=== PATIENT | female | born 1960 | race Caucasian/White ===

== ENCOUNTER 2020-03-18 13:39 | Inpatient (IN) ==
--- NOTE | 2020-03-18 14:05 | Emergency Department Note ---
HPI General Chief complaint: Blood Sugar Problem Stated complaint: altered mental status, low blood sugar Time Seen by Provider: 03/18/20 13:52 Source: patient and EMS Mode of arrival: EMS Limitations: no limitations History of Present Illness HPI Narrative: Narrative: This patient was found unresponsive this morning and EMS found her to have a blood sugar of 45. They gave her an amp of D50 and she aroused and was back to baseline. She is a dialysis patient of Dr. Abrams and has not had dialysis in 3 weeks because she moved to a new house that does not have a wheelchair ramp he cannot get out of the house. She currently feels slightly short of breath and shaky. She does not have a fever. No chest pain abdominal pain no nausea or vomiting Related Data Home Medications Medication Instructions Recorded Confirmed diltiazem HCl 60 mg 60 mg PO BID cap 01/08/20 03/18/20 capsule,extended release 12 hr Previous Rx's Medication Instructions Recorded CPAP supplies, Mask, tubing, filter #1 ea 06/09/17 incontinence pad, liner, disp #200 each 10/20/17 [id number] 3.5 2 drp OTIC QDAY PRN #0.5 ml 04/12/19 mg/mL-10,000 unit/mL-1 % ear solution Diabetic shoes #1 each 06/01/19 Wheelchair #1 ea 06/07/19 aspirin 81 mg chewable tablet See Rx Instructions .ROUTE 07/24/19 .COMPLEX #30 tablet loratadine 10 mg tablet 10 mg PO QDAY PRN #30 tab 09/26/19 losartan 50 mg tablet 50 mg PO QHS #30 tab 10/17/19 glipizide 5 mg tablet, extended See Rx Instructions .ROUTE 10/24/19 release 24 hr .COMPLEX #90 tab tramadol 50 mg tablet See Rx Instructions .ROUTE 10/24/19 .COMPLEX #60 tablet furosemide 80 mg tablet 80 mg PO QAM #30 tab 01/08/20 cinacalcet 30 mg tablet 30 mg PO QDAY #30 tab 01/12/20 Allergies Allergy/AdvReac Type Severity Reaction Status Date / Time animal dander Allergy Intermediate Hives Verified 03/18/20 13:46 gluten Allergy Unknown Unknown Verified 03/18/20 13:46 milk Allergy Unknown Unknown Verified 03/18/20 13:46 Review of Systems ROS ROS Narrative: Narrative: All systems ED: reviewed and negative except as stated. 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 of refraction (Chronic) Age-related nuclear cataract, bilateral (Chronic) Migraine with aura, not intractable, without status migrainosus (Chronic) Ischemic optic neuropathy, right eye (Chronic) Acute foot pain (Acute) Proteinuria (Chronic) Edema (Chronic) Anemia (Chronic) Hyperparathyroidism due to renal insufficiency (Chronic) Hypertensive renal disease (Chronic) Chronic kidney disease, stage IV (severe) (Chronic) Blindness (Chronic) Diabetic neuropathy (Chronic) Diabetic nephropathy (Chronic) Peripheral Vascular Disease (Chronic) Morbid obesity with body mass index of 50.0-59.9 in adult (Chronic) Hypertension, essential (Chronic) Hyperlipidemia (Chronic) Dysmetabolic syndrome X (Chronic) DMII (diabetes mellitus, type 2) (Chronic) CVA (cerebrovascular accident) (Chronic) Medical History (Updated 03/18/20 @ 16:36 by Jose Armando Melissa MD) Acute foot pain (Acute) Age-related nuclear cataract, bilateral (Chronic) Anemia (Chronic) Hb has improved to 10.[address] oral iron no indication for MARYLOU yet Blindness (Chronic) Chronic kidney disease, stage IV (severe) (Chronic) most recent s.creat is 3.4 which equals to egfr of 15ml/min from 3.6 s.creat was 2.7 in 2012 AND I do not see BMP after that MA/creat ratio was 3200mg in 2013, now UPCR is 6.25gm she has h/o uncontrolled DM type 2, morbid obesity, HTN and chronic NSAID use as risk factor for renal disease renal function is stable for now no uremic symptoms Updated about declining renal function all work up has been negative so far will discuss the labs with the pt unclear if we will be able to improve the renal function if does not improve will educate about dialysis given her weight I would recommend incenter HD when and if needed Pt will have to loose weight to reach a BMP of 35 to get on transplant discussed this with her will follow CVA (cerebrovascular accident) (Chronic) Diabetic nephropathy (Chronic) Diabetic neuropathy (Chronic) DMII (diabetes mellitus, type 2) (Chronic) stop metformin given current renal function ct lantus work on weight loss Dysmetabolic syndrome X (Chronic) Edema (Chronic) stable follow low sodium diet will add furosemide in future if needed End-stage renal disease (ESRD) (Chronic) Hyperlipidemia (Chronic) Hyperparathyroidism due to renal insufficiency (Chronic) PTH has improved to 126 from 196, vitamin D still low ct cholecalciferol phos is at goal Hypertension, essential (Chronic) Hypertensive renal disease (Chronic) BP not at goal increase amlodipine to 10mg po daily stop by next week If BP is still uncontrolled will try low dose losartan as this will also help reduce proteinuria and hopefully help stabilize renal function Ischemic optic neuropathy, right eye (Chronic) Migraine with aura, not intractable, without status migrainosus (Chronic) Morbid obesity with body mass index of 50.0-59.9 in adult (Chronic) Other disorders of refraction (Chronic) Peripheral Vascular Disease (Chronic) Proteinuria (Chronic) nephrotic syndrome 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 S/P PICC central line placement (Resolved 05/23/13) Family History Mother Malignant neoplasm of breast Malignant Neoplasm of Thyroid Gland Malignant neoplasm of uterus Unknown Depression Diabetes mellitus Grandmother Essential hypertension Myocardial Infarction Social History Smoking Status: Never smoker Alcohol Intake Frequency: does not drink Substance Use: does not use Exam Narrative Narrative: Narrative: General Limitations: no limitations Head Head: atraumatic, normocephalic and normal inspection Eye Eye: Present normal appearance; Absent conjunctival injection ENT ENT: Present mucous membranes dry Chest Chest: Present normal inspection and symmetric chest wall rise Respiratory Respiratory: Present normal lung sounds bilaterally; Absent respiratory distress, rales/crackles and wheezes Cardiovascular Cardiovascular: Present regular rate, normal rhythm and normal heart sounds Adbominal Abdominal: Present soft and tenderness; Absent distention, guarding, rebound and rigidity Expanded Abdominal Abdominal Tenderness: Present diffuse and mild Extremities Extremities: Present pedal edema, pretibial edema and other (Some erythema of her lower extremities above the ankle but the family member says this is much improved currently.) Neurological Neurological: Present alert Psychiatric Psychiatric: Present normal affect Skin Skin: Present erythema Course Vital Signs Vital signs: Vital Signs Temperature 97.7 F 03/18/20 13:40 Respiratory Rate 20 03/18/20 13:40 Pulse Oximetry (%) 97 03/18/20 13:40 Temperature 97.7 F 03/18/20 13:40 Pulse Rate 88 03/18/20 16:16 Respiratory Rate 23 H 03/18/20 16:16 Blood Pressure 210/88 03/18/20 16:16 Pulse Oximetry (%) 98 03/18/20 16:16 [facility] MDM Narrative Medical decision making narrative: Narrative: This patient's blood sugar remained somewhat low and required supplementation with D5W. She did remain awake. Creatinine was 14.7 but her potassium was not excessively high. I discussed the case with Dr. Retana and Dr. Christie the patient will be admitted to the hospital. They will plan dialysis tomorrow. Medical Records Medical records reviewed: Yes I reviewed the patient's medical records. Lab Data Result diagrams: 03/18/20 13:48 03/18/20 13:48 Labs: Lab Results 03/18/20 03/18/20 03/18/20 Range/Units 13:47 13:47 13:47 WBC 7.8 (4.50-11.00) K/mcL RBC 3.44 L (3.59-5.38) M/mcL Hgb 9.8 L (11.2-15.7) g/dL Hct 32.1 L (34.1-44.9) % POC Hct (36.0-48.0) % MCV 93.3 (80.0-100.0) fL MCH 28.5 (26.0-34.0) pg MCHC 30.5 L (31.0-36.0) g/dL RDW 15.2 H (11.5-14.5) % Plt Count 250 (140-440) K/mcL MPV 10.1 (7.4-10.4) fL Gran % 82.7 H (38.0-78.0) % Lymph % (Auto) 8.7 L (15.5-49.0) % Cecil % (Auto) 6.9 (1.0-12.0) % Eos % (Auto) 1.4 (0.0-7.0) % Baso % (Auto) 0.3 (0.0-2.0) % Gran # 6.45 (1.80-8.00) K/mcL Lymph # (Auto) 0.68 L (1.50-4.80) K/mcL Cecil # (Auto) 0.54 (0.10-0.90) K/mcL Eos # (Auto) 0.11 (0.00-0.70) K/mcL Baso # (Auto) 0.02 (0.00-0.30) K/mcL Total Counted Seg Neutrophils % (38-78) % Band Neutrophils % Lymphocytes % (15-49) % Monocytes % (Manual) (1-12) % Eosinophils % (Manual) (0-7) % Basophils % (Manual) (0-2) % Platelet Estimate (NORMAL) RBC Morphology (NORMAL) VBG Lactic Acid 1.4 (0.5-2.0) mmol/L POC Sodium (133-145) mmol/L Sodium 134 (133-145) mmol/L POC Potassium (3.3-5.1) mmol/L Potassium 5.5 H (3.3-5.1) mmol/L POC Chloride (96-108) mmol/L Chloride 97 (96-108) mmol/L Carbon Dioxide 12 L (22-30) mmol/L POC Total CO2 (22-30) mmol/L Anion Gap 25.0 H (8-16) POC BUN (6-20) mg/dl BUN 121 H* (6-20) mg/dl Creatinine 14.7 H* (0.6-1.1) mg/dl POC Creatinine (0.6-1.1) mg/dl GFR Calculation 2 Glucose 252 H (70-105) mg/dL POC Glucose (70-105) mg/dL Calcium 8.1 L (8.6-10.4) mg/dl POC WB Ioniz Calcium (1.16-1.32) mmol/L Total Bilirubin 0.3 (0.0-1.0) mg/dL AST 6 (0-37) U/l ALT 7 (0-40) U/l Alkaline Phosphatase 180 H (39-117) U/L Troponin T (0-0.03) ng/ml NT-Pro-B Natriuret Pep 4535.0 H (0-125) pg/ml Total Protein 6.5 (5.9-8.4) gm/dL Albumin 3.3 (3.2-5.2) gm/dL Globulin 3.2 (2.2-3.7) gm/dL Albumin/Globulin Ratio 1.0 (1.0-2.3) 03/18/20 03/18/20 03/18/20 Range/Units 13:47 13:48 13:48 WBC 7.7 (4.50-11.00) K/mcL RBC 3.40 L (3.59-5.38) M/mcL Hgb 9.8 L (11.2-15.7) g/dL Hct 31.8 L (34.1-44.9) % POC Hct 31.0 L (36.0-48.0) % MCV 93.5 (80.0-100.0) fL MCH 28.8 (26.0-34.0) pg MCHC 30.8 L (31.0-36.0) g/dL RDW 15.0 H (11.5-14.5) % Plt Count 240 (140-440) K/mcL MPV 10.2 (7.4-10.4) fL Gran % (38.0-78.0) % Lymph % (Auto) (15.5-49.0) % Cecil % (Auto) (1.0-12.0) % Eos % (Auto) (0.0-7.0) % Baso % (Auto) (0.0-2.0) % Gran # (1.80-8.00) K/mcL Lymph # (Auto) (1.50-4.80) K/mcL Cecil # (Auto) (0.10-0.90) K/mcL Eos # (Auto) (0.00-0.70) K/mcL Baso # (Auto) (0.00-0.30) K/mcL Total Counted 100 Seg Neutrophils % 82 H (38-78) % Band Neutrophils % Not Reportable Lymphocytes % 7 L (15-49) % Monocytes % (Manual) 6 (1-12) % Eosinophils % (Manual) 2 (0-7) % Basophils % (Manual) 3 H (0-2) % Platelet Estimate Normal (NORMAL) RBC Morphology Normal (NORMAL) VBG Lactic Acid (0.5-2.0) mmol/L POC Sodium 133 (133-145) mmol/L Sodium TNP (133-145) mmol/L POC Potassium 5.4 H (3.3-5.1) mmol/L Potassium TNP (3.3-5.1) mmol/L POC Chloride 103 (96-108) mmol/L Chloride TNP (96-108) mmol/L Carbon Dioxide TNP (22-30) mmol/L POC Total CO2 15 L (22-30) mmol/L Anion Gap TNP (8-16) POC BUN 135 H* (6-20) mg/dl BUN TNP (6-20) mg/dl Creatinine TNP (0.6-1.1) mg/dl POC Creatinine 17.8 H* (0.6-1.1) mg/dl GFR Calculation Not Reportable Glucose TNP (70-105) mg/dL POC Glucose 235 H (70-105) mg/dL Calcium TNP (8.6-10.4) mg/dl POC WB Ioniz Calcium 1.00 L (1.16-1.32) mmol/L Total Bilirubin TNP (0.0-1.0) mg/dL AST TNP (0-37) U/l ALT TNP (0-40) U/l Alkaline Phosphatase TNP (39-117) U/L Troponin T 0.06 H* (0-0.03) ng/ml NT-Pro-B Natriuret Pep (0-125) pg/ml Total Protein TNP (5.9-8.4) gm/dL Albumin TNP (3.2-5.2) gm/dL Globulin TNP (2.2-3.7) gm/dL Albumin/Globulin Ratio TNP (1.0-2.3) 03/18/20 Range/Units 13:48 WBC (4.50-11.00) K/mcL RBC (3.59-5.38) M/mcL Hgb (11.2-15.7) g/dL Hct (34.1-44.9) % POC Hct (36.0-48.0) % MCV (80.0-100.0) fL MCH (26.0-34.0) pg MCHC (31.0-36.0) g/dL RDW (11.5-14.5) % Plt Count (140-440) K/mcL MPV (7.4-10.4) fL Gran % (38.0-78.0) % Lymph % (Auto) (15.5-49.0) % Cecil % (Auto) (1.0-12.0) % Eos % (Auto) (0.0-7.0) % Baso % (Auto) (0.0-2.0) % Gran # (1.80-8.00) K/mcL Lymph # (Auto) (1.50-4.80) K/mcL Cecil # (Auto) (0.10-0.90) K/mcL Eos # (Auto) (0.00-0.70) K/mcL Baso # (Auto) (0.00-0.30) K/mcL Total Counted Seg Neutrophils % (38-78) % Band Neutrophils % Lymphocytes % (15-49) % Monocytes % (Manual) (1-12) % Eosinophils % (Manual) (0-7) % Basophils % (Manual) (0-2) % Platelet Estimate (NORMAL) RBC Morphology (NORMAL) VBG Lactic Acid 1.4 (0.5-2.0) mmol/L POC Sodium (133-145) mmol/L Sodium (133-145) mmol/L POC Potassium (3.3-5.1) mmol/L Potassium (3.3-5.1) mmol/L POC Chloride (96-108) mmol/L Chloride (96-108) mmol/L Carbon Dioxide (22-30) mmol/L POC Total CO2 (22-30) mmol/L Anion Gap (8-16) POC BUN (6-20) mg/dl BUN (6-20) mg/dl Creatinine (0.6-1.1) mg/dl POC Creatinine (0.6-1.1) mg/dl GFR Calculation Glucose (70-105) mg/dL POC Glucose (70-105) mg/dL Calcium (8.6-10.4) mg/dl POC WB Ioniz Calcium (1.16-1.32) mmol/L Total Bilirubin (0.0-1.0) mg/dL AST (0-37) U/l ALT (0-40) U/l Alkaline Phosphatase (39-117) U/L Troponin T (0-0.03) ng/ml NT-Pro-B Natriuret Pep (0-125) pg/ml Total Protein (5.9-8.4) gm/dL Albumin (3.2-5.2) gm/dL Globulin (2.2-3.7) gm/dL Albumin/Globulin Ratio (1.0-2.3) Radiology Data Radiology results reviewed: Yes I reviewed the patient's radiology results. 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, Hypoglycemia Patient Disposition: Xfer As Inpt ([facility]) Follow up with: Niels Anderson PA-C [Primary Care Provider] - Prescriptions: No Action (DME) Wheelchair Qty: 1 RF: 0 aspirin 81 mg tablet,chewable See Rx Instructions .ROUTE .COMPLEX Qty: 30 RF: 11 loratadine 10 mg tablet 10 mg PO QDAY PRN (Reason: allergy symptoms) Qty: 30 RF: 11 losartan 50 mg tablet 50 mg PO QHS Qty: 30 RF: 11 glipizide 5 mg tablet extended release 24hr See Rx Instructions .ROUTE .COMPLEX Qty: 90 RF: 3 tramadol 50 mg tablet See Rx Instructions .ROUTE .COMPLEX Qty: 60 RF: 5 cinacalcet 30 mg tablet 30 mg PO QDAY Qty: 30 RF: 12 (DME) CPAP supplies, Mask, tubing, filter Qty: 1 RF: 0 (DME) incontinence pad, liner, disp pad See Dose Instructions .ROUTE .MEDSUPPLY Qty: 200 RF: 0 smtjknua-dowsrjybo-GF 3.5-10,000-1 mg/mL-unit/mL-% solution 2 drp OTIC QDAY PRN (Reason: Pain) Qty: 0.5 RF: 0 (DME) Diabetic shoes Qty: 1 RF: 0 diltiazem HCl 60 mg capsule,extended release 12 hr 60 mg PO BID RF: 0 furosemide 80 mg tablet 80 mg PO QAM Qty: 30 RF: 11
[2020-03-18 14:06] LABS: POC Blood Urea Nitrogen 135 mg/dl (6-20); POC CO2 15 mmol/L (22-30); POC Chloride 103 mmol/L (96-108); POC Creatinine 17.8 mg/dl (0.6-1.1); POC Glucose, Random 235 mg/dL (70-105); POC Potassium 5.4 mmol/L (3.3-5.1); POC Sodium 133 mmol/L (133-145)
[2020-03-18 14:35] LABS: Hematocrit 31.8 % (34.1-44.9); Hemoglobin 9.8 g/dL (11.2-15.7); Mean Cell Volume 93.5 fL (80.0-100.0); Mean Corpuscular HGB Conc 30.8 g/dL (31.0-36.0); Mean Platelet Volume 10.2 fL (7.4-10.4); Platelet Count 240 K/mcL (140-440); WBC 7.7 K/mcL (4.50-11.00)
[2020-03-18 14:38] LABS: Basophils # (Auto) 0.02 K/mcL (0.00-0.30); Basophils % (Auto) 0.3 % (0.0-2.0); Eosinophils # (Auto) 0.11 K/mcL (0.00-0.70); Eosinophils % (Auto) 1.4 % (0.0-7.0); Granulocytes % (Auto) 82.7 % (38.0-78.0); Hematocrit 32.1 % (34.1-44.9); Hemoglobin 9.8 g/dL (11.2-15.7); Lymphocytes # (Auto) 0.68 K/mcL (1.50-4.80); Lymphocytes % (Auto) 8.7 % (15.5-49.0); Mean Cell Volume 93.3 fL (80.0-100.0); Mean Corpuscular HGB Conc 30.5 g/dL (31.0-36.0); Mean Platelet Volume 10.1 fL (7.4-10.4); Monocytes # (Auto) 0.54 K/mcL (0.10-0.90); Monocytes % (Auto) 6.9 % (1.0-12.0); Platelet Count 250 K/mcL (140-440); RBC 3.44 M/mcL (3.59-5.38); Red Cell Distribution Width 15.2 % (11.5-14.5); WBC 7.8 K/mcL (4.50-11.00)
[2020-03-18] MEDS ORDERED: DEXTROSE 5% IN WATER 100 ML IV SCH (14:45)
--- NOTE | 2020-03-18 14:53 | XRay Report ---
HISTORY: Found unresponsive FINDINGS: Behind the left heart border there is a vertically oriented linear opacity which could be scar or discoid atelectasis. A small transversely oriented band of scar or discoid atelectasis is present in the periphery of the left upper lobe. These are new finding since 05/22/13. The lungs are otherwise clear without evidence of pneumonia, mass or fluid overload. The heart size is normal. The mediastinum and edward are normal. IMPRESSION: small bands of scar or discoid atelectasis in the left lower lobe and left upper lobe Interpreted and Authenticated by: Edwin Blanco 03/18/20
[2020-03-18] MEDS ORDERED: DEXTROSE 5% IN WATER 1,000 ML IV ONE (15:15)
[2020-03-18 15:18] LABS: ALT/SGPT 7 U/l (0-40); AST/SGOT 6 U/l (0-37); Albumin 3.3 gm/dL (3.2-5.2); Alkaline Phosphatase 180 U/L (39-117); Bilirubin,Total 0.3 mg/dL (0.0-1.0); Blood Urea Nitrogen 121 mg/dl (6-20); Calcium 8.1 mg/dl (8.6-10.4); Carbon Dioxide 12 mmol/L (22-30); Chloride 97 mmol/L (96-108); Globulin 3.2 gm/dL (2.2-3.7); Glomerular Filtration Rate 2; Glucose 252 mg/dL (70-105)
[2020-03-18] MEDS ORDERED: traMADol 50 MG TABLET PO ONE (15:28)
[2020-03-18 15:35] LABS: Basophils % (Manual) 3 % (0-2); Eosinophils % (Manual) 2 % (0-7); Lymphocytes % 7 % (15-49); Monocytes % (Manual) 6 % (1-12); Platelet Estimate NORMAL (NORMAL); RBC Morphology NORMAL (NORMAL); Segmented Neutrophils % 82 % (38-78)
--- NOTE | 2020-03-18 16:46 | Internal Med History&Physical ---
HPI History of Present Illness Patient information: Note initiated : 03/18/20 at 4:41 pm Service Date, if different from initiated Date: [] Patient: Elo Robledo a 60 y/o F admitted on for Altered Mental Status, Low Blood Sugar. Chief Complaint: [] History of present illness: Ms. Robledo is a 60 year old F Presents to the ED with altered mental status and hypoglycemic event. Patient was found by her daughter who is also her caregiver this morning to be obtunded. Daughter states that the patient's also noted that she just remained in bed this morning and typically gets up too early. EMS arrived and found her blood glucose to be 45. She got an amp of D50 with good response. In the ED she was kept on D5 drip given low blood glucose. She has not had dialysis in 3 weeks because she moved into a new home and there is no ramp and they have been unable to get her to dialysis. This was discussed with Dr. Pires her car head liner installer who will be setting up dialysis. She has not taken her medications today. Review of Systems: Pertinent positives as above. Plus chills and headache. denies fever//nausea/vomiting/chest or abdominal pain/cough/dyspnea/diarrhea. Remaining 10 point review of system reviewed negative [facility] Medical History (Updated 03/18/20 @ 16:36 by Jose Armando Melissa MD) Acute foot pain (Acute) Age-related nuclear cataract, bilateral (Chronic) Anemia (Chronic) Hb has improved to 10.[address] oral iron no indication for MARYLOU yet Blindness (Chronic) Chronic kidney disease, stage IV (severe) (Chronic) most recent s.creat is 3.4 which equals to egfr of 15ml/min from 3.6 s.creat was 2.7 in 2012 AND I do not see BMP after that MA/creat ratio was 3200mg in 2013, now UPCR is 6.25gm she has h/o uncontrolled DM type 2, morbid obesity, HTN and chronic NSAID use as risk factor for renal disease renal function is stable for now no uremic symptoms Updated about declining renal function all work up has been negative so far will discuss the labs with the pt unclear if we will be able to improve the renal function if does not improve will educate about dialysis given her weight I would recommend incenter HD when and if needed Pt will have to loose weight to reach a BMP of 35 to get on transplant discussed this with her will follow CVA (cerebrovascular accident) (Chronic) Diabetic nephropathy (Chronic) Diabetic neuropathy (Chronic) DMII (diabetes mellitus, type 2) (Chronic) stop metformin given current renal function ct lantus work on weight loss Dysmetabolic syndrome X (Chronic) Edema (Chronic) stable follow low sodium diet will add furosemide in future if needed End-stage renal disease (ESRD) (Chronic) Hyperlipidemia (Chronic) Hyperparathyroidism due to renal insufficiency (Chronic) PTH has improved to 126 from 196, vitamin D still low ct cholecalciferol phos is at goal Hypertension, essential (Chronic) Hypertensive renal disease (Chronic) BP not at goal increase amlodipine to 10mg po daily stop by next week If BP is still uncontrolled will try low dose losartan as this will also help reduce proteinuria and hopefully help stabilize renal function Ischemic optic neuropathy, right eye (Chronic) Migraine with aura, not intractable, without status migrainosus (Chronic) Morbid obesity with body mass index of 50.0-59.9 in adult (Chronic) Other disorders of refraction (Chronic) Peripheral Vascular Disease (Chronic) Proteinuria (Chronic) nephrotic syndrome 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 S/P PICC central line placement (Resolved 05/23/13) Family History Mother Malignant neoplasm of breast Malignant Neoplasm of Thyroid Gland Malignant neoplasm of uterus Unknown Depression Diabetes mellitus Grandmother Essential hypertension Myocardial Infarction Social History (Updated 03/18/20 @ 16:43 by Ronal Christie DO) household members: spouse housing: house lives independently: Yes marital status: smoking status: Never smoker alcohol intake frequency: does not drink substance use type: does not use additional history: Patient is been wheelchair-bound for several years. And she does need help with transferring. Denies tobacco or alcohol. MEDS/ALLERGIES Home Medications and Allergies Home Medications Medication Instructions Recorded Confirmed Type CPAP supplies, Mask, tubing, filter #1 ea 06/09/17 03/18/20 Rx incontinence pad, liner, disp #200 each 10/20/17 03/18/20 Rx [id number] 3.5 2 drp OTIC QDAY PRN #0.5 ml 04/12/19 03/18/20 Rx mg/mL-10,000 unit/mL-1 % ear solution Diabetic shoes #1 each 06/01/19 03/18/20 Rx Wheelchair #1 ea 06/07/19 03/18/20 Rx aspirin 81 mg chewable tablet See Rx Instructions .ROUTE 07/24/19 03/18/20 Rx .COMPLEX #30 tablet loratadine 10 mg tablet 10 mg PO QDAY PRN #30 tab 09/26/19 03/18/20 Rx losartan 50 mg tablet 50 mg PO QHS #30 tab 10/17/19 03/18/20 Rx glipizide 5 mg tablet, extended See Rx Instructions .ROUTE 10/24/19 03/18/20 Rx release 24 hr .COMPLEX #90 tab tramadol 50 mg tablet See Rx Instructions .ROUTE 10/24/19 03/18/20 Rx .COMPLEX #60 tablet diltiazem HCl 60 mg 60 mg PO BID cap 01/08/20 03/18/20 History capsule,extended release 12 hr furosemide 80 mg tablet 80 mg PO QAM #30 tab 01/08/20 03/18/20 Rx cinacalcet 30 mg tablet 30 mg PO QDAY #30 tab 01/12/20 03/18/20 Rx Allergies Allergy/AdvReac Type Severity Reaction Status Date / Time animal dander Allergy Intermediate Hives Verified 03/18/20 13:46 gluten Allergy Unknown Unknown Verified 03/18/20 13:46 milk Allergy Unknown Unknown Verified 03/18/20 13:46 EXAM Constitutional Vitals: Temp Pulse Resp BP Pulse Ox 97.7 F 88 23 H 210/88 98 03/18/20 13:40 03/18/20 16:16 03/18/20 16:16 03/18/20 16:16 03/18/20 16:16 Exam: General: Alert, Awake, No acute Distress, obese Eyes/N/T: EOMI, PERRL, Head/Neck: neck supple, normocephalic atraumatic CV: RRR, No murmurs, normal s1/s2 Pulm: Clear b/l, no wheezing/rhonchi/rales Abd: soft, nontender, +BS x4 Ext: no clubbing/cyanosis/chronic lymphedema b/l LE Neuro: Alert, no focal deficits, moves all extremities, CN 2-12 grossly intact, symmetrical strength b/l upper/lower, sensations decreased b/l LE chronic Skin: warm/dry DATA Data Completed and Pending Labs on day of discharge: Labs from last 24 hours 03/18/20 03/18/20 03/18/20 13:48 13:48 13:48 WBC 7.7 RBC 3.40 L Hgb 9.8 L Hct 31.8 L POC Hct 31.0 L MCV 93.5 MCH 28.8 MCHC 30.8 L RDW 15.0 H Plt Count 240 MPV 10.2 Gran % Lymph % (Auto) [place] % (Auto) Eos % (Auto) Baso % (Auto) Gran # Lymph # (Auto) [place] # (Auto) Eos # (Auto) Baso # (Auto) Total Counted 100 Seg Neutrophils % 82 H Band Neutrophils % Not Reportable Lymphocytes % 7 L Monocytes % (Manual) 6 Eosinophils % (Manual) 2 Basophils % (Manual) 3 H Platelet Estimate Normal RBC Morphology Normal VBG Lactic Acid 1.4 POC Sodium 133 Sodium TNP POC Potassium 5.4 H Potassium TNP POC Chloride 103 Chloride TNP Carbon Dioxide TNP POC Total CO2 15 L Anion Gap TNP POC BUN 135 H* BUN TNP Creatinine TNP POC Creatinine 17.8 H* GFR Calculation Not Reportable Glucose TNP POC Glucose 235 H Calcium TNP POC WB Ioniz Calcium 1.00 L Total Bilirubin TNP AST TNP ALT TNP Alkaline Phosphatase TNP Troponin T NT-Pro-B Natriuret Pep Total Protein TNP Albumin TNP Globulin TNP Albumin/Globulin Ratio TNP 03/18/20 03/18/20 03/18/20 13:47 13:47 13:47 WBC RBC Hgb Hct POC Hct MCV MCH MCHC RDW Plt Count MPV Gran % Lymph % (Auto) [place] % (Auto) Eos % (Auto) Baso % (Auto) Gran # Lymph # (Auto) [place] # (Auto) Eos # (Auto) Baso # (Auto) Total Counted Seg Neutrophils % Band Neutrophils % Lymphocytes % Monocytes % (Manual) Eosinophils % (Manual) Basophils % (Manual) Platelet Estimate RBC Morphology VBG Lactic Acid 1.4 POC Sodium Sodium 134 POC Potassium Potassium 5.5 H POC Chloride Chloride 97 Carbon Dioxide 12 L POC Total CO2 Anion Gap 25.0 H POC BUN BUN 121 H* Creatinine 14.7 H* POC Creatinine GFR Calculation 2 Glucose 252 H POC Glucose Calcium 8.1 L POC WB Ioniz Calcium Total Bilirubin 0.3 AST 6 ALT 7 Alkaline Phosphatase 180 H Troponin T 0.06 H* NT-Pro-B Natriuret Pep 4535.0 H Total Protein 6.5 Albumin 3.3 Globulin 3.2 Albumin/Globulin Ratio 1.0 03/18/20 13:47 WBC 7.8 RBC 3.44 L Hgb 9.8 L Hct 32.1 L POC Hct MCV 93.3 MCH 28.5 MCHC 30.5 L RDW 15.2 H Plt Count 250 MPV 10.1 Gran % 82.7 H Lymph % (Auto) 8.7 L [place] % (Auto) 6.9 Eos % (Auto) 1.4 Baso % (Auto) 0.3 Gran # 6.45 Lymph # (Auto) 0.68 L [place] # (Auto) 0.54 Eos # (Auto) 0.11 Baso # (Auto) 0.02 Total Counted Seg Neutrophils % Band Neutrophils % Lymphocytes % Monocytes % (Manual) Eosinophils % (Manual) Basophils % (Manual) Platelet Estimate RBC Morphology VBG Lactic Acid POC Sodium Sodium POC Potassium Potassium POC Chloride Chloride Carbon Dioxide POC Total CO2 Anion Gap POC BUN BUN Creatinine POC Creatinine GFR Calculation Glucose POC Glucose Calcium POC WB Ioniz Calcium Total Bilirubin AST ALT Alkaline Phosphatase Troponin T NT-Pro-B Natriuret Pep Total Protein Albumin Globulin Albumin/Globulin Ratio A/P Narrative A/P Narrative: A: *Hypoglycemia with obtundation: responsive to inital d50 bolus, currently on d5 gtt *DM II: on glipizide, no change recently and pt does not report h/o hypoglycemia *ESRD: has not had HD for 3wks since moving to [facility] w/o wheelchair ramp to get out of house *Anemia, chronic: *HTN: *Obesity: *CAT: on cpap P: -d5 gtt for now -Glipizide held for now -Nephrology for HD -cont home ASA/Dilt/Losartan - -ppx: heparin full code Time Spent With Patient Time: Total time spent is greater than 50% in coordination of care (as documented) at patient's floor/unit and/or counseling patient:
--- NOTE | 2020-03-18 17:04 | Nephrology Progress Note ---
SUBJECTIVE Subjective Patient information: Note initiated : 03/18/20 at 5:04 pm Service Date, if different from initiated Date: [] Patient: Elo Robledo 60 y/o F admitted on for Altered Mental Status, Low Blood Sugar. Chief Complaint: [As above] This patient has been battling depression for quite some time, with the rules and regulations placed on her during the id-19 "pandemic", her depression has only worsened and she finds it impossible to wear a mask without anxiety feeling like she self. Add on top of that the support system that she has has moved away back to their home in [place] leaving her with a grandson, who occasionally helps with transportation issues. Continues to live in a rundown hotel where she contracted bedbugs and because of her depression other neuropsychiatric issues she refused to come to dialysis except once a week on Tuesdays saying more frequent dialysis treatments made her feel "wiped out" for the rest of the month. She did this with the full knowledge that the events that have transpired would occur, yet she could not bring herself to make her self DNR and stop dialysis completely. She moved to her new [facility] house there is some brightening of her mood and she was actually thinking about dialyzing twice a week. Information gleaned from the ER knowledge she apparently has no way of easily getting in and out of her new home at even less dialysis than normal and became obtunded with hypoglycemia. Laboratory Tests 12/19/19 12/19/19 03/18/20 10:00 10:00 13:47 WBC 6.26 Hgb 8.1 L* Hct 25.4 L MCV 95 Plt Count 210 Seg Neutrophils % VBG Lactic Acid POC Sodium Sodium 138 POC Potassium Potassium 4.6 POC Chloride Chloride 99 Carbon Dioxide 23 POC Total CO2 Anion Gap 16 POC BUN BUN 86 H Creatinine 10.52 H Glucose 32 L* POC Glucose Calcium 8.3 L POC WB Ioniz Calcium Total Bilirubin 0.4 AST 9 L ALT 9 Alkaline Phosphatase 174 H Troponin T NT-Pro-B Natriuret Pep 4535.0 H Total Protein 6.5 Albumin 3.8 Globulin 2.7 03/18/20 03/18/20 03/18/20 13:47 13:48 13:48 WBC 7.7 Hgb 9.8 L Hct 31.8 L MCV 93.5 Plt Count 240 Seg Neutrophils % 82 H VBG Lactic Acid 1.4 POC Sodium 133 Sodium POC Potassium 5.4 H Potassium POC Chloride 103 Chloride Carbon Dioxide POC Total CO2 15 L Anion Gap POC BUN 135 H* BUN Creatinine Glucose POC Glucose 235 H Calcium POC WB Ioniz Calcium 1.00 L Total Bilirubin AST ALT Alkaline Phosphatase Troponin T 0.06 H* NT-Pro-B Natriuret Pep Total Protein Albumin Globulin In my opinion there are but 2 choices for this patient. She should accept her fate and be placed in a skilled nursing with 3 times a week dialysis or stop dialysis entirely with hospice and end of life care. This is a combination of a bad social, psychological, and medical problem for which there is no good solution. Even if the wheelchair ramp is made at her home, she cannot survive on once a week or even twice a week dialysis she needs a full 12 hours a week minimum specially given her BMI to remain nonuremic. Addition there is a matter of reliable transportation for this patient without a support system. Constitutional Vitals: Vital Signs Temp Pulse Resp BP Pulse Ox 36.5 C 88 15 201/82 97 03/18/20 13:40 03/18/20 16:46 03/18/20 16:46 03/18/20 16:46 03/18/20 16:46 Period Temp Pulse Resp BP Sys/Clark Pulse Ox Last 24 Hr 36.5 C 88-94 9-23 167-210/77-102 92-100 Intake and Output 03/18/20 03/18/20 03/18/20 05:59 13:59 21:59 Intake Total 398 Balance 398 Weight 160.572 kg Patient Weight 03/19/20 05:59 Weight 160.572 kg Intake & Output: Intake & Output 03/18/20 03/18/20 03/18/20 05:59 13:59 21:59 Intake Total 398 Balance 398 Weight 160.572 kg Intake: IV 398 Dextrose 5% in Water 1,000 ml @ 398 100 mls/hr IV .Q10H ONE Rx#: [id number] General appearance: disheveled, moderate distress and morbidly obese Exam: myoclonic twitching Head Head exam: Present atraumatic and normocephalic Eye Eye exam: Present EOMI and PERRL Pupils: Present PERRL ENT ENT exam: Present mucous membranes moist Neck Neck exam: Present full ROM; Absent meningismus Respiratory Respiratory exam: Absent normal respiratory exam Cardiovascular Cardiovascular exam: Present normal rate and rhythm, +S1 and +S2; Absent gallop and rubs GI/Abdominal GI/Abdominal exam: Present normal bowel sounds; Absent tenderness Extremities Exam Extremities exam: Absent calf tenderness Additional comments: edema and lymphedema Neurological Exam Neurological exam: Present abnormal gait (cannot ambulate), alert and CN II-XII intact Additional comments: myoclonic shaking Psychiatric Psychiatric exam: Present anxious Skin Skin exam: Present abrasion and pallor A/P Assessment and plan (1) Hypoglycemia: Status: Acute Comment: Prolonged T1/2 of Rx Poor po intak (2) Morbid obesity with body mass index of 50.0-59.9 in adult: Status: Acute Comment: No insurance to pay for bariatric surgery (3) 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 She has had high risk for dialysis disequilibrium syndrome, therefore we will do 3 days running of dialysis to 3 and 4-hour duration to slowly lower her BUN without disequilibrium. 2. We will need revamping of diabetes medication and treatment using the simplest and least expensive regimen possible. 3. Seems agreeable to 3 times a week dialysis but has no way of getting there so placement will be an issue. 4. Continue weekly Aranesp injections 5. Continue phosphate binders with, calcitriol, and Parsabiv or Sensipar. 6. Isolation for bedbugs. 7. Dialysis orders for tomorrow have been written. Time Spent With Patient Time: Total time spent is greater than 50% in coordination of care (as froilan fleming) at patient's floor/unit and/or counseling patient:
[2020-03-18] MEDS ORDERED: DEXTROSE 31 GM ORAL.SUSP PO PRN (17:51)
[2020-03-18] MEDS ORDERED: ONDANSETRON 4 MG/2 ML VIAL IV PRN (17:51)
[2020-03-18] MEDS ORDERED: ACETAMINOPHEN 325 MG TABLET PO PRN (17:51)
[2020-03-18] MEDS ORDERED: hydrALAZINE 20 MG/ML VIAL IV PRN (17:51)
[2020-03-18] MEDS ORDERED: SENNOSIDES 1 TABLET PO PRN (17:51)
[2020-03-18] MEDS: DEXTROSE 5% IN WATER 1,000 ML IV SCH ×2 (17:56→18:47)
[2020-03-18] MEDS: INSULIN LISPRO 1 UNIT/0.01 ML UNIT SQ SCH ×2 (18:13→20:53)
[2020-03-18] MEDS ORDERED: IPRATROPIUM/ALBUTEROL 3 ML AMPUL.NEB NEB SCH (19:00)
[2020-03-18] MEDS: traMADol 50 MG TABLET PO PRN (20:52)
[2020-03-18] MEDS: DILTIAZEM 30 MG TABLET PO SCH (20:53)
[2020-03-18] MEDS: DOCUSATE SODIUM 100 MG CAPSULE PO SCH (20:53)
[2020-03-18] MEDS: HEPARIN 5,000 UNIT/ML VIAL SQ SCH (20:53)
[2020-03-18 20:57] LABS: Appearance,Urine CLOUDY; Bacteria,Urine MANY /hpf (0); Bilirubin,Urine NEG (NEG); Color,Urine YELLOW; Culture Indicated,Urine NO; Glucose,Urine (UA) NEGATIVE (NEG); Ketones,Urine NEG (NEG); Leukocyte Esterase,Urine 75 /uL (NEG); Nitrate,Urine NEG (NEG); Protein,Urine >=500 mg/dL (NEG); Specific Gravity,Urine 1.015 (1.000-1.035); Urine Blood 0.2 mg/dL (<0.03); Urine RBC 163 /hpf (0-1); Urine Squamous Epithelial Cell 14 /hpf (0-4); Urine WBC > 182 /hpf (0-4); Urobilinogen,Urine NEG (NEG)
[2020-03-18] MEDS ORDERED: IPRATROPIUM/ALBUTEROL 3 ML AMPUL.NEB NEB PRN (20:58)
[2020-03-18] MEDS ORDERED: LOSARTAN 50 MG TABLET PO SCH (21:00)
[2020-03-18] MEDS: 0.9 % SODIUM CHLORIDE 10 ML SYRINGE IV SCH (21:56)
[2020-03-19] MEDS: DEXTROSE 50% 50 ML VIAL IV PRN ×2 (03:03→05:58)
[2020-03-19] MEDS: DEXTROSE 5% IN WATER 1,000 ML IV SCH ×2 (04:49→14:46)
[2020-03-19] MEDS: 0.9 % SODIUM CHLORIDE 10 ML SYRINGE IV SCH ×3 (04:50→22:31)
[2020-03-19 06:48] LABS: Basophils # (Auto) 0.02 K/mcL (0.00-0.30); Basophils % (Auto) 0.3 % (0.0-2.0); Eosinophils # (Auto) 0.21 K/mcL (0.00-0.70); Eosinophils % (Auto) 2.8 % (0.0-7.0); Granulocytes % (Auto) 70.7 % (38.0-78.0); Hematocrit 32.6 % (34.1-44.9); Hemoglobin 9.2 g/dL (11.2-15.7); Lymphocytes # (Auto) 0.96 K/mcL (1.50-4.80); Mean Cell Volume 100.3 fL (80.0-100.0); Mean Corpuscular HGB Conc 28.2 g/dL (31.0-36.0); Mean Platelet Volume 10.1 fL (7.4-10.4); Monocytes # (Auto) 0.97 K/mcL (0.10-0.90); Monocytes % (Auto) 13.2 % (1.0-12.0); Platelet Count 220 K/mcL (140-440); RBC 3.25 M/mcL (3.59-5.38); Red Cell Distribution Width 15.8 % (11.5-14.5); WBC 7.4 K/mcL (4.50-11.00)
--- NOTE | 2020-03-19 07:23 | Internal Med Progress Note ---
SUBJECTIVE Subjective Patient information: Note initiated : 03/19/20 at 7:20 am Service Date, if different from initiated Date: [] Patient: Elo Robledo a 60 y/o F admitted on 03/18/20 for Altered Mental Status, Low Blood Sugar. Chief Complaint: [] Interval history: History of present illness: Ms. Robledo is a 60 year old F Presents to the ED with altered mental status and hypoglycemic event. Patient was found by her daughter who is also her caregiver this morning to be obtunded. Daughter states that the patient's also noted that she just remained in bed this morning and typically gets up too early. EMS arrived and found her blood glucose to be 45. She got an amp of D50 with good response. In the ED she was kept on D5 drip given low blood glucose. She has not had dialysis in 3 weeks because she moved into a new home and there is no ramp and they have been unable to get her to dialysis. This was discussed with Dr. Retana her rectangular tank cooper who will be setting up dialysis. She has not taken her medications today. 03/19 Poor sleep. Patient has chronic low back pain. Chills but otherwise no complaint. D5 drip. Review of Systems: denies headache/fever/chills/nausea/vomiting/chest or abdominal pain/cough/dyspnea/diarrhea. Otherwise see above. Constitutional Vitals: Vital Signs Temp Pulse Resp BP Pulse Ox 98.0 F 89 16 170/74 99 03/18/20 23:03 03/19/20 04:08 03/19/20 04:08 03/19/20 04:00 03/19/20 04:08 Period Temp Pulse Resp BP Sys/Clark Pulse Ox Last 24 Hr 97.7 F-98.1 F 85-98 9-29 138-210/48-102 88-100 Intake and Output 03/18/20 03/19/20 03/19/20 21:59 05:59 13:59 Intake Total 478 1480 Output Total 250 150 Balance 228 1330 Weight 157.17 kg Intake & Output: Intake & Output 03/18/20 03/19/20 03/19/20 21:59 05:59 13:59 Intake Total 478 1480 Output Total 250 150 Balance 228 1330 Weight 157.17 kg Intake: IV 478 1000 Dextrose 5% in Water 1,000 ml @ 478 1000 100 mls/hr IV .Q10H [facility] Rx#: [id number] Oral 480 Output: Void Amount 250 150 Other: Meal Tuna cup Percent of Meal Consumed 100% Nourishment/Supplement name Applejuice Urine Appearance Cloudy Urine Color Dark Yellow Exam: General: Alert, Awake, No acute Distress, obese Eyes/N/T: EOMI,, Head/Neck: neck supple, CV: RRR, No murmurs, Pulm: Clear b/l, no wheezing/rhonchi/rales Abd: soft, nontender, +BS x4 Ext: no clubbing/cyanosis/chronic lymphedema b/l LE Neuro: Alert, no focal deficits, moves all extremities, Skin: warm/dry OBJ DATA Labs CBC & Chem 7: 03/19/20 04:20 03/19/20 04:20 Labs: Abnormal Lab Results 03/19/20 03/19/20 03/18/20 04:20 04:20 19:56 RBC 3.25 L Hgb 9.2 L Hct 32.6 L POC Hct MCV 100.3 H MCHC 28.2 L RDW 15.8 H Gran % Lymph % (Auto) 13.0 L [place] % (Auto) 13.2 H Lymph # (Auto) 0.96 L [place] # (Auto) 0.97 H Seg Neutrophils % Lymphocytes % Basophils % (Manual) POC Potassium Potassium Carbon Dioxide POC Total CO2 Anion Gap POC BUN BUN Creatinine POC Creatinine Glucose POC Glucose Calcium POC WB Ioniz Calcium Alkaline Phosphatase Troponin T NT-Pro-B Natriuret Pep PTH Intact 2051.0 H Urine Protein >=500 A Urine Occult Blood 0.2 A Ur Leukocyte Esterase 75 A Urine RBC 163 H Urine WBC > 182 H Ur Squamous Epith Cells 14 H Urine Bacteria Many A 03/18/20 03/18/20 03/18/20 13:48 13:48 13:47 RBC 3.40 L Hgb 9.8 L Hct 31.8 L POC Hct 31.0 L MCV MCHC 30.8 L RDW 15.0 H Gran % Lymph % (Auto) [place] % (Auto) Lymph # (Auto) [place] # (Auto) Seg Neutrophils % 82 H Lymphocytes % 7 L Basophils % (Manual) 3 H POC Potassium 5.4 H Potassium Carbon Dioxide POC Total CO2 15 L Anion Gap POC BUN 135 H* BUN Creatinine POC Creatinine 17.8 H* Glucose POC Glucose 235 H Calcium POC WB Ioniz Calcium 1.00 L Alkaline Phosphatase Troponin T 0.06 H* NT-Pro-B Natriuret Pep PTH Intact Urine Protein Urine Occult Blood Ur Leukocyte Esterase Urine RBC Urine WBC Ur Squamous Epith Cells Urine Bacteria 03/18/20 03/18/20 13:47 13:47 RBC 3.44 L Hgb 9.8 L Hct 32.1 L POC Hct MCV MCHC 30.5 L RDW 15.2 H Gran % 82.7 H Lymph % (Auto) 8.7 L [place] % (Auto) Lymph # (Auto) 0.68 L [place] # (Auto) Seg Neutrophils % Lymphocytes % Basophils % (Manual) POC Potassium Potassium 5.5 H Carbon Dioxide 12 L POC Total CO2 Anion Gap 25.0 H POC BUN BUN 121 H* Creatinine 14.7 H* POC Creatinine Glucose 252 H POC Glucose Calcium 8.1 L POC WB Ioniz Calcium Alkaline Phosphatase 180 H Troponin T NT-Pro-B Natriuret Pep 4535.0 H PTH Intact Urine Protein Urine Occult Blood Ur Leukocyte Esterase Urine RBC Urine WBC Ur Squamous Epith Cells Urine Bacteria Meds: Medications Acetaminophen (Tylenol) 650 mg PO Q6HP PRN; Protocol PRN Reason: Per Pain Protocol/Fever > 101 Aspirin (Aspirin) 0 mg PO DAILY [facility] Calcitriol (Rocaltrol) 1 mcg PO TuThSa@0900 [facility] Calcium Acetate (Phoslo) 1,334 mg PO TIDCC [facility] Cinacalcet (Sensipar) 30 mg PO QDAY [facility] Dextrose (Dextrose 50%) 0 ml IV UD PRN PRN Reason: Hypoglycemia Last Admin: 03/19/20 05:58 Dose: 50 ml Documented by: Diagnostic Test (Pha) (Accu-Chek) 1 each FS ACHS [facility] Last Admin: 03/19/20 06:40 Dose: 1 each Documented by: Diltiazem HCl (Cardizem) 60 mg PO BID [facility] Last Admin: 03/18/20 20:53 Dose: 60 mg Documented by: Docusate Sodium (Colace) 100 mg PO BID [facility] Last Admin: 03/18/20 20:53 Dose: Not Given Documented by: Glucose (Insta-Glucose) 15 gm PO PRN PRN PRN Reason: Hypoglycemia Heparin Sodium (Porcine) (Heparin) 5,000 unit SQ Q12 [facility] Last Admin: 03/18/20 20:53 Dose: 5,000 unit Documented by: Hydralazine HCl (Apresoline) 0 mg IV Q2HP PRN PRN Reason: Hypertension Last Admin: 03/18/20 18:43 Dose: 20 mg Documented by: Dextrose (Dextrose 5% In Water) 1,000 mls @ 100 mls/hr IV .Q10H [facility] Last Admin: 03/19/20 04:49 Dose: 100 mls/hr Documented by: Insulin Human Lispro (Humalog) 0 unit SQ ACHS [facility]; Protocol Last Admin: 03/18/20 20:53 Dose: Not Given Documented by: Losartan Potassium (Cozaar) 50 mg PO QHS [facility] Last Admin: 03/18/20 20:53 Dose: 50 mg Documented by: Ondansetron HCl (Zofran) 4 mg IV Q4HP PRN; Protocol PRN Reason: Nausea And Vomiting Senna (Senokot) 2 tab PO HSP PRN PRN Reason: Constipation Sodium Chloride (Saline Flush) 10 ml IV Q8 [facility] Last Admin: 03/19/20 04:50 Dose: Not Given Documented by: Tramadol HCl (Ultram) 50 mg PO BIDP PRN PRN Reason: Pain Last Admin: 03/18/20 20:52 Dose: 50 mg Documented by: A/P Narrative A/P Narrative: A: *Hypoglycemia with obtundation: responsive to inital d50 bolus, currently on d5 gtt *DM II: on glipizide, no change recently and pt does not report h/o hypoglycemia *ESRD: has not had HD for 3wks since moving to [facility] w/o wheelchair ramp to get out of house -pt noncompliant with HD *Anemia, chronic: *HTN: *Obesity: *CAT: on cpap P: -D5w gtt, wean off -Glipizide held for now, check A1c -Nephrology for HD -cont home ASA/Dilt/Losartan -home cpap -ppx: heparin full code Time Spent With Patient Time: Total time spent is greater than 50% in coordination of care (as documented) at patient's floor/unit and/or counseling patient: QUALITY Stroke Symptom Onset Unknown: No VTE Deep Vein Thrombosis/Pulmonary Embolism Present on Admission: No
[2020-03-19 07:24] LABS: Bilirubin,Direct < 0.2 mg/dL (0.0-0.3); Chloride 101 mmol/L (96-108)
[2020-03-19 07:59] LABS: ALT/SGPT < 5 U/l (0-40); AST/SGOT 7 U/l (0-37); Albumin 3.2 gm/dL (3.2-5.2); Alkaline Phosphatase 179 U/L (39-117); Bilirubin,Total 0.3 mg/dL (0.0-1.0); Blood Urea Nitrogen 129 mg/dl (6-20); Calcium 8.6 mg/dl (8.6-10.4); Carbon Dioxide 13 mmol/L (22-30); Globulin 3.1 gm/dL (2.2-3.7); Glomerular Filtration Rate 2; Glucose 32 mg/dL (70-105); Lactate Dehydrogenase 224 U/L (94-250); Phosphorous 7.1 mg/dL (2.7-4.5); Triglycerides 36 mg/dl (<150); Uric Acid 9.9 mg/dL (2.5-8.0)
[2020-03-19] MEDS: INSULIN LISPRO 1 UNIT/0.01 ML UNIT SQ SCH ×7 (08:23→23:00)
[2020-03-19] MEDS: CALCIUM ACETATE 667 MG CAPSULE PO SCH ×2 (08:57→13:59)
[2020-03-19] MEDS: DILTIAZEM 30 MG TABLET PO SCH ×2 (08:57→21:10)
[2020-03-19] MEDS: HEPARIN 5,000 UNIT/ML VIAL SQ SCH ×2 (08:57→22:30)
[2020-03-19] MEDS: DOCUSATE SODIUM 100 MG CAPSULE PO SCH ×2 (08:57→21:11)
[2020-03-19] MEDS ORDERED: ASPIRIN 81 MG TAB.CHEW PO SCH (09:00)
[2020-03-19] MEDS ORDERED: CINACALCET 30 MG TABLET PO SCH (09:00)
[2020-03-19] MEDS ORDERED: FUROSEMIDE 80 MG TABLET PO SCH (09:00)
[2020-03-19] MEDS ORDERED: CALCITRIOL 0.5 MCG CAPSULE PO SCH (09:00)
[2020-03-19] MEDS ORDERED: HYDROcodone/APAP 5/325MG TABLET PO PRN ×2 (09:02→17:53)
[2020-03-19] MEDS: traMADol 50 MG TABLET PO PRN (09:04)
[2020-03-19 10:14] LABS: Hemoglobin A1C 4.9 % HGB (4.0-6.0)
--- NOTE | 2020-03-19 12:49 | Nephrology Progress Note ---
SUBJECTIVE Subjective Patient information: Note initiated : 03/19/20 at 12:38 pm Service Date, if different from initiated Date: [] Patient: Elo Robledo 60 y/o F admitted on 03/18/20 for Altered Mental Status, Low Blood Sugar. Chief Complaint: [low blood sugar] Patient with psychosocial issues and underdialyzed presented with hypoglycemia. If she wishes to continue to live, she must move to a NH as she is not able to ambulate, has no consistent person to bring he back a forth to dialysis, has failed her attempt at 1x per week HD and cannot live by herself as outlined by her past 3 month downhill course. Depression and limited or nonexistent family support are the issues. Constitutional Vitals: Vital Signs Temp Pulse Resp BP Pulse Ox 36.3 C 92 H 20 96/50 97 03/19/20 12:04 03/19/20 12:04 03/19/20 11:36 03/19/20 12:04 03/19/20 11:36 Period Temp Pulse Resp BP Sys/Clark Pulse Ox Last 24 Hr 36.2 C-36.7 C 84-99 9-29 77-210/46-102 88-100 Intake and Output 03/18/20 03/19/20 03/19/20 21:59 05:59 13:59 Intake Total 478 1480 360 Output Total 250 150 100 Balance 228 1330 260 Weight 157.17 kg Intake & Output: Intake & Output 03/18/20 03/19/20 03/19/20 21:59 05:59 13:59 Intake Total 478 1480 360 Output Total 250 150 100 Balance 228 1330 260 Weight 157.17 kg Intake: IV 478 1000 Dextrose 5% in Water 1,000 ml @ 478 1000 100 mls/hr IV .Q10H [facility] Rx#: [id number] Oral 480 360 Output: Void Amount 250 150 100 Other: Meal Tuna cup Breakfast Percent of Meal Consumed 100% 100% Nourishment/Supplement name Applejuice Urine Appearance Cloudy Cloudy Urine Color Dark Yellow Dark Rolanda Urine Odor Normal General appearance: disheveled, moderate distress and morbidly obese. SOB with dyspnea and tachypnea Exam: myoclonic twitching Head Head exam: Present atraumatic and normocephalic Eye Eye exam: Present EOMI and PERRL Pupils: Present PERRL ENT ENT exam: Present mucous membranes moist Neck Neck exam: Present full ROM; Absent meningismus Respiratory Respiratory exam: Absent normal respiratory exam Cardiovascular Cardiovascular exam: Present normal rate and rhythm, +S1 and +S2; Absent gallop and rubs GI/Abdominal GI/Abdominal exam: Present normal bowel sounds; Absent tenderness Extremities Exam Extremities exam: Absent calf tenderness Additional comments: edema and lymphedema Neurological Exam Neurological exam: Present abnormal gait (cannot ambulate), alert and CN II-XII intact Additional comments: myoclonic shaking Psychiatric Psychiatric exam: Present anxious Skin Skin exam: Present abrasion and pallor A/P Narrative A/P Narrative: Assessment and plan (1) Hypoglycemia: (2) Morbid obesity with body mass index of 50.0-59.9 in adult: (3) 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 She has had high risk for dialysis disequilibrium syndrome, therefore we will do 3 days running of dialysis to 3 and 4-hour duration to slowly lower her BUN without disequilibrium. 2. We will need revamping of diabetes medication and treatment using the simplest and least expensive regimen possible. 3. Seems agreeable to 3 times a week dialysis but has no way of getting there so placement will be an issue. 4. Continue weekly Aranesp injections 5. Continue phosphate binders with, calcitriol, and Parsabiv or Sensipar. 6. Isolation for bedbugs. 7. Dialysis orders for tomorrow have been written. Time Spent With Patient Time: Total time spent is greater than 50% in coordination of care (as documented) at patient's floor/unit and/or counseling patient:
--- NOTE | 2020-03-19 13:10 | Nephrology Procedure Note ---
Procedure Note Patient information: Note initiated : 03/19/20 at 1:05 pm Service Date, if different from initiated Date: [03/19/2020] Patient: Elo Robledo 60 y/o F admitted on 03/18/20 for Altered Mental Status, Low Blood Sugar. Chief Complaint: [hypoglycemia] Seen before dialysis. Was SOB with O2 sat 89-90% with tachypnea on R/A Tolerated 2 hour acute HD treatment with transient hypotension which responded to decreased U/F goal from 4 to 2.6 liters. BP at end of Tx 120/70 Still dyspnea, tachypnea and SOB with chronic edema/lymphedema. Morbid obesity and depression/anxiety and poor social situation all impacting her care and morbidity. Needs placement and reliable transportation to and from dialysis and a safe l iving environment.
[2020-03-19] MEDS ORDERED: LORazepam 2 MG/ML VIAL IV ONE (17:00)
[2020-03-19] MEDS ORDERED: LORazepam 2 MG/ML VIAL ONE (17:03)
[2020-03-19] MEDS ORDERED: CALCIUM ACETATE 667 MG CAPSULE PO SCH (17:30)
--- NOTE | 2020-03-19 17:33 | Event Note ---
Event Note Event Note: CODE BLUE note: As nurse was passing by patient's room she noted noise coming from her room and when she looked towards the patient she noted that patient to be convulsing, subsequently noted some foaming and some blood from the mouth. Patient was responsive and unable to palpate pulses. CPR started several minutes of epinephrine were given. She was also given Ativan IV 2 mg. Return of spontaneous circulation was achieved. No history of seizures. Blood glucose was within normal limits. Patient has been in metabolic disturbance secondary to noncompliance with hemodialysis. Did receive a hemodialysis session this morning. CODE BLUE labs pending. ABG with good oxygenation but with acidosis 2/2 lactic acidosis from event. EKG unremarkable. Transferred to ICU. Discussed with family. Patient likely bit tongue during event leading to bleeding. She is currently intubated for airway protection.
--- NOTE | 2020-03-19 17:34 | XRay Report ---
HISTORY: Cardiopulmonary arrest and intubated FINDINGS: Endotracheal tube has been inserted. The tip is at the head of the clavicles, 7 cm above the vladimir. There is no pneumothorax. There are severe widespread alveolar opacities in both lungs, right greater than left. This is probably due to pulmonary edema. Patient is rotated to the left in the heart size is difficult to evaluate. There are multiple overlying wires and patches on the chest wall. IMPRESSION: Pulmonary edema Interpreted and Authenticated by: Edwin Blanco 03/19/20
--- NOTE | 2020-03-19 17:35 | Procedure Note ---
Procedures - Intubation Time out performed: No (code blue) Date of Procedure: 03/19/20 Sedative: other (Ativan) Mg given: 2 Paralytic: Rocuronium ETT: ETCO2, BBS Mg given: 100 Laryngoscope: 2 Vocal Cord View: 1 ET tube size: 7 ET tube uncuffed: No Tube secured depth (cm): 24 Tube secured location: lips Tube placement confirmation: visualized tube passing through cords, equal breath sounds bilaterally, no breath sounds over epigastrium # of Attempts: 2 (pt not relaxed with spont resp initially) Patient tolerated procedure: well, no complications Additional comments: overhead code blue on arrival pt mask ventilation per rt, pt pink with effective compressions ongoing bloody airway, active bruxism with spont resp aborted JOSHUA attempt, palp pulse extremely difficult due to pt habitus indication of ongoing sz activity with facial rhythmic twitching, medicated with ativan for this then pt required airway to be secured, relaxed attempt X 1 successfully. ROSC
[2020-03-19 17:45] LABS: Basophils # (Auto) 0.06 K/mcL (0.00-0.30); Basophils % (Auto) 0.4 % (0.0-2.0); Eosinophils # (Auto) 0.31 K/mcL (0.00-0.70); Eosinophils % (Auto) 1.9 % (0.0-7.0); Granulocytes % (Auto) 53.2 % (38.0-78.0); Hematocrit 35.1 % (34.1-44.9); Hemoglobin 10.6 g/dL (11.2-15.7); Lymphocytes # (Auto) 5.09 K/mcL (1.50-4.80); Lymphocytes % (Auto) 31.2 % (15.5-49.0); Mean Cell Volume 95.1 fL (80.0-100.0); Mean Corpuscular HGB Conc 30.2 g/dL (31.0-36.0); Mean Platelet Volume 9.7 fL (7.4-10.4); Monocytes # (Auto) 2.16 K/mcL (0.10-0.90); Monocytes % (Auto) 13.3 % (1.0-12.0); Platelet Count 313 K/mcL (140-440); RBC 3.69 M/mcL (3.59-5.38); Red Cell Distribution Width 15.4 % (11.5-14.5); WBC 16.3 K/mcL (4.50-11.00)
[2020-03-19] MEDS ORDERED: LORazepam 2 MG/ML VIAL IV PRN (17:53)
[2020-03-19] MEDS ORDERED: levETIRAcetam 750 MG in 0.9 % SODIUM CHLORIDE 100 ML IV ONE (17:53)
[2020-03-19] MEDS ORDERED: ACETAMINOPHEN 325 MG TABLET PO PRN (17:53)
[2020-03-19] MEDS ORDERED: DEXTROSE 50% 50 ML VIAL IV PRN ×2 (17:53→20:03)
[2020-03-19] MEDS ORDERED: SENNOSIDES 1 TABLET PO PRN (17:53)
[2020-03-19] MEDS ORDERED: DEXTROSE 31 GM ORAL.SUSP PO PRN ×2 (17:53→20:03)
[2020-03-19] MEDS ORDERED: traMADol 50 MG TABLET PO PRN (17:53)
[2020-03-19] MEDS ORDERED: DEXTROSE 5% IN WATER 1,000 ML IV SCH (17:53)
[2020-03-19] MEDS ORDERED: DEXTROSE 5%-NS 1,000 ML IV SCH (18:00)
--- NOTE | 2020-03-19 18:15 | XRay Report ---
HISTORY: Cardiopulmonary arrest, repositioned endotracheal tube FINDINGS: The endotracheal tube has been advanced and is now 3.5 cm above the vladimir. There is no widening of the mediastinum or pneumothorax. There is pulmonary edema which has improved compared with earlier study done at 1708. Heart is mildly enlarged. There may be a small left-sided pleural effusion. IMPRESSION: Well-positioned endotracheal tube. Improved pulmonary edema Nursing was called with the results Interpreted and Authenticated by: Edwin Blanco 03/19/20
[2020-03-19] MEDS: LORazepam 50 MG in DEXTROSE 5% IN WATER 75 ML IV SCH (18:19)
[2020-03-19 18:21] LABS: ALT/SGPT 19 U/l (0-40); AST/SGOT 18 U/l (0-37); Albumin 3.7 gm/dL (3.2-5.2); Albumin/Globulin Ratio 1.1 (1.0-2.3); Alkaline Phosphatase 209 U/L (39-117); Bilirubin,Direct < 0.2 mg/dL (0.0-0.3); Bilirubin,Total 0.3 mg/dL (0.0-1.0); Calcium 8.8 mg/dl (8.6-10.4); Carbon Dioxide 15 mmol/L (22-30); Globulin 3.3 gm/dL (2.2-3.7); Glucose 176 mg/dL (70-105); Lactate Dehydrogenase 299 U/L (94-250); Phosphorous 5.8 mg/dL (2.7-4.5); Prolactin 94.6 ng/ml (4.8-23.3); Triglycerides 96 mg/dl (<150)
[2020-03-19 18:26] LABS: Blood Urea Nitrogen 82 mg/dl (6-20); Chloride 93 mmol/L (96-108); Glomerular Filtration Rate 3; Uric Acid 7.1 mg/dL (2.5-8.0)
[2020-03-19] MEDS ORDERED: fentaNYL 50 ML ONE (18:59)
[2020-03-19] MEDS: fentaNYL 2,500 MCG in 0.9 % SODIUM CHLORIDE 200 ML IV SCH (19:15)
[2020-03-19] MEDS: ONDANSETRON 4 MG/2 ML VIAL IV PRN (19:25)
[2020-03-19] MEDS ORDERED: INSULIN LISPRO 1 UNIT/0.01 ML UNIT SQ SCH (21:00)
[2020-03-19] MEDS: LOSARTAN 50 MG TABLET PO SCH (21:11)
[2020-03-19] MEDS: 0.9 % SODIUM CHLORIDE 1,000 ML IV SCH (21:20)
[2020-03-19] MEDS: CHLORHEXIDINE GLUCONATE 1 ML ORAL.SOL SWABMOUTH SCH (22:25)
[2020-03-19] MEDS: FAMOTIDINE/PF 20 MG/2 ML VIAL IV SCH (22:30)
[2020-03-20] MEDS: INSULIN LISPRO 1 UNIT/0.01 ML UNIT SQ SCH ×21 (01:00→22:00)
[2020-03-20] MEDS: 0.9 % SODIUM CHLORIDE 10 ML SYRINGE IV SCH ×3 (05:34→21:54)
--- NOTE | 2020-03-20 07:47 | Internal Med Progress Note ---
SUBJECTIVE Subjective Patient information: Note initiated : 03/20/20 at 7:45 am Service Date, if different from initiated Date: [] Patient: Elo Robledo a 60 y/o F admitted on 03/18/20 for Altered Mental Status, Low Blood Sugar. Chief Complaint: [] Interval history: History of present illness: Ms. Robledo is a 60 year old F Presents to the ED with altered mental status and hypoglycemic event. Patient was found by her daughter who is also her caregiver this morning to be obtunded. Daughter states that the patient's also noted that she just remained in bed this morning and typically gets up too early. EMS arrived and found her blood glucose to be 45. She got an amp of D50 with good response. In the ED she was kept on D5 drip given low blood glucose. She has not had dialysis in 3 weeks because she moved into a new home and there is no ramp and they have been unable to get her to dialysis. This was discussed with Dr. Retana her tumbler operator who will be setting up dialysis. She has not taken her medications today. 03/19 Poor sleep. Patient has chronic low back pain. Chills but otherwise no complaint. D5 drip. As nurse was passing by patient's room she noted noise coming from her room and when she looked towards the patient she noted that patient to be convulsing, subsequently noted some foaming and some blood from the mouth. Patient was responsive and unable to palpate pulses. CPR started several minutes of epi nephrine were given. She was also given Ativan IV 2 mg. Return of spontaneous circulation was achieved. No history of seizures. Blood glucose was within normal limits. Patient has been in metabolic disturbance secondary to noncompliance with hemodialysis. Did receive a hemodialysis session this morning. CODE BLUE labs pending. ABG with good oxygenation but with acidosis 2/2 lactic acidosis from event. EKG unremarkable. Transferred to ICU. Discussed with family. Patient likely bit tongue during event leading to bleeding. She is currently intubated for airway protection. 03/20 No overnight events. Glucose drip off. Vital signs stable. Undergoing dialysis this morning. No seizure activity reported. Weaning trial after hemodialysis. Hopefully extubate tomorrow morning. Unable to review of system given patient sedated and on the vent Constitutional Vitals: Vital Signs Temp Pulse Resp BP Pulse Ox 99.0 F 81 20 148/58 99 03/20/20 07:01 03/20/20 07:01 03/20/20 07:29 03/20/20 07:01 03/20/20 07:29 Period Temp Pulse Resp BP Sys/Clark Pulse Ox Last 24 Hr 97.2 F-99.0 F 79-141 13-36 77-235/38-140 94-100 Intake and Output 03/19/20 03/20/20 03/20/20 21:59 05:59 13:59 Intake Total 1762.5 33 Output Total 370 15 Balance 1762.5 -337 -15 Weight 157.896 kg Intake & Output: Intake & Output 03/19/20 03/20/20 03/20/20 21:59 05:59 13:59 Intake Total 1762.5 33 Output Total 370 15 Balance 1762.5 -337 -15 Weight 157.896 kg Intake: IV 1282.5 33 Dextrose 5% in Water 1,000 ml @ 995 100 mls/hr IV .Q10H [facility] Rx#: [id number] Dextrose 5%-Ns IV Solution 1, 163 000 ml @ 100 mls/hr IV .Q10H [facility] Rx#:[id number] Ativan 50 mg In Dextrose 5% in 17 33 Water 75 ml @ 0.01 MG/KG/HR 3. 143 mls/hr IV Q12H [facility] Rx#: [id number] Keppra 750 mg In Sodium 107.5 Chloride 0.9% 100 ml @ 200 mls/ hr IV Q12 [facility] Rx#:[id number] Oral 480 Tube Feeding 0 0 Output: Gastric Drainage 160 NG/OG 160 Urine Catheter Amount 210 15 Other: Meal Lunch Percent of Meal Consumed 75% Urine Appearance Cloudy Clear Clear Mucous Threads Mucous Threads Uretheral (Samson) Mucous Threads Clear Purulent Mucous Threads Urine Color Dark Rolanda Light Rolanda Light Rolanda Uretheral (Samson) Light Rolanda Light Rolanda Urine Odor Foul Exam: General: sedated on vent, No acute Distress, obese Eyes/N/T: PERRL Head/Neck: neck supple, CV: RRR, No murmurs, Pulm: b/l rhonchi, no wheezing Abd: soft, nontender, +BS x4 Ext: no clubbing/cyanosis/chronic lymphedema b/l LE Neuro: Sedated on vent, moves all extremities spontaneously Skin: warm/dry OBJ DATA Labs CBC & Chem 7: 03/19/20 17:12 03/20/20 04:29 Labs: Abnormal Lab Results 03/19/20 03/19/20 03/19/20 19:40 19:40 17:12 WBC RBC Hgb Hct POC Hct MCV MCHC RDW Gran % Lymph % (Auto) Haakon % (Auto) Gran # Lymph # (Auto) Haakon # (Auto) Seg Neutrophils % Lymphocytes % Basophils % (Manual) VBG Lactic Acid 4.2 H* POC Potassium Potassium Chloride Carbon Dioxide POC Total CO2 Anion Gap POC BUN BUN Creatinine POC Creatinine Glucose POC Glucose Uric Acid Calcium POC WB Ioniz Calcium Phosphorus Magnesium Alkaline Phosphatase Lactate Dehydrogenase Troponin T 0.14 H* NT-Pro-B Natriuret Pep TSH Free T4 0.69 L Prolactin PTH Intact Urine Protein Urine Occult Blood Ur Leukocyte Esterase Urine RBC Urine WBC Ur Squamous Epith Cells Urine Bacteria 03/19/20 03/19/20 03/19/20 17:12 17:12 17:12 WBC RBC Hgb Hct POC Hct MCV MCHC RDW Gran % Lymph % (Auto) Haakon % (Auto) Gran # Lymph # (Auto) Haakon # (Auto) Seg Neutrophils % Lymphocytes % Basophils % (Manual) VBG Lactic Acid 7.5 H* POC Potassium Potassium Chloride Carbon Dioxide POC Total CO2 Anion Gap POC BUN BUN Creatinine POC Creatinine Glucose POC Glucose Uric Acid Calcium POC WB Ioniz Calcium Phosphorus Magnesium Alkaline Phosphatase Lactate Dehydrogenase Troponin T 0.09 H* NT-Pro-B Natriuret Pep TSH 6.66 H Free T4 Prolactin PTH Intact Urine Protein Urine Occult Blood Ur Leukocyte Esterase Urine RBC Urine WBC Ur Squamous Epith Cells Urine Bacteria 03/19/20 03/19/20 03/19/20 17:12 17:12 04:20 WBC 16.3 H RBC Hgb 10.6 L Hct POC Hct MCV MCHC 30.2 L RDW 15.4 H Gran % Lymph % (Auto) Haakon % (Auto) 13.3 H Gran # 8.67 H Lymph # (Auto) 5.09 H Haakon # (Auto) 2.16 H Seg Neutrophils % Lymphocytes % Basophils % (Manual) VBG Lactic Acid POC Potassium Potassium Chloride 93 L Carbon Dioxide 15 L POC Total CO2 Anion Gap 25.0 H POC BUN BUN 82 H Creatinine 11.5 H* POC Creatinine Glucose 176 H POC Glucose Uric Acid Calcium POC WB Ioniz Calcium Phosphorus 5.8 H Magnesium Alkaline Phosphatase 209 H Lactate Dehydrogenase 299 H Troponin T NT-Pro-B Natriuret Pep TSH Free T4 Prolactin 94.6 H PTH Intact 2051.0 H Urine Protein Urine Occult Blood Ur Leukocyte Esterase Urine RBC Urine WBC Ur Squamous Epith Cells Urine Bacteria 03/19/20 03/19/20 03/18/20 04:20 04:20 19:56 WBC RBC 3.25 L Hgb 9.2 L Hct 32.6 L POC Hct MCV 100.3 H MCHC 28.2 L RDW 15.8 H Gran % Lymph % (Auto) 13.0 L Haakon % (Auto) 13.2 H Gran # Lymph # (Auto) 0.96 L Haakon # (Auto) 0.97 H Seg Neutrophils % Lymphocytes % Basophils % (Manual) VBG Lactic Acid POC Potassium Potassium 6.2 H* Chloride Carbon Dioxide 13 L POC Total CO2 Anion Gap 22.0 H POC BUN BUN 129 H* Creatinine 16.1 H* POC Creatinine Glucose 32 L* POC Glucose Uric Acid 9.9 H Calcium POC WB Ioniz Calcium Phosphorus 7.1 H* Magnesium 2.7 H Alkaline Phosphatase 179 H Lactate Dehydrogenase Troponin T NT-Pro-B Natriuret Pep TSH Free T4 Prolactin PTH Intact Urine Protein >=500 A Urine Occult Blood 0.2 A Ur Leukocyte Esterase 75 A Urine RBC 163 H Urine WBC > 182 H Ur Squamous Epith Cells 14 H Urine Bacteria Many A 03/18/20 03/18/20 03/18/20 13:48 13:48 13:47 WBC RBC 3.40 L Hgb 9.8 L Hct 31.8 L POC Hct 31.0 L MCV MCHC 30.8 L RDW 15.0 H Gran % Lymph % (Auto) Haakon % (Auto) Gran # Lymph # (Auto) Haakon # (Auto) Seg Neutrophils % 82 H Lymphocytes % 7 L Basophils % (Manual) 3 H VBG Lactic Acid POC Potassium 5.4 H Potassium Chloride Carbon Dioxide POC Total CO2 15 L Anion Gap POC BUN 135 H* BUN Creatinine POC Creatinine 17.8 H* Glucose POC Glucose 235 H Uric Acid Calcium POC WB Ioniz Calcium 1.00 L Phosphorus Magnesium Alkaline Phosphatase Lactate Dehydrogenase Troponin T 0.06 H* NT-Pro-B Natriuret Pep TSH Free T4 Prolactin PTH Intact Urine Protein Urine Occult Blood Ur Leukocyte Esterase Urine RBC Urine WBC Ur Squamous Epith Cells Urine Bacteria 03/18/20 03/18/20 13:47 13:47 WBC RBC 3.44 L Hgb 9.8 L Hct 32.1 L POC Hct MCV MCHC 30.5 L RDW 15.2 H Gran % 82.7 H Lymph % (Auto) 8.7 L Haakon % (Auto) Gran # Lymph # (Auto) 0.68 L Haakon # (Auto) Seg Neutrophils % Lymphocytes % Basophils % (Manual) VBG Lactic Acid POC Potassium Potassium 5.5 H Chloride Carbon Dioxide 12 L POC Total CO2 Anion Gap 25.0 H POC BUN BUN 121 H* Creatinine 14.7 H* POC Creatinine Glucose 252 H POC Glucose Uric Acid Calcium 8.1 L POC WB Ioniz Calcium Phosphorus Magnesium Alkaline Phosphatase 180 H Lactate Dehydrogenase Troponin T NT-Pro-B Natriuret Pep 4535.0 H TSH Free T4 Prolactin PTH Intact Urine Protein Urine Occult Blood Ur Leukocyte Esterase Urine RBC Urine WBC Ur Squamous Epith Cells Urine Bacteria Meds: Medications Acetaminophen (Tylenol) 650 mg PO Q6HP PRN; Protocol PRN Reason: Per Pain Protocol/Fever > 101 Hydrocodone Bitart/Acetaminophen ([place] 5/325mg) 1 tab PO Q6HP PRN; Protocol PRN Reason: Per Pain Protocol Aspirin (Aspirin) 81 mg PO DAILY [facility] Calcitriol (Rocaltrol) 1 mcg PO TuThSa@0900 [facility] Calcium Acetate (Phoslo) 2,668 mg PO TIDCC [facility] Chlorhexidine Gluconate (Peridex) 15 ml SWABMOUTH BID [facility] Last Admin: 03/19/20 22:25 Dose: 15 ml Documented by: Cinacalcet (Sensipar) 30 mg PO QDAY [facility] Dextrose (Dextrose 50%) 0 ml IV UD PRN PRN Reason: Hypoglycemia Diagnostic Test (Pha) (Accu-Chek) 1 each FS Q1H [facility] Last Admin: 03/20/20 07:27 Dose: 1 each Documented by: Diltiazem HCl (Cardizem) 60 mg PO BID [facility] Last Admin: 03/19/20 21:10 Dose: Not Given Documented by: Docusate Sodium (Colace) 100 mg PO BID [facility] Last Admin: 03/19/20 21:11 Dose: Not Given Documented by: Famotidine (Pepcid) 20 mg IV HS [facility] Last Admin: 03/19/20 22:30 Dose: 20 mg Documented by: Glucose (Insta-Glucose) 15 gm PO PRN PRN PRN Reason: Hypoglycemia Heparin Sodium (Porcine) (Heparin) 5,000 unit SQ Q12 [facility] Last Admin: 03/19/20 22:30 Dose: 5,000 unit Documented by: Hydralazine HCl (Apresoline) 0 mg IV Q2HP PRN PRN Reason: Hypertension Fentanyl 2,500 mcg/ Sodium (Chloride) 250 mls @ 2.5 mls/hr IV Q24H [facility]; Protocol Last Admin: 03/19/20 19:15 Dose: 5 mcg/hr, 0.5 mls/hr Documented by: Sodium Chloride (Sodium Chloride 0.9%) 1,000 mls @ 75 mls/hr IV .[id number] [facility] Last Admin: 03/19/20 21:20 Dose: 75 mls/hr Documented by: Lorazepam 50 mg/ Dextrose 100 mls @ 3.143 mls/hr IV Q24H [facility]; Protocol Insulin Human Lispro (Humalog) 0 unit SQ Q1 [facility]; Protocol Last Admin: 03/20/20 07:28 Dose: Not Given Documented by: Lorazepam (Ativan) 1 mg IV Q2HP PRN PRN Reason: seizure Losartan Potassium (Cozaar) 50 mg PO QHS [facility] Last Admin: 03/19/20 21:11 Dose: Not Given Documented by: Morphine Sulfate (Morphine) 1 - 2 mg IV Q2HP PRN; Protocol PRN Reason: Per Pain Protocol Last Admin: 03/19/20 18:34 Dose: 2 mg Documented by: Ondansetron HCl (Zofran) 4 mg IV Q4HP PRN; Protocol PRN Reason: Nausea And Vomiting Last Admin: 03/19/20 19:25 Dose: 4 mg Documented by: Senna (Senokot) 2 tab PO HSP PRN PRN Reason: Constipation Sodium Chloride (Saline Flush) 10 ml IV Q8 [facility] Last Admin: 03/20/20 05:34 Dose: 10 ml Documented by: Tramadol HCl (Ultram) 50 mg PO BIDP PRN PRN Reason: Pain A/P Narrative A/P Narrative: A: *Seizure: 2/2 uremia/metabolic disturbance -lacate and prolactin elevated *Aspiration likely: 2/2 above *Mechanical Intubation: 2/2 obtundation/post-ictal/airway protection *Hypoglycemia with obtundation on admit: 2/2 DM meds, poor renal fxn, poor clearance. a1c 4.9 -now of D5 gtt *DM II: on glipizide, no change recently and pt does not report h/o hypoglycemia -A1c 4.9 *ESRD: has not had HD for 3wks since moving to [facility] w/o wheelchair ramp to get out of house -pt noncompliant with HD *Anemia, chronic: *HTN: *Obesity: *CAT: on cpap *Elevated troponin: chronically elevated but above baseline 2/2 CPR, no CP prior to episode/ekg unremarkable P: -weaning trials, sedation vacations -Glipizide held and will not restart on d/c, will educate on dietary restrictions -Nephrology for HD -cont home ASA/Dilt/Losartan -home cpap when off vent -ppx: heparin full code Time Spent With Patient Time: Total time spent is greater than 50% in coordination of care (as documented) at patient's floor/unit and/or counseling patient: QUALITY Stroke Symptom Onset Unknown: No VTE Deep Vein Thrombosis/Pulmonary Embolism Present on Admission: No
--- NOTE | 2020-03-20 07:54 | XRay Report ---
HISTORY: Evaluate placement of nasogastric tube FINDINGS: Nasogastric tube is positioned with its tip in the body the stomach pointing towards the left lower quadrant. The stomach appears decompressed. Moderate size consolidating infiltrate with air bronchograms is present in the left lower lobe. The bowel gas pattern is normal. IMPRESSION: Well-positioned nasogastric tube Atelectasis or pneumonia in the left lower lobe Interpreted and Authenticated by: Edwin Blanco 03/20/20
[2020-03-20 07:55] LABS: ALT/SGPT 13 U/l (0-40); AST/SGOT 13 U/l (0-37); Albumin/Globulin Ratio 1.2 (1.0-2.3); Alkaline Phosphatase 155 U/L (39-117); Bilirubin,Direct < 0.2 mg/dL (0.0-0.3); Bilirubin,Total 0.3 mg/dL (0.0-1.0); Blood Urea Nitrogen 88 mg/dl (6-20); Calcium 8.1 mg/dl (8.6-10.4); Carbon Dioxide 18 mmol/L (22-30); Chloride 96 mmol/L (96-108); Globulin 2.5 gm/dL (2.2-3.7); Glomerular Filtration Rate 3; Glucose 146 mg/dL (70-105); Lactate Dehydrogenase 224 U/L (94-250); Phosphorous 6.4 mg/dL (2.7-4.5); Triglycerides 69 mg/dl (<150); Uric Acid 8.2 mg/dL (2.5-8.0)
[2020-03-20] MEDS: CALCIUM ACETATE 667 MG CAPSULE PO SCH ×3 (08:37→18:05)
[2020-03-20] MEDS: ASPIRIN 81 MG TAB.CHEW PO SCH (08:37)
[2020-03-20] MEDS: DOCUSATE SODIUM 100 MG CAPSULE PO SCH ×2 (08:37→20:10)
[2020-03-20] MEDS: CINACALCET 30 MG TABLET PO SCH (08:37)
[2020-03-20] MEDS: LORazepam 50 MG in DEXTROSE 5% IN WATER 75 ML IV SCH ×3 (09:21→15:39)
[2020-03-20 09:59] LABS: Hematocrit 27.6 % (34.1-44.9); Hemoglobin 8.7 g/dL (11.2-15.7); Mean Cell Volume 91.1 fL (80.0-100.0); Mean Corpuscular HGB Conc 31.5 g/dL (31.0-36.0); Mean Platelet Volume 10.1 fL (7.4-10.4); Platelet Count 196 K/mcL (140-440); RBC 3.03 M/mcL (3.59-5.38); Red Cell Distribution Width 15.2 % (11.5-14.5); WBC 6.2 K/mcL (4.50-11.00)
--- NOTE | 2020-03-20 10:04 | XRay Report ---
HISTORY: Intubated, pulmonary edema FINDINGS: Endotracheal tube is well-positioned. A nasogastric tube has been inserted with the tip in the body of the stomach. The heart is moderately enlarged. There are generalized alveolar opacities in both lungs. The greatest consolidation is in the left lower lobe. The left lower lobe consolidation has become worse since 03/19/20. There has been little change in the right lung except the lung volumes are now smaller. There are old healed right lateral rib fractures. IMPRESSION: Increasing consolidation in the left lower lobe which could be atelectasis or pneumonia. Persistent cardiomegaly with pulmonary vascular congestion Well-positioned support tubes and no pneumothorax Interpreted and Authenticated by: Edwin Blanco 03/20/20
[2020-03-20 10:18] LABS: Lymphocytes % 5 % (15-49); Monocytes % (Manual) 7 % (1-12); Platelet Estimate NORMAL (NORMAL); RBC Morphology NORMAL (NORMAL); Segmented Neutrophils % 88 % (38-78)
[2020-03-20] MEDS: 0.9 % SODIUM CHLORIDE 1,000 ML IV SCH (10:25)
[2020-03-20] MEDS ORDERED: ALBUMIN HUMAN 12.5 GM/50 ML BAG IV PRN ×2 (10:32→18:06)
[2020-03-20] MEDS: DILTIAZEM 30 MG TABLET PO SCH ×2 (11:31→20:10)
[2020-03-20] MEDS: HEPARIN 5,000 UNIT/ML VIAL SQ SCH ×2 (11:45→21:52)
[2020-03-20] MEDS: CHLORHEXIDINE GLUCONATE 1 ML ORAL.SOL SWABMOUTH SCH ×2 (11:45→21:53)
--- NOTE | 2020-03-20 13:46 | Nephrology Progress Note ---
SUBJECTIVE Subjective Patient information: Note initiated : 03/20/20 at 1:44 pm Service Date, if different from initiated Date: [] Patient: Elo Robledo 60 y/o F admitted on 03/18/20 for Altered Mental Status, Low Blood Sugar. Chief Complaint: [alter MS] Seen on Dialysis with multiple evaluations 3.5 liter U/F No need for albumin to maintain BP. Next treatment tomorrow. You may find if this patient is not sedated, she will be VERY ANXIOUS and she will not be calm for a cpap trial or extubation mechanics. Laboratory Results - last 48 hr 03/18/20 03/19/20 03/19/20 19:56 04:20 04:20 WBC 7.4 RBC 3.25 L Hgb 9.2 L Hct 32.6 L MCV 100.3 H MCH 28.3 MCHC 28.2 L RDW 15.8 H Plt Count 220 MPV 10.1 Gran % 70.7 Lymph % (Auto) 13.0 L O'Brien % (Auto) 13.2 H Eos % (Auto) 2.8 Baso % (Auto) 0.3 Gran # 5.21 Lymph # (Auto) 0.96 L O'Brien # (Auto) 0.97 H Eos # (Auto) 0.21 Baso # (Auto) 0.02 Total Counted Seg Neutrophils % Band Neutrophils % Lymphocytes % Monocytes % (Manual) Platelet Estimate RBC Morphology VBG Lactic Acid Sodium 136 Potassium 6.2 H* Chloride 101 Carbon Dioxide 13 L Anion Gap 22.0 H BUN 129 H* Creatinine 16.1 H* GFR Calculation 2 Glucose 32 L* Hemoglobin A1c Estim Average Glucose Uric Acid 9.9 H Calcium 8.6 Phosphorus 7.1 H* Magnesium 2.7 H Total Bilirubin 0.3 Direct Bilirubin < 0.2 GGT 20 AST 7 ALT < 5 Alkaline Phosphatase 179 H Lactate Dehydrogenase 224 Troponin T Total Protein 6.3 Albumin 3.2 Globulin 3.1 Albumin/Globulin Ratio 1.0 Triglycerides 36 TSH Free T4 Prolactin PTH Intact Urine Color Yellow Urine Appearance Cloudy Urine pH 6.0 Ur Specific [place] 1.015 Urine Protein >=500 A Urine Glucose (UA) Negative Urine Ketones Neg Urine Occult Blood 0.2 A Urine Nitrate Neg Urine Bilirubin Neg Urine Urobilinogen Neg Ur Leukocyte Esterase 75 A Urine RBC 163 H Urine WBC > 182 H Ur Squamous Epith Cells 14 H Urine Bacteria Many A Ur Culture Indicated? No 03/19/20 03/19/20 03/19/20 04:20 04:20 17:12 WBC 16.3 H RBC 3.69 Hgb 10.6 L Hct 35.1 MCV 95.1 MCH 28.7 MCHC 30.2 L RDW 15.4 H Plt Count 313 MPV 9.7 Gran % 53.2 Lymph % (Auto) 31.2 O'Brien % (Auto) 13.3 H Eos % (Auto) 1.9 Baso % (Auto) 0.4 Gran # 8.67 H Lymph # (Auto) 5.09 H O'Brien # (Auto) 2.16 H Eos # (Auto) 0.31 Baso # (Auto) 0.06 Total Counted Seg Neutrophils % Band Neutrophils % Lymphocytes % Monocytes % (Manual) Platelet Estimate RBC Morphology VBG Lactic Acid Sodium Potassium Chloride Carbon Dioxide Anion Gap BUN Creatinine GFR Calculation Glucose Hemoglobin A1c 4.9 Estim Average Glucose 94 Uric Acid Calcium Phosphorus Magnesium Total Bilirubin Direct Bilirubin GGT AST ALT Alkaline Phosphatase Lactate Dehydrogenase Troponin T Total Protein Albumin Globulin Albumin/Globulin Ratio Triglycerides TSH Free T4 Prolactin PTH Intact 2051.0 H Urine Color Urine Appearance Urine pH Ur Specific [place] Urine Protein Urine Glucose (UA) Urine Ketones Urine Occult Blood Urine Nitrate Urine Bilirubin Urine Urobilinogen Ur Leukocyte Esterase Urine RBC Urine WBC Ur Squamous Epith Cells Urine Bacteria Ur Culture Indicated? 03/19/20 03/19/20 03/19/20 17:12 17:12 17:12 WBC RBC Hgb Hct MCV MCH MCHC RDW Plt Count MPV Gran % Lymph % (Auto) O'Brien % (Auto) Eos % (Auto) Baso % (Auto) Gran # Lymph # (Auto) O'Brien # (Auto) Eos # (Auto) Baso # (Auto) Total Counted Seg Neutrophils % Band Neutrophils % Lymphocytes % Monocytes % (Manual) Platelet Estimate RBC Morphology VBG Lactic Acid 7.5 H* Sodium 133 Potassium 4.0 Chloride 93 L Carbon Dioxide 15 L Anion Gap 25.0 H BUN 82 H Creatinine 11.5 H* GFR Calculation 3 Glucose 176 H Hemoglobin A1c Estim Average Glucose Uric Acid 7.1 Calcium 8.8 Phosphorus 5.8 H Magnesium 2.4 Total Bilirubin 0.3 Direct Bilirubin < 0.2 GGT 29 AST 18 ALT 19 Alkaline Phosphatase 209 H Lactate Dehydrogenase 299 H Troponin T 0.09 H* Total Protein 7.0 Albumin 3.7 Globulin 3.3 Albumin/Globulin Ratio 1.1 Triglycerides 96 TSH Free T4 Prolactin 94.6 H PTH Intact Urine Color Urine Appearance Urine pH Ur Specific [place] Urine Protein Urine Glucose (UA) Urine Ketones Urine Occult Blood Urine Nitrate Urine Bilirubin Urine Urobilinogen Ur Leukocyte Esterase Urine RBC Urine WBC Ur Squamous Epith Cells Urine Bacteria Ur Culture Indicated? 03/19/20 03/19/20 03/19/20 17:12 17:12 19:40 WBC RBC Hgb Hct MCV MCH MCHC RDW Plt Count MPV Gran % Lymph % (Auto) O'Brien % (Auto) Eos % (Auto) Baso % (Auto) Gran # Lymph # (Auto) O'Brien # (Auto) Eos # (Auto) Baso # (Auto) Total Counted Seg Neutrophils % Band Neutrophils % Lymphocytes % Monocytes % (Manual) Platelet Estimate RBC Morphology VBG Lactic Acid 4.2 H* Sodium Potassium Chloride Carbon Dioxide Anion Gap BUN Creatinine GFR Calculation Glucose Hemoglobin A1c Estim Average Glucose Uric Acid Calcium Phosphorus Magnesium Total Bilirubin Direct Bilirubin GGT AST ALT Alkaline Phosphatase Lactate Dehydrogenase Troponin T Total Protein Albumin Globulin Albumin/Globulin Ratio Triglycerides TSH 6.66 H Free T4 0.69 L Prolactin PTH Intact Urine Color Urine Appearance Urine pH Ur Specific [place] Urine Protein Urine Glucose (UA) Urine Ketones Urine Occult Blood Urine Nitrate Urine Bilirubin Urine Urobilinogen Ur Leukocyte Esterase Urine RBC Urine WBC Ur Squamous Epith Cells Urine Bacteria Ur Culture Indicated? 03/19/20 03/20/20 03/20/20 19:40 04:29 04:29 WBC RBC Hgb Hct MCV MCH MCHC RDW Plt Count MPV Gran % Lymph % (Auto) O'Brien % (Auto) Eos % (Auto) Baso % (Auto) Gran # Lymph # (Auto) O'Brien # (Auto) Eos # (Auto) Baso # (Auto) Total Counted Seg Neutrophils % Band Neutrophils % Lymphocytes % Monocytes % (Manual) Platelet Estimate RBC Morphology VBG Lactic Acid Sodium 132 L Potassium 5.5 H Chloride 96 Carbon Dioxide 18 L Anion Gap 18.0 H BUN 88 H Creatinine 11.5 H* GFR Calculation 3 Glucose 146 H Hemoglobin A1c Estim Average Glucose Uric Acid 8.2 H Calcium 8.1 L Phosphorus 6.4 H* Magnesium 2.4 Total Bilirubin 0.3 Direct Bilirubin < 0.2 GGT 26 AST 13 ALT 13 Alkaline Phosphatase 155 H Lactate Dehydrogenase 224 Troponin T 0.14 H* 0.50 H* Total Protein 5.5 L Albumin 3.0 L Globulin 2.5 Albumin/Globulin Ratio 1.2 Triglycerides 69 TSH Free T4 Prolactin PTH Intact Urine Color Urine Appearance Urine pH Ur Specific [place] Urine Protein Urine Glucose (UA) Urine Ketones Urine Occult Blood Urine Nitrate Urine Bilirubin Urine Urobilinogen Ur Leukocyte Esterase Urine RBC Urine WBC Ur Squamous Epith Cells Urine Bacteria Ur Culture Indicated? 03/20/20 09:26 WBC 6.2 RBC 3.03 L Hgb 8.7 L Hct 27.6 L MCV 91.1 MCH 28.7 MCHC 31.5 RDW 15.2 H Plt Count 196 MPV 10.1 Gran % Lymph % (Auto) O'Brien % (Auto) Eos % (Auto) Baso % (Auto) Gran # Lymph # (Auto) O'Brien # (Auto) Eos # (Auto) Baso # (Auto) Total Counted 100 Seg Neutrophils % 88 H Band Neutrophils % Not Reportable Lymphocytes % 5 L Monocytes % (Manual) 7 Platelet Estimate Normal RBC Morphology Normal VBG Lactic Acid Sodium Potassium Chloride Carbon Dioxide Anion Gap BUN Creatinine GFR Calculation Glucose Hemoglobin A1c Estim Average Glucose Uric Acid Calcium Phosphorus Magnesium Total Bilirubin Direct Bilirubin GGT AST ALT Alkaline Phosphatase Lactate Dehydrogenase Troponin T Total Protein Albumin Globulin Albumin/Globulin Ratio Triglycerides TSH Free T4 Prolactin PTH Intact Urine Color Urine Appearance Urine pH Ur Specific [place] Urine Protein Urine Glucose (UA) Urine Ketones Urine Occult Blood Urine Nitrate Urine Bilirubin Urine Urobilinogen Ur Leukocyte Esterase Urine RBC Urine WBC Ur Squamous Epith Cells Urine Bacteria Ur Culture Indicated? Constitutional Vitals: Vital Signs Temp Pulse Resp BP Pulse Ox 36.7 C 87 21 141/60 100 03/20/20 12:18 03/20/20 12:18 03/20/20 12:18 03/20/20 12:17 03/20/20 12:18 Period Temp Pulse Resp BP Sys/Clark Pulse Ox Last 24 Hr 36.5 C-37.2 C 79-141 0-36 90-235/38-166 92-100 Intake and Output 03/19/20 03/20/20 03/20/20 21:59 05:59 13:59 Intake Total 1762.5 33 1034 Output Total 370 4500 Balance 1762.5 -806 -1174 Weight 157.896 kg Intake & Output: Intake & Output 03/19/20 03/20/20 03/20/20 21:59 05:59 13:59 Intake Total 1762.5 33 1034 Output Total 370 4500 Balance 1762.5 -250 -6691 Weight 157.896 kg Intake: IV 1282.5 33 1034 Sodium Chloride 0.9% 1,000 ml @ 981 75 mls/hr IV .[id number] [facility] Rx#: [id number] Dextrose 5% in Water 1,000 ml @ 995 100 mls/hr IV .Q10H [facility] Rx#: [id number] Dextrose 5%-Ns IV Solution 1, 163 000 ml @ 100 mls/hr IV .Q10H [facility] Rx#:[id number] Ativan 50 mg In Dextrose 5% in 17 33 34 Water 75 ml @ 0.01 MG/KG/HR 3. 143 mls/hr IV Q24H [facility] Rx#: [id number] fentaNYL 2,500 MCG In Sodium 19 Chloride 0.9% 200 ml @ 25 MCG/ HR 2.5 mls/hr IV Q24H [facility] Rx#: [id number] Keppra 750 mg In Sodium 107.5 Chloride 0.9% 100 ml @ 200 mls/ hr IV Q12 [facility] Rx#:[id number] Oral 480 Tube Feeding 0 0 Output: Gastric Drainage 160 NG/OG 160 Urine Catheter Amount 210 100 Hemodialysis UF 4400 Other: Meal Lunch Percent of Meal Consumed 75% Urine Appearance Cloudy Clear Clear Mucous Threads Mucous Threads Uretheral (Samson) Mucous Threads Clear Cloudy Purulent Mucous Threads Sediment Hematuria Urine Color Dark Rolanda Light Rolanda Light Rolanda Uretheral (Samson) Light Rolanda Light Rolanda Dark Yellow Light Rolanda Urine Odor Foul Foul General appearance: disheveled and morbidly obese Exam: Intubated and sedated Head Head exam: Present atraumatic and normocephalic Eye Eye exam: Present EOMI and PERRL; Absent nystagmus Pupils: Present PERRL Neck Neck exam: Present normal inspection; Absent meningismus Respiratory Additional comments: Equal bilateral air movement on vent Cardiovascular Cardiovascular exam: Present RRR, +S1 and +S2; Absent rubs GI/Abdominal GI/Abdominal exam: Present normal bowel sounds and soft Extremities Exam Extremities exam: Absent calf tenderness Additional comments: edema and lymphedema Neurological Exam Additional comments: Intubated and sedated Skin Skin exam: Present abrasion and pallor A/P Assessment and plan (1) ESRD (end stage renal disease) on dialysis: Status: Acute (2) Hypoglycemia: Status: Acute Comment: Prolonged T1/2 of Rx Poor po intak (3) Morbid obesity with body mass index of 50.0-59.9 in adult: Status: Acute Comment: No insurance to pay for bariatric surgery (4) Hyperparathyroidism due to renal insufficiency: Status: Chronic Comment: Treatment poor due to skipped treaments (5) Seizure: Status: Acute Comment: Hypoglycemia, dialysis disequilibrium syndrome despite precautions of short dialysis runs, electrolyte disorders including uncontrolled hyperparathyroidism, and prior CVA all potential causes. 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 She has had high risk for dialysis disequilibrium syndrome, therefore we will do 3 days running of dialysis to 3 and 4-hour duration to slowly lower her BUN without disequilibrium. 2. We will need revamping of diabetes medication and treatment using the simplest and least expensive regimen possible. 3. Seems agreeable to 3 times a week dialysis but has no way of getting there so placement will be an issue. 4. Continue weekly Aranesp injections 5. Continue phosphate binders with, calcitriol, and Parsabiv or Sensipar. 6. Isolation for bedbugs. 7. Dialysis orders for tomorrow have been written. 8. Keppra 9. Airway protection 10. Rocaltrol IV if available Time Spent With Patient Time: Total time spent is greater than 50% in coordination of care (as documented) at patient's floor/unit and/or counseling patient:
[2020-03-20] MEDS: fentaNYL 2,500 MCG in 0.9 % SODIUM CHLORIDE 200 ML IV SCH ×2 (15:41→19:15)
[2020-03-20] MEDS ORDERED: EPINEPHrine 1 MG/10 ML (1:10,000) SYRINGE IV ONE (16:15)
[2020-03-20] MEDS ORDERED: ROCURONIUM 10 MG/ML ML IV ONE (16:17)
[2020-03-20] MEDS: hydrALAZINE 20 MG/ML VIAL IV PRN (20:02)
[2020-03-20] MEDS: LOSARTAN 50 MG TABLET PO SCH (20:10)
[2020-03-20] MEDS ORDERED: VANCOMYCIN PER PHARMACY IV SCH (20:43)
[2020-03-20] MEDS ORDERED: VANCOMYCIN 1,500 MG in 0.9 % SODIUM CHLORIDE 500 ML IV SCH (21:00)
[2020-03-20] MEDS: ACETAMINOPHEN 650 MG/65 ML BOTTLE IV PRN (21:30)
[2020-03-20] MEDS: FAMOTIDINE/PF 20 MG/2 ML VIAL IV SCH (21:52)
[2020-03-20] MEDS: PIPERACILLIN SODIUM/TAZOBACTAM 2.25 GM in DEXTROSE 5% IN WATER 50 ML IV SCH (21:53)
[2020-03-21] MEDS: INSULIN LISPRO 1 UNIT/0.01 ML UNIT SQ SCH ×6 (00:05→20:53)
[2020-03-21] MEDS: 0.9 % SODIUM CHLORIDE 1,000 ML IV SCH (00:05)
[2020-03-21] MEDS: 0.9 % SODIUM CHLORIDE 250 ML IV SCH ×2 (00:11→19:49)
[2020-03-21] MEDS: ONDANSETRON 4 MG/2 ML VIAL IV PRN (00:45)
[2020-03-21] MEDS: ACETAMINOPHEN 650 MG/65 ML BOTTLE IV PRN ×3 (03:18→20:20)
[2020-03-21] MEDS: 0.9 % SODIUM CHLORIDE 10 ML SYRINGE IV SCH ×3 (06:00→21:51)
[2020-03-21] MEDS: PIPERACILLIN SODIUM/TAZOBACTAM 2.25 GM in DEXTROSE 5% IN WATER 50 ML IV SCH ×3 (06:00→21:50)
[2020-03-21 07:09] LABS: Basophils # (Auto) 0.03 K/mcL (0.00-0.30); Basophils % (Auto) 0.3 % (0.0-2.0); Eosinophils # (Auto) 0.02 K/mcL (0.00-0.70); Eosinophils % (Auto) 0.2 % (0.0-7.0); Granulocytes % (Auto) 74.4 % (38.0-78.0); Hematocrit 26.5 % (34.1-44.9); Hemoglobin 8.1 g/dL (11.2-15.7); Mean Corpuscular HGB Conc 30.6 g/dL (31.0-36.0); Mean Platelet Volume 10.5 fL (7.4-10.4); Monocytes # (Auto) 1.42 K/mcL (0.10-0.90); Monocytes % (Auto) 16.1 % (1.0-12.0); Platelet Count 187 K/mcL (140-440); RBC 2.88 M/mcL (3.59-5.38); Red Cell Distribution Width 15.1 % (11.5-14.5); WBC 8.8 K/mcL (4.50-11.00)
--- NOTE | 2020-03-21 07:44 | Internal Med Progress Note ---
SUBJECTIVE Subjective Patient information: Note initiated : 03/21/20 at 7:38 am Service Date, if different from initiated Date: [] Patient: Elo Robledo a 60 y/o F admitted on 03/18/20 for Altered Mental Status, Low Blood Sugar. Chief Complaint: [] Interval history: History of present illness: Ms. Robledo is a 60 year old F Presents to the ED with altered mental status and hypoglycemic event. Patient was found by her daughter who is also her caregiver this morning to be obtunded. Daughter states that the patient's also noted that she just remained in bed this morning and typically gets up too early. EMS arrived and found her blood glucose to be 45. She got an amp of D50 with good response. In the ED she was kept on D5 drip given low blood glucose. She has not had dialysis in 3 weeks because she moved into a new home and there is no ramp and they have been unable to get her to dialysis. This was discussed with Dr. Retana her director of social media marketing who will be setting up dialysis. She has not taken her medications today. 03/19 Poor sleep. Patient has chronic low back pain. Chills but otherwise no complaint. D5 drip. As nurse was passing by patient's room she noted noise coming from her room and when she looked towards the patient she noted that patient to be convulsing, subsequently noted some foaming and some blood from the mouth. Patient was responsive and unable to palpate pulses. CPR started several minutes of epi nephrine were given. She was also given Ativan IV 2 mg. Return of spontaneous circulation was achieved. No history of seizures. Blood glucose was within normal limits. Patient has been in metabolic disturbance secondary to noncompliance with hemodialysis. Did receive a hemodialysis session this morning. CODE BLUE labs pending. ABG with good oxygenation but with acidosis 2/2 lactic acidosis from event. EKG unremarkable. Transferred to ICU. Discussed with family. Patient likely bit tongue during event leading to bleeding. She is currently intubated for airway protection. 03/20 No overnight events. Glucose drip off. Vital signs stable. Undergoing dialysis this morning. No seizure activity reported. Weaning trial after hemodialysis. Hopefully extubate tomorrow morning. 03/21 Weaned off sedation earlier this morning patient starting to arouse but still quite drowsy. Undergoing dialysis at this time. Weaning trial after hemodialysis. Did spike a fever last night and with consolidation noted on chest x-ray, starting treatment for aspiration pneumonia. Unable to review of system given patient sedated and on the vent Constitutional Vitals: Vital Signs Temp Pulse Resp BP Pulse Ox 100.9 F H 89 20 121/53 96 03/21/20 06:02 03/21/20 06:02 03/21/20 06:02 03/21/20 06:02 03/21/20 06:02 Period Temp Pulse Resp BP Sys/Clark Pulse Ox Last 24 Hr 98.1 F-101.6 F 81-107 0-30 98-185/45-166 92-100 Intake and Output 03/20/20 03/21/20 03/21/20 21:59 05:59 13:59 Intake Total 127 1836 Output Total 213 129 55 Balance -86 1707 -55 Weight 154.675 kg Intake & Output: Intake & Output 03/20/20 03/21/20 03/21/20 21:59 05:59 13:59 Intake Total 127 1836 Output Total 213 129 55 Balance -86 1707 -55 Weight 154.675 kg Intake: IV 127 1836 Sodium Chloride 0.9% 1,000 ml @ 1000 75 mls/hr IV .[id number] [facility] Rx#: [id number] Sodium Chloride 0.9% 250 ml @ 96 20 mls/hr IV .[id number] [facility] Rx#: [id number] Ativan 50 mg In Dextrose 5% in 89 37 Water 75 ml @ 0.01 MG/KG/HR 3. 143 mls/hr IV Q24H [facility] Rx#: [id number] Zosyn 2.25 gm In Dextrose 5% in 50 Water 50 ml @ 100 mls/hr IV Q8H [facility] Rx#:[id number] Vancomycin 1,500 mg In Sodium 500 Chloride 0.9% 500 ml @ 333.333 mls/hr IV ONCE [facility] Rx#: [id number] fentaNYL 2,500 MCG In Sodium 38 23 Chloride 0.9% 200 ml @ 25 MCG/ HR 2.5 mls/hr IV Q24H [facility]AL[facility] Rx#: [id number] Tube Feeding 0 Output: Gastric Drainage 40 NG/OG 40 Urine Catheter Amount 213 129 15 Other: Urine Appearance Cloudy Cloudy Cloudy Mucous Threads Mucous Threads Mucous Threads Uretheral (Samson) Clear Urine Color Bright Yellow Light Rolanda Light Rolanda Uretheral (Samson) Pale Urine Odor Normal Foul Exam: General: sedated on vent, No acute Distress, obese Eyes/N/T: PERRL Head/Neck: neck supple, CV: RRR, No murmurs, Pulm: b/l rhonchi, no wheezing Abd: soft, nontender, +BS x4 Ext: no clubbing/cyanosis/chronic lymphedema b/l LE Neuro: Sedated on vent but becoming mildly arousable to voice, moves all extremities spontaneously Skin: warm/dry OBJ DATA Labs CBC & Chem 7: 03/21/20 05:03 03/21/20 05:03 Labs: Abnormal Lab Results 03/21/20 03/20/20 03/20/20 05:03 09:26 04:29 WBC RBC 2.88 L 3.03 L Hgb 8.1 L 8.7 L Hct 26.5 L 27.6 L POC Hct MCV MCHC 30.6 L RDW 15.1 H 15.2 H MPV 10.5 H Gran % Lymph % (Auto) 9.0 L Worth % (Auto) 16.1 H Gran # Lymph # (Auto) 0.80 L Worth # (Auto) 1.42 H Seg Neutrophils % 88 H Lymphocytes % 5 L Basophils % (Manual) VBG Lactic Acid Sodium POC Potassium Potassium Chloride Carbon Dioxide POC Total CO2 Anion Gap POC BUN BUN Creatinine POC Creatinine Glucose POC Glucose Uric Acid Calcium POC WB Ioniz Calcium Phosphorus Magnesium Alkaline Phosphatase Lactate Dehydrogenase Troponin T 0.50 H* NT-Pro-B Natriuret Pep Total Protein Albumin TSH Free T4 Prolactin PTH Intact Urine Protein Urine Occult Blood Ur Leukocyte Esterase Urine RBC Urine WBC Ur Squamous Epith Cells Urine Bacteria 03/20/20 03/19/20 03/19/20 04:29 19:40 19:40 WBC RBC Hgb Hct POC Hct MCV MCHC RDW MPV Gran % Lymph % (Auto) Worth % (Auto) Gran # Lymph # (Auto) Worth # (Auto) Seg Neutrophils % Lymphocytes % Basophils % (Manual) VBG Lactic Acid 4.2 H* Sodium 132 L POC Potassium Potassium 5.5 H Chloride Carbon Dioxide 18 L POC Total CO2 Anion Gap 18.0 H POC BUN BUN 88 H Creatinine 11.5 H* POC Creatinine Glucose 146 H POC Glucose Uric Acid 8.2 H Calcium 8.1 L POC WB Ioniz Calcium Phosphorus 6.4 H* Magnesium Alkaline Phosphatase 155 H Lactate Dehydrogenase Troponin T 0.14 H* NT-Pro-B Natriuret Pep Total Protein 5.5 L Albumin 3.0 L TSH Free T4 Prolactin PTH Intact Urine Protein Urine Occult Blood Ur Leukocyte Esterase Urine RBC Urine WBC Ur Squamous Epith Cells Urine Bacteria 03/19/20 03/19/20 03/19/20 17:12 17:12 17:12 WBC RBC Hgb Hct POC Hct MCV MCHC RDW MPV Gran % Lymph % (Auto) Worth % (Auto) Gran # Lymph # (Auto) Worth # (Auto) Seg Neutrophils % Lymphocytes % Basophils % (Manual) VBG Lactic Acid 7.5 H* Sodium POC Potassium Potassium Chloride Carbon Dioxide POC Total CO2 Anion Gap POC BUN BUN Creatinine POC Creatinine Glucose POC Glucose Uric Acid Calcium POC WB Ioniz Calcium Phosphorus Magnesium Alkaline Phosphatase Lactate Dehydrogenase Troponin T NT-Pro-B Natriuret Pep Total Protein Albumin TSH 6.66 H Free T4 0.69 L Prolactin PTH Intact Urine Protein Urine Occult Blood Ur Leukocyte Esterase Urine RBC Urine WBC Ur Squamous Epith Cells Urine Bacteria 03/19/20 03/19/20 03/19/20 17:12 17:12 17:12 WBC 16.3 H RBC Hgb 10.6 L Hct POC Hct MCV MCHC 30.2 L RDW 15.4 H MPV Gran % Lymph % (Auto) Worth % (Auto) 13.3 H Gran # 8.67 H Lymph # (Auto) 5.09 H Worth # (Auto) 2.16 H Seg Neutrophils % Lymphocytes % Basophils % (Manual) VBG Lactic Acid Sodium POC Potassium Potassium Chloride 93 L Carbon Dioxide 15 L POC Total CO2 Anion Gap 25.0 H POC BUN BUN 82 H Creatinine 11.5 H* POC Creatinine Glucose 176 H POC Glucose Uric Acid Calcium POC WB Ioniz Calcium Phosphorus 5.8 H Magnesium Alkaline Phosphatase 209 H Lactate Dehydrogenase 299 H Troponin T 0.09 H* NT-Pro-B Natriuret Pep Total Protein Albumin TSH Free T4 Prolactin 94.6 H PTH Intact Urine Protein Urine Occult Blood Ur Leukocyte Esterase Urine RBC Urine WBC Ur Squamous Epith Cells Urine Bacteria 03/19/20 03/19/20 03/19/20 04:20 04:20 04:20 WBC RBC 3.25 L Hgb 9.2 L Hct 32.6 L POC Hct MCV 100.3 H MCHC 28.2 L RDW 15.8 H MPV Gran % Lymph % (Auto) 13.0 L Worth % (Auto) 13.2 H Gran # Lymph # (Auto) 0.96 L Worth # (Auto) 0.97 H Seg Neutrophils % Lymphocytes % Basophils % (Manual) VBG Lactic Acid Sodium POC Potassium Potassium 6.2 H* Chloride Carbon Dioxide 13 L POC Total CO2 Anion Gap 22.0 H POC BUN BUN 129 H* Creatinine 16.1 H* POC Creatinine Glucose 32 L* POC Glucose Uric Acid 9.9 H Calcium POC WB Ioniz Calcium Phosphorus 7.1 H* Magnesium 2.7 H Alkaline Phosphatase 179 H Lactate Dehydrogenase Troponin T NT-Pro-B Natriuret Pep Total Protein Albumin TSH Free T4 Prolactin PTH Intact 2051.0 H Urine Protein Urine Occult Blood Ur Leukocyte Esterase Urine RBC Urine WBC Ur Squamous Epith Cells Urine Bacteria 03/18/20 03/18/20 03/18/20 19:56 13:48 13:48 WBC RBC 3.40 L Hgb 9.8 L Hct 31.8 L POC Hct 31.0 L MCV MCHC 30.8 L RDW 15.0 H MPV Gran % Lymph % (Auto) Worth % (Auto) Gran # Lymph # (Auto) Worth # (Auto) Seg Neutrophils % 82 H Lymphocytes % 7 L Basophils % (Manual) 3 H VBG Lactic Acid Sodium POC Potassium 5.4 H Potassium Chloride Carbon Dioxide POC Total CO2 15 L Anion Gap POC BUN 135 H* BUN Creatinine POC Creatinine 17.8 H* Glucose POC Glucose 235 H Uric Acid Calcium POC WB Ioniz Calcium 1.00 L Phosphorus Magnesium Alkaline Phosphatase Lactate Dehydrogenase Troponin T NT-Pro-B Natriuret Pep Total Protein Albumin TSH Free T4 Prolactin PTH Intact Urine Protein >=500 A Urine Occult Blood 0.2 A Ur Leukocyte Esterase 75 A Urine RBC 163 H Urine WBC > 182 H Ur Squamous Epith Cells 14 H Urine Bacteria Many A 03/18/20 03/18/20 03/18/20 13:47 13:47 13:47 WBC RBC 3.44 L Hgb 9.8 L Hct 32.1 L POC Hct MCV MCHC 30.5 L RDW 15.2 H MPV Gran % 82.7 H Lymph % (Auto) 8.7 L Worth % (Auto) Gran # Lymph # (Auto) 0.68 L Worth # (Auto) Seg Neutrophils % Lymphocytes % Basophils % (Manual) VBG Lactic Acid Sodium POC Potassium Potassium 5.5 H Chloride Carbon Dioxide 12 L POC Total CO2 Anion Gap 25.0 H POC BUN BUN 121 H* Creatinine 14.7 H* POC Creatinine Glucose 252 H POC Glucose Uric Acid Calcium 8.1 L POC WB Ioniz Calcium Phosphorus Magnesium Alkaline Phosphatase 180 H Lactate Dehydrogenase Troponin T 0.06 H* NT-Pro-B Natriuret Pep 4535.0 H Total Protein Albumin TSH Free T4 Prolactin PTH Intact Urine Protein Urine Occult Blood Ur Leukocyte Esterase Urine RBC Urine WBC Ur Squamous Epith Cells Urine Bacteria Meds: Medications Acetaminophen (Tylenol) 650 mg PO Q6HP PRN; Protocol PRN Reason: Per Pain Protocol/Fever > 101 Hydrocodone Bitart/Acetaminophen ([place] 5/325mg) 1 tab PO Q6HP PRN; Protocol PRN Reason: Per Pain Protocol Aspirin (Aspirin) 81 mg PO DAILY [facility] Last Admin: 03/20/20 08:37 Dose: Not Given Documented by: Calcitriol (Rocaltrol) 1 mcg PO TuThSa@0900 [facility] Calcium Acetate (Phoslo) 2,668 mg PO TIDCC [facility] Last Admin: 03/20/20 18:05 Dose: Not Given Documented by: Chlorhexidine Gluconate (Peridex) 15 ml SWABMOUTH BID [facility] Last Admin: 03/20/20 21:53 Dose: 15 ml Documented by: Cinacalcet (Sensipar) 30 mg PO QDAY [facility] Last Admin: 03/20/20 08:37 Dose: Not Given Documented by: Dextrose (Dextrose 50%) 0 ml IV UD PRN PRN Reason: Hypoglycemia Diagnostic Test (Pha) (Accu-Chek) 1 each FS Q4 [facility] Last Admin: 03/21/20 04:09 Dose: 1 each Documented by: Diltiazem HCl (Cardizem) 60 mg PO BID [facility] Last Admin: 03/20/20 20:10 Dose: Not Given Documented by: Docusate Sodium (Colace) 100 mg PO BID [facility] Last Admin: 03/20/20 20:10 Dose: Not Given Documented by: Famotidine (Pepcid) 20 mg IV HS [facility] Last Admin: 03/20/20 21:52 Dose: 20 mg Documented by: Glucose (Insta-Glucose) 15 gm PO PRN PRN PRN Reason: Hypoglycemia Heparin Sodium (Porcine) (Heparin) 5,000 unit SQ Q12 [facility] Last Admin: 03/20/20 21:52 Dose: 5,000 unit Documented by: Hydralazine HCl (Apresoline) 0 mg IV Q2HP PRN PRN Reason: Hypertension Last Admin: 03/20/20 20:02 Dose: 20 mg Documented by: Fentanyl 2,500 mcg/ Sodium (Chloride) 250 mls @ 2.5 mls/hr IV Q24H [facility]; Protocol Last Titration: 03/21/20 05:00 Dose: 0 mcg/hr, 0 mls/hr Documented by: Sodium Chloride (Sodium Chloride 0.9%) 1,000 mls @ 75 mls/hr IV .[id number] [facility] Last Admin: 03/21/20 00:05 Dose: 75 mls/hr Documented by: Lorazepam 50 mg/ Dextrose 100 mls @ 3.143 mls/hr IV Q24H [facility]; Protocol Last Titration: 03/21/20 05:00 Dose: 0 mg/kg/hr, 0 mls/hr Documented by: Albumin Human (Buminate) 12.5 gm in 50 mls @ 100 mls/hr IV PRN PRN PRN Reason: Dialysis related hypotension Piperacillin Sod/Tazobactam (Sod 2.25 gm/ Dextrose) 50 mls @ 100 mls/hr IV Q8H [facility]; Protocol Last Admin: 03/21/20 06:00 Dose: 100 mls/hr Documented by: Acetaminophen (Ofirmev) 650 mg in 65 mls @ 130 mls/hr IV Q6HP PRN; Protocol PRN Reason: PAIN/FEVER > 101 Last Infusion: 03/21/20 04:10 Dose: Infused Documented by: Sodium Chloride (Sodium Chloride 0.9%) 250 mls @ 20 mls/hr IV .[id number] [facility] Last Infusion: 03/21/20 05:00 Dose: 0 mls/hr Documented by: Insulin Human Lispro (Humalog) 0 unit SQ Q4 [facility]; Protocol Last Admin: 03/21/20 04:10 Dose: Not Given Documented by: Lorazepam (Ativan) 1 mg IV Q2HP PRN PRN Reason: seizure Losartan Potassium (Cozaar) 50 mg PO QHS [facility] Last Admin: 03/20/20 20:10 Dose: Not Given Documented by: Morphine Sulfate (Morphine) 1 - 2 mg IV Q2HP PRN; Protocol PRN Reason: Per Pain Protocol Last Admin: 03/19/20 18:34 Dose: 2 mg Documented by: Ondansetron HCl (Zofran) 4 mg IV Q4HP PRN; Protocol PRN Reason: Nausea And Vomiting Last Admin: 03/21/20 00:45 Dose: 4 mg Documented by: Senna (Senokot) 2 tab PO HSP PRN PRN Reason: Constipation Sodium Chloride (Saline Flush) 10 ml IV Q8 [facility] Last Admin: 03/21/20 06:00 Dose: 10 ml Documented by: Tramadol HCl (Ultram) 50 mg PO BIDP PRN PRN Reason: Pain Vancomycin HCl (Vancomycin Per Pharmacy) 1 order IV UD [facility]; Protocol A/P Narrative A/P Narrative: A: *Seizure: 2/2 uremia/metabolic disturbance -lacate and prolactin elevated *Aspiration PNA: 2/2 above *Mechanical Intubation: 2/2 obtundation/post-ictal/airway protection -Intubated 03/19 *Hypoglycemia with obtundation on admit: 2/2 DM meds, poor renal fxn, poor clearance. a1c 4.9 -now off D5 gtt *DM II: on glipizide, no change recently and pt does not report h/o hypoglycemia -A1c 4.9 *ESRD: has not had HD for 3wks since moving [facility] w/o wheelchair ramp to get out of house -pt noncompliant with HD *Anemia, chronic: *HTN: *Obesity: *CAT: on cpap *Elevated troponin: chronically elevated but above baseline 2/2 CPR/epi, no CP prior to episode/ekg unremarkable P: -Zosyn, BC pending -weaning trials, sedation vacations -Glipizide held and will not restart on d/c, will educate on dietary restrictions -Nephrology for HD -cont home ASA/Dilt/Losartan -home cpap when off vent -ppx: heparin full code Time Spent With Patient Time: Total time spent is greater than 50% in coordination of care (as documented) at patient's floor/unit and/or counseling patient: QUALITY Stroke Symptom Onset Unknown: No VTE Deep Vein Thrombosis/Pulmonary Embolism Present on Admission: No
[2020-03-21 08:02] LABS: ALT/SGPT 9 U/l (0-40); AST/SGOT 8 U/l (0-37); Albumin/Globulin Ratio 1.1 (1.0-2.3); Alkaline Phosphatase 145 U/L (39-117); Bilirubin,Direct < 0.2 mg/dL (0.0-0.3); Bilirubin,Total 0.4 mg/dL (0.0-1.0); Blood Urea Nitrogen 50 mg/dl (6-20); Calcium 8.4 mg/dl (8.6-10.4); Carbon Dioxide 21 mmol/L (22-30); Chloride 94 mmol/L (96-108); Globulin 2.7 gm/dL (2.2-3.7); Glomerular Filtration Rate 5; Glucose 115 mg/dL (70-105); Lactate Dehydrogenase 196 U/L (94-250); Phosphorous 6.4 mg/dL (2.7-4.5); Triglycerides 109 mg/dl (<150)
--- NOTE | 2020-03-21 09:38 | XRay Report ---
HISTORY: Intubated and pulmonary infiltrates FINDINGS: Dense consolidation is present in the lower two thirds of the left lung. This has become significantly worse since 03/20/20. There is volume loss in the left lower lobe with shifting of the heart into the left lower thorax. There is a small infiltrate inferiorly and medially in the right lower thorax, which remains stable. Endotracheal tube and oral gastric tube remain well-positioned. There is no pneumothorax.. IMPRESSION: Worsening atelectasis or pneumonia in the lingula and left lower lobe Interpreted and Authenticated by: Edwin Blanco 03/21/20
[2020-03-21] MEDS: hydrALAZINE 20 MG/ML VIAL IV PRN ×2 (09:56→10:22)
--- NOTE | 2020-03-21 10:12 | Nephrology Progress Note ---
SUBJECTIVE Subjective Patient information: Note initiated : 03/21/20 at 10:11 am Service Date, if different from initiated Date: [] Patient: Elo Robledo 60 y/o F admitted on 03/18/20 for Altered Mental Status, Low Blood Sugar. Chief Complaint: she was admitted 03/18/2020 with AMS, hypoglycemia, after having missed 3 weeks of dialysis. received HD 03/19, 03/20, 03/21 at the time of my visit the patient was intubated, off sedation, not following commands for me. She was on HD fever noted -bcx drawn Constitutional Vitals: Vital Signs Temp Pulse Resp BP Pulse Ox 37.8 C H 100 H 20 190/75 97 03/21/20 10:00 03/21/20 10:00 03/21/20 08:00 03/21/20 10:00 03/21/20 08:00 Period Temp Pulse Resp BP Sys/Clark Pulse Ox Last 24 Hr 36.7 C-38.7 C 82-107 18-30 98-192/45-166 92-100 Intake and Output 03/20/20 03/21/20 03/21/20 21:59 05:59 13:59 Intake Total 127 1836 Output Total 213 129 105 Balance -86 1707 -105 Weight 154.675 kg Intake & Output: Intake & Output 03/20/20 03/21/20 03/21/20 21:59 05:59 13:59 Intake Total 127 1836 Output Total 213 129 105 Balance -86 1707 -105 Weight 154.675 kg Intake: IV 127 1836 Sodium Chloride 0.9% 1,000 ml @ 1000 75 mls/hr IV .[id number] [facility] Rx#: [id number] Sodium Chloride 0.9% 250 ml @ 96 20 mls/hr IV .[id number] [facility] Rx#: [id number] Ativan 50 mg In Dextrose 5% in 89 37 Water 75 ml @ 0.01 MG/KG/HR 3. 143 mls/hr IV Q24H [facility] Rx#: [id number] Zosyn 2.25 gm In Dextrose 5% in 50 Water 50 ml @ 100 mls/hr IV Q8H [facility] Rx#:[id number] Vancomycin 1,500 mg In Sodium 500 Chloride 0.9% 500 ml @ 333.333 mls/hr IV ONCE [facility] Rx#: [id number] fentaNYL 2,500 MCG In Sodium 38 23 Chloride 0.9% 200 ml @ 25 MCG/ HR 2.5 mls/hr IV Q24H [facility] Rx#: [id number] Tube Feeding 0 Output: Gastric Drainage 40 NG/OG 40 Urine Catheter Amount 213 129 65 Other: Urine Appearance Cloudy Cloudy Cloudy Mucous Threads Mucous Threads Sediment Mucous Threads Uretheral (Samson) Clear Cloudy Sediment Mucous Threads Urine Color Bright Yellow Light Rolanda Light Rolanda Uretheral (Samson) Pale Light Rolanda Urine Odor Normal Strong Uretheral (Samson) Strong Additional findings Additional findings: obese, BMI 53, NAD intubated, FiO2 40%, non labored respirations RRR edema+ A/P Assessment and plan (1) End-stage renal disease (ESRD): Status: Chronic Comment: Refuses 3x week treatment but may have no potions Social and psychiatric issues abound Narrative A/P Narrative: patient seen and examined during dialysis on 03/21/2020. Tolerating the procedure well. elevated BP noted, primary RN getting ready to administer hydralazine. 2K, 36bicarb, 139Na, UF goal 4 L over 4 hours had dialysis 03/18, 03/19 -2 then 3 hours, progressively increasing time 2/2 risk for disequilibrium next HD 03/23/2020; will evaluate needs daily hemodynamics and volume BP above goal this morning, expect some improvement with UF acid-base Bicarbonate 21, improving, maintained with HD bone-mineral metabolism Ca 8.4 (albumin 3), phosphorus 6.4 hyperphosphatemia 2/2 ESRD and missed dialysis. PTH 2050 She was NPO. If TF started recommend diabetic/ renal formula. BUN/ K 50/4.7 hematologic hemoglobin 8.1, anemia. *check iron, ferritin, Tsat
[2020-03-21] MEDS: fentaNYL 100 MCG/2 ML VIAL IV PRN ×2 (12:45→14:32)
[2020-03-21] MEDS: fentaNYL 100 MCG/2 ML VIAL IV ONE ×2 (12:49→13:30)
[2020-03-21 12:59] LABS: Vancomycin,Random 7.5 ug/mL
[2020-03-21] MEDS: CALCIUM ACETATE 667 MG CAPSULE PO SCH ×3 (13:23→17:36)
[2020-03-21] MEDS: DILTIAZEM 30 MG TABLET PO SCH ×2 (13:24→20:53)
[2020-03-21] MEDS: HEPARIN 5,000 UNIT/ML VIAL SQ SCH ×2 (14:32→21:50)
[2020-03-21] MEDS: CHLORHEXIDINE GLUCONATE 1 ML ORAL.SOL SWABMOUTH SCH ×2 (14:33→21:49)
[2020-03-21] MEDS: ASPIRIN 81 MG TAB.CHEW PO SCH (14:35)
[2020-03-21] MEDS: CINACALCET 30 MG TABLET PO SCH ×2 (14:41→17:32)
[2020-03-21] MEDS ORDERED: LABETALOL 5 MG/ML ML IV PRN (14:52)
[2020-03-21] MEDS ORDERED: VANCOMYCIN 1,500 MG in 0.9 % SODIUM CHLORIDE 500 ML IV ONE (15:00)
[2020-03-21] MEDS: DOCUSATE SODIUM 100 MG CAPSULE PO SCH (15:24)
[2020-03-21] MEDS: DOCUSATE SODIUM 50 MG/5 ML ORAL.SOL PO SCH (15:54)
[2020-03-21 16:49] LABS: ABG Base Excess 2.6 (-2.0-2.0); ABG HCO3 25.9 mmol/L (22.0-26.0); ABG Methemoglobin 0.1 % (0.4-1.5); ABG Oxygen Saturation 94.5 % (94.0-97.0); ABG PO2 82 mmHg (80-100); ABG TCO2 26.9 mmol/L (23.0-27.0); Total Hemoglobin 7.5 gm/dL (12.0-15.0)
[2020-03-21] MEDS: CALCITRIOL 0.25 MCG CAPSULE PO SCH (17:32)
[2020-03-21] MEDS: LORazepam 50 MG in DEXTROSE 5% IN WATER 75 ML IV SCH (18:59)
[2020-03-21] MEDS: DEXMEDETOMIDINE 400 MCG in PREMIX 1 BAG IV SCH (19:49)
[2020-03-21] MEDS: LOSARTAN 50 MG TABLET PO SCH (20:54)
[2020-03-21] MEDS: FAMOTIDINE/PF 20 MG/2 ML VIAL IV SCH (21:50)
[2020-03-22] MEDS: fentaNYL 100 MCG/2 ML VIAL IV PRN ×9 (01:14→21:10)
[2020-03-22] MEDS: INSULIN LISPRO 1 UNIT/0.01 ML UNIT SQ SCH ×6 (01:16→22:32)
[2020-03-22] MEDS: 0.9 % SODIUM CHLORIDE 250 ML IV SCH ×3 (01:16→18:30)
[2020-03-22] MEDS: DEXMEDETOMIDINE 400 MCG in PREMIX 1 BAG IV SCH ×2 (02:28→16:36)
[2020-03-22] MEDS: 0.9 % SODIUM CHLORIDE 10 ML SYRINGE IV SCH ×4 (04:16→22:30)
[2020-03-22] MEDS: PIPERACILLIN SODIUM/TAZOBACTAM 2.25 GM in DEXTROSE 5% IN WATER 50 ML IV SCH ×3 (05:52→22:29)
[2020-03-22 06:33] LABS: Basophils # (Auto) 0.02 K/mcL (0.00-0.30); Basophils % (Auto) 0.2 % (0.0-2.0); Eosinophils # (Auto) 0.03 K/mcL (0.00-0.70); Eosinophils % (Auto) 0.3 % (0.0-7.0); Granulocytes % (Auto) 74.1 % (38.0-78.0); Hematocrit 25.1 % (34.1-44.9); Hemoglobin 7.7 g/dL (11.2-15.7); Lymphocytes % (Auto) 9.8 % (15.5-49.0); Mean Cell Volume 94.4 fL (80.0-100.0); Mean Corpuscular HGB Conc 30.7 g/dL (31.0-36.0); Mean Platelet Volume 10.9 fL (7.4-10.4); Monocytes # (Auto) 1.44 K/mcL (0.10-0.90); Monocytes % (Auto) 15.6 % (1.0-12.0); Platelet Count 175 K/mcL (140-440); RBC 2.66 M/mcL (3.59-5.38); Red Cell Distribution Width 15.2 % (11.5-14.5); WBC 9.2 K/mcL (4.50-11.00)
[2020-03-22 07:21] LABS: ALT/SGPT 8 U/l (0-40); AST/SGOT 9 U/l (0-37); Albumin 2.7 gm/dL (3.2-5.2); Albumin/Globulin Ratio 0.9 (1.0-2.3); Alkaline Phosphatase 128 U/L (39-117); Bilirubin,Direct < 0.2 mg/dL (0.0-0.3); Bilirubin,Total 0.4 mg/dL (0.0-1.0); Blood Urea Nitrogen 29 mg/dl (6-20); Calcium 8.4 mg/dl (8.6-10.4); Carbon Dioxide 24 mmol/L (22-30); Chloride 91 mmol/L (96-108); Globulin 2.9 gm/dL (2.2-3.7); Glomerular Filtration Rate 8; Glucose 125 mg/dL (70-105); Lactate Dehydrogenase 169 U/L (94-250); Phosphorous 6.4 mg/dL (2.7-4.5); Triglycerides 87 mg/dl (<150); Uric Acid 3.2 mg/dL (2.5-8.0)
[2020-03-22] MEDS: ACETAMINOPHEN 650 MG/65 ML BOTTLE IV PRN ×3 (07:26→22:28)
--- NOTE | 2020-03-22 07:33 | Internal Med Progress Note ---
SUBJECTIVE Subjective Patient information: Note initiated : 03/22/20 at 7:28 am Service Date, if different from initiated Date: [] Patient: lEo Robledo a 60 y/o F admitted on 03/18/20 for Altered Mental Status, Low Blood Sugar. Chief Complaint: [] Interval history: History of present illness: Ms. Robledo is a 60 year old F Presents to the ED with altered mental status and hypoglycemic event. Patient was found by her daughter who is also her caregiver this morning to be obtunded. Daughter states that the patient's also noted that she just remained in bed this morning and typically gets up too early. EMS arrived and found her blood glucose to be 45. She got an amp of D50 with good response. In the ED she was kept on D5 drip given low blood glucose. She has not had dialysis in 3 weeks because she moved into a new home and there is no ramp and they have been unable to get her to dialysis. This was discussed with Dr. Retana her paragliding instructor who will be setting up dialysis. She has not taken her medications today. 03/19 Poor sleep. Patient has chronic low back pain. Chills but otherwise no complaint. D5 drip. As nurse was passing by patient's room she noted noise coming from her room and when she looked towards the patient she noted that patient to be convulsing, subsequently noted some foaming and some blood from the mouth. Patient was responsive and unable to palpate pulses. CPR started several minutes of epi nephrine were given. She was also given Ativan IV 2 mg. Return of spontaneous circulation was achieved. No history of seizures. Blood glucose was within normal limits. Patient has been in metabolic disturbance secondary to noncompliance with hemodialysis. Did receive a hemodialysis session this morning. CODE BLUE labs pending. ABG with good oxygenation but with acidosis 2/2 lactic acidosis from event. EKG unremarkable. Transferred to ICU. Discussed with family. Patient likely bit tongue during event leading to bleeding. She is currently intubated for airway protection. 03/20 No overnight events. Glucose drip off. Vital signs stable. Undergoing dialysis this morning. No seizure activity reported. Weaning trial after hemodialysis. Hopefully extubate tomorrow morning. 03/21 Weaned off sedation earlier this morning patient starting to arouse but still quite drowsy. Undergoing dialysis at this time. Weaning trial after hemodialysis. Did spike a fever last night and with consolidation noted on chest x-ray, starting treatment for aspiration pneumonia. 03/22 Nurses are still getting quite a lot of thick yellow-green pulmonary secretions. Chest imaging improving. Chemistry improved. She is on 40% FiO2. Lung compliance 40. Holding sedation for weaning trial. Neck scheduled dialysis is tomorrow. Unable to review of system given patient sedated and on the vent Constitutional Vitals: Vital Signs Temp Pulse Resp BP Pulse Ox 101.2 F H 86 17 123/47 96 03/22/20 07:26 03/22/20 07:01 03/22/20 07:22 03/22/20 07:01 03/22/20 07:01 Period Temp Pulse Resp BP Sys/Clark Pulse Ox Last 24 Hr 99.7 F-102.7 F 74-116 14-38 83-206/43-103 89-100 Intake and Output 03/21/20 03/22/20 03/22/20 21:59 05:59 13:59 Intake Total 210 300 15 Output Total 108 95 Balance 102 205 15 Weight 152.226 kg Intake & Output: Intake & Output 03/21/20 03/22/20 03/22/20 21:59 05:59 13:59 Intake Total 210 300 15 Output Total 108 95 Balance 102 205 15 Weight 152.226 kg Intake: IV 180 85 15 Sodium Chloride 0.9% 250 ml @ 0 20 mls/hr IV .[id number] [facility] Rx#: [id number] Precedex 400 Mcg/100 ml 35 15 Dextrose 400 Mcg In Premix 1 Bag @ 0.2 MCG/KG/HR 7.734 mls/ hr IV .[id number] NEFT[facility] Rx#: [id number] Ativan 50 mg In Dextrose 5% in 0 Water 75 ml @ 0.01 MG/KG/HR 3. 143 mls/hr IV Q24H [facility] Rx#: [id number] Zosyn 2.25 gm In Dextrose 5% in 50 50 Water 50 ml @ 100 mls/hr IV Q8H [facility] Rx#:[id number] fentaNYL 2,500 MCG In Sodium 0 Chloride 0.9% 200 ml @ 25 MCG/ HR 2.5 mls/hr IV Q24H NEFTALY Rx#: [id number] Tube Feeding 0 155 GI Tube Flush 30 60 Output: Urine Catheter Amount 108 95 Other: Urine Appearance Cloudy Sediment Mucous Threads Uretheral (Samson) Clear Urine Color Light Rolanda Uretheral (Samson) Dark Yellow Urine Odor Strong Uretheral (Samson) Strong Exam: General: sedated on vent but partially awake, No acute Distress, obese Eyes/N/T: PERRL, EOMI Head/Neck: neck supple, CV: RRR, No murmurs, Pulm: b/l rhonchi much improved, no wheezing Abd: soft, nontender, +BS x4 Ext: no clubbing/cyanosis/chronic lymphedema b/l LE Neuro: waking up from sedation, follows commands, moves all extremities spontaneously Skin: warm/dry OBJ DATA Labs CBC & Chem 7: 03/22/20 04:46 03/22/20 04:46 Labs: Abnormal Lab Results 03/22/20 03/22/20 03/22/20 04:46 04:46 04:46 WBC RBC 2.66 L Hgb 7.7 L Hct 25.1 L MCHC 30.7 L RDW 15.2 H MPV 10.9 H Lymph % (Auto) 9.8 L [place] % (Auto) 15.6 H Gran # Lymph # (Auto) 0.90 L [place] # (Auto) 1.44 H Seg Neutrophils % Lymphocytes % ABG pH ABG pCO2 ABG Base Excess ABG Methemoglobin VBG Lactic Acid Carboxyhemoglobin Total Hemoglobin Sodium 132 L Potassium Chloride 91 L Carbon Dioxide Anion Gap 17.0 H BUN 29 H Creatinine 5.7 H* Glucose 125 H Uric Acid Calcium 8.4 L Phosphorus 6.4 H* Magnesium Alkaline Phosphatase 128 H Lactate Dehydrogenase Troponin T 0.55 H* Total Protein 5.6 L Albumin 2.7 L Albumin/Globulin Ratio 0.9 L TSH Free T4 Prolactin 03/21/20 03/21/20 03/21/20 16:00 05:03 05:03 WBC RBC Hgb Hct MCHC RDW MPV Lymph % (Auto) [place] % (Auto) Gran # Lymph # (Auto) [place] # (Auto) Seg Neutrophils % Lymphocytes % ABG pH 7.50 H ABG pCO2 34.0 L ABG Base Excess 2.6 H ABG Methemoglobin 0.1 L VBG Lactic Acid Carboxyhemoglobin 2.2 H Total Hemoglobin 7.5 L Sodium Potassium Chloride 94 L Carbon Dioxide 21 L Anion Gap 18.0 H BUN 50 H Creatinine 8.2 H* Glucose 115 H Uric Acid Calcium 8.4 L Phosphorus 6.4 H* Magnesium Alkaline Phosphatase 145 H Lactate Dehydrogenase Troponin T 0.52 H* Total Protein 5.7 L Albumin 3.0 L Albumin/Globulin Ratio TSH Free T4 Prolactin 03/21/20 03/20/20 03/20/20 05:03 09:26 04:29 WBC RBC 2.88 L 3.03 L Hgb 8.1 L 8.7 L Hct 26.5 L 27.6 L MCHC 30.6 L RDW 15.1 H 15.2 H MPV 10.5 H Lymph % (Auto) 9.0 L [place] % (Auto) 16.1 H Gran # Lymph # (Auto) 0.80 L [place] # (Auto) 1.42 H Seg Neutrophils % 88 H Lymphocytes % 5 L ABG pH ABG pCO2 ABG Base Excess ABG Methemoglobin VBG Lactic Acid Carboxyhemoglobin Total Hemoglobin Sodium Potassium Chloride Carbon Dioxide Anion Gap BUN Creatinine Glucose Uric Acid Calcium Phosphorus Magnesium Alkaline Phosphatase Lactate Dehydrogenase Troponin T 0.50 H* Total Protein Albumin Albumin/Globulin Ratio TSH Free T4 Prolactin 03/20/20 03/19/20 03/19/20 04:29 19:40 19:40 WBC RBC Hgb Hct MCHC RDW MPV Lymph % (Auto) [place] % (Auto) Gran # Lymph # (Auto) [place] # (Auto) Seg Neutrophils % Lymphocytes % ABG pH ABG pCO2 ABG Base Excess ABG Methemoglobin VBG Lactic Acid 4.2 H* Carboxyhemoglobin Total Hemoglobin Sodium 132 L Potassium 5.5 H Chloride Carbon Dioxide 18 L Anion Gap 18.0 H BUN 88 H Creatinine 11.5 H* Glucose 146 H Uric Acid 8.2 H Calcium 8.1 L Phosphorus 6.4 H* Magnesium Alkaline Phosphatase 155 H Lactate Dehydrogenase Troponin T 0.14 H* Total Protein 5.5 L Albumin 3.0 L Albumin/Globulin Ratio TSH Free T4 Prolactin 03/19/20 03/19/20 03/19/20 17:12 17:12 17:12 WBC RBC Hgb Hct MCHC RDW MPV Lymph % (Auto) [place] % (Auto) Gran # Lymph # (Auto) [place] # (Auto) Seg Neutrophils % Lymphocytes % ABG pH ABG pCO2 ABG Base Excess ABG Methemoglobin VBG Lactic Acid 7.5 H* Carboxyhemoglobin Total Hemoglobin Sodium Potassium Chloride Carbon Dioxide Anion Gap BUN Creatinine Glucose Uric Acid Calcium Phosphorus Magnesium Alkaline Phosphatase Lactate Dehydrogenase Troponin T Total Protein Albumin Albumin/Globulin Ratio TSH 6.66 H Free T4 0.69 L Prolactin 03/19/20 03/19/20 03/19/20 17:12 17:12 17:12 WBC 16.3 H RBC Hgb 10.6 L Hct MCHC 30.2 L RDW 15.4 H MPV Lymph % (Auto) [place] % (Auto) 13.3 H Gran # 8.67 H Lymph # (Auto) 5.09 H [place] # (Auto) 2.16 H Seg Neutrophils % Lymphocytes % ABG pH ABG pCO2 ABG Base Excess ABG Methemoglobin VBG Lactic Acid Carboxyhemoglobin Total Hemoglobin Sodium Potassium Chloride 93 L Carbon Dioxide 15 L Anion Gap 25.0 H BUN 82 H Creatinine 11.5 H* Glucose 176 H Uric Acid Calcium Phosphorus 5.8 H Magnesium Alkaline Phosphatase 209 H Lactate Dehydrogenase 299 H Troponin T 0.09 H* Total Protein Albumin Albumin/Globulin Ratio TSH Free T4 Prolactin 94.6 H 03/19/20 04:20 WBC RBC Hgb Hct MCHC RDW MPV Lymph % (Auto) [place] % (Auto) Gran # Lymph # (Auto) [place] # (Auto) Seg Neutrophils % Lymphocytes % ABG pH ABG pCO2 ABG Base Excess ABG Methemoglobin VBG Lactic Acid Carboxyhemoglobin Total Hemoglobin Sodium Potassium 6.2 H* Chloride Carbon Dioxide 13 L Anion Gap 22.0 H BUN 129 H* Creatinine 16.1 H* Glucose 32 L* Uric Acid 9.9 H Calcium Phosphorus 7.1 H* Magnesium 2.7 H Alkaline Phosphatase 179 H Lactate Dehydrogenase Troponin T Total Protein Albumin Albumin/Globulin Ratio TSH Free T4 Prolactin Meds: Medications Acetaminophen (Tylenol) 650 mg PO Q6HP PRN; Protocol PRN Reason: Per Pain Protocol/Fever > 101 Hydrocodone Bitart/Acetaminophen ([place] 5/325mg) 1 tab PO Q6HP PRN; Protocol PRN Reason: Per Pain Protocol Aspirin (Aspirin) 81 mg PO DAILY [facility] Last Admin: 03/21/20 14:35 Dose: 81 mg Documented by: Calcitriol (Rocaltrol) 1 mcg PO TuThSa@0900 [facility] Last Admin: 03/21/20 17:32 Dose: Not Given Documented by: Calcium Acetate (Phoslo) 2,668 mg PO TIDCC [facility] Last Admin: 03/21/20 17:36 Dose: Not Given Documented by: Chlorhexidine Gluconate (Peridex) 15 ml SWABMOUTH BID [facility] Last Admin: 03/21/20 21:49 Dose: 15 ml Documented by: Cinacalcet (Sensipar) 30 mg PO QDAY [facility] Last Admin: 03/21/20 17:32 Dose: Not Given Documented by: Dextrose (Dextrose 50%) 0 ml IV UD PRN PRN Reason: Hypoglycemia Diagnostic Test (Pha) (Accu-Chek) 1 each FS Q4 [facility] Last Admin: 03/22/20 04:16 Dose: 1 each Documented by: Diltiazem HCl (Cardizem) 60 mg PO BID [facility] Last Admin: 03/21/20 20:53 Dose: Not Given Documented by: Docusate Sodium (Colace) 100 mg PO DAILY [facility] Last Admin: 03/21/20 15:54 Dose: 100 mg Documented by: Famotidine (Pepcid) 20 mg IV HS [facility] Last Admin: 03/21/20 21:50 Dose: 20 mg Documented by: Fentanyl (Sublimaze) 25 - 50 mcg IV Q1HP PRN; Protocol PRN Reason: Per Pain Protocol Last Admin: 03/22/20 05:53 Dose: 50 mcg Documented by: Glucose (Insta-Glucose) 15 gm PO PRN PRN PRN Reason: Hypoglycemia Heparin Sodium (Porcine) (Heparin) 5,000 unit SQ Q12 [facility] Last Admin: 03/21/20 21:50 Dose: 5,000 unit Documented by: Hydralazine HCl (Apresoline) 0 mg IV Q2HP PRN PRN Reason: Hypertension Last Admin: 03/21/20 10:22 Dose: 20 mg Documented by: Albumin Human (Buminate) 12.5 gm in 50 mls @ 100 mls/hr IV PRN PRN PRN Reason: Dialysis related hypotension Piperacillin Sod/Tazobactam (Sod 2.25 gm/ Dextrose) 50 mls @ 100 mls/hr IV Q8H [facility]; Protocol Last Admin: 03/22/20 05:52 Dose: 100 mls/hr Documented by: Acetaminophen (Ofirmev) 650 mg in 65 mls @ 130 mls/hr IV Q6HP PRN; Protocol PRN Reason: PAIN/FEVER > 101 Last Admin: 03/22/20 07:26 Dose: 130 mls/hr Documented by: Sodium Chloride (Sodium Chloride 0.9%) 250 mls @ 20 mls/hr IV .[id number] [facility] Last Admin: 03/22/20 01:16 Dose: Not Given Documented by: Dexmedetomidine HCl 400 mcg/ (Premix) 100 mls @ 7.734 mls/hr IV .[id number] [facility]; Protocol Last Titration: 03/22/20 06:00 Dose: 0 mcg/kg/hr, 0 mls/hr Documented by: Insulin Human Lispro (Humalog) 0 unit SQ Q4 [facility]; Protocol Last Admin: 03/22/20 04:16 Dose: Not Given Documented by: Labetalol HCl (Trandate) 0 mg IV Q2HP PRN PRN Reason: Hypertension Lorazepam (Ativan) 1 mg IV Q2HP PRN PRN Reason: seizure Losartan Potassium (Cozaar) 50 mg PO QHS [facility] Last Admin: 03/21/20 20:54 Dose: Not Given Documented by: Morphine Sulfate (Morphine) 1 - 2 mg IV Q2HP PRN; Protocol PRN Reason: Per Pain Protocol Last Admin: 03/19/20 18:34 Dose: 2 mg Documented by: Ondansetron HCl (Zofran) 4 mg IV Q4HP PRN; Protocol PRN Reason: Nausea And Vomiting Last Admin: 03/21/20 00:45 Dose: 4 mg Documented by: Senna (Senokot) 2 tab PO HSP PRN PRN Reason: Constipation Sodium Chloride (Saline Flush) 10 ml IV Q8 [facility] Last Admin: 03/22/20 04:16 Dose: 10 ml Documented by: Tramadol HCl (Ultram) 50 mg PO BIDP PRN PRN Reason: Pain ABG Interpretation ABG results: 03/21/20 16:00 ABG pH 7.50 H ABG pCO2 34.0 L ABG pO2 82 ABG HCO3 25.9 ABG Total CO2 26.9 ABG O2 Saturation 94.5 ABG Base Excess 2.6 H ABG Methemoglobin 0.1 L A/P Narrative A/P Narrative: A: *Seizure: 2/2 uremia/metabolic disturbance -lacate and prolactin elevated *Aspiration PNA: 2/2 above -Thick Pulmonary secretions suctioned by nursing *Acute Hypoxic Respiratory Failure: 2/2 obtundation/post-ictal/airway protection/Aspiration -Intubated 03/19 -lung compl 40 and fio2 40% *PEA arrest 2/2 seizure with aspiration on 03/19: *Hypoglycemia with obtundation on admit: 2/2 DM meds, poor renal fxn, poor clearance. a1c 4.9 -intially was on glucose gtt *DM II: on glipizide, no change recently and pt does not report h/o hypoglycemia -A1c 4.9 *ESRD: has not had HD for 3wks since moving to [facility] w/o wheelchair ramp to get out of house -pt noncompliant with HD *Anemia, acute on chronic: *HTN: *Severe Obesity: *CAT: on cpap@home *Elevated troponin: chronically elevated but above baseline 2/2 CPR/epi, no CP prior to episode/ekg unremarkable P: -Zosyn, BC/SC pending -weaning trial today, did not tolerate yesterday, sedation vacations -cont prn suction and CPT, -Glipizide held and will not restart on d/c, will educate on dietary restrictions -Nephrology for HD -cont home ASA/Dilt/Losartan -home cpap when off vent -TF's per dietary -ppx: heparin full code Time Spent With Patient Time: Total time spent is greater than 50% in coordination of care (as documented) at patient's floor/unit and/or counseling patient: QUALITY Stroke Symptom Onset Unknown: No VTE Deep Vein Thrombosis/Pulmonary Embolism Present on Admission: No
[2020-03-22 08:17] LABS: HDL Cholesterol 33 mg/dl (>40); LDL Cholesterol,Calculated 52 mg/dl (SEE CHART); Non-HDL Cholesterol 69 (LDL TARGET+30); Triglycerides 88 mg/dl (<150)
--- NOTE | 2020-03-22 08:46 | XRay Report ---
HISTORY: Intubated and follow-up pulmonary infiltrates FINDINGS: The endotracheal tube is well-positioned and lies 5.3 cm above the vladimir. There is no pneumothorax or widening of the mediastinum. There is a small to moderate infiltrate in the left lower lobe. This has improved significantly since 03/21/20. The rapid improvement would suggest that much of this is due to atelectasis. Superimposed pneumonia should be considered. The heart remains enlarged. There is pulmonary vascular congestion. Nasogastric tube passes into the body of the stomach. IMPRESSION: Improving atelectasis/pneumonia in the left lower lobe and lingula Cardiomegaly with increased pulmonary vascular congestion Interpreted and Authenticated by: Edwin Blanco 03/22/20
--- NOTE | 2020-03-22 08:49 | Nephrology Progress Note ---
SUBJECTIVE Subjective Patient information: Note initiated : 03/22/20 at 8:46 am Patient: Elo Robledo 60 y/o F admitted on 03/18/20 for Altered Mental Status, Low Blood Sugar. Chief Complaint: Intubated Pertinent ROS: Unavailable due to intubation Constitutional Vitals: Vital Signs Temp Pulse Resp BP Pulse Ox 101.1 F H 86 18 127/47 96 03/22/20 08:26 03/22/20 08:26 03/22/20 08:39 03/22/20 08:01 03/22/20 08:39 Period Temp Pulse Resp BP Sys/Clark Pulse Ox Last 24 Hr 99.7 F-102.7 F 74-116 14-38 83-206/43-103 89-100 Intake and Output 03/21/20 03/22/20 03/22/20 21:59 05:59 13:59 Intake Total 210 300 140 Output Total 108 95 Balance 102 205 140 Weight 335 lb 9.6 oz Intake & Output: Intake & Output 03/21/20 03/22/20 03/22/20 21:59 05:59 13:59 Intake Total 210 300 140 Output Total 108 95 Balance 102 205 140 Weight 335 lb 9.6 oz Intake: IV 180 85 15 Sodium Chloride 0.9% 250 ml @ 0 20 mls/hr IV .[id number] [facility] Rx#: [id number] Precedex 400 Mcg/100 ml 35 15 Dextrose 400 Mcg In Premix 1 Bag @ 0.2 MCG/KG/HR 7.734 mls/ hr IV .[id number] [facility] Rx#: [id number] Ativan 50 mg In Dextrose 5% in 0 Water 75 ml @ 0.01 MG/KG/HR 3. 143 mls/hr IV Q24H [facility] Rx#: [id number] Zosyn 2.25 gm In Dextrose 5% in 50 50 Water 50 ml @ 100 mls/hr IV Q8H [facility] Rx#:[id number] fentaNYL 2,500 MCG In Sodium 0 Chloride 0.9% 200 ml @ 25 MCG/ HR 2.5 mls/hr IV Q24H [facility] Rx#: [id number] Tube Feeding 0 155 95 GI Tube Flush 30 60 30 Output: Urine Catheter Amount 108 95 Other: Urine Appearance Cloudy Sediment Mucous Threads Uretheral (Samson) Clear Urine Color Light Rolanda Uretheral (Samson) Dark Yellow Urine Odor Strong Uretheral (Samson) Strong General appearance: no acute distress and obese Head Head exam: Present normal inspection ENT Additional comments: ET tube Respiratory Respiratory exam: Absent respiratory distress Cardiovascular Cardiovascular exam: Present normal rate and rhythm GI/Abdominal GI/Abdominal exam: Present soft; Absent tenderness Extremities Exam Extremities exam: Absent joint swelling and pedal edema Skin Skin exam: Present warm A/P Assessment and plan (1) ESRD (end stage renal disease) on dialysis: Assessment and plan: Progress: Hemodialysis on 03/19, 03/20 and 03/21. Plan: Next hemodialysis on Wednesday. Status: Chronic (2) Hyponatremia: Assessment and plan: Mild, associated with ESRD. Managed by hemodialysis. Status: Acute Time Spent With Patient Time: Total time spent is greater than 50% in coordination of care (as documented) at patient's floor/unit and/or counseling patient:
[2020-03-22 09:14] LABS: ABG Base Excess 3.5 (-2.0-2.0); ABG HCO3 27.5 mmol/L (22.0-26.0); ABG Methemoglobin 0.1 % (0.4-1.5); ABG Oxygen Saturation 94.9 % (94.0-97.0); ABG PCO2 39.4 mmHg (35.0-45.0); ABG PH 7.46 U (7.35-7.45); ABG PO2 93 mmHg (80-100); ABG TCO2 28.7 mmol/L (23.0-27.0); Peep 5; Total Hemoglobin 7.3 gm/dL (12.0-15.0)
[2020-03-22] MEDS: CALCIUM ACETATE 667 MG CAPSULE PO SCH ×3 (09:25→16:37)
[2020-03-22] MEDS: ASPIRIN 81 MG TAB.CHEW PO SCH (09:25)
[2020-03-22] MEDS: CHLORHEXIDINE GLUCONATE 1 ML ORAL.SOL SWABMOUTH SCH ×2 (09:26→21:57)
[2020-03-22] MEDS: CINACALCET 30 MG TABLET PO SCH (09:26)
[2020-03-22] MEDS: DOCUSATE SODIUM 50 MG/5 ML ORAL.SOL PO SCH (09:26)
[2020-03-22] MEDS: DILTIAZEM 30 MG TABLET PO SCH ×2 (09:26→21:59)
[2020-03-22] MEDS: HEPARIN 5,000 UNIT/ML VIAL SQ SCH ×2 (09:26→21:57)
[2020-03-22 10:31] LABS: ABG Base Excess 3.5 (-2.0-2.0); ABG HCO3 27.7 mmol/L (22.0-26.0); ABG Methemoglobin 0.1 % (0.4-1.5); ABG Oxygen Saturation 95.7 % (94.0-97.0); ABG PCO2 40.3 mmHg (35.0-45.0); ABG PH 7.46 U (7.35-7.45); ABG PO2 104 mmHg (80-100); ABG TCO2 28.9 mmol/L (23.0-27.0); Total Hemoglobin 8.1 gm/dL (12.0-15.0)
[2020-03-22] MEDS ORDERED: PROPOFOL 100 ML IV ONE (18:29)
[2020-03-22] MEDS: PROPOFOL 1,000 MG in PREMIX 1 BAG IV SCH (18:42)
[2020-03-22] MEDS: ONDANSETRON 4 MG/2 ML VIAL IV PRN (19:16)
--- NOTE | 2020-03-22 20:23 | Procedure Note ---
PROC Central Line Placement Right IJ: Consent obtained: verbal consent Date of Procedure: 03/22/20 Time out performed: Yes Patient placed on monitor/pulse ox: Yes MD prep: mask, sterile gown, sterile gloves and cap Central line prep: 2% Chlorhexidine scrub Ultrasound used for placement: Yes Central line lumen inserted: quad and 16 cm Post procedure: sutured in place, good blood return, all ports aspirated, flushed, capped and sterile dressing applied Patient tolerated procedure: well Complications: none Additional comments: Scarring in neck soft tissue complicated the procedure.
[2020-03-22] MEDS: FAMOTIDINE/PF 20 MG/2 ML VIAL IV SCH (21:56)
[2020-03-22] MEDS: LOSARTAN 50 MG TABLET PO SCH (21:59)
[2020-03-23] MEDS: fentaNYL 100 MCG/2 ML VIAL IV PRN ×3 (00:56→06:53)
[2020-03-23] MEDS: PROPOFOL 1,000 MG in PREMIX 1 BAG IV SCH ×2 (00:57→15:11)
[2020-03-23] MEDS: 0.9 % SODIUM CHLORIDE 250 ML IV SCH ×2 (03:42→15:11)
[2020-03-23] MEDS: INSULIN LISPRO 1 UNIT/0.01 ML UNIT SQ SCH ×6 (04:00→20:52)
[2020-03-23] MEDS: DEXMEDETOMIDINE 400 MCG in PREMIX 1 BAG IV SCH (05:21)
[2020-03-23] MEDS: PIPERACILLIN SODIUM/TAZOBACTAM 2.25 GM in DEXTROSE 5% IN WATER 50 ML IV SCH ×3 (05:49→21:40)
[2020-03-23] MEDS: 0.9 % SODIUM CHLORIDE 10 ML SYRINGE IV SCH ×5 (05:50→20:36)
[2020-03-23 06:10] LABS: Hematocrit 25.5 % (34.1-44.9); Hemoglobin 7.6 g/dL (11.2-15.7); Mean Cell Volume 93.4 fL (80.0-100.0); Mean Corpuscular HGB Conc 29.8 g/dL (31.0-36.0); Platelet Count 208 K/mcL (140-440); RBC 2.73 M/mcL (3.59-5.38); Red Cell Distribution Width 15.1 % (11.5-14.5); WBC 9.1 K/mcL (4.50-11.00)
[2020-03-23 06:40] LABS: INR 1.1 (0.9-1.1); Prothrombin Time 14.3 sec (11.9-14.5)
[2020-03-23 07:14] LABS: Anisocytosis 1+ (NONE SEEN); Eosinophils % (Manual) 4 % (0-7); Lymphocytes % 7 % (15-49); Monocytes % (Manual) 9 % (1-12); Platelet Estimate NORMAL (NORMAL); RBC Morphology ABNORM (NORMAL); Segmented Neutrophils % 80 % (38-78)
[2020-03-23] MEDS: DOCUSATE SODIUM 50 MG/5 ML ORAL.SOL PO SCH (07:21)
[2020-03-23] MEDS: CALCIUM ACETATE 667 MG CAPSULE PO SCH ×3 (07:21→17:41)
[2020-03-23] MEDS: DILTIAZEM 30 MG TABLET PO SCH ×2 (07:21→20:35)
[2020-03-23] MEDS: CINACALCET 30 MG TABLET PO SCH (07:22)
[2020-03-23] MEDS: CALCITRIOL 0.25 MCG CAPSULE PO SCH (07:22)
[2020-03-23 07:27] LABS: ALT/SGPT 7 U/l (0-40); AST/SGOT 9 U/l (0-37); Albumin 2.9 gm/dL (3.2-5.2); Alkaline Phosphatase 147 U/L (39-117); Bilirubin,Direct < 0.2 mg/dL (0.0-0.3); Bilirubin,Total 0.3 mg/dL (0.0-1.0); Blood Urea Nitrogen 44 mg/dl (6-20); Calcium 8.4 mg/dl (8.6-10.4); Carbon Dioxide 26 mmol/L (22-30); Chloride 92 mmol/L (96-108); Globulin 2.9 gm/dL (2.2-3.7); Glomerular Filtration Rate 5; Glucose 123 mg/dL (70-105); Lactate Dehydrogenase 165 U/L (94-250); Phosphorous 6.6 mg/dL (2.7-4.5); Triglycerides 110 mg/dl (<150); Uric Acid 4.3 mg/dL (2.5-8.0)
--- NOTE | 2020-03-23 07:54 | Internal Med Progress Note ---
SUBJECTIVE Subjective Patient information: Note initiated : 03/23/20 at 7:52 am Service Date, if different from initiated Date: [] Patient: Elo Robledo a 60 y/o F admitted on 03/18/20 for Altered Mental Status, Low Blood Sugar. Chief Complaint: [] Interval history: History of present illness: Ms. Robledo is a 60 year old F Presents to the ED with altered mental status and hypoglycemic event. Patient was found by her daughter who is also her caregiver this morning to be obtunded. Daughter states that the patient's also noted that she just remained in bed this morning and typically gets up too early. EMS arrived and found her blood glucose to be 45. She got an amp of D50 with good response. In the ED she was kept on D5 drip given low blood glucose. She has not had dialysis in 3 weeks because she moved into a new home and there is no ramp and they have been unable to get her to dialysis. This was discussed with Dr. Retana her stunner animal who will be setting up dialysis. She has not taken her medications today. 03/19 Poor sleep. Patient has chronic low back pain. Chills but otherwise no complaint. D5 drip. As nurse was passing by patient's room she noted noise coming from her room and when she looked towards the patient she noted that patient to be convulsing, subsequently noted some foaming and some blood from the mouth. Patient was responsive and unable to palpate pulses. CPR started several minutes of epi nephrine were given. She was also given Ativan IV 2 mg. Return of spontaneous circulation was achieved. No history of seizures. Blood glucose was within normal limits. Patient has been in metabolic disturbance secondary to noncompliance with hemodialysis. Did receive a hemodialysis session this morning. CODE BLUE labs pending. ABG with good oxygenation but with acidosis 2/2 lactic acidosis from event. EKG unremarkable. Transferred to ICU. Discussed with family. Patient likely bit tongue during event leading to bleeding. She is currently intubated for airway protection. 03/20 No overnight events. Glucose drip off. Vital signs stable. Undergoing dialysis this morning. No seizure activity reported. Weaning trial after hemodialysis. Hopefully extubate tomorrow morning. 03/21 Weaned off sedation earlier this morning patient starting to arouse but still quite drowsy. Undergoing dialysis at this time. Weaning trial after hemodialysis. Did spike a fever last night and with consolidation noted on chest x-ray, starting treatment for aspiration pneumonia. 03/22 Nurses are still getting quite a lot of thick yellow-green pulmonary secretions. Chest imaging improving. Chemistry improved. She is on 40% FiO2. Lung compliance 40. Holding sedation for weaning trial. Neck scheduled dialysis is tomorrow. 03/23 No events overnight. Sedation vacation started early in the morning and now doing spontaneous breathing trial. She is drowsy but awakens to follow commands and open eyes. ABG on spontaneous breathing trial good and parameters on spontaneous breathing trial good as well. Will extubate prior to dialysis this morning. 1 unit of blood with dialysis today. Constitutional Vitals: Vital Signs Temp Pulse Resp BP Pulse Ox 99.3 F H 79 14 152/60 100 03/23/20 04:01 03/23/20 07:31 03/23/20 07:00 03/23/20 07:31 03/23/20 07:31 Period Temp Pulse Resp BP Sys/Clark Pulse Ox Last 24 Hr 99.3 F-101.3 F 74-99 08-05 99-208/40-107 90-100 Intake and Output 03/22/20 03/23/20 03/23/20 21:59 05:59 13:59 Intake Total 1093 478 380 Output Total 225 500 Balance 868 -22 380 Weight 149.595 kg Intake & Output: Intake & Output 03/22/20 03/23/20 03/23/20 21:59 05:59 13:59 Intake Total 1093 478 380 Output Total 225 500 Balance 868 -22 380 Weight 149.595 kg Intake: IV 633 132 380 Sodium Chloride 0.9% 250 ml @ 230 20 mls/hr IV .[id number] [facility] Rx#: [id number] Zosyn 2.25 gm In Dextrose 5% in 50 50 50 Water 50 ml @ 100 mls/hr IV Q8H [facility] Rx#:[id number] Diprivan 1,000 mg In Premix 1 18 82 100 Bag @ 5 MCG/KG/MIN 4.567 mls/hr IV .[id number] [facility] Rx#:[id number] Vancomycin 1,500 mg In Sodium 500 Chloride 0.9% 500 ml @ 333.3 mls/hr IV ONCE ONE Rx#: [id number] Tube Feeding 370 286 GI Tube Flush 90 60 Output: Urine Catheter Amount 225 500 Other: Urine Appearance Clear Mucous Threads Urine Color Light Rolanda Dark Yellow Stool Size Copious Stool Color Brown Stool Consistency Liquid Watery Loose Exam: General: awakens on vent,No acute Distress, obese Eyes/N/T: PERRL, EOMI Head/Neck: neck supple, CV: RRR, No murmurs, Pulm: b/l rhonchi much improved, no wheezing Abd: soft, nontender, +BS x4 Ext: no clubbing/cyanosis/chronic lymphedema b/l LE Neuro: awakens on vent, follows commands, opens eyes, moves all extremities spontaneously Skin: warm/dry OBJ DATA Labs CBC & Chem 7: 03/23/20 04:35 03/23/20 04:35 Labs: Abnormal Lab Results 03/23/20 03/23/20 03/22/20 04:35 04:35 10:10 RBC 2.73 L Hgb 7.6 L Hct 25.5 L MCHC 29.8 L RDW 15.1 H MPV 11.0 H Lymph % (Auto) Green % (Auto) Lymph # (Auto) Green # (Auto) Seg Neutrophils % 80 H Lymphocytes % 7 L RBC Morphology Abnorm A Anisocytosis 1+ A ABG pH 7.46 H ABG pCO2 ABG pO2 104 H ABG HCO3 27.7 H ABG Total CO2 28.9 H ABG Base Excess 3.5 H ABG Methemoglobin 0.1 L Carboxyhemoglobin 2.3 H Total Hemoglobin 8.1 L Sodium Potassium Chloride 92 L Carbon Dioxide Anion Gap 17.0 H BUN 44 H Creatinine 7.6 H* Glucose 123 H Uric Acid Calcium 8.4 L Phosphorus 6.6 H* Alkaline Phosphatase 147 H Troponin T Total Protein 5.8 L Albumin 2.9 L Albumin/Globulin Ratio HDL Cholesterol 03/22/20 03/22/20 03/22/20 08:59 04:46 04:46 RBC Hgb Hct MCHC RDW MPV Lymph % (Auto) Green % (Auto) Lymph # (Auto) Green # (Auto) Seg Neutrophils % Lymphocytes % RBC Morphology Anisocytosis ABG pH 7.46 H ABG pCO2 ABG pO2 ABG HCO3 27.5 H ABG Total CO2 28.7 H ABG Base Excess 3.5 H ABG Methemoglobin 0.1 L Carboxyhemoglobin 2.9 H Total Hemoglobin 7.3 L Sodium Potassium Chloride Carbon Dioxide Anion Gap BUN Creatinine Glucose Uric Acid Calcium Phosphorus Alkaline Phosphatase Troponin T 0.55 H* Total Protein Albumin Albumin/Globulin Ratio HDL Cholesterol 33 L 03/22/20 03/22/20 03/21/20 04:46 04:46 16:00 RBC 2.66 L Hgb 7.7 L Hct 25.1 L MCHC 30.7 L RDW 15.2 H MPV 10.9 H Lymph % (Auto) 9.8 L Green % (Auto) 15.6 H Lymph # (Auto) 0.90 L Green # (Auto) 1.44 H Seg Neutrophils % Lymphocytes % RBC Morphology Anisocytosis ABG pH 7.50 H ABG pCO2 34.0 L ABG pO2 ABG HCO3 ABG Total CO2 ABG Base Excess 2.6 H ABG Methemoglobin 0.1 L Carboxyhemoglobin 2.2 H Total Hemoglobin 7.5 L Sodium 132 L Potassium Chloride 91 L Carbon Dioxide Anion Gap 17.0 H BUN 29 H Creatinine 5.7 H* Glucose 125 H Uric Acid Calcium 8.4 L Phosphorus 6.4 H* Alkaline Phosphatase 128 H Troponin T Total Protein 5.6 L Albumin 2.7 L Albumin/Globulin Ratio 0.9 L HDL Cholesterol 03/21/20 03/21/20 03/21/20 05:03 05:03 05:03 RBC 2.88 L Hgb 8.1 L Hct 26.5 L MCHC 30.6 L RDW 15.1 H MPV 10.5 H Lymph % (Auto) 9.0 L Green % (Auto) 16.1 H Lymph # (Auto) 0.80 L Green # (Auto) 1.42 H Seg Neutrophils % Lymphocytes % RBC Morphology Anisocytosis ABG pH ABG pCO2 ABG pO2 ABG HCO3 ABG Total CO2 ABG Base Excess ABG Methemoglobin Carboxyhemoglobin Total Hemoglobin Sodium Potassium Chloride 94 L Carbon Dioxide 21 L Anion Gap 18.0 H BUN 50 H Creatinine 8.2 H* Glucose 115 H Uric Acid Calcium 8.4 L Phosphorus 6.4 H* Alkaline Phosphatase 145 H Troponin T 0.52 H* Total Protein 5.7 L Albumin 3.0 L Albumin/Globulin Ratio HDL Cholesterol 03/20/20 03/20/20 03/20/20 09:26 04:29 04:29 RBC 3.03 L Hgb 8.7 L Hct 27.6 L MCHC RDW 15.2 H MPV Lymph % (Auto) Green % (Auto) Lymph # (Auto) Green # (Auto) Seg Neutrophils % 88 H Lymphocytes % 5 L RBC Morphology Anisocytosis ABG pH ABG pCO2 ABG pO2 ABG HCO3 ABG Total CO2 ABG Base Excess ABG Methemoglobin Carboxyhemoglobin Total Hemoglobin Sodium 132 L Potassium 5.5 H Chloride Carbon Dioxide 18 L Anion Gap 18.0 H BUN 88 H Creatinine 11.5 H* Glucose 146 H Uric Acid 8.2 H Calcium 8.1 L Phosphorus 6.4 H* Alkaline Phosphatase 155 H Troponin T 0.50 H* Total Protein 5.5 L Albumin 3.0 L Albumin/Globulin Ratio HDL Cholesterol Meds: Medications Acetaminophen (Tylenol) 650 mg PO Q6HP PRN; Protocol PRN Reason: Per Pain Protocol/Fever > 101 Hydrocodone Bitart/Acetaminophen ([place] 5/325mg) 1 tab PO Q6HP PRN; Protocol PRN Reason: Per Pain Protocol Aspirin (Aspirin) 81 mg PO DAILY [facility] Last Admin: 03/22/20 09:25 Dose: 81 mg Documented by: Calcitriol (Rocaltrol) 1 mcg PO TuThSa@0900 [facility] Last Admin: 03/23/20 07:22 Dose: Not Given Documented by: Calcium Acetate (Phoslo) 2,668 mg PO TIDCC [facility] Last Admin: 03/23/20 07:21 Dose: Not Given Documented by: Chlorhexidine Gluconate (Peridex) 15 ml SWABMOUTH BID [facility] Last Admin: 03/22/20 21:57 Dose: 15 ml Documented by: Cinacalcet (Sensipar) 30 mg PO QDAY [facility] Last Admin: 03/23/20 07:22 Dose: Not Given Documented by: Dextrose (Dextrose 50%) 0 ml IV UD PRN PRN Reason: Hypoglycemia Diagnostic Test (Pha) (Accu-Chek) 1 each FS Q4 [facility] Last Admin: 03/23/20 04:00 Dose: 1 each Documented by: Diltiazem HCl (Cardizem) 60 mg PO BID [facility] Last Admin: 03/23/20 07:21 Dose: Not Given Documented by: Docusate Sodium (Colace) 100 mg PO DAILY [facility] Last Admin: 03/23/20 07:21 Dose: Not Given Documented by: Famotidine (Pepcid) 20 mg IV HS [facility] Last Admin: 03/22/20 21:56 Dose: 20 mg Documented by: Fentanyl (Sublimaze) 25 - 50 mcg IV Q1HP PRN; Protocol PRN Reason: Per Pain Protocol Last Admin: 03/23/20 06:53 Dose: 25 mcg Documented by: Glucose (Insta-Glucose) 15 gm PO PRN PRN PRN Reason: Hypoglycemia Heparin Sodium (Porcine) (Heparin) 5,000 unit SQ Q12 [facility] Last Admin: 03/22/20 21:57 Dose: 5,000 unit Documented by: Hydralazine HCl (Apresoline) 0 mg IV Q2HP PRN PRN Reason: Hypertension Last Admin: 03/21/20 10:22 Dose: 20 mg Documented by: Albumin Human (Buminate) 12.5 gm in 50 mls @ 100 mls/hr IV PRN PRN PRN Reason: Dialysis related hypotension Piperacillin Sod/Tazobactam (Sod 2.25 gm/ Dextrose) 50 mls @ 100 mls/hr IV Q8H [facility]; Protocol Last Infusion: 03/23/20 07:22 Dose: Infused Documented by: Acetaminophen (Ofirmev) 650 mg in 65 mls @ 130 mls/hr IV Q6HP PRN; Protocol PRN Reason: PAIN/FEVER > 101 Last Admin: 03/22/20 22:28 Dose: 130 mls/hr Documented by: Sodium Chloride (Sodium Chloride 0.9%) 250 mls @ 20 mls/hr IV .[id number] [facility] Last Infusion: 03/23/20 06:00 Dose: 0 mls/hr Documented by: Dexmedetomidine HCl 400 mcg/ (Premix) 100 mls @ 7.734 mls/hr IV .[id number] [facility]; Protocol Last Admin: 03/23/20 05:21 Dose: Not Given Documented by: Propofol 1,000 mg/ Premix 100 mls @ 4.567 mls/hr IV .[id number] [facility]; Protocol Last Titration: 03/23/20 06:00 Dose: Infused Documented by: Insulin Human Lispro (Humalog) 0 unit SQ Q4 [facility]; Protocol Last Admin: 03/23/20 04:00 Dose: Not Given Documented by: Labetalol HCl (Trandate) 0 mg IV Q2HP PRN PRN Reason: Hypertension Lorazepam (Ativan) 1 mg IV Q2HP PRN PRN Reason: seizure Losartan Potassium (Cozaar) 50 mg PO QHS [facility] Last Admin: 03/22/20 21:59 Dose: Not Given Documented by: Morphine Sulfate (Morphine) 1 - 2 mg IV Q2HP PRN; Protocol PRN Reason: Per Pain Protocol Last Admin: 03/19/20 18:34 Dose: 2 mg Documented by: Ondansetron HCl (Zofran) 4 mg IV Q4HP PRN; Protocol PRN Reason: Nausea And Vomiting Last Admin: 03/22/20 19:16 Dose: 4 mg Documented by: Senna (Senokot) 2 tab PO HSP PRN PRN Reason: Constipation Sodium Chloride (Saline Flush) 10 ml IV Q8 [facility] Last Admin: 03/23/20 05:50 Dose: 10 ml Documented by: Sodium Chloride (Saline Flush) 10 ml IV Q12 [facility] Last Admin: 03/22/20 22:30 Dose: 10 ml Documented by: Tramadol HCl (Ultram) 50 mg PO BIDP PRN PRN Reason: Pain ABG Interpretation ABG results: 03/21/20 03/22/20 03/22/20 16:00 08:59 10:10 ABG pH 7.50 H 7.46 H 7.46 H ABG pCO2 34.0 L 39.4 40.3 ABG pO2 82 93 104 H ABG HCO3 25.9 27.5 H 27.7 H ABG Total CO2 26.9 28.7 H 28.9 H ABG O2 Saturation 94.5 94.9 95.7 ABG Base Excess 2.6 H 3.5 H 3.5 H ABG Methemoglobin 0.1 L 0.1 L 0.1 L A/P Narrative A/P Narrative: A: *Seizure: 2/2 uremia/metabolic disturbance -lacate and prolactin elevated *Aspiration PNA: 2/2 above -Thick Pulmonary secretions suctioned by nursing *Acute Hypoxic Respiratory Failure: 2/2 obtundation/post-ictal/airway protection/Aspiration -Intubated 03/19 *PEA arrest 2/2 seizure with aspiration on 03/19: *Hypoglycemia with obtundation on admit: 2/2 DM meds, poor renal fxn, poor clearance. a1c 4.9 -intially was on glucose gtt *DM II: on glipizide, no change recently and pt does not report h/o hypoglycemia -A1c 4.9 *ESRD: has not had HD for 3wks since moving to new house w/o wheelchair ramp to get out of house -pt noncompliant with HD *Anemia, acute on chronic: *HTN: *Severe Obesity: *CAT: on cpap@home *Elevated troponin: chronically elevated but above baseline 2/2 CPR/epi, no CP prior to episode/ekg unremarkable P: -Zosyn, SC pending -extubate today -cont prn suction and CPT, -Glipizide held and will not restart on d/c, will educate on dietary restrictions -Nephrology for HD -prn ativan -cont home ASA/Dilt/Losartan -home cpap when off vent -TF's per dietary -transfuse 1prbc with HD -ppx: heparin full code Time Spent With Patient Time: Total time spent is greater than 50% in coordination of care (as documented) at patient's floor/unit and/or counseling patient: QUALITY Stroke Symptom Onset Unknown: No VTE Deep Vein Thrombosis/Pulmonary Embolism Present on Admission: No
--- NOTE | 2020-03-23 08:04 | Nephrology Progress Note ---
SUBJECTIVE Subjective Patient information: Note initiated : 03/23/20 at 8:00 am Patient: Elo Robledo 60 y/o F admitted on 03/18/20 for Altered Mental Status, Low Blood Sugar. Chief Complaint: Not available. Pertinent ROS: Extubated. Weakness. Drowsy. Constitutional Vitals: Vital Signs Temp Pulse Resp BP Pulse Ox 99.3 F H 79 15 152/60 100 03/23/20 04:01 03/23/20 07:31 03/23/20 07:30 03/23/20 07:31 03/23/20 07:31 Period Temp Pulse Resp BP Sys/Clark Pulse Ox Last 24 Hr 99.3 F-101.3 F 74-99 12-28 99-208/40-107 90-100 Intake and Output 03/22/20 03/23/20 03/23/20 21:59 05:59 13:59 Intake Total 1093 478 380 Output Total 225 500 Balance 868 -22 380 Weight 329 lb 12.8 oz Intake & Output: Intake & Output 03/22/20 03/23/20 03/23/20 21:59 05:59 13:59 Intake Total 1093 478 380 Output Total 225 500 Balance 868 -22 380 Weight 329 lb 12.8 oz Intake: IV 633 132 380 Sodium Chloride 0.9% 250 ml @ 230 20 mls/hr IV .[id number] [facility] Rx#: [id number] Zosyn 2.25 gm In Dextrose 5% in 50 50 50 Water 50 ml @ 100 mls/hr IV Q8H [facility] Rx#:[id number] Diprivan 1,000 mg In Premix 1 18 82 100 Bag @ 5 MCG/KG/MIN 4.567 mls/hr IV .[id number] [facility] Rx#:[id number] Vancomycin 1,500 mg In Sodium 500 Chloride 0.9% 500 ml @ 333.3 mls/hr IV ONCE ONE Rx#: [id number] Tube Feeding 370 286 GI Tube Flush 90 60 Output: Urine Catheter Amount 225 500 Other: Urine Appearance Clear Mucous Threads Urine Color Light Rolanda Dark Yellow Stool Size Copious Stool Color Brown Stool Consistency Liquid Watery Loose General appearance: cooperative and no acute distress Exam: Extubated Head Head exam: Present normal inspection Respiratory Respiratory exam: Absent respiratory distress Cardiovascular Cardiovascular exam: Present normal rate and rhythm A/P Assessment and plan (1) ESRD (end stage renal disease) on dialysis: Assessment and plan: Progress: Hemodialysis on 03/19, 03/20 and 03/21. Plan: Hemodialysis today for 4 hours then continue on Wednesday, Wednesday and Wednesday. The patient seen and evaluated during hemodialysis. 1 unit PRBC with hemodialysis for Hb <8 today. Target UF 4 kg. BP meds will be considered if SBP >160 after hemodialysis. Status: Chronic (2) Hyponatremia: Assessment and plan: Mild, associated with ESRD. Managed by hemodialysis. Status: Acute Time Spent With Patient Time: Total time spent is greater than 50% in coordination of care (as documented) at patient's floor/unit and/or counseling patient:
--- NOTE | 2020-03-23 08:37 | XRay Report ---
HISTORY: History: Right internal jugular catheter placement, follow-up infiltrates FINDINGS: A right internal jugular catheter has been inserted. The tip is in the superior vena cava at the level of the azygos arch. There is no pneumothorax or widening of the mediastinum. The endotracheal tube and orogastric tube remain well-positioned. There are bilateral widespread alveolar infiltrates with the greatest involvement in the lower lobes, left worse than right. Infiltrate in the right lower lobe has become worse since 8:11 AM on the same date. There has been little change in the left side. IMPRESSION: Well-positioned support tubes. Bilateral infiltrates becoming worse in the right lower lobe Interpreted and Authenticated by: Edwin Blanco 03/23/20
--- NOTE | 2020-03-23 09:18 | XRay Report ---
HISTORY: Intubated and follow-up pulmonary infiltrates FINDINGS: Support tubes remain well-positioned. There is no pneumothorax. Patient has bilateral infiltrates with the greatest consolidation in the left lower lobe. There is been little change in appearance of the lungs since yesterday. Heart size is upper limits of normal. There is a fracture in the right proximal humerus, of undetermined age. IMPRESSION: Stable bilateral infiltrates which may be a combination of atelectasis and pneumonia and pulmonary edema. ARDS is also a consideration. Fractured neck of the proximal right humerus Interpreted and Authenticated by: Edwin Blanco 03/23/20
[2020-03-23] MEDS: CHLORHEXIDINE GLUCONATE 1 ML ORAL.SOL SWABMOUTH SCH (10:27)
[2020-03-23] MEDS: HEPARIN 5,000 UNIT/ML VIAL SQ SCH ×2 (13:10→20:34)
[2020-03-23] MEDS: ACETAMINOPHEN 650 MG/65 ML BOTTLE IV PRN (14:10)
[2020-03-23] MEDS: ASPIRIN 81 MG TAB.CHEW PO SCH (15:10)
--- NOTE | 2020-03-23 18:24 | XRay Report ---
HISTORY: Fractured right humerus seen on portable chest x-ray FINDINGS: The humerus appears normal on this examination without evidence of fracture or destructive bone lesion. The suspected fracture seen on the portable chest x-ray was an artifact created by portable technique. The glenohumeral joint space is normal and there is no arthritis. There is separation of the acromioclavicular joint but no spur formation. The right internal jugular catheter remains well-positioned. IMPRESSION: Normal humerus Interpreted and Authenticated by: Edwin Blanco 03/23/20
[2020-03-23] MEDS: FAMOTIDINE/PF 20 MG/2 ML VIAL IV SCH (20:34)
[2020-03-23] MEDS: LOSARTAN 50 MG TABLET PO SCH (20:35)
[2020-03-24] MEDS: 0.9 % SODIUM CHLORIDE 10 ML SYRINGE IV SCH ×5 (05:22→20:56)
[2020-03-24] MEDS: PIPERACILLIN SODIUM/TAZOBACTAM 2.25 GM in DEXTROSE 5% IN WATER 50 ML IV SCH ×3 (05:22→21:40)
[2020-03-24 06:37] LABS: Basophils # (Auto) 0.03 K/mcL (0.00-0.30); Basophils % (Auto) 0.4 % (0.0-2.0); Eosinophils # (Auto) 0.26 K/mcL (0.00-0.70); Eosinophils % (Auto) 3.1 % (0.0-7.0); Granulocytes % (Auto) 67.9 % (38.0-78.0); Hematocrit 28.6 % (34.1-44.9); Hemoglobin 8.6 g/dL (11.2-15.7); Lymphocytes # (Auto) 1.02 K/mcL (1.50-4.80); Lymphocytes % (Auto) 12.3 % (15.5-49.0); Mean Cell Volume 95.7 fL (80.0-100.0); Mean Corpuscular HGB Conc 30.1 g/dL (31.0-36.0); Mean Platelet Volume 10.6 fL (7.4-10.4); Monocytes # (Auto) 1.35 K/mcL (0.10-0.90); Monocytes % (Auto) 16.3 % (1.0-12.0); Platelet Count 232 K/mcL (140-440); RBC 2.99 M/mcL (3.59-5.38); Red Cell Distribution Width 15.1 % (11.5-14.5); WBC 8.3 K/mcL (4.50-11.00)
[2020-03-24 07:00] LABS: Calcium 9.1 mg/dl (8.6-10.4); Carbon Dioxide 24 mmol/L (22-30); Glucose 90 mg/dL (70-105)
[2020-03-24 07:01] LABS: Blood Urea Nitrogen 26 mg/dl (6-20); Chloride 94 mmol/L (96-108); Glomerular Filtration Rate 9
[2020-03-24] MEDS: INSULIN LISPRO 1 UNIT/0.01 ML UNIT SQ SCH ×4 (08:10→21:01)
[2020-03-24] MEDS: HEPARIN 5,000 UNIT/ML VIAL SQ SCH ×2 (09:00→20:54)
[2020-03-24] MEDS: ASPIRIN 81 MG TAB.CHEW PO SCH (09:00)
[2020-03-24] MEDS: DOCUSATE SODIUM 50 MG/5 ML ORAL.SOL PO SCH (09:00)
[2020-03-24] MEDS: CALCIUM ACETATE 667 MG CAPSULE PO SCH ×3 (09:00→17:07)
[2020-03-24] MEDS: DILTIAZEM 30 MG TABLET PO SCH ×2 (09:00→20:55)
--- NOTE | 2020-03-24 09:05 | XRay Report ---
HISTORY: Extubated FINDINGS: Endotracheal and nasogastric tubes have been removed. Persistent mild to moderate alveolar infiltrates are present bilaterally, predominantly involving the lower lobes. Greatest consolidation remains laterally in the left lower thorax. Heart size is borderline enlarged. Right internal jugular catheter remains well-positioned. There has been improved aeration of the left lower lobe since 03/23/20. IMPRESSION: Bilateral pulmonary infiltrates with improvement in the left lower lobe Interpreted and Authenticated by: Edwin Blanco 03/24/20
[2020-03-24] MEDS: CINACALCET 30 MG TABLET PO SCH (09:59)
--- NOTE | 2020-03-24 10:21 | Nephrology Progress Note ---
SUBJECTIVE Subjective Patient information: Note initiated : 03/24/20 at 10:15 am Patient: Elo Robledo 60 y/o F admitted on 03/18/20 for Altered Mental Status, Low Blood Sugar. Chief Complaint: Weakness Pertinent ROS: Sleepy Wakes up without difficulty Edema Constitutional Vitals: Vital Signs Temp Pulse Resp BP Pulse Ox 97.8 F 75 18 149/40 99 03/24/20 03:01 03/24/20 05:13 03/24/20 03:01 03/24/20 04:01 03/24/20 06:46 Period Temp Pulse Resp BP Sys/Clark Pulse Ox Last 24 Hr 97.8 F-98.6 F 74-88 18-21 113-173/31-91 95-100 Intake and Output 03/23/20 03/24/20 03/24/20 21:59 05:59 13:59 Intake Total 440 50 Output Total 425 400 Balance 15 -350 Weight 326 lb 12.8 oz Intake & Output: Intake & Output 03/23/20 03/24/20 03/24/20 21:59 05:59 13:59 Intake Total 440 50 Output Total 425 400 Balance 15 -350 Weight 326 lb 12.8 oz Intake: IV 115 50 Zosyn 2.25 gm In Dextrose 5% in 50 50 Water 50 ml @ 100 mls/hr IV Q8H [facility] Rx#:[id number] Blood Product 325 Output: Urine Catheter Amount 325 400 Stool 100 Other: Urine Appearance Sediment Uretheral (Samson) Clear Urine Color Pale Pale Light Rolanda Uretheral (Samson) Pale Pale Light Rolanda Stool Color Brown Brown Stool Consistency Liquid Liquid General appearance: cooperative and no acute distress Head Head exam: Present normal inspection Eye Eye exam: Present normal appearance ENT ENT exam: Present mucous membranes moist Respiratory Respiratory exam: Absent respiratory distress Cardiovascular Cardiovascular exam: Present normal rate and rhythm GI/Abdominal GI/Abdominal exam: Present soft; Absent tenderness Extremities Exam Extremities exam: Present pedal edema Neurological Exam Neurological exam: Present alert Psychiatric Psychiatric exam: Present normal affect and normal mood Skin Skin exam: Present warm; Absent rash A/P Assessment and plan (1) ESRD (end stage renal disease) on dialysis: Assessment and plan: Progress: Hemodialysis on 03/19, 03/20, 03/21 and 03/23. Plan: Next hemodialysis tomorrow for 4 hours then continue on Wednesday, Wednesday and Wednesday. Target UF 4-5 kg kg. Status: Chronic (2) Hyponatremia: Assessment and plan: Mild, associated with ESRD. Managed by hemodialysis. Status: Acute (3) Other fluid overload: Assessment and plan: Associated with ESRD. Managed by hemodialysis. Status: Acute Time Spent With Patient Time: Total time spent is greater than 50% in coordination of care (as documented) at patient's floor/unit and/or counseling patient:
[2020-03-24] MEDS ORDERED: ROCURONIUM 10 MG/ML ML IV ONE (10:28)
[2020-03-24] MEDS ORDERED: ONDANSETRON 4 MG/2 ML VIAL IV PRN (10:28)
[2020-03-24] MEDS ORDERED: LABETALOL 5 MG/ML ML IV PRN (10:28)
[2020-03-24] MEDS ORDERED: DEXTROSE 50% 50 ML VIAL IV PRN (10:28)
[2020-03-24] MEDS ORDERED: traMADol 50 MG TABLET PO PRN (10:28)
[2020-03-24] MEDS ORDERED: LORazepam 2 MG/ML VIAL IV PRN (10:28)
[2020-03-24] MEDS ORDERED: SENNOSIDES 1 TABLET PO PRN (10:28)
[2020-03-24] MEDS ORDERED: ACETAMINOPHEN 650 MG/65 ML BOTTLE IV PRN (10:28)
[2020-03-24] MEDS ORDERED: hydrALAZINE 20 MG/ML VIAL IV PRN (10:28)
[2020-03-24] MEDS ORDERED: fentaNYL 100 MCG/2 ML VIAL IV PRN (10:28)
[2020-03-24] MEDS ORDERED: EPINEPHrine 1 MG/10 ML (1:10,000) SYRINGE IV ONE (10:28)
[2020-03-24] MEDS ORDERED: ACETAMINOPHEN 325 MG TABLET PO PRN (10:28)
[2020-03-24] MEDS ORDERED: DEXTROSE 31 GM ORAL.SUSP PO PRN (10:28)
[2020-03-24] MEDS ORDERED: ALBUMIN HUMAN 12.5 GM/50 ML BAG IV PRN (10:28)
[2020-03-24] MEDS: HYDROcodone/APAP 5/325MG TABLET PO PRN ×2 (14:09→20:54)
--- NOTE | 2020-03-24 15:21 | Internal Med Progress Note ---
SUBJECTIVE Subjective Patient information: Note initiated : 03/24/20 at 3:07 pm Service Date, if different from initiated Date: [] Patient: Elo Robledo a 60 y/o F admitted on 03/18/20 for Altered Mental Status, Low Blood Sugar. Chief Complaint: [] Interval history: History of present illness: Ms. Robledo is a 60 year old F Presents to the ED with altered mental status and hypoglycemic event. Patient was found by her daughter who is also her caregiver this morning to be obtunded. Daughter states that the patient's also noted that she just remained in bed this morning and typically gets up too early. EMS arrived and found her blood glucose to be 45. She got an amp of D50 with good response. In the ED she was kept on D5 drip given low blood glucose. She has not had dialysis in 3 weeks because she moved into a new home and there is no ramp and they have been unable to get her to dialysis. This was discussed with Dr. Retana her customer success associate who will be setting up dialysis. She has not taken her medications today. 03/19 Poor sleep. Patient has chronic low back pain. Chills but otherwise no complaint. D5 drip. As nurse was passing by patient's room she noted noise coming from her room and when she looked towards the patient she noted that patient to be convulsing, subsequently noted some foaming and some blood from the mouth. Patient was responsive and unable to palpate pulses. CPR started several minutes of epinephrine were given. She was also given Ativan IV 2 mg. Return of spontaneous circulation was achieved. No history of seizures. Blood glucose was within normal limits. Patient has been in metabolic disturbance secondary to noncompliance with hemodialysis. Did receive a hemodialysis session this morning. CODE BLUE labs pending. ABG with good oxygenation but with acidosis 2/2 lactic acidosis from event. EKG unremarkable. Transferred to ICU. Discussed with family. Patient likely bit tongue during event leading to bleeding. She is currently intubated for airway protection. 03/20 No overnight events. Glucose drip off. Vital signs stable. Undergoing dialysis this morning. No seizure activity reported. Weaning trial after hemodialysis. Hopefully extubate tomorrow morning. 03/21 Weaned off sedation earlier this morning patient starting to arouse but still quite drowsy. Undergoing dialysis at this time. Weaning trial after hemodialysis. Did spike a fever last night and with consolidation noted on chest x-ray, starting treatment for aspiration pneumonia. 03/22 Nurses are still getting quite a lot of thick yellow-green pulmonary secretions. Chest imaging improving. Chemistry improved. She is on 40% FiO2. Lung compliance 40. Holding sedation for weaning trial. Neck scheduled dialysis is tomorrow. 03/23 No events overnight. Sedation vacation started early in the morning and now doing spontaneous breathing trial. She is drowsy but awakens to follow commands and open eyes. ABG on spontaneous breathing trial good and parameters on spontaneous breathing trial good as well. Will extubate prior to dialysis this morning. 1 unit of blood with dialysis today. 03/24 Patient complains of seeing black spots. Further inquiring she told that she has been having this problem for 2 years. But her left eye sees more black spots today. Denies headache, dizziness, or seeing red spots. I feel that the problem could be due to diabetic retinopathy. Unfortunately there is no carpenter cradle and dolly available in this hospital. The patient refused to be transferred to another hospital for seeing an carpenter cradle and dolly. Review of systems: Positive for SOB all other systems were reviewed and are negative. Constitutional Vitals: Vital Signs Temp Pulse Resp BP Pulse Ox 97.1 F 76 18 144/62 94 03/24/20 12:01 03/24/20 14:01 03/24/20 03:01 03/24/20 14:01 03/24/20 14:01 Period Temp Pulse Resp BP Sys/Clark Pulse Ox Last 24 Hr 97.1 F-98.6 F 70-85 18-20 113-162/31-85 94-99 Intake and Output 03/24/20 03/24/20 03/24/20 05:59 13:59 21:59 Intake Total 50 120 Output Total 400 200 100 Balance -350 -80 -100 Intake & Output: Intake & Output 03/24/20 03/24/20 03/24/20 05:59 13:59 21:59 Intake Total 50 120 Output Total 400 200 100 Balance -350 -80 -100 Intake: IV 50 Zosyn 2.25 gm In Dextrose 5% in 50 Water 50 ml @ 100 mls/hr IV Q8H [facility] Rx#:[id number] Oral 120 Output: Urine Catheter Amount 400 200 Stool 100 Other: Meal Lunch Percent of Meal Consumed 75% Urine Color Pale Light Rolanda Uretheral (Samson) Pale Light Rolanda Stool Color Brown Stool Consistency Liquid Additional findings Additional findings: General: alert, awakens, no acute Distress, obese Eyes/N/T: PERRL, EOMI Head/Neck: neck supple, CV: RRR, No murmurs, Pulm: b/l rhonchi much improved, no wheezing Abd: soft, nontender, +BS x4 Ext: no clubbing/cyanosis. Chronic lymphedema b/l LE Neuro: A+Ox 3, no focal neurological deficits Skin: warm/dry Psych: normal mood OBJ DATA Labs CBC & Chem 7: 03/24/20 05:21 03/24/20 05:21 Labs: Abnormal Lab Results 03/24/20 03/24/20 03/23/20 05:21 05:21 04:35 RBC 2.99 L Hgb 8.6 L Hct 28.6 L MCHC 30.1 L RDW 15.1 H MPV 10.6 H Lymph % (Auto) 12.3 L [place] % (Auto) 16.3 H Lymph # (Auto) 1.02 L [place] # (Auto) 1.35 H Seg Neutrophils % Lymphocytes % RBC Morphology Anisocytosis ABG pH ABG pCO2 ABG pO2 ABG HCO3 ABG Total CO2 ABG Base Excess ABG Methemoglobin Carboxyhemoglobin Total Hemoglobin Sodium Chloride 94 L 92 L Anion Gap 17.0 H BUN 26 H 44 H Creatinine 5.0 H 7.6 H* Glucose 123 H Calcium 8.4 L Phosphorus 6.6 H* Alkaline Phosphatase 147 H Troponin T Total Protein 5.8 L Albumin 2.9 L Albumin/Globulin Ratio HDL Cholesterol 03/23/20 03/22/20 03/22/20 04:35 10:10 08:59 RBC 2.73 L Hgb 7.6 L Hct 25.5 L MCHC 29.8 L RDW 15.1 H MPV 11.0 H Lymph % (Auto) [place] % (Auto) Lymph # (Auto) [place] # (Auto) Seg Neutrophils % 80 H Lymphocytes % 7 L RBC Morphology Abnorm A Anisocytosis 1+ A ABG pH 7.46 H 7.46 H ABG pCO2 ABG pO2 104 H ABG HCO3 27.7 H 27.5 H ABG Total CO2 28.9 H 28.7 H ABG Base Excess 3.5 H 3.5 H ABG Methemoglobin 0.1 L 0.1 L Carboxyhemoglobin 2.3 H 2.9 H Total Hemoglobin 8.1 L 7.3 L Sodium Chloride Anion Gap BUN Creatinine Glucose Calcium Phosphorus Alkaline Phosphatase Troponin T Total Protein Albumin Albumin/Globulin Ratio HDL Cholesterol 03/22/20 03/22/20 03/22/20 04:46 04:46 04:46 RBC Hgb Hct MCHC RDW MPV Lymph % (Auto) [place] % (Auto) Lymph # (Auto) [place] # (Auto) Seg Neutrophils % Lymphocytes % RBC Morphology Anisocytosis ABG pH ABG pCO2 ABG pO2 ABG HCO3 ABG Total CO2 ABG Base Excess ABG Methemoglobin Carboxyhemoglobin Total Hemoglobin Sodium 132 L Chloride 91 L Anion Gap 17.0 H BUN 29 H Creatinine 5.7 H* Glucose 125 H Calcium 8.4 L Phosphorus 6.4 H* Alkaline Phosphatase 128 H Troponin T 0.55 H* Total Protein 5.6 L Albumin 2.7 L Albumin/Globulin Ratio 0.9 L HDL Cholesterol 33 L 03/22/20 03/21/20 04:46 16:00 RBC 2.66 L Hgb 7.7 L Hct 25.1 L MCHC 30.7 L RDW 15.2 H MPV 10.9 H Lymph % (Auto) 9.8 L [place] % (Auto) 15.6 H Lymph # (Auto) 0.90 L [place] # (Auto) 1.44 H Seg Neutrophils % Lymphocytes % RBC Morphology Anisocytosis ABG pH 7.50 H ABG pCO2 34.0 L ABG pO2 ABG HCO3 ABG Total CO2 ABG Base Excess 2.6 H ABG Methemoglobin 0.1 L Carboxyhemoglobin 2.2 H Total Hemoglobin 7.5 L Sodium Chloride Anion Gap BUN Creatinine Glucose Calcium Phosphorus Alkaline Phosphatase Troponin T Total Protein Albumin Albumin/Globulin Ratio HDL Cholesterol Meds: Medications Acetaminophen (Tylenol) 650 mg PO Q6HP PRN; Protocol PRN Reason: Per Pain Protocol/Fever > 101 Hydrocodone Bitart/Acetaminophen ([place] 5/325mg) 1 tab PO Q6HP PRN; Protocol PRN Reason: Per Pain Protocol Last Admin: 03/24/20 14:09 Dose: 1 tab Documented by: Aspirin (Aspirin) 81 mg PO DAILY [facility] Calcitriol (Rocaltrol) 1 mcg PO TuThSa@0900 [facility] Calcium Acetate (Phoslo) 2,668 mg PO TIDCC [facility] Last Admin: 03/24/20 14:12 Dose: 2,668 mg Documented by: Cinacalcet (Sensipar) 30 mg PO QDAY [facility] Dextrose (Dextrose 50%) 0 ml IV UD PRN PRN Reason: Hypoglycemia Diagnostic Test (Pha) (Accu-Chek) 1 each FS [facility] Last Admin: 03/24/20 12:13 Dose: 1 each Documented by: Diltiazem HCl (Cardizem) 60 mg PO BID [facility] Docusate Sodium (Colace) 100 mg PO DAILY [facility] Famotidine (Pepcid) 20 mg IV HS [facility] Fentanyl (Sublimaze) 25 - 50 mcg IV Q1HP PRN; Protocol PRN Reason: Per Pain Protocol Furosemide (Lasix) 40 mg PO DAILY [facility] Glucose (Insta-Glucose) 15 gm PO PRN PRN PRN Reason: Hypoglycemia Heparin Sodium (Porcine) (Heparin) 5,000 unit SQ Q12 [facility] Hydralazine HCl (Apresoline) 0 mg IV Q2HP PRN PRN Reason: Hypertension Albumin Human (Buminate) 12.5 gm in 50 mls @ 100 mls/hr IV PRN PRN PRN Reason: Dialysis related hypotension Acetaminophen (Ofirmev) 650 mg in 65 mls @ 130 mls/hr IV Q6HP PRN; Protocol PRN Reason: PAIN/FEVER > 101 Piperacillin Sod/Tazobactam (Sod 2.25 gm/ Dextrose) 50 mls @ 100 mls/hr IV Q8H [facility]; Protocol Last Admin: 03/24/20 15:06 Dose: 100 mls/hr Documented by: Insulin Human Lispro (Humalog) 0 unit SQ [facility]; Protocol Last Admin: 03/24/20 12:13 Dose: Not Given Documented by: Labetalol HCl (Trandate) 0 mg IV Q2HP PRN PRN Reason: Hypertension Lorazepam (Ativan) 1 mg IV Q2HP PRN PRN Reason: seizure Losartan Potassium (Cozaar) 50 mg PO QHS [facility] Morphine Sulfate (Morphine) 1 - 2 mg IV Q2HP PRN; Protocol PRN Reason: Per Pain Protocol Ondansetron HCl (Zofran) 4 mg IV Q4HP PRN; Protocol PRN Reason: Nausea And Vomiting Senna (Senokot) 2 tab PO HSP PRN PRN Reason: Constipation Sodium Chloride (Saline Flush) 10 ml IV Q12 [facility] Sodium Chloride (Saline Flush) 10 ml IV Q8 [facility] Tramadol HCl (Ultram) 50 mg PO BIDP PRN PRN Reason: Pain ABG Interpretation ABG results: 03/21/20 03/22/20 03/22/20 16:00 08:59 10:10 ABG pH 7.50 H 7.46 H 7.46 H ABG pCO2 34.0 L 39.4 40.3 ABG pO2 82 93 104 H ABG HCO3 25.9 27.5 H 27.7 H ABG Total CO2 26.9 28.7 H 28.9 H ABG O2 Saturation 94.5 94.9 95.7 ABG Base Excess 2.6 H 3.5 H 3.5 H ABG Methemoglobin 0.1 L 0.1 L 0.1 L A/P Narrative A/P Narrative: *Seizure: 2/2 uremia/metabolic disturbance -lacate and prolactin elevated *Aspiration PNA: 2/2 above -Thick Pulmonary secretions suctioned by nursing *Acute Hypoxic Respiratory Failure: 2/2 obtundation/post-ictal/airway protection/Aspiration -Intubated 03/19 *PEA arrest 2/2 seizure with aspiration on 03/19: *Hypoglycemia with obtundation on admit: 2/2 DM meds, poor renal fxn, poor clearance. a1c 4.9 -intially was on glucose gtt *DM II: on glipizide, no change recently and pt does not report h/o hypoglycemia -A1c 4.9 *ESRD: has not had HD for 3wks since moving to [facility] w/o wheelchair ramp to get out of house -pt noncompliant with HD *Anemia, acute on chronic: *HTN: *Severe Obesity: *CAT: on cpap@home *Elevated troponin: chronically elevated but above baseline 2/2 CPR/epi, no CP prior to episode/ekg unremarkable *Diabetic retinopathy? P: -Zosyn, -extubate on 03/23 -cont prn suction and CPT, -Glipizide held and will not restart on d/c, will educate on dietary restrictions -Nephrology for HD -prn ativan -cont home ASA/Dilt/Losartan -home cpap, she is now on high flow oxygen, trying to wean off. Not no home oxygen. -Discontinued TF's per dietary. Diabetic and renal diet as tolerated. -s/p 1prbc with HD on 03/23 -The patient refused to be transferred to another hospital for seeing an carpenter cradle and dolly for seeing black spots. -ppx: heparin full code Time Spent With Patient Time: Total time spent is greater than 50% in coordination of care (as documented) at patient's floor/unit and/or counseling patient: QUALITY Stroke Symptom Onset Unknown: No VTE Deep Vein Thrombosis/Pulmonary Embolism Present on Admission: No
[2020-03-24] MEDS: FAMOTIDINE/PF 20 MG/2 ML VIAL IV SCH (20:54)
[2020-03-24] MEDS: LOSARTAN 50 MG TABLET PO SCH (20:55)
[2020-03-24] MEDS: BENZOCAINE/MENTHOL 1 LOZENGE PO PRN (22:27)
[2020-03-25] MEDS: HYDROcodone/APAP 5/325MG TABLET PO PRN ×3 (02:45→21:58)
[2020-03-25 03:33] LABS: Basophils # (Auto) 0.02 K/mcL (0.00-0.30); Basophils % (Auto) 0.2 % (0.0-2.0); Eosinophils # (Auto) 0.36 K/mcL (0.00-0.70); Eosinophils % (Auto) 4.3 % (0.0-7.0); Granulocytes % (Auto) 66.3 % (38.0-78.0); Hematocrit 27.4 % (34.1-44.9); Hemoglobin 8.3 g/dL (11.2-15.7); Lymphocytes # (Auto) 1.17 K/mcL (1.50-4.80); Mean Cell Volume 94.5 fL (80.0-100.0); Mean Corpuscular HGB Conc 30.3 g/dL (31.0-36.0); Mean Platelet Volume 9.9 fL (7.4-10.4); Monocytes # (Auto) 1.27 K/mcL (0.10-0.90); Monocytes % (Auto) 15.2 % (1.0-12.0); Platelet Count 239 K/mcL (140-440); Red Cell Distribution Width 14.8 % (11.5-14.5); WBC 8.4 K/mcL (4.50-11.00)
[2020-03-25 03:54] LABS: Creatine Kinase MB < 1.0 ng/ml (0-2.9)
[2020-03-25 03:56] LABS: Creatine Kinase 37 IU/L (24-170)
[2020-03-25 03:56] LABS: ALT/SGPT 7 U/l (0-40); AST/SGOT 8 U/l (0-37); Albumin 3.1 gm/dL (3.2-5.2); Alkaline Phosphatase 125 U/L (39-117); Bilirubin,Total 0.4 mg/dL (0.0-1.0); Blood Urea Nitrogen 36 mg/dl (6-20); Calcium 8.6 mg/dl (8.6-10.4); Carbon Dioxide 24 mmol/L (22-30); Chloride 95 mmol/L (96-108); Globulin 3.1 gm/dL (2.2-3.7); Glomerular Filtration Rate 6; Glucose 116 mg/dL (70-105)
[2020-03-25] MEDS: PIPERACILLIN SODIUM/TAZOBACTAM 2.25 GM in DEXTROSE 5% IN WATER 50 ML IV SCH ×3 (05:59→21:59)
[2020-03-25] MEDS: 0.9 % SODIUM CHLORIDE 10 ML SYRINGE IV SCH ×5 (05:59→21:59)
[2020-03-25] MEDS: BENZOCAINE/MENTHOL 1 LOZENGE PO PRN (06:51)
--- NOTE | 2020-03-25 06:51 | XRay Report ---
INDICATION: Post extubation follow-up TECHNIQUE: AP portable semiupright chest x-ray COMPARISON: Previous examinations dated 03/24/2020, 03/23/2020, 03/22/2020. FINDINGS: Lungs:Bilateral parenchymal infiltrates with left lower lobe predominance. Findings are considered unchanged since 03/24/2020 Heart, vascular:No significant cardiomegaly. Pulmonary vascularity is normal. No pulmonary edema or pulmonary congestion. There is a right central venous catheter with its tip in the superior vena cava. This is unchanged Mediastinum, edward:No mediastinal widening. No hilar mass Pleura:Small left pleural effusion is likely. Skeletal:Negative. IMPRESSION: No significant interval change since 03/24/2020 Interpreted and Authenticated by: Yony Flannery 03/25/20
[2020-03-25] MEDS: INSULIN LISPRO 1 UNIT/0.01 ML UNIT SQ SCH ×4 (06:53→21:30)
[2020-03-25] MEDS ORDERED: DOCUSATE SODIUM 50 MG/5 ML ORAL.SOL PO SCH (09:00)
[2020-03-25] MEDS: ASPIRIN 81 MG TAB.CHEW PO SCH (09:48)
[2020-03-25] MEDS: FUROSEMIDE 40 MG TABLET PO SCH (09:48)
[2020-03-25] MEDS: DILTIAZEM 30 MG TABLET PO SCH ×2 (09:49→21:58)
[2020-03-25] MEDS: HEPARIN 5,000 UNIT/ML VIAL SQ SCH ×2 (09:50→21:57)
[2020-03-25] MEDS: CALCIUM ACETATE 667 MG CAPSULE PO SCH ×3 (09:50→17:47)
[2020-03-25] MEDS: ATORVASTATIN 40 MG TABLET PO SCH (09:50)
[2020-03-25] MEDS ORDERED: VANCOMYCIN PER PHARMACY IV ONE (09:57)
[2020-03-25] MEDS: CINACALCET 30 MG TABLET PO SCH (09:58)
--- NOTE | 2020-03-25 11:43 | Internal Med Progress Note ---
SUBJECTIVE Subjective Patient information: Note initiated : 03/25/20 at 11:33 am Service Date, if different from initiated Date: [] Patient: Elo Robledo a 60 y/o F admitted on 03/18/20 for Altered Mental Status, Low Blood Sugar. Chief Complaint: [] Interval history: History of present illness: Ms. Robledo is a 60 year old F Presents to the ED with altered mental status and hypoglycemic event. Patient was found by her daughter who is also her caregiver this morning to be obtunded. Daughter states that the patient's also noted that she just remained in bed this morning and typically gets up too early. EMS arrived and found her blood glucose to be 45. She got an amp of D50 with good response. In the ED she was kept on D5 drip given low blood glucose. She has not had dialysis in 3 weeks because she moved into a new home and there is no ramp and they have been unable to get her to dialysis. This was discussed with Dr. Retana her form setter/driver who will be setting up dialysis. She has not taken her medications today. 03/19 Poor sleep. Patient has chronic low back pain. Chills but otherwise no complaint. D5 drip. As nurse was passing by patient's room she noted noise coming from her room and when she looked towards the patient she noted that patient to be convulsing, subsequently noted some foaming and some blood from the mouth. Patient was responsive and unable to palpate pulses. CPR started several minutes of epinephrine were given. She was also given Ativan IV 2 mg. Return of spontaneous circulation was achieved. No history of seizures. Blood glucose was within normal limits. Patient has been in metabolic disturbance secondary to noncompliance with hemodialysis. Did receive a hemodialysis session this morning. CODE BLUE labs pending. ABG with good oxygenation but with acidosis 2/2 lactic acidosis from event. EKG unremarkable. Transferred to ICU. Discussed with family. Patient likely bit tongue during event leading to bleeding. She is currently intubated for airway protection. 03/20 No overnight events. Glucose drip off. Vital signs stable. Undergoing dialysis this morning. No seizure activity reported. Weaning trial after hemodialysis. Hopefully extubate tomorrow morning. 03/21 Weaned off sedation earlier this morning patient starting to arouse but still quite drowsy. Undergoing dialysis at this time. Weaning trial after hemodialysis. Did spike a fever last night and with consolidation noted on chest x-ray, starting treatment for aspiration pneumonia. 03/22 Nurses are still getting quite a lot of thick yellow-green pulmonary secretions. Chest imaging improving. Chemistry improved. She is on 40% FiO2. Lung compliance 40. Holding sedation for weaning trial. Neck scheduled dialysis is tomorrow. 03/23 No events overnight. Sedation vacation started early in the morning and now doing spontaneous breathing trial. She is drowsy but awakens to follow commands and open eyes. ABG on spontaneous breathing trial good and parameters on spontaneous breathing trial good as well. Will extubate prior to dialysis this morning. 1 unit of blood with dialysis today. 03/24 Patient complains of seeing black spots. Further inquiring she told that she has been having this problem for 2 years. But her left eye sees more black spots today. Denies headache, dizziness, or seeing red spots. I feel that the problem could be due to diabetic retinopathy. Unfortunately there is no sales advisory manager available in this hospital. The patient refused to be transferred to another hospital for seeing an sales advisory manager. 03/25 Earlier this morning patient complained of chest pain. Discussed the pain with patient who told me that she has been having the chest pain over the past 4 days. She has more pain if she takes deep breath. Also she has moderate to severe tenderness over the chest. EKG no ST elevation Troponin mildly elevated to 0.72. Discussed with the patient the possible causes and treatment. There is no ca rdiologist and stress test available in this hospital but patient refused to be transferred to another hospital. She would like to stay in the hospital for medical treatment. Sputum culture showed staph aureus. Discussed with ID Dr. Jones, who suggested to continue Zosyn and add vancomycin Review of systems: Positive for SOB all other systems were reviewed and are negative. Constitutional Vitals: Vital Signs Temp Pulse Resp BP Pulse Ox 97.0 F 76 16 149/56 91 03/25/20 07:01 03/25/20 11:01 03/25/20 06:00 03/25/20 11:01 03/25/20 11:01 Period Temp Pulse Resp BP Sys/Clark Pulse Ox Last 24 Hr 97.0 F-98.9 F 69-80 16-20 123-164/51-85 90-100 Intake and Output 03/24/20 03/25/20 03/25/20 21:59 05:59 13:59 Intake Total 170 170 240 Output Total 190 240 Balance - 240 Weight 148.461 kg Intake & Output: Intake & Output 03/24/20 03/25/20 03/25/20 21:59 05:59 13:59 Intake Total 170 170 240 Output Total 190 240 Balance - 240 Weight 148.461 kg Intake: IV 50 50 Zosyn 2.25 gm In Dextrose 5% in 50 50 Water 50 ml @ 100 mls/hr IV Q8H [facility] Rx#:[id number] Oral 120 120 240 Output: Urine Catheter Amount 90 240 Stool 100 Other: Meal Dinner Breakfast Percent of Meal Consumed 100% 100% Urine Appearance Sediment Clear Sediment Mucous Threads Uretheral (Samson) Sediment Urine Color Light Rolanda Bright Yellow Bright Yellow Uretheral (Samson) Bright Yellow Stool Size Small Moderate Stool Color Brown Brown Stool Consistency Soft Soft # of times incontinent of 1 Bowels Additional findings Additional findings: General: alert, awakens, no acute Distress, obese Eyes/N/T: PERRL, EOMI Head/Neck: neck supple, CV: RRR, No murmurs, Pulm: b/l rhonchi much improved, no wheezing Abd: soft, nontender, +BS x4 Ext: no clubbing/cyanosis. Chronic lymphedema b/l LE Neuro: A+Ox 3, no focal neurological deficits Skin: warm/dry Psych: normal mood OBJ DATA Labs CBC & Chem 7: 03/25/20 03:01 03/25/20 03:01 Labs: Abnormal Lab Results 03/25/20 03/25/20 03/25/20 09:13 03:02 03:01 RBC Hgb Hct MCHC RDW MPV Lymph % (Auto) [place] % (Auto) Lymph # (Auto) [place] # (Auto) Seg Neutrophils % Lymphocytes % RBC Morphology Anisocytosis Chloride 95 L Anion Gap BUN 36 H Creatinine 6.7 H* Glucose 116 H Calcium Phosphorus Alkaline Phosphatase 125 H Troponin T 0.69 H* 0.72 H* Total Protein Albumin 3.1 L 03/25/20 03/24/20 03/24/20 03:01 05:21 05:21 RBC 2.90 L 2.99 L Hgb 8.3 L 8.6 L Hct 27.4 L 28.6 L MCHC 30.3 L 30.1 L RDW 14.8 H 15.1 H MPV 10.6 H Lymph % (Auto) 14.0 L 12.3 L [place] % (Auto) 15.2 H 16.3 H Lymph # (Auto) 1.17 L 1.02 L [place] # (Auto) 1.27 H 1.35 H Seg Neutrophils % Lymphocytes % RBC Morphology Anisocytosis Chloride 94 L Anion Gap BUN 26 H Creatinine 5.0 H Glucose Calcium Phosphorus Alkaline Phosphatase Troponin T Total Protein Albumin 03/23/20 03/23/20 04:35 04:35 RBC 2.73 L Hgb 7.6 L Hct 25.5 L MCHC 29.8 L RDW 15.1 H MPV 11.0 H Lymph % (Auto) [place] % (Auto) Lymph # (Auto) [place] # (Auto) Seg Neutrophils % 80 H Lymphocytes % 7 L RBC Morphology Abnorm A Anisocytosis 1+ A Chloride 92 L Anion Gap 17.0 H BUN 44 H Creatinine 7.6 H* Glucose 123 H Calcium 8.4 L Phosphorus 6.6 H* Alkaline Phosphatase 147 H Troponin T Total Protein 5.8 L Albumin 2.9 L Meds: Medications Acetaminophen (Tylenol) 650 mg PO Q6HP PRN; Protocol PRN Reason: Per Pain Protocol/Fever > 101 Hydrocodone Bitart/Acetaminophen ([place] 5/325mg) 1 tab PO Q6HP PRN; Protocol PRN Reason: Per Pain Protocol Last Admin: 03/25/20 09:54 Dose: 1 tab Documented by: Aspirin (Aspirin) 81 mg PO DAILY [facility] Last Admin: 03/25/20 09:48 Dose: 81 mg Documented by: Atorvastatin Calcium (Lipitor) 40 mg PO DAILY [facility] Last Admin: 03/25/20 09:50 Dose: 40 mg Documented by: Calcitriol (Rocaltrol) 1 mcg PO TuThSa@0900 [facility] Calcium Acetate (Phoslo) 2,668 mg PO TIDCC [facility] Last Admin: 03/25/20 09:50 Dose: 2,668 mg Documented by: Cinacalcet (Sensipar) 30 mg PO QDAY [facility] Last Admin: 03/25/20 09:58 Dose: 30 mg Documented by: Dextrose (Dextrose 50%) 0 ml IV UD PRN PRN Reason: Hypoglycemia Diagnostic Test (Pha) (Accu-Chek) 1 each FS ACHS [facility] Last Admin: 03/25/20 11:28 Dose: 1 each Documented by: Diltiazem HCl (Cardizem) 60 mg PO BID [facility] Last Admin: 03/25/20 09:49 Dose: 60 mg Documented by: Docusate Sodium (Colace) 100 mg PO DAILY [facility] Famotidine (Pepcid) 20 mg IV HS [facility] Last Admin: 03/24/20 20:54 Dose: 20 mg Documented by: Fentanyl (Sublimaze) 25 - 50 mcg IV Q1HP PRN; Protocol PRN Reason: Per Pain Protocol Furosemide (Lasix) 40 mg PO DAILY [facility] Last Admin: 03/25/20 09:48 Dose: 40 mg Documented by: Glucose (Insta-Glucose) 15 gm PO PRN PRN PRN Reason: Hypoglycemia Heparin Sodium (Porcine) (Heparin) 5,000 unit SQ Q12 [facility] Last Admin: 03/25/20 09:50 Dose: 5,000 unit Documented by: Hydralazine HCl (Apresoline) 0 mg IV Q2HP PRN PRN Reason: Hypertension Albumin Human (Buminate) 12.5 gm in 50 mls @ 100 mls/hr IV PRN PRN PRN Reason: Dialysis related hypotension Acetaminophen (Ofirmev) 650 mg in 65 mls @ 130 mls/hr IV Q6HP PRN; Protocol PRN Reason: PAIN/FEVER > 101 Piperacillin Sod/Tazobactam (Sod 2.25 gm/ Dextrose) 50 mls @ 100 mls/hr IV Q8H [facility]; Protocol Last Admin: 03/25/20 05:59 Dose: 100 mls/hr Documented by: Insulin Human Lispro (Humalog) 0 unit SQ [facility]; Protocol Last Admin: 03/25/20 06:53 Dose: Not Given Documented by: Labetalol HCl (Trandate) 0 mg IV Q2HP PRN PRN Reason: Hypertension Lorazepam (Ativan) 1 mg IV Q2HP PRN PRN Reason: seizure Losartan Potassium (Cozaar) 50 mg PO QHS [facility] Last Admin: 03/24/20 20:55 Dose: 50 mg Documented by: Morphine Sulfate (Morphine) 1 - 2 mg IV Q2HP PRN; Protocol PRN Reason: Per Pain Protocol Last Admin: 03/25/20 03:24 Dose: 2 mg Documented by: Ondansetron HCl (Zofran) 4 mg IV Q4HP PRN; Protocol PRN Reason: Nausea And Vomiting Senna (Senokot) 2 tab PO HSP PRN PRN Reason: Constipation Sodium Chloride (Saline Flush) 10 ml IV Q12 [facility] Last Admin: 03/25/20 09:54 Dose: 10 ml Documented by: Sodium Chloride (Saline Flush) 10 ml IV Q8 [facility] Last Admin: 03/25/20 05:59 Dose: 10 ml Documented by: Throat Lozenges (Cepacol) 1 lozenge PO Q4H PRN PRN Reason: Sore Throat Last Admin: 03/25/20 06:51 Dose: 1 lozenge Documented by: Tramadol HCl (Ultram) 50 mg PO BIDP PRN PRN Reason: Pain Vancomycin HCl (Vancomycin Per Pharmacy) 1 order IV ONCE ONE; Protocol Stop: 03/25/20 09:58 ABG Interpretation ABG results: 03/21/20 03/22/20 03/22/20 16:00 08:59 10:10 ABG pH 7.50 H 7.46 H 7.46 H ABG pCO2 34.0 L 39.4 40.3 ABG pO2 82 93 104 H ABG HCO3 25.9 27.5 H 27.7 H ABG Total CO2 26.9 28.7 H 28.9 H ABG O2 Saturation 94.5 94.9 95.7 ABG Base Excess 2.6 H 3.5 H 3.5 H ABG Methemoglobin 0.1 L 0.1 L 0.1 L A/P Narrative A/P Narrative: A/P Narrative: *Seizure: 2/2 uremia/metabolic disturbance -lacate and prolactin elevated *Aspiration PNA: 2/2 above -Thick Pulmonary secretions suctioned by nursing -Sputum culture showed staph aureus. *Acute Hypoxic Respiratory Failure: 2/2 obtundation/post-ictal/airway protection/Aspiration -Intubated 03/19 *PEA arrest 2/2 seizure with aspiration on 03/19: *Hypoglycemia with obtundation on admit: 2/2 DM meds, poor renal fxn, poor clearance. a1c 4.9 -intially was on glucose gtt *DM II: on glipizide, no change recently and pt does not report h/o hypoglycemia -A1c 4.9 *ESRD: has not had HD for 3wks since moving to [facility] w/o wheelchair ramp to get out of house -pt noncompliant with HD *Anemia, acute on chronic: *HTN: *Severe Obesity: *CAT: on cpap@home *Elevated troponin: chronically elevated but above baseline 2/2 CPR/epi, no CP prior to episode/ekg unremarkable *Diabetic retinopathy? *Chest pain - could result from CPR P: - Discussed with ID Dr. Jones, who suggested to continue Zosyn and add vancomycin -extubate on 03/23 -cont prn suction and CPT, -Glipizide held and will not restart on d/c, will educate on dietary rest rictions -Nephrology for HD -prn ativan -cont home ASA/Dilt/Losartan -home cpap, she is now on high flow oxygen, trying to wean off. Not no home oxygen. -Discontinued TF's per dietary. Diabetic and renal diet as tolerated. -s/p 1prbc with HD on 03/23 -The patient refused to be transferred to another hospital for seeing an sales advisory manager for seeing black spots. -EKG no ST elevation Troponin mildly elevated to 0.72. Asprin and lipitor. -ppx: heparin full code Time Spent With Patient Time: Total time spent is greater than 50% in coordination of care (as documented) at patient's floor/unit and/or counseling patient: QUALITY Stroke Symptom Onset Unknown: No VTE Deep Vein Thrombosis/Pulmonary Embolism Present on Admission: No
--- NOTE | 2020-03-25 14:56 | Nephrology Progress Note ---
SUBJECTIVE Subjective Patient information: Note initiated : 03/25/20 at 2:54 pm Patient: Elo Robledo 60 y/o F admitted on 03/18/20 for Altered Mental Status, Low Blood Sugar. Chief Complaint: Weakness Pertinent ROS: Improved mentation Weakness Constitutional Vitals: Vital Signs Temp Pulse Resp BP Pulse Ox 97.2 F 75 16 140/108 90 03/25/20 13:46 03/25/20 13:46 03/25/20 13:46 03/25/20 13:46 03/25/20 13:46 Period Temp Pulse Resp BP Sys/Clark Pulse Ox Last 24 Hr 97.0 F-98.9 F 69-80 16- 123-164/51-108 90-99 Intake and Output 03/25/20 03/25/20 03/25/20 05:59 13:59 21:59 Intake Total 170 570 Output Total 240 90 Balance -70 480 Intake & Output: Intake & Output 03/25/20 03/25/20 03/25/20 05:59 13:59 21:59 Intake Total 170 570 Output Total 240 90 Balance -70 480 Intake: IV 50 50 Zosyn 2.25 gm In Dextrose 5% in 50 50 Water 50 ml @ 100 mls/hr IV Q8H [facility] Rx#:[id number] Oral 120 520 Output: Urine Catheter Amount 240 Void Amount 90 Other: Meal Lunch Percent of Meal Consumed 90 Feeding Ability Independent Urine Appearance Clear Sediment Mucous Threads Uretheral (Samson) Sediment Urine Color Bright Yellow Bright Yellow Uretheral (Samson) Bright Yellow Stool Size Moderate Stool Color Brown Stool Consistency Soft # of times incontinent of 1 Bowels General appearance: cooperative and no acute distress Head Head exam: Present normal inspection Eye Eye exam: Present normal appearance ENT ENT exam: Present mucous membranes moist Respiratory Respiratory exam: Absent respiratory distress Cardiovascular Cardiovascular exam: Present normal rate and rhythm GI/Abdominal GI/Abdominal exam: Present soft; Absent tenderness Extremities Exam Extremities exam: Present pedal edema; Absent joint swelling Neurological Exam Neurological exam: Present alert and oriented X3 Psychiatric Psychiatric exam: Present normal affect and normal mood Skin Skin exam: Present warm; Absent rash A/P Assessment and plan (1) ESRD (end stage renal disease) on dialysis: Assessment and plan: Progress: Hemodialysis on 03/19, 03/20, 03/21 and 03/23. Plan: Hemodialysis today for 4 hours then continue on Wednesday, Wednesday and Wednesday schedule. Target UF 4-5 kg. Status: Chronic (2) Hyponatremia: Assessment and plan: Mild, associated with ESRD. Managed by hemodialysis. Status: Acute (3) Other fluid overload: Assessment and plan: Associated with ESRD. Managed by hemodialysis. Status: Acute Time Spent With Patient Time: Total time spent is greater than 50% in coordination of care (as documented) at patient's floor/unit and/or counseling patient:
[2020-03-25] MEDS ORDERED: VANCOMYCIN PER PHARMACY IV SCH (16:30)
[2020-03-25] MEDS ORDERED: VANCOMYCIN 1,500 MG in 0.9 % SODIUM CHLORIDE 500 ML IV ONE (21:00)
[2020-03-25] MEDS: FAMOTIDINE/PF 20 MG/2 ML VIAL IV SCH (21:57)
[2020-03-25] MEDS: LOSARTAN 50 MG TABLET PO SCH (21:57)
[2020-03-26] MEDS: HYDROcodone/APAP 5/325MG TABLET PO PRN ×2 (05:07→19:10)
[2020-03-26] MEDS: 0.9 % SODIUM CHLORIDE 10 ML SYRINGE IV SCH ×5 (05:07→21:17)
[2020-03-26] MEDS: PIPERACILLIN SODIUM/TAZOBACTAM 2.25 GM in DEXTROSE 5% IN WATER 50 ML IV SCH ×2 (05:07→14:00)
[2020-03-26 06:25] LABS: Basophils # (Auto) 0.03 K/mcL (0.00-0.30); Basophils % (Auto) 0.3 % (0.0-2.0); Eosinophils % (Auto) 1.9 % (0.0-7.0); Granulocytes % (Auto) 72.4 % (38.0-78.0); Hematocrit 27.4 % (34.1-44.9); Hemoglobin 8.4 g/dL (11.2-15.7); Lymphocytes # (Auto) 1.17 K/mcL (1.50-4.80); Lymphocytes % (Auto) 11.3 % (15.5-49.0); Mean Cell Volume 93.8 fL (80.0-100.0); Mean Corpuscular HGB Conc 30.7 g/dL (31.0-36.0); Mean Platelet Volume 10.2 fL (7.4-10.4); Monocytes # (Auto) 1.47 K/mcL (0.10-0.90); Monocytes % (Auto) 14.1 % (1.0-12.0); Platelet Count 245 K/mcL (140-440); RBC 2.92 M/mcL (3.59-5.38); Red Cell Distribution Width 14.5 % (11.5-14.5); WBC 10.4 K/mcL (4.50-11.00)
--- NOTE | 2020-03-26 06:34 | Nephrology Progress Note ---
SUBJECTIVE Subjective Patient information: Note initiated : 03/26/20 at 6:31 am Patient: Elo Robledo 60 y/o F admitted on 03/18/20 for Altered Mental Status, Low Blood Sugar. Chief Complaint: Weakness Pertinent ROS: Weakness Fluid overload improved Altered mental status improved Constitutional Vitals: Vital Signs Temp Pulse Resp BP Pulse Ox 98.9 F 82 16 120/49 91 03/26/20 04:01 03/26/20 06:03 03/26/20 06:01 03/26/20 06:01 03/26/20 06:03 Period Temp Pulse Resp BP Sys/Clark Pulse Ox Last 24 Hr 97.0 F-98.9 F 73-92 16-22 82-168/47-129 90-96 Intake and Output 03/25/20 03/26/20 03/26/20 21:59 05:59 13:59 Intake Total 170 50 Output Total 5140 Balance 170 -5090 Weight 309 lb 1.6 oz Intake & Output: Intake & Output 03/25/20 03/26/20 03/26/20 21:59 05:59 13:59 Intake Total 170 50 Output Total 5140 Balance 170 -5090 Weight 309 lb 1.6 oz Intake: IV 50 50 Zosyn 2.25 gm In Dextrose 5% in 50 50 Water 50 ml @ 100 mls/hr IV Q8H [facility] Rx#:[id number] Oral 120 Output: Urine Catheter Amount 140 Hemodialysis UF 5000 Other: Urine Appearance Sediment Clear Urine Color Bright Yellow Bright Yellow General appearance: cooperative and no acute distress Head Head exam: Present normal inspection Eye Eye exam: Present normal appearance ENT ENT exam: Present mucous membranes moist Respiratory Respiratory exam: Absent respiratory distress Cardiovascular Cardiovascular exam: Present normal rate and rhythm GI/Abdominal GI/Abdominal exam: Present soft; Absent tenderness Extremities Exam Extremities exam: Present pedal edema; Absent joint swelling Neurological Exam Neurological exam: Present alert and oriented X3 Psychiatric Psychiatric exam: Present normal affect and normal mood Skin Skin exam: Present warm; Absent rash A/P Assessment and plan (1) ESRD (end stage renal disease) on dialysis: Assessment and plan: Progress: Hemodialysis on 03/25 with 5 kg UF. Plan: Next hemodialysis tomorrow for 4 hours and 5 kg UF goal then continue on Wednesday, Wednesday and Wednesday schedule. Status: Chronic (2) Hyponatremia: Assessment and plan: Mild, associated with ESRD. Managed by hemodialysis. Status: Acute (3) Other fluid overload: Assessment and plan: Associated with ESRD. Managed by hemodialysis. Status: Acute Time Spent With Patient Time: Total time spent is greater than 50% in coordination of care (as documented) at patient's floor/unit and/or counseling patient:
[2020-03-26 06:44] LABS: ALT/SGPT 9 U/l (0-40); AST/SGOT 10 U/l (0-37); Albumin 3.1 gm/dL (3.2-5.2); Albumin/Globulin Ratio 0.9 (1.0-2.3); Alkaline Phosphatase 153 U/L (39-117); Bilirubin,Total 0.4 mg/dL (0.0-1.0); Blood Urea Nitrogen 21 mg/dl (6-20); Calcium 8.7 mg/dl (8.6-10.4); Carbon Dioxide 27 mmol/L (22-30); Chloride 94 mmol/L (96-108); Globulin 3.3 gm/dL (2.2-3.7); Glomerular Filtration Rate 10; Glucose 132 mg/dL (70-105)
[2020-03-26] MEDS: CALCIUM ACETATE 667 MG CAPSULE PO SCH ×3 (07:34→17:47)
[2020-03-26] MEDS: INSULIN LISPRO 1 UNIT/0.01 ML UNIT SQ SCH ×4 (07:34→21:16)
[2020-03-26] MEDS ORDERED: CALCITRIOL 0.25 MCG CAPSULE PO SCH (09:00)
[2020-03-26] MEDS: HEPARIN 5,000 UNIT/ML VIAL SQ SCH ×3 (09:00→23:29)
[2020-03-26] MEDS: FUROSEMIDE 40 MG TABLET PO SCH (09:01)
[2020-03-26] MEDS: DILTIAZEM 30 MG TABLET PO SCH ×2 (09:01→21:15)
[2020-03-26] MEDS: CINACALCET 30 MG TABLET PO SCH (09:01)
[2020-03-26] MEDS: DOCUSATE SODIUM 100 MG CAPSULE PO SCH (09:02)
[2020-03-26] MEDS: ASPIRIN 81 MG TAB.CHEW PO SCH (09:02)
[2020-03-26] MEDS: ATORVASTATIN 40 MG TABLET PO SCH (09:02)
--- NOTE | 2020-03-26 11:45 | XRay Report ---
INDICATION: Hypoxia TECHNIQUE: AP portable upright chest x-ray COMPARISON: This chest x-rays dated 03/25/2020, 03/24/2020, 03/23/2020 FINDINGS:Right central venous catheter with its tip in the superior vena cava. This is unchanged Lungs:Mild linear densities in the left lung base consistent with residual atelectasis or scarring. Left lung base is otherwise improved. No new parenchymal infiltrate or mass. Heart, vascular:Cardiomegaly. No pulmonary congestion or pulmonary edema Mediastinum, edward:No mediastinal widening. No hilar mass Pleura:No pleural fluid. No pleural-based mass or calcification Skeletal:Negative. IMPRESSION: 1. Improved chest x-ray 2. No new abnormality. Interpreted and Authenticated by: Yony Flannery 03/26/20
--- NOTE | 2020-03-26 17:29 | Internal Med Progress Note ---
SUBJECTIVE Subjective Patient information: Note initiated : 03/26/20 at 5:19 pm Service Date, if different from initiated Date: [] Patient: Elo Robledo a 60 y/o F admitted on 03/18/20 for Altered Mental Status, Low Blood Sugar. Chief Complaint: [] Interval history: History of present illness: Ms. Robledo is a 60 year old F Presents to the ED with altered mental status and hypoglycemic event. Patient was found by her daughter who is also her caregiver this morning to be obtunded. Daughter states that the patient's also noted that she just remained in bed this morning and typically gets up too early. EMS arrived and found her blood glucose to be 45. She got an amp of D50 with good response. In the ED she was kept on D5 drip given low blood glucose. She has not had dialysis in 3 weeks because she moved into a new home and there is no ramp and they have been unable to get her to dialysis. This was discussed with Dr. Retana her hazard waste handler who will be setting up dialysis. She has not taken her medications today. 03/19 Poor sleep. Patient has chronic low back pain. Chills but otherwise no complaint. D5 drip. As nurse was passing by patient's room she noted noise coming from her room and when she looked towards the patient she noted that patient to be convulsing, subsequently noted some foaming and some blood from the mouth. Patient was responsive and unable to palpate pulses. CPR started several minutes of epinephrine were given. She was also given Ativan IV 2 mg. Return of spontaneous circulation was achieved. No history of seizures. Blood glucose was within normal limits. Patient has been in metabolic disturbance secondary to noncompliance with hemodialysis. Did receive a hemodialysis session this morning. CODE BLUE labs pending. ABG with good oxygenation but with acidosis 2/2 lactic acidosis from event. EKG unremarkable. Transferred to ICU. Discussed with family. Patient likely bit tongue during event leading to bleeding. She is currently intubated for airway protection. 03/20 No overnight events. Glucose drip off. Vital signs stable. Undergoing dialysis this morning. No seizure activity reported. Weaning trial after hemodialysis. Hopefully extubate tomorrow morning. 03/21 Weaned off sedation earlier this morning patient starting to arouse but still quite drowsy. Undergoing dialysis at this time. Weaning trial after hemodialysis. Did spike a fever last night and with consolidation noted on chest x-ray, starting treatment for aspiration pneumonia. 03/22 Nurses are still getting quite a lot of thick yellow-green pulmonary secretions. Chest imaging improving. Chemistry improved. She is on 40% FiO2. Lung compliance 40. Holding sedation for weaning trial. Neck scheduled dialysis is tomorrow. 03/23 No events overnight. Sedation vacation started early in the morning and now doing spontaneous breathing trial. She is drowsy but awakens to follow commands and open eyes. ABG on spontaneous breathing trial good and parameters on spontaneous breathing trial good as well. Will extubate prior to dialysis this morning. 1 unit of blood with dialysis today. 03/24 Patient complains of seeing black spots. Further inquiring she told that she has been having this problem for 2 years. But her left eye sees more black spots today. Denies headache, dizziness, or seeing red spots. I feel that the problem could be due to diabetic retinopathy. Unfortunately there is no evp available in this hospital. The patient refused to be transferred to another hospital for seeing an evp. 03/25 Earlier this morning patient complained of chest pain. Discussed the pain with patient who told me that she has been having the chest pain over the past 4 days. She has more pain if she takes deep breath. Also she has moderate to severe tenderness over the chest. EKG no ST elevation Troponin mildly elevated to 0.72. Discussed with the patient the possible causes and treatment. There is no card iologist and stress test available in this hospital but patient refused to be transferred to another hospital. She would like to stay in the hospital for medical treatment. Sputum culture showed staph aureus. Discussed with ID Dr. Jones, who suggested to continue Zosyn and add vancomycin 03/26 This morning she was fine and her oxygen decreased to 1L but this afternoon she needs 10L. Pt does not have new complaints. CXR - 1. Improved chest x-ray 2. No new abnormality. ABG ordered Sputum culture showed MSSA. Discontinued Zosyn and vancomycin. Started cefazolin. Discussed with evp Dr. Mayo who would like to see her on Wednesday if we can discharge her on . Review of systems: Positive for SOB all other systems were reviewed and are negative. Constitutional Vitals: Vital Signs Temp Pulse Resp BP Pulse Ox 97.4 F 84 16 161/76 94 03/26/20 16:01 03/26/20 08:00 03/26/20 17:01 03/26/20 17:01 03/26/20 17:01 Period Temp Pulse Resp BP Sys/Clark Pulse Ox Last 24 Hr 97.2 F-98.9 F 73-92 13-22 82-187/47-129 90-96 Intake and Output 03/26/20 03/26/20 03/26/20 05:59 13:59 21:59 Intake Total 600 50 Output Total 5140 29 55 Balance -4540 -29 -5 Weight 140.205 kg Patient Weight 03/27/20 05:59 Weight 140.205 kg Intake & Output: Intake & Output 03/26/20 03/26/20 03/26/20 05:59 13:59 21:59 Intake Total 600 50 Output Total 5140 29 55 Balance -4540 -29 -5 Weight 140.205 kg Intake: IV 600 50 Zosyn 2.25 gm In Dextrose 5% in 100 50 Water 50 ml @ 100 mls/hr IV Q8H [facility] Rx#:[id number] Vancomycin 1,500 mg In Sodium 500 Chloride 0.9% 500 ml @ 333.3 mls/hr IV ONCE ONE Rx#: [id number] Output: Urine Catheter Amount 140 29 55 Hemodialysis UF 5000 Other: Meal Lunch Percent of Meal Consumed 100% Feeding Ability Independent Urine Appearance Clear Clear Cloudy Uretheral (Samson) Cloudy Cloudy Urine Color Bright Yellow Bright Yellow Straw Uretheral (Samson) Light Rolanda Light Rolanda Urine Odor Normal Strong Additional findings Additional findings: General: alert, awakens, no acute Distress, obese Eyes/N/T: PERRL, EOMI Head/Neck: neck supple, CV: RRR, No murmurs, Pulm: b/l rhonchi much improved, no wheezing Abd: soft, nontender, +BS x4 Ext: no clubbing/cyanosis. Chronic lymphedema b/l LE Neuro: A+Ox 3, no focal neurological deficits Skin: warm/dry Psych: normal mood OBJ DATA Labs CBC & Chem 7: 03/26/20 05:00 03/26/20 05:00 Labs: Abnormal Lab Results 03/26/20 03/26/20 03/25/20 05:00 05:00 09:13 RBC 2.92 L Hgb 8.4 L Hct 27.4 L MCHC 30.7 L RDW MPV Lymph % (Auto) 11.3 L [place] % (Auto) 14.1 H Lymph # (Auto) 1.17 L [place] # (Auto) 1.47 H Chloride 94 L BUN 21 H Creatinine 4.5 H Glucose 132 H Alkaline Phosphatase 153 H Troponin T 0.69 H* Albumin 3.1 L Albumin/Globulin Ratio 0.9 L 03/25/20 03/25/20 03/25/20 03:02 03:01 03:01 RBC 2.90 L Hgb 8.3 L Hct 27.4 L MCHC 30.3 L RDW 14.8 H MPV Lymph % (Auto) 14.0 L [place] % (Auto) 15.2 H Lymph # (Auto) 1.17 L [place] # (Auto) 1.27 H Chloride 95 L BUN 36 H Creatinine 6.7 H* Glucose 116 H Alkaline Phosphatase 125 H Troponin T 0.72 H* Albumin 3.1 L Albumin/Globulin Ratio 03/24/20 03/24/20 05:21 05:21 RBC 2.99 L Hgb 8.6 L Hct 28.6 L MCHC 30.1 L RDW 15.1 H MPV 10.6 H Lymph % (Auto) 12.3 L [place] % (Auto) 16.3 H Lymph # (Auto) 1.02 L [place] # (Auto) 1.35 H Chloride 94 L BUN 26 H Creatinine 5.0 H Glucose Alkaline Phosphatase Troponin T Albumin Albumin/Globulin Ratio Meds: Medications Acetaminophen (Tylenol) 650 mg PO Q6HP PRN; Protocol PRN Reason: Per Pain Protocol/Fever > 101 Hydrocodone Bitart/Acetaminophen ([place] 5/325mg) 1 tab PO Q6HP PRN; Protocol PRN Reason: Per Pain Protocol Last Admin: 03/26/20 05:07 Dose: 1 tab Documented by: Aspirin (Aspirin) 81 mg PO DAILY [facility] Last Admin: 03/26/20 09:02 Dose: 81 mg Documented by: Atorvastatin Calcium (Lipitor) 40 mg PO DAILY [facility] Last Admin: 03/26/20 09:02 Dose: 40 mg Documented by: Calcitriol (Rocaltrol) 1 mcg PO TuThSa@0900 [facility] Last Admin: 03/26/20 09:01 Dose: 1 mcg Documented by: Calcium Acetate (Phoslo) 2,668 mg PO TIDCC [facility] Last Admin: 03/26/20 12:00 Dose: 2,668 mg Documented by: Cinacalcet (Sensipar) 30 mg PO QDAY [facility] Last Admin: 03/26/20 09:01 Dose: 30 mg Documented by: Dextrose (Dextrose 50%) 0 ml IV UD PRN PRN Reason: Hypoglycemia Diagnostic Test (Pha) (Accu-Chek) 1 each FS ACHS [facility] Last Admin: 03/26/20 12:02 Dose: 1 each Documented by: Diltiazem HCl (Cardizem) 60 mg PO BID [facility] Last Admin: 03/26/20 09:01 Dose: 60 mg Documented by: Docusate Sodium (Colace) 100 mg PO DAILY [facility] Last Admin: 03/26/20 09:02 Dose: 100 mg Documented by: Famotidine (Pepcid) 20 mg IV HS [facility] Last Admin: 03/25/20 21:57 Dose: 20 mg Documented by: Fentanyl (Sublimaze) 25 - 50 mcg IV Q1HP PRN; Protocol PRN Reason: Per Pain Protocol Furosemide (Lasix) 40 mg PO DAILY [facility] Last Admin: 03/26/20 09:01 Dose: 40 mg Documented by: Glucose (Insta-Glucose) 15 gm PO PRN PRN PRN Reason: Hypoglycemia Heparin Sodium (Porcine) (Heparin) 5,000 unit SQ Q12 [facility] Last Admin: 03/26/20 09:00 Dose: 5,000 unit Documented by: Hydralazine HCl (Apresoline) 0 mg IV Q2HP PRN PRN Reason: Hypertension Albumin Human (Buminate) 12.5 gm in 50 mls @ 100 mls/hr IV PRN PRN PRN Reason: Dialysis related hypotension Acetaminophen (Ofirmev) 650 mg in 65 mls @ 130 mls/hr IV Q6HP PRN; Protocol PRN Reason: PAIN/FEVER > 101 Cefazolin Sodium 2 gm/ (Dextrose) 50 mls @ 100 mls/hr IV Q24H [facility]; Protocol Insulin Human Lispro (Humalog) 0 unit SQ [facility]; Protocol Last Admin: 03/26/20 12:04 Dose: 1 unit Documented by: Labetalol HCl (Trandate) 0 mg IV Q2HP PRN PRN Reason: Hypertension Last Admin: 03/26/20 14:48 Dose: 10 mg Documented by: Lorazepam (Ativan) 1 mg IV Q2HP PRN PRN Reason: seizure Losartan Potassium (Cozaar) 50 mg PO QHS [facility] Last Admin: 03/25/20 21:57 Dose: 50 mg Documented by: Morphine Sulfate (Morphine) 1 - 2 mg IV Q2HP PRN; Protocol PRN Reason: Per Pain Protocol Last Admin: 03/25/20 03:24 Dose: 2 mg Documented by: Ondansetron HCl (Zofran) 4 mg IV Q4HP PRN; Protocol PRN Reason: Nausea And Vomiting Senna (Senokot) 2 tab PO HSP PRN PRN Reason: Constipation Sodium Chloride (Saline Flush) 10 ml IV Q12 [facility] Last Admin: 03/26/20 07:42 Dose: 10 ml Documented by: Sodium Chloride (Saline Flush) 10 ml IV Q8 [facility] Last Admin: 03/26/20 12:01 Dose: 10 ml Documented by: Throat Lozenges (Cepacol) 1 lozenge PO Q4H PRN PRN Reason: Sore Throat Last Admin: 03/25/20 06:51 Dose: 1 lozenge Documented by: Tramadol HCl (Ultram) 50 mg PO BIDP PRN PRN Reason: Pain ABG Interpretation ABG results: 03/21/20 03/22/20 03/22/20 16:00 08:59 10:10 ABG pH 7.50 H 7.46 H 7.46 H ABG pCO2 34.0 L 39.4 40.3 ABG pO2 82 93 104 H ABG HCO3 25.9 27.5 H 27.7 H ABG Total CO2 26.9 28.7 H 28.9 H ABG O2 Saturation 94.5 94.9 95.7 ABG Base Excess 2.6 H 3.5 H 3.5 H ABG Methemoglobin 0.1 L 0.1 L 0.1 L A/P Narrative A/P Narrative: *Seizure: 2/2 uremia/metabolic disturbance -lacate and prolactin elevated *Aspiration PNA: 2/2 above -Thick Pulmonary secretions suctioned by nursing -Sputum culture showed MSSA. Discontinued Zosyn and vancomycin. Started cefazolin. *Acute Hypoxic Respiratory Failure: 2/2 obtundation/post-ictal/airway protection/Aspiration -Intubated 03/19 *PEA arrest 2/2 seizure with aspiration on 03/19: *Hypoglycemia with obtundation on admit: 2/2 DM meds, poor renal fxn, poor clearance. a1c 4.9 -intially was on glucose gtt *DM II: on glipizide, no change recently and pt does not report h/o hypoglycemia -A1c 4.9 *ESRD: has not had HD for 3wks since moving to [facility] w/o wheelchair ramp to get out of house -pt noncompliant with HD *Anemia, acute on chronic: *HTN: *Severe Obesity: *CAT: on cpap@home *Elevated troponin: chronically elevated but above baseline 2/2 CPR/epi, no CP prior to episode/ekg unremarkable *Diabetic retinopathy? *Chest pain - could result from CPR P: -extubate on 03/23 -cont prn suction and CPT, -Glipizide held and will not restart on d/c, will educate on dietary restrictions -Nephrology for HD -prn ativan -cont home ASA/Dilt/Losartan -home cpap, she neeeds oxygen, trying to wean off. Not no home oxygen. -Discontinued TF's per dietary. Diabetic and renal diet as tolerated. -s/p 1prbc with HD on 03/23 -The patient refused to be transferred to another hospital for seeing an evp for seeing black spots. Dr. Mayo ([phone]) will see her in office on Wednesday if we can discharge her on . -EKG no ST elevation Troponin mildly elevated to 0.72. Asprin and lipitor. -ppx: heparin full code Time Spent With Patient Time: Total time spent is greater than 50% in coordination of care (as documented) at patient's floor/unit and/or counseling patient: QUALITY Stroke Symptom Onset Unknown: No VTE Deep Vein Thrombosis/Pulmonary Embolism Present on Admission: No
[2020-03-26] MEDS ORDERED: ceFAZolin 2 GM in DEXTROSE 5% IN WATER 50 ML IV SCH (17:30)
[2020-03-26] MEDS: ceFAZolin 1 GM VIAL IV SCH (19:06)
[2020-03-26] MEDS: LOSARTAN 50 MG TABLET PO SCH (21:15)
[2020-03-26] MEDS: FAMOTIDINE/PF 20 MG/2 ML VIAL IV SCH (21:16)
[2020-03-27] MEDS: HYDROcodone/APAP 5/325MG TABLET PO PRN ×3 (05:28→21:14)
[2020-03-27] MEDS: 0.9 % SODIUM CHLORIDE 10 ML SYRINGE IV SCH ×6 (05:29→23:00)
[2020-03-27 06:14] LABS: Basophils # (Auto) 0.04 K/mcL (0.00-0.30); Basophils % (Auto) 0.4 % (0.0-2.0); Eosinophils # (Auto) 0.17 K/mcL (0.00-0.70); Eosinophils % (Auto) 1.5 % (0.0-7.0); Granulocytes % (Auto) 73.2 % (38.0-78.0); Hematocrit 27.2 % (34.1-44.9); Hemoglobin 8.1 g/dL (11.2-15.7); Lymphocytes # (Auto) 1.19 K/mcL (1.50-4.80); Lymphocytes % (Auto) 10.6 % (15.5-49.0); Mean Cell Volume 94.8 fL (80.0-100.0); Mean Corpuscular HGB Conc 29.8 g/dL (31.0-36.0); Mean Platelet Volume 10.2 fL (7.4-10.4); Monocytes # (Auto) 1.61 K/mcL (0.10-0.90); Monocytes % (Auto) 14.3 % (1.0-12.0); Platelet Count 252 K/mcL (140-440); RBC 2.87 M/mcL (3.59-5.38); Red Cell Distribution Width 14.3 % (11.5-14.5); WBC 11.2 K/mcL (4.50-11.00)
[2020-03-27 06:45] LABS: ALT/SGPT 13 U/l (0-40); AST/SGOT 13 U/l (0-37); Albumin 3.2 gm/dL (3.2-5.2); Alkaline Phosphatase 161 U/L (39-117); Bilirubin,Total 0.3 mg/dL (0.0-1.0); Calcium 8.9 mg/dl (8.6-10.4); Carbon Dioxide 27 mmol/L (22-30); Globulin 3.1 gm/dL (2.2-3.7); Glucose 138 mg/dL (70-105)
[2020-03-27 06:57] LABS: Blood Urea Nitrogen 36 mg/dl (6-20); Chloride 93 mmol/L (96-108); Glomerular Filtration Rate 6
[2020-03-27] MEDS: HEPARIN 5,000 UNIT/ML VIAL SQ SCH ×4 (07:25→21:32)
[2020-03-27] MEDS: CALCIUM ACETATE 667 MG CAPSULE PO SCH ×3 (07:26→17:41)
[2020-03-27] MEDS: INSULIN LISPRO 1 UNIT/0.01 ML UNIT SQ SCH ×5 (07:26→21:32)
--- NOTE | 2020-03-27 08:29 | Nephrology Progress Note ---
SUBJECTIVE Subjective Patient information: Note initiated : 03/27/20 at 8:27 am Patient: Elo Robledo 60 y/o F admitted on 03/18/20 for Altered Mental Status, Low Blood Sugar. Chief Complaint: Weakness Pertinent ROS: Weakness No other significant complaints Constitutional Vitals: Vital Signs Temp Pulse Resp BP Pulse Ox 98.1 F 84 20 142/45 91 03/27/20 07:27 03/26/20 08:00 03/27/20 07:27 03/27/20 07:27 03/27/20 07:27 Period Temp Pulse Resp BP Sys/Clark Pulse Ox Last 24 Hr 97.4 F-99 F 13-24 87-187/45-100 89-96 Intake and Output 03/26/20 03/27/20 03/27/20 21:59 05:59 13:59 Intake Total 410 Output Total 55 140 Balance 355 -140 Weight 313 lb 8 oz Intake & Output: Intake & Output 03/26/20 03/27/20 03/27/20 21:59 05:59 13:59 Intake Total 410 Output Total 55 140 Balance 355 -140 Weight 313 lb 8 oz Intake: Nourishment/Supplement quantity 120 (ml) IV 50 Zosyn 2.25 gm In Dextrose 5% in 50 Water 50 ml @ 100 mls/hr IV Q8H [facility] Rx#:[id number] Oral 240 Output: Urine Catheter Amount 55 140 Other: Meal Dinner Percent of Meal Consumed 100% Feeding Ability Independent Nourishment/Supplement name nepro Urine Appearance Cloudy Clear Mucous Threads Uretheral (Samson) Cloudy Urine Color Straw Bright Yellow Uretheral (Samson) Light Rolanda Urine Odor Strong General appearance: cooperative and no acute distress Head Head exam: Present normal inspection Eye Eye exam: Present normal appearance ENT ENT exam: Present mucous membranes moist Respiratory Respiratory exam: Absent respiratory distress Cardiovascular Cardiovascular exam: Present normal rate and rhythm GI/Abdominal GI/Abdominal exam: Present soft; Absent tenderness Extremities Exam Extremities exam: Present pedal edema; Absent joint swelling Neurological Exam Neurological exam: Present alert and oriented X3 Psychiatric Psychiatric exam: Present normal affect and normal mood Skin Skin exam: Present warm; Absent rash A/P Assessment and plan (1) ESRD (end stage renal disease) on dialysis: Assessment and plan: Progress: Hemodialysis on 03/25 with 5 kg UF. Plan: Hemodialysis today for 4 hours and 5 kg UF goal then continue on Wednesday, Wednesday and Wednesday schedule. The patient seen and evaluated during hemodialysis. Tolerating well so far. Status: Chronic (2) Hyponatremia: Assessment and plan: Mild, associated with ESRD. Managed by hemodialysis. Status: Acute (3) Other fluid overload: Assessment and plan: Associated with ESRD. Managed by hemodialysis. Status: Acute Time Spent With Patient Time: Total time spent is greater than 50% in coordination of care (as documented) at patient's floor/unit and/or counseling patient:
--- NOTE | 2020-03-27 12:52 | Internal Med Progress Note ---
SUBJECTIVE Subjective Patient information: Note initiated : 03/27/20 at 12:46 pm Service Date, if different from initiated Date: [] Patient: Elo Robledo a 60 y/o F admitted on 03/18/20 for Altered Mental Status, Low Blood Sugar. Chief Complaint: [] Interval history: History of present illness: Ms. Robledo is a 60 year old F Presents to the ED with altered mental status and hypoglycemic event. Patient was found by her daughter who is also her caregiver this morning to be obtunded. Daughter states that the patient's also noted that she just remained in bed this morning and typically gets up too early. EMS arrived and found her blood glucose to be 45. She got an amp of D50 with good response. In the ED she was kept on D5 drip given low blood glucose. She has not had dialysis in 3 weeks because she moved into a new home and there is no ramp and they have been unable to get her to dialysis. This was discussed with Dr. Retana her certified green building engineer who will be setting up dialysis. She has not taken her medications today. 03/19 Poor sleep. Patient has chronic low back pain. Chills but otherwise no complaint. D5 drip. As nurse was passing by patient's room she noted noise coming from her room and when she looked towards the patient she noted that patient to be convulsing, subsequently noted some foaming and some blood from the mouth. Patient was responsive and unable to palpate pulses. CPR started several minutes of epinephrine were given. She was also given Ativan IV 2 mg. Return of spontaneous circulation was achieved. No history of seizures. Blood glucose was within normal limits. Patient has been in metabolic disturbance secondary to noncompliance with hemodialysis. Did receive a hemodialysis session this morning. CODE BLUE labs pending. ABG with good oxygenation but with acidosis 2/2 lactic acidosis from event. EKG unremarkable. Transferred to ICU. Discussed with family. Patient likely bit tongue during event leading to bleeding. She is currently intubated for airway protection. 03/20 No overnight events. Glucose drip off. Vital signs stable. Undergoing dialysis this morning. No seizure activity reported. Weaning trial after hemodialysis. Hopefully extubate tomorrow morning. 03/21 Weaned off sedation earlier this morning patient starting to arouse but still quite drowsy. Undergoing dialysis at this time. Weaning trial after hemodialysis. Did spike a fever last night and with consolidation noted on chest x-ray, starting treatment for aspiration pneumonia. 03/22 Nurses are still getting quite a lot of thick yellow-green pulmonary secretions. Chest imaging improving. Chemistry improved. She is on 40% FiO2. Lung compliance 40. Holding sedation for weaning trial. Neck scheduled dialysis is tomorrow. 03/23 No events overnight. Sedation vacation started early in the morning and now doing spontaneous breathing trial. She is drowsy but awakens to follow commands and open eyes. ABG on spontaneous breathing trial good and parameters on spontaneous breathing trial good as well. Will extubate prior to dialysis this morning. 1 unit of blood with dialysis today. 03/24 Patient complains of seeing black spots. Further inquiring she told that she has been having this problem for 2 years. But her left eye sees more black spots today. Denies headache, dizziness, or seeing red spots. I feel that the problem could be due to diabetic retinopathy. Unfortunately there is no compliance engineer products available in this hospital. The patient refused to be transferred to another hospital for seeing an compliance engineer products. 03/25 Earlier this morning patient complained of chest pain. Discussed the pain with patient who told me that she has been having the chest pain over the past 4 days. She has more pain if she takes deep breath. Also she has moderate to severe tenderness over the chest. EKG no ST elevation Troponin mildly elevated to 0.72. Discussed with the patient the possible causes and treatment. There is no car diologist and stress test available in this hospital but patient refused to be transferred to another hospital. She would like to stay in the hospital for medical treatment. Sputum culture showed staph aureus. Discussed with ID Dr. Jones, who suggested to continue Zosyn and add vancomycin 03/26 This morning she was fine and her oxygen decreased to 1L but this afternoon she needs 10L. Pt does not have new complaints. CXR - 1. Improved chest x-ray 2. No new abnormality. ABG ordered Sputum culture showed MSSA. Discontinued Zosyn and vancomycin. Started cefazolin. Discussed with compliance engineer products Dr. Mayo who would like to see her on Wednesday if we can discharge her on . 03/27 Today patient is fine and does not have any new complaints. This morning she is on 4 L. 10 L yesterday afternoon. She still has mild chest pain Hemoglobin 8.1. She received 1 unit blood transfusion 3 days ago. Her WBC elevated to 11.2 today. Monitor Review of systems: Positive for SOB all other systems were reviewed and are negative. Constitutional Vitals: Vital Signs Temp Pulse Resp BP Pulse Ox 98 F 76 19 141/73 95 03/27/20 12:00 03/27/20 12:45 03/27/20 12:00 03/27/20 12:45 03/27/20 12:00 Period Temp Pulse Resp BP Sys/Clark Pulse Ox Last 24 Hr 97.4 F-99 F 73-80 13-24 87-187/45-100 88-98 Intake and Output 03/26/20 03/27/20 03/27/20 21:59 05:59 13:59 Intake Total 410 Output Total 55 140 Balance 355 -140 Weight 142.201 kg Intake & Output: Intake & Output 03/26/20 03/27/20 03/27/20 21:59 05:59 13:59 Intake Total 410 Output Total 55 140 Balance 355 -140 Weight 142.201 kg Intake: Nourishment/Supplement quantity 120 (ml) IV 50 Zosyn 2.25 gm In Dextrose 5% in 50 Water 50 ml @ 100 mls/hr IV Q8H [facility] Rx#:[id number] Oral 240 Output: Urine Catheter Amount 55 140 Other: Meal Dinner Breakfast Percent of Meal Consumed 100% 100% Feeding Ability Independent Nourishment/Supplement name nepro Urine Appearance Cloudy Clear Cloudy Mucous Threads Uretheral (Samson) Cloudy Cloudy Urine Color Straw Bright Yellow Light Rolanda Uretheral ([facility]amson) Light Rolanda Light Rolanda Urine Odor Strong Additional findings Additional findings: General: alert, awakens, no acute Distress, obese Eyes/N/T: PERRL, EOMI Head/Neck: neck supple, CV: RRR, No murmurs, Pulm: b/l rhonchi much improved, no wheezing Abd: soft, nontender, +BS x4 Ext: no clubbing/cyanosis. Chronic lymphedema b/l LE Neuro: A+Ox 3, no focal neurological deficits Skin: warm/dry Psych: normal mood OBJ DATA Labs CBC & Chem 7: 03/27/20 05:00 03/27/20 05:00 Labs: Abnormal Lab Results 03/27/20 03/27/20 03/26/20 05:00 05:00 05:00 WBC 11.2 H RBC 2.87 L Hgb 8.1 L Hct 27.2 L MCHC 29.8 L RDW Lymph % (Auto) 10.6 L [place] % (Auto) 14.3 H Gran # 8.22 H Lymph # (Auto) 1.19 L [place] # (Auto) 1.61 H Chloride 93 L 94 L BUN 36 H 21 H Creatinine 6.6 H* 4.5 H Glucose 138 H 132 H Alkaline Phosphatase 161 H 153 H Troponin T Albumin 3.1 L Albumin/Globulin Ratio 0.9 L 03/26/20 03/25/20 03/25/20 05:00 09:13 03:02 WBC RBC 2.92 L Hgb 8.4 L Hct 27.4 L MCHC 30.7 L RDW Lymph % (Auto) 11.3 L [place] % (Auto) 14.1 H Gran # Lymph # (Auto) 1.17 L [place] # (Auto) 1.47 H Chloride BUN Creatinine Glucose Alkaline Phosphatase Troponin T 0.69 H* 0.72 H* Albumin Albumin/Globulin Ratio 03/25/20 03/25/20 03:01 03:01 WBC RBC 2.90 L Hgb 8.3 L Hct 27.4 L MCHC 30.3 L RDW 14.8 H Lymph % (Auto) 14.0 L [place] % (Auto) 15.2 H Gran # Lymph # (Auto) 1.17 L [place] # (Auto) 1.27 H Chloride 95 L BUN 36 H Creatinine 6.7 H* Glucose 116 H Alkaline Phosphatase 125 H Troponin T Albumin 3.1 L Albumin/Globulin Ratio Meds: Medications Acetaminophen (Tylenol) 650 mg PO Q6HP PRN; Protocol PRN Reason: Per Pain Protocol/Fever > 101 Hydrocodone Bitart/Acetaminophen (Stuart 5/325mg) 1 tab PO Q6HP PRN; Protocol PRN Reason: Per Pain Protocol Last Admin: 03/27/20 05:28 Dose: 1 tab Documented by: Aspirin (Aspirin) 81 mg PO DAILY [facility] Last Admin: 03/26/20 09:02 Dose: 81 mg Documented by: Atorvastatin Calcium (Lipitor) 40 mg PO DAILY [facility] Last Admin: 03/26/20 09:02 Dose: 40 mg Documented by: Calcitriol (Rocaltrol) 1 mcg PO TuThSa@0900 [facility] Last Admin: 03/26/20 09:01 Dose: 1 mcg Documented by: Calcium Acetate (Phoslo) 2,668 mg PO TIDCC [facility] Last Admin: 03/27/20 07:26 Dose: 2,668 mg Documented by: Cefazolin Sodium (Ancef) 2 gm IV Q24H [facility] Last Admin: 03/26/20 19:06 Dose: 2 gm Documented by: Cinacalcet (Sensipar) 30 mg PO QDAY [facility] Last Admin: 03/26/20 09:01 Dose: 30 mg Documented by: Dextrose (Dextrose 50%) 0 ml IV UD PRN PRN Reason: Hypoglycemia Diagnostic Test (Pha) (Accu-Chek) 1 each FS ACHS [facility] Last Admin: 03/27/20 11:39 Dose: 1 each Documented by: Diltiazem HCl (Cardizem) 60 mg PO BID [facility] Last Admin: 03/26/20 21:15 Dose: 60 mg Documented by: Docusate Sodium (Colace) 100 mg PO DAILY [facility] Last Admin: 03/26/20 09:02 Dose: 100 mg Documented by: Famotidine (Pepcid) 20 mg IV HS [facility] Last Admin: 03/26/20 21:16 Dose: 20 mg Documented by: Fentanyl (Sublimaze) 25 - 50 mcg IV Q1HP PRN; Protocol PRN Reason: Per Pain Protocol Furosemide (Lasix) 40 mg PO DAILY [facility] Last Admin: 03/26/20 09:01 Dose: 40 mg Documented by: Glucose (Insta-Glucose) 15 gm PO PRN PRN PRN Reason: Hypoglycemia Heparin Sodium (Porcine) (Heparin) 5,000 unit SQ Q8 [facility] Last Admin: 03/27/20 07:25 Dose: 5,000 unit Documented by: Hydralazine HCl (Apresoline) 0 mg IV Q2HP PRN PRN Reason: Hypertension Albumin Human (Buminate) 12.5 gm in 50 mls @ 100 mls/hr IV PRN PRN PRN Reason: Dialysis related hypotension Acetaminophen (Ofirmev) 650 mg in 65 mls @ 130 mls/hr IV Q6HP PRN; Protocol PRN Reason: PAIN/FEVER > 101 Insulin Human Lispro (Humalog) 0 unit SQ [facility]; Protocol Last Admin: 03/27/20 11:37 Dose: Not Given Documented by: Labetalol HCl (Trandate) 0 mg IV Q2HP PRN PRN Reason: Hypertension Last Admin: 03/26/20 14:48 Dose: 10 mg Documented by: Lorazepam (Ativan) 1 mg IV Q2HP PRN PRN Reason: seizure Losartan Potassium (Cozaar) 50 mg PO QHS [facility] Last Admin: 03/26/20 21:15 Dose: 50 mg Documented by: Morphine Sulfate (Morphine) 1 - 2 mg IV Q2HP PRN; Protocol PRN Reason: Per Pain Protocol Last Admin: 03/25/20 03:24 Dose: 2 mg Documented by: Ondansetron HCl (Zofran) 4 mg IV Q4HP PRN; Protocol PRN Reason: Nausea And Vomiting Last Admin: 03/26/20 22:03 Dose: 4 mg Documented by: Senna (Senokot) 2 tab PO HSP PRN PRN Reason: Constipation Sodium Chloride (Saline Flush) 10 ml IV Q12 [facility] Last Admin: 03/26/20 21:17 Dose: 10 ml Documented by: Sodium Chloride (Saline Flush) 10 ml IV Q8 [facility] Last Admin: 03/27/20 05:29 Dose: 10 ml Documented by: Throat Lozenges (Cepacol) 1 lozenge PO Q4H PRN PRN Reason: Sore Throat Last Admin: 03/25/20 06:51 Dose: 1 lozenge Documented by: Tramadol HCl (Ultram) 50 mg PO BIDP PRN PRN Reason: Pain ABG Interpretation ABG results: 03/21/20 03/22/20 03/22/20 16:00 08:59 10:10 ABG pH 7.50 H 7.46 H 7.46 H ABG pCO2 34.0 L 39.4 40.3 ABG pO2 82 93 104 H ABG HCO3 25.9 27.5 H 27.7 H ABG Total CO2 26.9 28.7 H 28.9 H ABG O2 Saturation 94.5 94.9 95.7 ABG Base Excess 2.6 H 3.5 H 3.5 H ABG Methemoglobin 0.1 L 0.1 L 0.1 L A/P Narrative A/P Narrative: *Seizure: 2/2 uremia/metabolic disturbance -lacate and prolactin elevated *Aspiration PNA: 2/2 above -Thick Pulmonary secretions suctioned by nursing -Sputum culture showed MSSA. Discontinued Zosyn and vancomycin. Continue cefazolin. *Acute Hypoxic Respiratory Failure: 2/2 obtundation/post-ictal/airway protection/Aspiration -Intubated 03/19 -She is on 4L today by [place]. trying to wean off *PEA arrest 2/2 seizure with aspiration on 03/19: *Hypoglycemia with obtundation on admit: 2/2 DM meds, poor renal fxn, poor clearance. a1c 4.9 -intially was on glucose gtt *DM II: on glipizide, no change recently and pt does not report h/o hypoglycemia -A1c 4.9 *ESRD: has not had HD for 3wks since moving to [facility] w/o wheelchair ramp to get out of house -pt noncompliant with HD *Anemia, acute on chronic: *HTN: *Severe Obesity: *CAT: on cpap@home *Elevated troponin: chronically elevated but above baseline 2/2 CPR/epi, no CP prior to episode/ekg unremarkable *Diabetic retinopathy? *Chest pain - could result from CPR P: -extubate on 03/23 -Glipizide held and will not restart on d/c, will educate on dietary restrictions -Nephrology for HD -prn ativan -cont home ASA/Dilt/Losartan -home cpap, she neeeds oxygen, trying to wean off. Not no home oxygen. -Discontinued TF's per dietary. Diabetic and renal diet as tolerated. -s/p 1prbc with HD on 03/23 -The patient refused to be transferred to another hospital for seeing an compliance engineer products for seeing black spots. Dr. Mayo ([phone]) will see her in office on Wednesday if we can discharge her on . -EKG no ST elevation Troponin mildly elevated to 0.72. Asprin and lipitor. -ppx: heparin full code PT/OT/CM Time Spent With Patient Time: Total time spent is greater than 50% in coordination of care (as documented) at patient's floor/unit and/or counseling patient: QUALITY Stroke Symptom Onset Unknown: No VTE Deep Vein Thrombosis/Pulmonary Embolism Present on Admission: No
[2020-03-27] MEDS: ceFAZolin 1 GM VIAL IV SCH (13:42)
[2020-03-27] MEDS: FUROSEMIDE 40 MG TABLET PO SCH (13:44)
[2020-03-27] MEDS: CINACALCET 30 MG TABLET PO SCH (13:45)
[2020-03-27] MEDS: ASPIRIN 81 MG TAB.CHEW PO SCH (13:45)
[2020-03-27] MEDS: ATORVASTATIN 40 MG TABLET PO SCH (13:45)
[2020-03-27] MEDS: DILTIAZEM 30 MG TABLET PO SCH ×2 (13:45→21:14)
[2020-03-27] MEDS: DOCUSATE SODIUM 100 MG CAPSULE PO SCH (13:45)
[2020-03-27] MEDS ORDERED: hydrALAZINE 20 MG/ML VIAL IV PRN (13:50)
[2020-03-27] MEDS ORDERED: fentaNYL 100 MCG/2 ML VIAL IV PRN (13:50)
[2020-03-27] MEDS ORDERED: LABETALOL 5 MG/ML ML IV PRN (13:50)
[2020-03-27] MEDS ORDERED: ALBUMIN HUMAN 12.5 GM/50 ML BAG IV PRN (13:50)
[2020-03-27] MEDS ORDERED: ACETAMINOPHEN 325 MG TABLET PO PRN (13:50)
[2020-03-27] MEDS ORDERED: DEXTROSE 50% 50 ML VIAL IV PRN (13:50)
[2020-03-27] MEDS ORDERED: DEXTROSE 31 GM ORAL.SUSP PO PRN (13:50)
[2020-03-27] MEDS ORDERED: BENZOCAINE/MENTHOL 1 LOZENGE PO PRN (13:50)
[2020-03-27] MEDS ORDERED: EPINEPHrine 1 MG/10 ML (1:10,000) SYRINGE IV ONE (13:50)
[2020-03-27] MEDS ORDERED: traMADol 50 MG TABLET PO PRN (13:50)
[2020-03-27] MEDS ORDERED: LORazepam 2 MG/ML VIAL IV PRN (13:50)
[2020-03-27] MEDS ORDERED: FAMOTIDINE/PF 20 MG/2 ML VIAL IV SCH (21:00)
[2020-03-27] MEDS: LOSARTAN 50 MG TABLET PO SCH (21:14)
[2020-03-28] MEDS: HEPARIN 5,000 UNIT/ML VIAL SQ SCH ×3 (05:52→21:58)
[2020-03-28] MEDS: 0.9 % SODIUM CHLORIDE 10 ML SYRINGE IV SCH ×6 (05:52→22:10)
[2020-03-28 07:31] LABS: Basophils # (Auto) 0.04 K/mcL (0.00-0.30); Basophils % (Auto) 0.4 % (0.0-2.0); Eosinophils # (Auto) 0.26 K/mcL (0.00-0.70); Eosinophils % (Auto) 2.6 % (0.0-7.0); Granulocytes % (Auto) 65.8 % (38.0-78.0); Hematocrit 28.7 % (34.1-44.9); Hemoglobin 8.7 g/dL (11.2-15.7); Lymphocytes # (Auto) 1.39 K/mcL (1.50-4.80); Lymphocytes % (Auto) 13.9 % (15.5-49.0); Mean Cell Volume 92.6 fL (80.0-100.0); Mean Corpuscular HGB Conc 30.3 g/dL (31.0-36.0); Mean Platelet Volume 10.2 fL (7.4-10.4); Monocytes # (Auto) 1.73 K/mcL (0.10-0.90); Monocytes % (Auto) 17.3 % (1.0-12.0); Platelet Count 281 K/mcL (140-440); Red Cell Distribution Width 14.4 % (11.5-14.5)
[2020-03-28 08:10] LABS: ALT/SGPT 16 U/l (0-40); AST/SGOT 20 U/l (0-37); Albumin 3.1 gm/dL (3.2-5.2); Albumin/Globulin Ratio 0.8 (1.0-2.3); Alkaline Phosphatase 156 U/L (39-117); Bilirubin,Total 0.3 mg/dL (0.0-1.0); Calcium 9.2 mg/dl (8.6-10.4); Carbon Dioxide 28 mmol/L (22-30); Globulin 3.7 gm/dL (2.2-3.7); Glucose 152 mg/dL (70-105)
[2020-03-28 08:19] LABS: Blood Urea Nitrogen 28 mg/dl (6-20); Chloride 92 mmol/L (96-108); Glomerular Filtration Rate 9
--- NOTE | 2020-03-28 08:51 | Nephrology Progress Note ---
SUBJECTIVE Subjective Patient information: Note initiated : 03/28/20 at 8:48 am Patient: Elo Robledo 60 y/o F admitted on 03/18/20 for Altered Mental Status, Low Blood Sugar. Chief Complaint: Weakness Pertinent ROS: Feels better Weakness requiring SNF [facility] Constitutional Vitals: Vital Signs Temp Pulse Resp BP Pulse Ox 97.7 F 78 20 114/53 99 03/28/20 07:44 03/28/20 07:44 03/28/20 07:44 03/28/20 07:44 03/28/20 07:44 Period Temp Pulse Resp BP Sys/Clark Pulse Ox Last 24 Hr 97.7 F-99.2 F 72-81 12-24 95-159/41-109 88-100 Intake and Output 03/27/20 03/28/20 03/28/20 21:59 05:59 13:59 Intake Total 250 Output Total 50 Balance 200 Weight 317 lb 14.4 oz Intake & Output: Intake & Output 03/27/20 03/28/20 03/28/20 21:59 05:59 13:59 Intake Total 250 Output Total 50 Balance 200 Weight 317 lb 14.4 oz Intake: Oral 250 Output: Urine Catheter Amount 50 Other: Urine Appearance Clear Uretheral (Samson) Clear Urine Color Dark Yellow Uretheral (Samson) Dark Yellow Stool Size Smear Stool Color Brown Yellow Stool Consistency Soft # Bowel Movements 1 # of times incontinent of 0 Bowels General appearance: cooperative and no acute distress Head Head exam: Present normal inspection Eye Eye exam: Present normal appearance ENT ENT exam: Present mucous membranes moist Respiratory Respiratory exam: Absent respiratory distress Cardiovascular Cardiovascular exam: Present normal rate and rhythm GI/Abdominal GI/Abdominal exam: Present soft; Absent tenderness Extremities Exam Extremities exam: Present pedal edema; Absent joint swelling Neurological Exam Neurological exam: Present alert and oriented X3 Psychiatric Psychiatric exam: Present normal affect and normal mood Skin Skin exam: Present warm; Absent rash A/P Assessment and plan (1) ESRD (end stage renal disease) on dialysis: Assessment and plan: Progress: Last hemodialysis on 03/27 with 5 kg UF. Plan: Continue hemodialysis on Wednesday, Wednesday and Wednesday as outpatient or inpatient. Status: Chronic (2) Hyponatremia: Assessment and plan: Mild, associated with ESRD. Managed by hemodialysis. Status: Deleted (3) Other fluid overload: Assessment and plan: Associated with ESRD. Improved with hemodialysis. Status: Acute Time Spent With Patient Time: Total time spent is greater than 50% in coordination of care (as documented) at patient's floor/unit and/or counseling patient:
[2020-03-28] MEDS: INSULIN LISPRO 1 UNIT/0.01 ML UNIT SQ SCH ×4 (09:00→22:03)
[2020-03-28] MEDS: DILTIAZEM 30 MG TABLET PO SCH ×2 (09:01→22:09)
[2020-03-28] MEDS: ATORVASTATIN 40 MG TABLET PO SCH (09:01)
[2020-03-28] MEDS: ASPIRIN 81 MG TAB.CHEW PO SCH (09:01)
[2020-03-28] MEDS: CINACALCET 30 MG TABLET PO SCH (09:02)
[2020-03-28] MEDS: CALCITRIOL 0.25 MCG CAPSULE PO SCH (09:02)
[2020-03-28] MEDS: DOCUSATE SODIUM 100 MG CAPSULE PO SCH (09:03)
[2020-03-28] MEDS: FUROSEMIDE 40 MG TABLET PO SCH (09:03)
[2020-03-28] MEDS: CALCIUM ACETATE 667 MG CAPSULE PO SCH ×3 (09:04→17:12)
[2020-03-28] MEDS: ceFAZolin 1 GM VIAL IV SCH (14:43)
[2020-03-28] MEDS: HYDROcodone/APAP 5/325MG TABLET PO PRN (14:44)
--- NOTE | 2020-03-28 17:21 | Internal Med Progress Note ---
SUBJECTIVE Subjective Patient information: Note initiated : 03/28/20 at 5:16 pm Service Date, if different from initiated Date: [] Patient: Elo Robledo 60 y/o F admitted on 03/18/20 for Altered Mental Status, Low Blood Sugar. Chief Complaint: [no bed at local SNF. doesnt want to go out of town] 60 yo WF with hx of living at a hotel $650 month but there were bedbugs. Then moved to a mobile home but no wheelchair access and she cant walk so eventually needed dialysis she had been missing. Was hypoglycemic and uremic and had a seizure, intubated earlier this admission now extubated and down to 4lpm oxygen. wants to go home but is non ambulatory. Constitutional Vitals: Vital Signs Temp Pulse Resp BP Pulse Ox 97.8 F 80 20 127/60 97 03/28/20 15:52 03/28/20 15:52 03/28/20 15:52 03/28/20 15:52 03/28/20 15:52 Period Temp Pulse Resp BP Sys/Clark Pulse Ox Last 24 Hr 97.7 F-99.2 F 72-84 16-24 100-159/47-72 90-100 Intake and Output 03/28/20 03/28/20 03/28/20 05:59 13:59 21:59 Intake Total 250 180 400 Output Total 50 Balance 200 180 400 Intake & Output: Intake & Output 03/28/20 03/28/20 03/28/20 05:59 13:59 21:59 Intake Total 250 180 400 Output Total 50 Balance 200 180 400 Intake: Nourishment/Supplement quantity 120 (ml) Oral 250 180 280 Output: Urine Catheter Amount 50 Other: Meal Breakfast Lunch Percent of Meal Consumed 75% 100% Feeding Ability Independent Independent Urine Appearance Clear Uretheral (Samson) Clear Urine Color Dark Yellow Uretheral (Samson) Dark Yellow Exam: Gen WDWN Morbidly obese femal in bed sitting up pleasant CV RRR Lungs CTA bilat ABd soft obese NT Calves 2+-3 edema OBJ DATA Labs CBC & Chem 7: 03/28/20 05:30 03/28/20 05:30 Labs: Abnormal Lab Results 03/28/20 03/28/20 03/27/20 05:30 05:30 05:00 WBC RBC 3.10 L Hgb 8.7 L Hct 28.7 L MCHC 30.3 L Lymph % (Auto) 13.9 L [place] % (Auto) 17.3 H Gran # Lymph # (Auto) 1.39 L [place] # (Auto) 1.73 H Chloride 92 L 93 L BUN 28 H 36 H Creatinine 4.8 H 6.6 H* Glucose 152 H 138 H Alkaline Phosphatase 156 H 161 H Albumin 3.1 L Albumin/Globulin Ratio 0.8 L 03/27/20 03/26/20 03/26/20 05:00 05:00 05:00 WBC 11.2 H RBC 2.87 L 2.92 L Hgb 8.1 L 8.4 L Hct 27.2 L 27.4 L MCHC 29.8 L 30.7 L Lymph % (Auto) 10.6 L 11.3 L [place] % (Auto) 14.3 H 14.1 H Gran # 8.22 H Lymph # (Auto) 1.19 L 1.17 L [place] # (Auto) 1.61 H 1.47 H Chloride 94 L BUN 21 H Creatinine 4.5 H Glucose 132 H Alkaline Phosphatase 153 H Albumin 3.1 L Albumin/Globulin Ratio 0.9 L Meds: Medications Acetaminophen (Tylenol) 650 mg PO Q6HP PRN; Protocol PRN Reason: Per Pain Protocol/Fever > 101 Hydrocodone Bitart/Acetaminophen ([place] 5/325mg) 1 tab PO Q6HP PRN; Protocol PRN Reason: Per Pain Protocol Last Admin: 03/28/20 14:44 Dose: 1 tab Documented by: Aspirin (Aspirin) 81 mg PO DAILY [facility] Last Admin: 03/28/20 09:01 Dose: 81 mg Documented by: Atorvastatin Calcium (Lipitor) 40 mg PO DAILY [facility] Last Admin: 03/28/20 09:01 Dose: 40 mg Documented by: Calcitriol (Rocaltrol) 1 mcg PO TuThSa@0900 [facility] Last Admin: 03/28/20 09:02 Dose: 1 mcg Documented by: Calcium Acetate (Phoslo) 2,668 mg PO TIDCC [facility] Last Admin: 03/28/20 17:12 Dose: 2,668 mg Documented by: Cefazolin Sodium (Ancef) 2 gm IV Q24H [facility] Last Admin: 03/28/20 14:43 Dose: 2 gm Documented by: Cinacalcet (Sensipar) 30 mg PO QDAY [facility] Last Admin: 03/28/20 09:02 Dose: 30 mg Documented by: Dextrose (Dextrose 50%) 0 ml IV UD PRN PRN Reason: Hypoglycemia Diagnostic Test (Pha) (Accu-Chek) 1 each FS [facility] Last Admin: 03/28/20 16:28 Dose: 1 each Documented by: Diltiazem HCl (Cardizem) 60 mg PO BID [facility] Last Admin: 03/28/20 09:01 Dose: 60 mg Documented by: Docusate Sodium (Colace) 100 mg PO DAILY [facility] Last Admin: 03/28/20 09:03 Dose: 100 mg Documented by: Famotidine (Pepcid) 20 mg IV HS [facility] Last Admin: 03/27/20 21:14 Dose: 20 mg Documented by: Fentanyl (Sublimaze) 25 - 50 mcg IV Q1HP PRN; Protocol PRN Reason: Per Pain Protocol Furosemide (Lasix) 40 mg PO DAILY [facility] Last Admin: 03/28/20 09:03 Dose: 40 mg Documented by: Glucose (Insta-Glucose) 15 gm PO PRN PRN PRN Reason: Hypoglycemia Heparin Sodium (Porcine) (Heparin) 5,000 unit SQ Q8 [facility] Last Admin: 03/28/20 14:44 Dose: 5,000 unit Documented by: Hydralazine HCl (Apresoline) 0 mg IV Q2HP PRN PRN Reason: Hypertension Albumin Human (Buminate) 12.5 gm in 50 mls @ 100 mls/hr IV PRN PRN PRN Reason: Dialysis related hypotension Insulin Human Lispro (Humalog) 0 unit SQ [facility]; Protocol Last Admin: 03/28/20 17:12 Dose: 3 unit Documented by: Labetalol HCl (Trandate) 0 mg IV Q2HP PRN PRN Reason: Hypertension Lorazepam (Ativan) 1 mg IV Q2HP PRN PRN Reason: seizure Losartan Potassium (Cozaar) 50 mg PO QHS [facility] Last Admin: 03/27/20 21:14 Dose: 50 mg Documented by: Morphine Sulfate (Morphine) 1 - 2 mg IV Q2HP PRN; Protocol PRN Reason: Per Pain Protocol Ondansetron HCl (Zofran) 4 mg IV Q4HP PRN; Protocol PRN Reason: Nausea And Vomiting Sodium Chloride (Saline Flush) 10 ml IV Q12 [facility] Last Admin: 03/28/20 09:06 Dose: 10 ml Documented by: Sodium Chloride (Saline Flush) 10 ml IV Q8 [facility] Last Admin: 03/28/20 14:50 Dose: 10 ml Documented by: Throat Lozenges (Cepacol) 1 lozenge PO Q4H PRN PRN Reason: Sore Throat Tramadol HCl (Ultram) 50 mg PO BIDP PRN PRN Reason: Pain ABG Interpretation ABG results: 03/21/20 03/22/20 03/22/20 16:00 08:59 10:10 ABG pH 7.50 H 7.46 H 7.46 H ABG pCO2 34.0 L 39.4 40.3 ABG pO2 82 93 104 H ABG HCO3 25.9 27.5 H 27.7 H ABG Total CO2 26.9 28.7 H 28.9 H ABG O2 Saturation 94.5 94.9 95.7 ABG Base Excess 2.6 H 3.5 H 3.5 H ABG Methemoglobin 0.1 L 0.1 L 0.1 L A/P Narrative A/P Narrative: *Seizure: 2/2 uremia/metabolic disturbance possible related to low bs as well -lactate and prolactin elevated *Aspiration PNA: 2/2 above -Thick Pulmonary secretions suctioned by nursing -Sputum culture showed MSSA. Discontinued Zosyn and vancomycin. Continue cefazolin. *Acute Hypoxic Respiratory Failure: 2/2 obtundation/post-ictal/airway protection/Aspiration -Intubated 03/19 extubated 03/23 -She is on 4L today by [place]. trying to wean off *PEA arrest 2/2 seizure with aspiration on 03/19: *Hypoglycemia with obtundation on admit: 2/2 DM meds, poor renal fxn, poor clearance. a1c 4.9 -intially was on glucose gtt *DM II: glipizide stopped and hypoglycemia noted after her seizure -A1c 4.9 *ESRD: has not had HD for 3wks since moving to [facility] house w/o wheelchair ramp to get out of house -pt noncompliant with HD *Anemia, acute on chronic: *HTN: *Severe Obesity: *CAT: on cpap@home *Elevated troponin: chronically elevated but above baseline 2/2 CPR/epi, no CP prior to episode/ekg unremarkable *Diabetic retinopathy? *Chest pain - could result from CPR P: -extubate on 03/23 -Glipizide held and will not restart on d/c, will educate on dietary restrictions -Nephrology for HD -prn ativan -cont home ASA/Dilt/Losartan -home cpap, she needs oxygen, trying to wean off. Not no home oxygen. -Discontinued TF's per dietary. Diabetic and renal diet as tolerated. -s/p 1prbc with HD on 03/23 -The patient refused to be transferred to another hospital for seeing an tool and gauge inspector for seeing black spots. Dr. Mayo ([phone]) will see her in office on Wednesday if we can discharge her on . plan was discharge to [facility] but they declined to take here here in [facility] -EKG no ST elevation Troponin mildly elevated to 0.72. Asprin and lipitor. -ppx: heparin full code PT/OT/CM Time Spent With Patient Time: Total time spent is greater than 50% in coordination of care (as documented) at patient's floor/unit and/or counseling patient: Total time spent with greater than 50% in coordination of care (as documented) at patient's floor/unit and/or counseling patient:: Greater than 35 minutes QUALITY Stroke Symptom Onset Unknown: No VTE Deep Vein Thrombosis/Pulmonary Embolism Present on Admission: No
[2020-03-28] MEDS ORDERED: LORazepam 1 MG TABLET PO PRN (17:30)
[2020-03-28] MEDS ORDERED: oxyCODONE/APAP 5/325MG TABLET PO PRN (17:32)
[2020-03-28] MEDS: oxyCODONE 20 MG TAB.ER.12H PO SCH (21:57)
[2020-03-28] MEDS: LOSARTAN 50 MG TABLET PO SCH (21:57)
[2020-03-29] MEDS: HYDROcodone/APAP 5/325MG TABLET PO PRN (05:16)
[2020-03-29] MEDS: HEPARIN 5,000 UNIT/ML VIAL SQ SCH ×3 (05:16→21:27)
[2020-03-29] MEDS: 0.9 % SODIUM CHLORIDE 10 ML SYRINGE IV SCH ×5 (05:22→21:28)
[2020-03-29 06:56] LABS: Basophils # (Auto) 0.05 K/mcL (0.00-0.30); Basophils % (Auto) 0.5 % (0.0-2.0); Eosinophils # (Auto) 0.29 K/mcL (0.00-0.70); Eosinophils % (Auto) 3.1 % (0.0-7.0); Granulocytes % (Auto) 61.4 % (38.0-78.0); Hematocrit 28.7 % (34.1-44.9); Hemoglobin 8.8 g/dL (11.2-15.7); Lymphocytes % (Auto) 16.1 % (15.5-49.0); Mean Cell Volume 93.2 fL (80.0-100.0); Mean Corpuscular HGB Conc 30.7 g/dL (31.0-36.0); Mean Platelet Volume 10.1 fL (7.4-10.4); Monocytes # (Auto) 1.76 K/mcL (0.10-0.90); Monocytes % (Auto) 18.9 % (1.0-12.0); Platelet Count 295 K/mcL (140-440); RBC 3.08 M/mcL (3.59-5.38); Red Cell Distribution Width 14.5 % (11.5-14.5); WBC 9.3 K/mcL (4.50-11.00)
[2020-03-29 07:20] LABS: ALT/SGPT 6 U/l (0-40); AST/SGOT 16 U/l (0-37); Albumin 3.5 gm/dL (3.2-5.2); Albumin/Globulin Ratio 1.1 (1.0-2.3); Alkaline Phosphatase 172 U/L (39-117); Bilirubin,Total 0.3 mg/dL (0.0-1.0); Calcium 9.6 mg/dl (8.6-10.4); Carbon Dioxide 28 mmol/L (22-30); Globulin 3.2 gm/dL (2.2-3.7); Glucose 175 mg/dL (70-105)
[2020-03-29 07:24] LABS: Blood Urea Nitrogen 53 mg/dl (6-20); Chloride 91 mmol/L (96-108); Glomerular Filtration Rate 6
[2020-03-29] MEDS: DILTIAZEM 30 MG TABLET PO SCH (08:07)
[2020-03-29] MEDS: CALCIUM ACETATE 667 MG CAPSULE PO SCH ×3 (08:08→17:06)
[2020-03-29] MEDS: ATORVASTATIN 40 MG TABLET PO SCH (08:09)
[2020-03-29] MEDS: oxyCODONE 20 MG TAB.ER.12H PO SCH ×2 (08:09→21:26)
[2020-03-29] MEDS: CINACALCET 30 MG TABLET PO SCH (08:09)
[2020-03-29] MEDS: FUROSEMIDE 40 MG TABLET PO SCH (08:10)
[2020-03-29] MEDS: DOCUSATE SODIUM 100 MG CAPSULE PO SCH (08:10)
[2020-03-29] MEDS: INSULIN LISPRO 1 UNIT/0.01 ML UNIT SQ SCH ×4 (08:10→21:26)
[2020-03-29] MEDS: ASPIRIN 81 MG TAB.CHEW PO SCH (08:10)
--- NOTE | 2020-03-29 08:50 | Nephrology Progress Note ---
SUBJECTIVE Subjective Patient information: Note initiated : 03/29/20 at 8:48 am Patient: Elo Robledo 60 y/o F admitted on 03/18/20 for Altered Mental Status, Low Blood Sugar. Chief Complaint: Weakness Pertinent ROS: Weakness Edema No shortness of breath Constitutional Vitals: Vital Signs Temp Pulse Resp BP Pulse Ox 97.8 F 75 18 116/68 99 03/29/20 07:04 03/29/20 07:04 03/29/20 07:04 03/29/20 07:04 03/29/20 07:04 Period Temp Pulse Resp BP Sys/Clark Pulse Ox Last 24 Hr 97.8 F-98.7 F 75-87 18- 105-127/47-68 95-99 Intake and Output 03/28/20 03/29/20 03/29/20 21:59 05:59 13:59 Intake Total 640 800 Output Total 150 Balance 640 650 Weight 317 lb 14.4 oz Intake & Output: Intake & Output 03/28/20 03/29/20 03/29/20 21:59 05:59 13:59 Intake Total 640 800 Output Total 150 Balance 640 650 Weight 317 lb 14.4 oz Intake: Nourishment/Supplement quantity 120 (ml) Oral 520 800 Output: Urine Catheter Amount 150 Other: Meal Dinner Percent of Meal Consumed 100% Feeding Ability Independent Urine Appearance Clear Cloudy Uretheral (Samson) Clear Clear Urine Color Dark Yellow Dark Yellow Uretheral (Samson) Dark Yellow Dark Yellow Urine Odor Strong Strong Stool Size Smear Stool Color Brown Yellow Stool Consistency Soft General appearance: cooperative and no acute distress Head Head exam: Present normal inspection Eye Eye exam: Present normal appearance ENT ENT exam: Present mucous membranes moist Respiratory Respiratory exam: Absent respiratory distress Cardiovascular Cardiovascular exam: Present normal rate and rhythm GI/Abdominal GI/Abdominal exam: Present soft; Absent tenderness Extremities Exam Extremities exam: Present pedal edema; Absent joint swelling Neurological Exam Neurological exam: Present alert and oriented X3 Psychiatric Psychiatric exam: Present normal affect and normal mood Skin Skin exam: Present warm; Absent rash A/P Assessment and plan (1) ESRD (end stage renal disease) on dialysis: Assessment and plan: Progress: Last hemodialysis on 03/27 with 5 kg UF. Plan: Hemodialysis today and tomorrow. The patient seen and evaluated during hemodialysis. Status: Chronic (2) Hyponatremia: Assessment and plan: Mild, associated with ESRD. Managed by hemodialysis. Status: Deleted (3) Other fluid overload: Assessment and plan: Associated with ESRD. Improved with hemodialysis. Status: Acute Time Spent With Patient Time: Total time spent is greater than 50% in coordination of care (as documented) at patient's floor/unit and/or counseling patient:
[2020-03-29] MEDS: ceFAZolin 1 GM VIAL IV SCH (15:33)
--- NOTE | 2020-03-29 20:29 | Internal Med Progress Note ---
SUBJECTIVE Subjective Patient information: Note initiated : 03/29/20 at 8:24 pm Service Date, if different from initiated Date: [] Patient: Elo Robledo 60 y/o F admitted on 03/18/20 for Altered Mental Status, Low Blood Sugar. Chief Complaint: sob and renal failure pt admitted with hypoglycemia and untreated ESRD missing dialysis. Had seizure resp failure and now weaning off oxygen report of hx bed bugs but none seen here. Constitutional Vitals: Vital Signs Temp Pulse Resp BP Pulse Ox 98.1 F 76 16 128/66 99 03/29/20 15:38 03/29/20 15:38 03/29/20 15:38 03/29/20 15:38 03/29/20 16:53 Period Temp Pulse Resp BP Sys/Clark Pulse Ox Last 24 Hr 97.5 F-98.4 F 73-80 16-20 71-128/31-68 95-99 Intake and Output 03/29/20 03/29/20 03/29/20 05:59 13:59 21:59 Intake Total 800 100 300 Output Total 150 2475 Balance 650 100 -2175 Weight 144.197 kg Patient Weight 03/30/20 05:59 Weight 144.197 kg Gen WDWN WF sleeping chronically ill appearing morbidly obese no distress CVRRR Lungs CTA ABd soft NTND Calves 3+ edema Intake & Output: Intake & Output 03/29/20 03/29/20 03/29/20 05:59 13:59 21:59 Intake Total 800 100 300 Output Total 150 2475 Balance 650 100 -2175 Weight 144.197 kg Intake: Oral 800 100 300 Output: Urine Catheter Amount 150 25 Hemodialysis UF 2450 Other: Meal Breakfast Dinner Percent of Meal Consumed 100% 100% Feeding Ability Independent Independent Urine Appearance Cloudy Clear Uretheral (Samson) Clear Urine Color Dark Yellow Dark Yellow Uretheral (Samson) Dark Yellow Urine Odor Strong Normal OBJ DATA Labs CBC & Chem 7: 03/29/20 05:36 03/29/20 05:35 Labs: Abnormal Lab Results 03/29/20 03/29/20 03/28/20 05:36 05:35 05:30 WBC RBC 3.08 L Hgb 8.8 L Hct 28.7 L MCHC 30.7 L Lymph % (Auto) [place] % (Auto) 18.9 H Gran # Lymph # (Auto) [place] # (Auto) 1.76 H Chloride 91 L 92 L BUN 53 H 28 H Creatinine 7.1 H* 4.8 H Glucose 175 H 152 H Alkaline Phosphatase 172 H 156 H Albumin 3.1 L Albumin/Globulin Ratio 0.8 L 03/28/20 03/27/20 03/27/20 05:30 05:00 05:00 WBC 11.2 H RBC 3.10 L 2.87 L Hgb 8.7 L 8.1 L Hct 28.7 L 27.2 L MCHC 30.3 L 29.8 L Lymph % (Auto) 13.9 L 10.6 L [place] % (Auto) 17.3 H 14.3 H Gran # 8.22 H Lymph # (Auto) 1.39 L 1.19 L [place] # (Auto) 1.73 H 1.61 H Chloride 93 L BUN 36 H Creatinine 6.6 H* Glucose 138 H Alkaline Phosphatase 161 H Albumin Albumin/Globulin Ratio Meds: Medications Acetaminophen (Tylenol) 650 mg PO Q6HP PRN; Protocol PRN Reason: Per Pain Protocol/Fever > 101 Hydrocodone Bitart/Acetaminophen ([place] 5/325mg) 1 tab PO Q6HP PRN; Protocol PRN Reason: Per Pain Protocol Last Admin: 03/29/20 05:16 Dose: 1 tab Documented by: Aspirin (Aspirin) 81 mg PO DAILY [facility] Last Admin: 03/29/20 08:10 Dose: 81 mg Documented by: Atorvastatin Calcium (Lipitor) 40 mg PO DAILY [facility] Last Admin: 03/29/20 08:09 Dose: 40 mg Documented by: Calcitriol (Rocaltrol) 1 mcg PO TuThSa@0900 [facility] Last Admin: 03/28/20 09:02 Dose: 1 mcg Documented by: Calcium Acetate (Phoslo) 2,668 mg PO TIDCC [facility] Last Admin: 03/29/20 17:06 Dose: 2,668 mg Documented by: Cefazolin Sodium (Ancef) 2 gm IV Q24H [facility] Last Admin: 03/29/20 15:33 Dose: 2 gm Documented by: Cinacalcet (Sensipar) 30 mg PO QDAY [facility] Last Admin: 03/29/20 08:09 Dose: 30 mg Documented by: Dextrose (Dextrose 50%) 0 ml IV UD PRN PRN Reason: Hypoglycemia Diagnostic Test (Pha) (Accu-Chek) 1 each FS [facility] Last Admin: 03/29/20 16:50 Dose: 1 each Documented by: Docusate Sodium (Colace) 100 mg PO DAILY [facility] Last Admin: 03/29/20 08:10 Dose: 100 mg Documented by: Glucose (Insta-Glucose) 15 gm PO PRN PRN PRN Reason: Hypoglycemia Heparin Sodium (Porcine) (Heparin) 5,000 unit SQ Q8 [facility] Last Admin: 03/29/20 15:34 Dose: 5,000 unit Documented by: Insulin Human Lispro (Humalog) 0 unit SQ [facility]; Protocol Last Admin: 03/29/20 17:05 Dose: 3 unit Documented by: Lorazepam (Ativan) 1 mg PO Q8HP PRN PRN Reason: ANXIETY/SEDATION Ondansetron HCl (Zofran) 4 mg IV Q4HP PRN; Protocol PRN Reason: Nausea And Vomiting Oxycodone HCl (Oxycontin) 20 mg PO BID [facility]; Protocol Last Admin: 03/29/20 08:09 Dose: 20 mg Documented by: Oxycodone/Acetaminophen (Percocet 5-325 Mg) 0 tab PO Q4HP PRN; Protocol PRN Reason: Per Pain Protocol Sodium Chloride (Saline Flush) 10 ml IV Q12 [facility] Last Admin: 03/29/20 08:12 Dose: 10 ml Documented by: Sodium Chloride (Saline Flush) 10 ml IV Q8 [facility] Last Admin: 03/29/20 15:34 Dose: 10 ml Documented by: Throat Lozenges (Cepacol) 1 lozenge PO Q4H PRN PRN Reason: Sore Throat Tramadol HCl (Ultram) 50 mg PO BIDP PRN PRN Reason: Pain ABG Interpretation ABG results: 03/21/20 03/22/20 03/22/20 16:00 08:59 10:10 ABG pH 7.50 H 7.46 H 7.46 H ABG pCO2 34.0 L 39.4 40.3 ABG pO2 82 93 104 H ABG HCO3 25.9 27.5 H 27.7 H ABG Total CO2 26.9 28.7 H 28.9 H ABG O2 Saturation 94.5 94.9 95.7 ABG Base Excess 2.6 H 3.5 H 3.5 H ABG Methemoglobin 0.1 L 0.1 L 0.1 L A/P Assessment and plan (1) Seizure: Status: Acute Comment: likely due to hypoglycemia. resolved not on antiepileptics now. (2) Other fluid overload: Status: Acute Comment: cont dialysis. start furosemide. may need bid straight cath u.o 100cc/day prior to furosemide started today. (3) Morbid obesity with body mass index of 50.0-59.9 in adult: Status: Acute Comment: pt is on wt loss diabetic diet. says is tolerating current caloric restriction (4) ESRD (end stage renal disease) on dialysis: Status: Chronic Comment: stable. placement is an issue need to improve mobiity Time Spent With Patient Time: Total time spent is greater than 50% in coordination of care (as documented) at patient's floor/unit and/or counseling patient:25 QUALITY Stroke Symptom Onset Unknown: No VTE Deep Vein Thrombosis/Pulmonary Embolism Present on Admission: No
[2020-03-30] MEDS: HEPARIN 5,000 UNIT/ML VIAL SQ SCH ×3 (05:32→21:49)
[2020-03-30] MEDS: 0.9 % SODIUM CHLORIDE 10 ML SYRINGE IV SCH ×5 (05:33→21:51)
[2020-03-30] MEDS ORDERED: MIDODRINE 5 MG TABLET PO ONE (07:20)
--- NOTE | 2020-03-30 07:22 | Nephrology Progress Note ---
SUBJECTIVE Subjective Patient information: Note initiated : 03/30/20 at 7:21 am Patient: Elo Robledo 60 y/o F admitted on 03/18/20 for Altered Mental Status, Low Blood Sugar. Chief Complaint: Weakness Constitutional Vitals: Vital Signs Temp Pulse Resp BP Pulse Ox 97.7 F 87 18 105/55 94 03/30/20 04:00 03/30/20 04:00 03/30/20 04:00 03/30/20 04:00 03/30/20 04:00 Period Temp Pulse Resp BP Sys/Clark Pulse Ox Last 24 Hr 97.5 F-98.1 F 72-87 - 71-128/31-66 94-99 Intake and Output 03/29/20 03/30/20 03/30/20 21:59 05:59 13:59 Intake Total 300 Output Total 2475 1 Balance -2175 -1 Weight 316 lb 15 oz Intake & Output: Intake & Output 03/29/20 03/30/20 03/30/20 21:59 05:59 13:59 Intake Total 300 Output Total 2475 1 Balance -2175 -1 Weight 316 lb 15 oz Intake: Oral 300 Output: Urine Catheter Amount 25 # of times incontinent of urine 1 Hemodialysis UF 2450 Other: Meal Dinner Percent of Meal Consumed 100% Feeding Ability Independent Urine Appearance Clear Urine Color Dark Yellow Urine Odor Normal Stool Size Smear Stool Color Brown Yellow Stool Consistency Soft General appearance: cooperative and no acute distress Head Head exam: Present normal inspection Eye Eye exam: Present normal appearance ENT ENT exam: Present mucous membranes moist Respiratory Respiratory exam: Absent respiratory distress Cardiovascular Cardiovascular exam: Present normal rate and rhythm GI/Abdominal GI/Abdominal exam: Present soft; Absent tenderness Extremities Exam Extremities exam: Present pedal edema; Absent joint swelling Neurological Exam Neurological exam: Present alert and oriented X3 Psychiatric Psychiatric exam: Present normal affect and normal mood Skin Skin exam: Present warm; Absent rash A/P Assessment and plan (1) ESRD (end stage renal disease) on dialysis: Assessment and plan: Progress: Last hemodialysis on 03/29 with 2450 ml UF only due to hypotension. Antihypertensives discontinued. Midodrine 10 mg PO x 1 given before hemodialysis. Plan: Extra hemodialysis today with 5 kg UF target then continue Wednesday, Wednesday and Wednesday schedule. The patient seen and evaluated during hemodialysis. BP still low and not tolerating much UF. Treatment changed to PUF for 1 more hour and 1 more kg UF. Status: Chronic Time Spent With Patient Time: Total time spent is greater than 50% in coordination of care (as documented) at patient's floor/unit and/or counseling patient:
[2020-03-30] MEDS: CALCIUM ACETATE 667 MG CAPSULE PO SCH ×3 (08:38→17:59)
[2020-03-30] MEDS: DOCUSATE SODIUM 100 MG CAPSULE PO SCH (08:40)
[2020-03-30] MEDS: ASPIRIN 81 MG TAB.CHEW PO SCH (08:40)
[2020-03-30] MEDS: CALCITRIOL 0.25 MCG CAPSULE PO SCH (08:42)
[2020-03-30] MEDS: ATORVASTATIN 40 MG TABLET PO SCH (08:42)
[2020-03-30] MEDS: CINACALCET 30 MG TABLET PO SCH (08:43)
[2020-03-30] MEDS: oxyCODONE 20 MG TAB.ER.12H PO SCH ×2 (08:44→21:51)
[2020-03-30] MEDS: INSULIN LISPRO 1 UNIT/0.01 ML UNIT SQ SCH ×4 (08:52→21:49)
[2020-03-30] MEDS ORDERED: FUROSEMIDE 40 MG TABLET PO SCH (09:00)
[2020-03-30] MEDS: ceFAZolin 1 GM VIAL IV SCH (15:01)
[2020-03-30] MEDS: LEVOTHYROXINE 50 MCG TABLET PO SCH (18:02)
[2020-03-30] MEDS ORDERED: COSYNTROPIN 0.25 MG VIAL IV ONE (19:05)
--- NOTE | 2020-03-30 20:44 | Internal Med Progress Note ---
SUBJECTIVE Subjective Patient information: Note initiated : 03/30/20 at 8:38 pm Service Date, if different from initiated Date: [] Patient: Elo Robledo 60 y/o F admitted on 03/18/20 for Altered Mental Status, Low Blood Sugar. Chief Complaint: hypoglycemia and seizure 60 yo morbidly obese female admits to recent low bs. Says her appetite comes and goes. says was self surprised wt down to 318 had been 385-400. Pt says cant walk due to leg weakness. State usually hot except on dialysis days but has hypotension complicating fluid removal and today had sbp 70 so dialysis stopped. Denies chest pain. denies nausea. admits to sleeping a lot. recent labs showed mild elevated TSH and low Free t4 Constitutional Vitals: Vital Signs Temp Pulse Resp BP Pulse Ox 97.8 F 74 18 87/47 97 03/30/20 15:34 03/30/20 20:23 03/30/20 15:34 03/30/20 18:01 03/30/20 15:34 Period Temp Pulse Resp BP Sys/Lcark Pulse Ox Last 24 Hr 97.2 F-98.9 F 72-93 18-18 78-115/35-62 94-97 Intake and Output 03/30/20 03/30/20 03/30/20 05:59 13:59 21:59 Intake Total 480 100 Output Total 1 1014 Balance -1 -534 100 GEN WD Morbidly obese WF in NAD CV RRR Lungs CTa ABd soft obes Calve 2+-3 edema erythema decreased. mild tender better than previous exams. skin warm and dry ment alert and oriented x 3 pleasant. Intake & Output: Intake & Output 03/30/20 03/30/20 03/30/20 05:59 13:59 21:59 Intake Total 480 100 Output Total 1 1014 Balance -1 -534 100 Intake: Oral 480 100 Output: # of times incontinent of urine 1 Hemodialysis UF 1014 Other: Meal Breakfast Percent of Meal Consumed 100% OBJ DATA Labs CBC & Chem 7: 03/29/20 05:36 03/29/20 05:35 Labs: Abnormal Lab Results 03/29/20 03/29/20 03/28/20 05:36 05:35 05:30 RBC 3.08 L Hgb 8.8 L Hct 28.7 L MCHC 30.7 L Lymph % (Auto) [place] % (Auto) 18.9 H Lymph # (Auto) [place] # (Auto) 1.76 H Chloride 91 L 92 L BUN 53 H 28 H Creatinine 7.1 H* 4.8 H Glucose 175 H 152 H Alkaline Phosphatase 172 H 156 H Albumin 3.1 L Albumin/Globulin Ratio 0.8 L 03/28/20 05:30 RBC 3.10 L Hgb 8.7 L Hct 28.7 L MCHC 30.3 L Lymph % (Auto) 13.9 L [place] % (Auto) 17.3 H Lymph # (Auto) 1.39 L [place] # (Auto) 1.73 H Chloride BUN Creatinine Glucose Alkaline Phosphatase Albumin Albumin/Globulin Ratio Meds: Medications Acetaminophen (Tylenol) 650 mg PO Q6HP PRN; Protocol PRN Reason: Per Pain Protocol/Fever > 101 Hydrocodone Bitart/Acetaminophen ([place] 5/325mg) 1 tab PO Q6HP PRN; Protocol PRN Reason: Per Pain Protocol Last Admin: 03/29/20 05:16 Dose: 1 tab Documented by: Aspirin (Aspirin) 81 mg PO DAILY [facility] Last Admin: 03/30/20 08:40 Dose: 81 mg Documented by: Atorvastatin Calcium (Lipitor) 40 mg PO DAILY [facility] Last Admin: 03/30/20 08:42 Dose: 40 mg Documented by: Calcitriol (Rocaltrol) 1 mcg PO TuThSa@0900 [facility] Last Admin: 03/30/20 08:42 Dose: 1 mcg Documented by: Calcium Acetate (Phoslo) 2,668 mg PO TIDCC [facility] Last Admin: 03/30/20 17:59 Dose: 2,668 mg Documented by: Cefazolin Sodium (Ancef) 2 gm IV Q24H [facility] Last Admin: 03/30/20 15:01 Dose: 2 gm Documented by: Cinacalcet (Sensipar) 30 mg PO QDAY [facility] Last Admin: 03/30/20 08:43 Dose: 30 mg Documented by: Dextrose (Dextrose 50%) 0 ml IV UD PRN PRN Reason: Hypoglycemia Diagnostic Test (Pha) (Accu-Chek) 1 each FS ACHS [facility] Last Admin: 03/30/20 17:54 Dose: 1 each Documented by: Docusate Sodium (Colace) 100 mg PO DAILY [facility] Last Admin: 03/30/20 08:40 Dose: Not Given Documented by: Glucose (Insta-Glucose) 15 gm PO PRN PRN PRN Reason: Hypoglycemia Heparin Sodium (Porcine) (Heparin) 5,000 unit SQ Q8 [facility] Last Admin: 03/30/20 15:26 Dose: 5,000 unit Documented by: Insulin Human Lispro (Humalog) 0 unit SQ ACHS [facility]; Protocol Last Admin: 03/30/20 17:55 Dose: 2 unit Documented by: Levothyroxine Sodium (Synthroid) 50 mcg PO QAMAC [facility] Last Admin: 03/30/20 18:02 Dose: 50 mcg Documented by: Lorazepam (Ativan) 1 mg PO Q8HP PRN PRN Reason: ANXIETY/SEDATION Ondansetron HCl (Zofran) 4 mg IV Q4HP PRN; Protocol PRN Reason: Nausea And Vomiting Oxycodone HCl (Oxycontin) 20 mg PO BID [facility]; Protocol Last Admin: 03/30/20 08:44 Dose: 20 mg Documented by: Oxycodone/Acetaminophen (Percocet 5-325 Mg) 0 tab PO Q4HP PRN; Protocol PRN Reason: Per Pain Protocol Sodium Chloride (Saline Flush) 10 ml IV Q12 [facility] Last Admin: 03/30/20 08:54 Dose: 10 ml Documented by: Sodium Chloride (Saline Flush) 10 ml IV Q8 [facility] Last Admin: 03/30/20 15:07 Dose: 10 ml Documented by: Throat Lozenges (Cepacol) 1 lozenge PO Q4H PRN PRN Reason: Sore Throat Tramadol HCl (Ultram) 50 mg PO BIDP PRN PRN Reason: Pain ABG Interpretation ABG results: 03/21/20 03/22/20 03/22/20 16:00 08:59 10:10 ABG pH 7.50 H 7.46 H 7.46 H ABG pCO2 34.0 L 39.4 40.3 ABG pO2 82 93 104 H ABG HCO3 25.9 27.5 H 27.7 H ABG Total CO2 26.9 28.7 H 28.9 H ABG O2 Saturation 94.5 94.9 95.7 ABG Base Excess 2.6 H 3.5 H 3.5 H ABG Methemoglobin 0.1 L 0.1 L 0.1 L A/P Assessment and plan (1) ESRD (end stage renal disease) on dialysis: Status: Chronic (2) Other fluid overload: Status: Acute Comment: cont dialysis. start furosemide. may need bid straight cath u.o 100cc/day prior to furosemide started 03/29/20 (3) Seizure: Status: Acute Comment: likely due to hypoglycemia. resolved not on antiepileptics now. bc of hypoglycemia wt loss and low tsh will also check cortisol stimulation test (4) Morbid obesity with body mass index of 50.0-59.9 in adult: Status: Acute Comment: pt is on wt loss diabetic diet. 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 Colin for outpt opthamology follow up but pt unable to be discharged on as intended Time Spent With Patient Time: Total time spent is greater than 50% in coordination of care (as documented) at patient's floor/unit and/or counseling patient: 25 mins QUALITY Stroke Symptom Onset Unknown: No VTE Deep Vein Thrombosis/Pulmonary Embolism Present on Admission: No
[2020-03-31] MEDS: 0.9 % SODIUM CHLORIDE 10 ML SYRINGE IV SCH ×5 (05:31→21:00)
[2020-03-31] MEDS: HEPARIN 5,000 UNIT/ML VIAL SQ SCH ×3 (05:31→20:57)
--- NOTE | 2020-03-31 06:18 | Nephrology Progress Note ---
SUBJECTIVE Subjective Patient information: Note initiated : 03/31/20 at 6:14 am Patient: Elo Robledo 60 y/o F admitted on 03/18/20 for Altered Mental Status, Low Blood Sugar. Chief Complaint: Weakness Pertinent ROS: Weakness Leg edema Constitutional Vitals: Vital Signs Temp Pulse Resp BP Pulse Ox 97.6 F 72 18 124/72 94 03/31/20 04:00 03/31/20 04:00 03/31/20 04:00 03/31/20 04:00 03/31/20 04:00 Period Temp Pulse Resp BP Sys/Clark Pulse Ox Last 24 Hr 97.2 F-98.9 F 72-93 18-18 78-141/35-74 94-97 Intake and Output 03/30/20 03/31/20 03/31/20 21:59 05:59 13:59 Intake Total 100 Output Total 0 Balance 100 0 Weight 316 lb 15 oz Intake & Output: Intake & Output 03/30/20 03/31/20 03/31/20 21:59 05:59 13:59 Intake Total 100 Output Total 0 Balance 100 0 Weight 316 lb 15 oz Intake: Oral 100 Output: Void Amount 0 Other: Urine Appearance Clear Urine Color Dark Yellow Urine Odor Normal General appearance: cooperative and no acute distress Head Head exam: Present normal inspection Eye Eye exam: Present normal appearance ENT ENT exam: Present mucous membranes moist Respiratory Respiratory exam: Absent respiratory distress Cardiovascular Cardiovascular exam: Present normal rate and rhythm GI/Abdominal GI/Abdominal exam: Present soft; Absent tenderness Extremities Exam Extremities exam: Present pedal edema; Absent joint swelling Neurological Exam Neurological exam: Present alert and oriented X3 Psychiatric Psychiatric exam: Present normal affect and normal mood Skin Skin exam: Present warm; Absent rash A/P Assessment and plan (1) ESRD (end stage renal disease) on dialysis: Assessment and plan: Progress: Last hemodialysis on 03/30 with 1050 ml UF only due to hypotension. Antihypertensives discontinued. Midodrine 10 mg PO 3XW on MWF before hemodialysis ordered. Plan: Continuous hemodialysis on Wednesday, Wednesday and Wednesday (outpatient schedule). Status: Chronic Time Spent With Patient Time: Total time spent is greater than 50% in coordination of care (as documented) at patient's floor/unit and/or counseling patient:
[2020-03-31] MEDS: LEVOTHYROXINE 50 MCG TABLET PO SCH (08:06)
[2020-03-31] MEDS: CALCIUM ACETATE 667 MG CAPSULE PO SCH ×3 (08:07→17:34)
[2020-03-31] MEDS: ASPIRIN 81 MG TAB.CHEW PO SCH (08:08)
[2020-03-31] MEDS: DOCUSATE SODIUM 100 MG CAPSULE PO SCH (08:08)
[2020-03-31] MEDS: CINACALCET 30 MG TABLET PO SCH (08:09)
[2020-03-31] MEDS: ATORVASTATIN 40 MG TABLET PO SCH (08:09)
[2020-03-31] MEDS: INSULIN LISPRO 1 UNIT/0.01 ML UNIT SQ SCH ×4 (08:12→20:57)
[2020-03-31] MEDS: oxyCODONE 20 MG TAB.ER.12H PO SCH ×2 (08:13→20:58)
[2020-03-31] MEDS: ONDANSETRON 4 MG/2 ML VIAL IV PRN ×2 (13:45→20:57)
[2020-03-31] MEDS: ceFAZolin 1 GM VIAL IV SCH (13:47)
--- NOTE | 2020-03-31 17:11 | Internal Med Progress Note ---
SUBJECTIVE Subjective Patient information: Note initiated : 03/31/20 at 5:03 pm Service Date, if different from initiated Date: [] Patient: Elo Robledo 60 y/o F admitted on 03/18/20 for Altered Mental Status, Low Blood Sugar. Chief Complaint: feels ok concerned blood sugars are high. Says were good on glipizide. outpt. was stopped when hypoglycemic uremic and seizure Constitutional Vitals: Vital Signs Temp Pulse Resp BP Pulse Ox 98.4 F 76 18 119/55 92 03/31/20 12:00 03/31/20 12:00 03/31/20 12:00 03/31/20 12:00 03/31/20 12:00 Period Temp Pulse Resp BP Sys/Clark Pulse Ox Last 24 Hr 97.6 F-98.4 F 72-83 18-18 87-141/47-74 92-98 Intake and Output 03/31/20 03/31/20 03/31/20 05:59 13:59 21:59 Output Total 0 Balance 0 GEn WDWN morbidly obese female right neck IJ catheter noted CV RRR Lungs CTA abd soft obese NT Calves 2+ edema erythema decreased skin warm and dry Intake & Output: Intake & Output 03/31/20 03/31/20 03/31/20 05:59 13:59 21:59 Output Total 0 Balance 0 Output: Void Amount 0 OBJ DATA Labs CBC & Chem 7: 03/29/20 05:36 03/29/20 05:35 Labs: Abnormal Lab Results 03/30/20 03/29/20 03/29/20 19:50 05:36 05:35 RBC 3.08 L Hgb 8.8 L Hct 28.7 L MCHC 30.7 L [place] % (Auto) 18.9 H [place] # (Auto) 1.76 H Chloride 91 L BUN 53 H Creatinine 7.1 H* Glucose 175 H Alkaline Phosphatase 172 H Cortisol PM Sample 12.8 H Meds: Medications Acetaminophen (Tylenol) 650 mg PO Q6HP PRN; Protocol PRN Reason: Per Pain Protocol/Fever > 101 Hydrocodone Bitart/Acetaminophen ([place] 5/325mg) 1 tab PO Q6HP PRN; Protocol PRN Reason: Per Pain Protocol Last Admin: 03/29/20 05:16 Dose: 1 tab Documented by: Aspirin (Aspirin) 81 mg PO DAILY [facility] Last Admin: 03/31/20 08:08 Dose: 81 mg Documented by: Atorvastatin Calcium (Lipitor) 40 mg PO DAILY [facility] Last Admin: 03/31/20 08:09 Dose: 40 mg Documented by: Calcitriol (Rocaltrol) 1 mcg PO TuThSa@0900 [facility] Last Admin: 03/30/20 08:42 Dose: 1 mcg Documented by: Calcium Acetate (Phoslo) 2,668 mg PO TIDCC [facility] Last Admin: 03/31/20 12:02 Dose: 2,668 mg Documented by: Cefazolin Sodium (Ancef) 2 gm IV Q24H [facility] Last Admin: 03/31/20 13:47 Dose: 2 gm Documented by: Cinacalcet (Sensipar) 30 mg PO QDAY [facility] Last Admin: 03/31/20 08:09 Dose: 30 mg Documented by: Dextrose (Dextrose 50%) 0 ml IV UD PRN PRN Reason: Hypoglycemia Diagnostic Test (Pha) (Accu-Chek) 1 each FS [facility] Last Admin: 03/31/20 11:58 Dose: 1 each Documented by: Docusate Sodium (Colace) 100 mg PO DAILY [facility] Last Admin: 03/31/20 08:08 Dose: 100 mg Documented by: Glucose (Insta-Glucose) 15 gm PO PRN PRN PRN Reason: Hypoglycemia Heparin Sodium (Porcine) (Heparin) 5,000 unit SQ Q8 [facility] Last Admin: 03/31/20 13:53 Dose: 5,000 unit Documented by: Insulin Human Lispro (Humalog) 0 unit SQ [facility]; Protocol Last Admin: 03/31/20 12:10 Dose: 3 unit Documented by: Levothyroxine Sodium (Synthroid) 50 mcg PO QAMAC [facility] Last Admin: 03/31/20 08:06 Dose: 50 mcg Documented by: Lorazepam (Ativan) 1 mg PO Q8HP PRN PRN Reason: ANXIETY/SEDATION Midodrine (Midodrine Hcl) 10 mg PO MoWeFr@0800 [facility] Ondansetron HCl (Zofran) 4 mg IV Q4HP PRN; Protocol PRN Reason: Nausea And Vomiting Last Admin: 03/31/20 13:45 Dose: 4 mg Documented by: Oxycodone HCl (Oxycontin) 20 mg PO BID [facility]; Protocol Last Admin: 03/31/20 08:13 Dose: 20 mg Documented by: Oxycodone/Acetaminophen (Percocet 5-325 Mg) 0 tab PO Q4HP PRN; Protocol PRN Reason: Per Pain Protocol Sodium Chloride (Saline Flush) 10 ml IV Q12 [facility] Last Admin: 03/31/20 08:16 Dose: 10 ml Documented by: Sodium Chloride (Saline Flush) 10 ml IV Q8 [facility] Last Admin: 03/31/20 13:54 Dose: 10 ml Documented by: Throat Lozenges (Cepacol) 1 lozenge PO Q4H PRN PRN Reason: Sore Throat Tramadol HCl (Ultram) 50 mg PO BIDP PRN PRN Reason: Pain ABG Interpretation ABG results: 03/21/20 03/22/20 03/22/20 16:00 08:59 10:10 ABG pH 7.50 H 7.46 H 7.46 H ABG pCO2 34.0 L 39.4 40.3 ABG pO2 82 93 104 H ABG HCO3 25.9 27.5 H 27.7 H ABG Total CO2 26.9 28.7 H 28.9 H ABG O2 Saturation 94.5 94.9 95.7 ABG Base Excess 2.6 H 3.5 H 3.5 H ABG Methemoglobin 0.1 L 0.1 L 0.1 L A/P Assessment and plan (1) Morbid obesity with body mass index of 50.0-59.9 in adult: Status: Acute Comment: pt is on wt loss diabetic diet. says is tolerating current caloric restriction resume low dose glyburide. 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 Colin for outpt opthamology follow up but pt unable to be discharged on as intended (4) Adrenal apoplexy: Status: Acute Comment: pm cortisol 12.8 normal but with stim 11.5 and 10.4 poor response and abnormal. will start hydrocortisone 20 mg bid. (5) Cellulitis of lower leg: Status: Acute Comment: change to keflex discontinue central line Time Spent With Patient Time: Total time spent is greater than 50% in coordination of care (as documented) at patient's floor/unit and/or counseling patient: 35 QUALITY Stroke Symptom Onset Unknown: No VTE Deep Vein Thrombosis/Pulmonary Embolism Present on Admission: No
[2020-03-31] MEDS: HYDROCORTISONE 10 MG TABLET PO SCH ×2 (19:15→20:58)
[2020-03-31] MEDS: glyBURIDE 5 MG TABLET PO SCH (19:16)
[2020-04-01] MEDS: HEPARIN 5,000 UNIT/ML VIAL SQ SCH ×3 (05:12→20:49)
[2020-04-01] MEDS: 0.9 % SODIUM CHLORIDE 10 ML SYRINGE IV SCH ×5 (05:13→20:49)
[2020-04-01] MEDS: CALCIUM ACETATE 667 MG CAPSULE PO SCH ×3 (07:23→18:02)
[2020-04-01] MEDS: LEVOTHYROXINE 50 MCG TABLET PO SCH (07:23)
[2020-04-01] MEDS: INSULIN LISPRO 1 UNIT/0.01 ML UNIT SQ SCH ×4 (07:33→20:46)
[2020-04-01] MEDS ORDERED: MIDODRINE 5 MG TABLET PO SCH (08:00)
--- NOTE | 2020-04-01 09:54 | Nephrology Progress Note ---
SUBJECTIVE Subjective Patient information: Note initiated : 04/01/20 at 9:53 am Service Date, if different from initiated Date: [] Patient: Elo Robledo 60 y/o F admitted on 03/18/20 for Altered Mental Status, Low Blood Sugar. Chief Complaint: Patient seen and examined during hemodialysis 04/01/2025. follow up visit long term through dialysis has she had hypotension Constitutional Vitals: Vital Signs Temp Pulse Resp BP Pulse Ox 36.1 C L 77 18 126/55 95 04/01/20 09:30 04/01/20 09:30 04/01/20 08:00 04/01/20 09:30 04/01/20 08:00 Period Temp Pulse Resp BP Sys/Clark Pulse Ox Last 24 Hr 36.1 C-37.1 C 75-79 16- 110-150/55-66 92-95 Intake and Output 03/31/20 04/01/20 04/01/20 21:59 05:59 13:59 Intake Total 200 Output Total 200 0 Balance 0 0 Weight 145.286 kg Intake & Output: Intake & Output 03/31/20 04/01/20 04/01/20 21:59 05:59 13:59 Intake Total 200 Output Total 200 0 Balance 0 0 Weight 145.286 kg Intake: Oral 200 Output: Urine Catheter Amount 0 Emesis 200 Other: Stool Size Smear Stool Color Brown Yellow Stool Consistency Soft # Unmeasured Emesis 3 morbidly obese (BMI 50) NAD nc, non icteric sclerae on rA, non labored respirations A/P Assessment and plan (1) ESRD (end stage renal disease) on dialysis: Status: Chronic Narrative A/P Narrative: ESRD on HD MWF Patient seen and examined on hemodialysis 10/31/2019. Procedure complicated by hypotension. Remains volume overloaded, however edema has improved. 3K bath, 4-hour treatment. She received midodrine prior to the treatment, another dose of Midorine was required long term through the treatment for blood pressure support. She also received normal saline bolus. Blood pressure improved Next HD 04/03/2020 labs -RFP am of 04/03/2020 prior to HD Access LUE AVF hemodynamics and volume BP low normal to hypotensive. required midodrine for pressure support. no BP lowering agents. consider repeat echocardiogram. 02/18/2018 echocardiogram LVEF 65 to 70%. The ventricular diastolic function normal. RV systolic function normal hematologic hemoglobin 8.8, anemia, stable check Tsat, iron, ferritin with next blood drawn
[2020-04-01] MEDS ORDERED: MIDODRINE 5 MG TABLET PO PRN (11:15)
[2020-04-01] MEDS ORDERED: 0.9 % SODIUM CHLORIDE 1,000 ML BAG IV ONE (11:17)
[2020-04-01] MEDS ORDERED: 0.9 % SODIUM CHLORIDE 200 ML IV ONE (11:30)
[2020-04-01] MEDS: DOCUSATE SODIUM 100 MG CAPSULE PO SCH (12:40)
[2020-04-01] MEDS: ASPIRIN 81 MG TAB.CHEW PO SCH (12:40)
[2020-04-01] MEDS: CINACALCET 30 MG TABLET PO SCH (12:40)
[2020-04-01] MEDS: ATORVASTATIN 40 MG TABLET PO SCH (12:40)
[2020-04-01] MEDS: glyBURIDE 5 MG TABLET PO SCH (12:41)
[2020-04-01] MEDS: HYDROCORTISONE 10 MG TABLET PO SCH ×2 (12:41→20:44)
[2020-04-01] MEDS: oxyCODONE 20 MG TAB.ER.12H PO SCH ×2 (12:43→20:44)
[2020-04-01] MEDS: CEPHALEXIN 250 MG CAPSULE PO SCH ×2 (12:52→20:44)
--- NOTE | 2020-04-01 19:38 | Internal Med Progress Note ---
SUBJECTIVE Subjective Patient information: Note initiated : 04/01/20 at 7:32 pm Service Date, if different from initiated Date: [] Patient: Elo Robledo 60 y/o F admitted on 03/18/20 for Altered Mental Status, Low Blood Sugar. 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 Placement at [facility] has been found. Had hemodialysis today, went "okay", which is an improvement. Did require midodrine during dialysis due to hypotension. Feeling better this evening. Appetite good. No dyspnea. Still with some edema. Erythema from cellulitis is fading. Pertinent ROS: As above Constitutional Vitals: Vital Signs Temp Pulse Resp BP Pulse Ox 97.7 F 85 20 118/60 95 04/01/20 16:00 04/01/20 16:00 04/01/20 16:00 04/01/20 16:00 04/01/20 16:00 Period Temp Pulse Resp BP Sys/Clark Pulse Ox Last 24 Hr 96.9 F-98.7 F 73-85 16-20 72-150/30-72 93-97 Intake and Output 04/01/20 04/01/20 04/01/20 05:59 13:59 21:59 Intake Total 350 Output Total 0 1000 Balance 0 -1000 350 General: In bed no acute distress Chest: Clear to auscultation bilaterally, no rales. Cardiovascular: Regular. Abdomen: Obese, soft, nontender Extremities: Right lower extremity with faint pink discoloration, no dark erythema or streaking. Left lower extremity with minimal pink/erythematous changes. Few wounds with dressings in place. Neuro: Alert, oriented x3, some generalized weakness throughout Intake & Output: Intake & Output 04/01/20 04/01/20 04/01/20 05:59 13:59 21:59 Intake Total 350 Output Total 0 1000 Balance 0 -1000 350 Intake: Oral 350 Output: Urine Catheter Amount 0 Hemodialysis UF 1000 Other: Meal Lunch Percent of Meal Consumed 75% Feeding Ability Assist with Tray Set Up # Unmeasured Emesis 3 OBJ DATA Labs CBC & Chem 7: 03/29/20 05:36 03/29/20 05:35 Labs: Abnormal Lab Results 03/30/20 19:50 Cortisol PM Sample 12.8 H Meds: Medications Acetaminophen (Tylenol) 650 mg PO Q6HP PRN; Protocol PRN Reason: Per Pain Protocol/Fever > 101 Hydrocodone Bitart/Acetaminophen ([place] 5/325mg) 1 tab PO Q6HP PRN; Protocol PRN Reason: Per Pain Protocol Last Admin: 03/29/20 05:16 Dose: 1 tab Documented by: Aspirin (Aspirin) 81 mg PO DAILY [facility] Last Admin: 04/01/20 12:40 Dose: 81 mg Documented by: Atorvastatin Calcium (Lipitor) 40 mg PO DAILY [facility] Last Admin: 04/01/20 12:40 Dose: 40 mg Documented by: Calcitriol (Rocaltrol) 1 mcg PO TuThSa@0900 [facility] Last Admin: 03/30/20 08:42 Dose: 1 mcg Documented by: Calcium Acetate (Phoslo) 2,668 mg PO TIDCC [facility] Last Admin: 04/01/20 18:02 Dose: 2,668 mg Documented by: Cephalexin HCl (Keflex) 250 mg PO Q12H [facility]; Protocol Last Admin: 04/01/20 12:52 Dose: 250 mg Documented by: Cinacalcet (Sensipar) 30 mg PO QDAY [facility] Last Admin: 04/01/20 12:40 Dose: 30 mg Documented by: Dextrose (Dextrose 50%) 0 ml IV UD PRN PRN Reason: Hypoglycemia Diagnostic Test (Pha) (Accu-Chek) 1 each FS [facility] Last Admin: 04/01/20 17:54 Dose: 1 each Documented by: Docusate Sodium (Colace) 100 mg PO DAILY [facility] Last Admin: 04/01/20 12:40 Dose: 100 mg Documented by: Glucose (Insta-Glucose) 15 gm PO PRN PRN PRN Reason: Hypoglycemia Glyburide (Diabeta) 5 mg PO DAILY [facility] Last Admin: 04/01/20 12:41 Dose: 5 mg Documented by: Heparin Sodium (Porcine) (Heparin) 5,000 unit SQ Q8 [facility] Last Admin: 04/01/20 16:55 Dose: 5,000 unit Documented by: Hydrocortisone (Cortef) 20 mg PO BID [facility] Last Admin: 04/01/20 12:41 Dose: 20 mg Documented by: Insulin Human Lispro (Humalog) 0 unit SQ [facility]; Protocol Last Admin: 04/01/20 18:03 Dose: 3 unit Documented by: Levothyroxine Sodium (Synthroid) 50 mcg PO QAMAC [facility] Last Admin: 04/01/20 07:23 Dose: 50 mcg Documented by: Lorazepam (Ativan) 1 mg PO Q8HP PRN PRN Reason: ANXIETY/SEDATION Midodrine (Midodrine Hcl) 10 mg PO MoWeFr@0800 [facility] Last Admin: 04/01/20 07:24 Dose: 10 mg Documented by: Midodrine (Midodrine Hcl) 10 mg PO ONCE PRN PRN Reason: SBP below 90; MAP below 65 Ondansetron HCl (Zofran) 4 mg IV Q4HP PRN; Protocol PRN Reason: Nausea And Vomiting Last Admin: 03/31/20 20:57 Dose: 4 mg Documented by: Oxycodone HCl (Oxycontin) 20 mg PO BID [facility]; Protocol Last Admin: 04/01/20 12:43 Dose: 20 mg Documented by: Oxycodone/Acetaminophen (Percocet 5-325 Mg) 0 tab PO Q4HP PRN; Protocol PRN Reason: Per Pain Protocol Sodium Chloride (Saline Flush) 10 ml IV Q12 [facility] Last Admin: 04/01/20 16:25 Dose: Not Given Documented by: Sodium Chloride (Saline Flush) 10 ml IV Q8 [facility] Last Admin: 04/01/20 16:56 Dose: 10 ml Documented by: Throat Lozenges (Cepacol) 1 lozenge PO Q4H PRN PRN Reason: Sore Throat Tramadol HCl (Ultram) 50 mg PO BIDP PRN PRN Reason: Pain ABG Interpretation ABG results: 03/21/20 03/22/20 03/22/20 16:00 08:59 10:10 ABG pH 7.50 H 7.46 H 7.46 H ABG pCO2 34.0 L 39.4 40.3 ABG pO2 82 93 104 H ABG HCO3 25.9 27.5 H 27.7 H ABG Total CO2 26.9 28.7 H 28.9 H ABG O2 Saturation 94.5 94.9 95.7 ABG Base Excess 2.6 H 3.5 H 3.5 H ABG Methemoglobin 0.1 L 0.1 L 0.1 L A/P Narrative A/P Narrative: End-stage renal disease. Seems to be tolerating dialysis a bit better. Still requiring midodrine. Still volume overloaded. Had missed several rounds of dialysis. Continue with outpatient dialysis. Generalized deconditioning. Secondary to combination of renal disease, diabetes, morbid obesity. Placement at [facility] has been arranged. Plan discharge tomorrow, outpatient dialysis on 04/03. Type [address] diabetes [address] Colin, previous attending, discussed outpatient follow-up last week. However the patient was unable to be discharged last as intended. Glipizide for diabetic control (had been on a prior to admission) [facility] Outpatient ophthalmology evaluation Adrenal insufficiency. P.m. cortisol was 12.8, however ACTH stimulation test showed lack of stimulation with level of 11.5 at 30 minutes and 10.4 at 60 minutes. Continue hydrocortisone 20 mg twice daily Cellulitis of the lower extremities. Is on cefazolin (had also been on for MSSA pneumonia). That was discontinued and cephalexin ordered today. Continue cephalexin. Seizure with cardiac arrest. On hospital day 2, patient noted to be seizing, pulse was not palpable. Underwent CPR with epinephrine. Subsequently intubated. No apparent sequela. Thought secondary to uremia and metabolic disturbances. Aspiration pneumonia. Patient completed treatment for probable aspiration pneumonia previously. Sputum culture grew MSSA. Acute hypoxic respiratory failure. Now resolved. This occurred in the setting of her aspiration pneumonia. Obstructive sleep apnea. On CPAP at home. IV access. Patient with right IJ in place. Order placed to remove central line today. Time Spent With Patient Time: Total time spent is greater than 50% in coordination of care (as documented) at patient's floor/unit and/or counseling patient: QUALITY Stroke Symptom Onset Unknown: No VTE Deep Vein Thrombosis/Pulmonary Embolism Present on Admission: No
[2020-04-02] MEDS: HYDROcodone/APAP 5/325MG TABLET PO PRN ×2 (03:57→11:56)
[2020-04-02] MEDS: 0.9 % SODIUM CHLORIDE 10 ML SYRINGE IV SCH ×3 (05:56→14:31)
[2020-04-02] MEDS: HEPARIN 5,000 UNIT/ML VIAL SQ SCH ×2 (05:58→14:30)
[2020-04-02] MEDS: CALCIUM ACETATE 667 MG CAPSULE PO SCH ×2 (07:51→11:56)
[2020-04-02] MEDS: LEVOTHYROXINE 50 MCG TABLET PO SCH (07:51)
[2020-04-02] MEDS: INSULIN LISPRO 1 UNIT/0.01 ML UNIT SQ SCH ×2 (07:55→12:14)
[2020-04-02] MEDS ORDERED: glipiZIDE 5 MG TAB.XL.24H PO SCH (09:30)
[2020-04-02] MEDS: ASPIRIN 81 MG TAB.CHEW PO SCH (09:55)
[2020-04-02] MEDS: DOCUSATE SODIUM 100 MG CAPSULE PO SCH (09:55)
[2020-04-02] MEDS: CALCITRIOL 0.25 MCG CAPSULE PO SCH (09:55)
[2020-04-02] MEDS: CINACALCET 30 MG TABLET PO SCH (09:56)
[2020-04-02] MEDS: CEPHALEXIN 250 MG CAPSULE PO SCH (09:56)
[2020-04-02] MEDS: HYDROCORTISONE 10 MG TABLET PO SCH (09:56)
[2020-04-02] MEDS: oxyCODONE 20 MG TAB.ER.12H PO SCH (09:57)
[2020-04-02] MEDS: ATORVASTATIN 40 MG TABLET PO SCH (09:57)
[2020-04-02] MEDS: glyBURIDE 5 MG TABLET PO SCH (11:05)
--- NOTE | 2020-04-02 13:02 | Discharge Summary ---
Discharge Provider Provider Patient information: Note initiated : 04/02/20 at 1:00 pm Service Date, if different from initiated Date: [] Patient: Elo Robledo 60 y/o F admitted on 03/18/20 for Altered Mental Status, Low Blood Sugar. Chief Complaint: [] Date of admission: 03/18/20 17:33 Discharge date: 04/02/20 Primary care physician: Niels Anderson Admitting clinician: Flavio Colin Consults: 03/18/20 Consult to Physician [CONS] Stat Comment: Consulting Provider: Bryce Retana Reason For Exam: Physician to Consult 03/18/20 16:07 Consult to Physician [CONS] Stat Comment: Consulting Provider: Ronal Christie Reason For Exam: Physician to Consult Discharging clinician: Tara Ramirez Discharge Meds Discharge Medications Home Medications CPAP supplies, Mask, tubing, filter #1 ea 06/09/17 [Rx Confirmed 03/18/20 Last Taken Unknown] incontinence pad, liner, disp #200 each 10/20/17 [Rx Confirmed 03/18/20 Last Taken Unknown] Diabetic shoes #1 each 06/01/19 [Rx Confirmed 03/18/20 Last Taken Unknown] Wheelchair #1 ea 06/07/19 [Rx Confirmed 03/18/20 Last Taken Unknown] aspirin 81 mg chewable tablet See Rx Instructions .ROUTE .COMPLEX #30 tablet 07/24/19 [Rx Confirmed 03/18/20 Last Taken Unknown] loratadine 10 mg tablet 10 mg PO QDAY PRN #30 tab 09/26/19 [Rx Confirmed 03/18/20 Last Taken 03/10/20] glipizide 5 mg tablet, extended release 24 hr See Rx Instructions .ROUTE .COMPLEX #90 tab 10/24/19 [Rx Confirmed 03/18/20 Last Taken 03/17/20] furosemide 80 mg tablet 80 mg PO QAM #30 tab 01/08/20 [Rx Confirmed 03/18/20 Last Taken 03/17/20] cinacalcet 30 mg tablet 30 mg PO QDAY #30 tab 01/12/20 [Rx Confirmed 03/18/20 Last Taken 03/17/20] atorvastatin 40 mg PO DAILY #0 tab 04/02/20 [Rx Last Taken Unknown] calcitriol 1 mcg PO TuThSa@0900 #0 cap 04/02/20 [Rx Last Taken Unknown] calcium acetate(phosphat bind) 2,668 mg PO TIDCC #0 cap 04/02/20 [Rx Last Taken Unknown] hydrocodone-acetaminophen 1 tab PO Q6HP PRN #30 tab 04/02/20 [Rx Last Taken Unknown] hydrocortisone 20 mg PO BID #0 tab 04/02/20 [Rx Last Taken Unknown] insulin lispro [Humalog U-100 Insulin] See Rx Instructions .ROUTE .COMPLEX #10 ml 04/02/20 [Rx Last Taken Unknown] levothyroxine 50 mcg PO QAMAC 30 Days #30 tab 04/02/20 [Rx Last Taken Unknown] midodrine 10 mg PO MoWeFr@0800 #0 tab 04/02/20 [Rx Last Taken Unknown] tramadol 50 mg PO BID PRN #30 tab 04/02/20 [Rx Last Taken Unknown] COURSE Hospital Course Hospital course: History of present illness: Ms. Robledo is a 60 year old F Presents to the ED with altered mental status and hypoglycemic event. Patient was found by her daughter who is also her caregiver this morning to be obtunded. Daughter states that the patient's also noted that she just remained in bed this morning and typically gets up too early. EMS arrived and found her blood glucose to be 45. She got an amp of D50 with good response. In the ED she was kept on D5 drip given low blood glucose. She has not had dialysis in 3 weeks because she moved into a new home and there is no ramp and they have been unable to get her to dialysis. This was discussed with Dr. Retana her telescope repairer who will be setting up dialysis. She has not taken her medications today. 03/19 Poor sleep. Patient has chronic low back pain. Chills but otherwise no complaint. D5 drip. As nurse was passing by patient's room she noted noise coming from her room and when she looked towards the patient she noted that patient to be convulsing, subsequently noted some foaming and some blood from the mouth. Patient was responsive and unable to palpate pulses. CPR started several minutes of epinephrine were given. She was also given Ativan IV 2 mg. Return of spontaneous circulation was achieved. No history of seizures. Blood glucose was within normal limits. Patient has been in metabolic disturbance secondary to noncompliance with hemodialysis. Did receive a hemodialysis session this morning. CODE BLUE labs pending. ABG with good oxygenation but with acidosis 2/2 lactic acidosis from event. EKG unremarkable. Transferred to ICU. Discussed with family. Patient likely bit tongue during event leading to bleeding. She is currently intubated for airway protection. 03/20 No overnight events. Glucose drip off. Vital signs stable. Undergoing dialysis this morning. No seizure activity reported. Weaning trial after hemodialysis. Hopefully extubate tomorrow morning. 03/21 Weaned off sedation earlier this morning patient starting to arouse but still quite drowsy. Undergoing dialysis at this time. Weaning trial after hemodialysis. Did spike a fever last night and with consolidation noted on chest x-ray, starting treatment for aspiration pneumonia. 03/22 Nurses are still getting quite a lot of thick yellow-green pulmonary secretions. Chest imaging improving. Chemistry improved. She is on 40% FiO2. Lung compliance 40. Holding sedation for weaning trial. Neck scheduled dialysis is tomorrow. 03/23 No events overnight. Sedation vacation started early in the morning and now doing spontaneous breathing trial. She is drowsy but awakens to follow commands and open eyes. ABG on spontaneous breathing trial good and parameters on spontaneous breathing trial good as well. Will extubate prior to dialysis this morning. 1 unit of blood with dialysis today. 03/24 Patient complains of seeing black spots. Further inquiring she told that she has been having this problem for 2 years. But her left eye sees more black spots today. Denies headache, dizziness, or seeing red spots. I feel that the problem could be due to diabetic retinopathy. Unfortunately there is no pancake professional available in this hospital. The patient refused to be transferre d to another hospital for seeing an pancake professional. 03/25 Earlier this morning patient complained of chest pain. Discussed the pain with patient who told me that she has been having the chest pain over the past 4 days. She has more pain if she takes deep breath. Also she has moderate to severe tenderness over the chest. EKG no ST elevation Troponin mildly elevated to 0.72. Discussed with the patient the possible causes and treatment. There is no vice president global advertising sales and stress test available in this hospital but patient refused to be transferred to another hospital. She would like to stay in the hospital for medical treatment. Sputum culture showed staph aureus. Discussed with ID Dr. Jones, who suggested to continue Zosyn and add vancomycin 03/26 This morning she was fine and her oxygen decreased to 1L but this afternoon she needs 10L. Pt does not have new complaints. CXR - 1. Improved chest x-ray 2. No new abnormality. ABG ordered Sputum culture showed MSSA. Discontinued Zosyn and vancomycin. Started cefazolin. Discussed with pancake professional Dr. Mayo who would like to see her on Wednesday if we can discharge her on . 03/27 Today patient is fine and does not have any new complaints. This morning she is on 4 L. 10 L yesterday afternoon. She still has mild chest pain Hemoglobin 8.1. She received 1 unit blood transfusion 3 days ago. Her WBC elevated to 11.2 today. Monitor 03/28-03/30 Continued with hemodialysis. Weaned off of oxygen. 03/31 ACTH stimulation test showed no stimulation. Afternoon cortisol 12, 30-minute cortisol 11, 60-minute cortisol 10. Started on hydrocortisone. 04/01 Remained stable, continues to get dialysis, next dialysis planned for outpatient on Wednesday. Antibiotics stopped. Still with some hypotension requiring midodrine during dialysis. 04/02 Stable, discharging to [facility] Discharge diagnosis: Encephalopathy secondary to hypoglycemia and uremia Secondary discharge diagnosis: Seizure: Secondary to uremia/metabolic disturbance Aspiration/MSSA PNA: Secondary to seizure, resolved, status post full course of antibiotics Acute Hypoxic Respiratory Failure: Secondary to obtundation/post-ictal/airway protection/Aspiration, resolved, on room air discharge PEA arrest: Secondary to seizure with aspiration on 03/19 Hypoglycemia with obtundation on admit: Secondary to DM meds, poor renal fxn, poor clearance. a1c 4.9, resolved. Initially was on glucose drip DM II: On glipizide as an outpatient. Resumed by the time of discharge ESRD/Uremia: Patient had not had HD for 3wks since moving to [facility] w/o wheelchair ramp to get out of house. Resuming Wednesday outpatient dialysis. Anemia, acute on chronic, status post transfusion 1 unit packed red cells during dialysis on 03/23 Hypertension Severe Obesity: BMI 49.4 at discharge CAT: On CPAP as an outpatient Elevated troponin: Chronically elevated but above baseline 2/2 CPR/epi, no CP prior to episode/EKG unremarkable Diabetic retinopathy: Will need outpatient ophthalmology follow-up Chest pain: Could be secondary to CPR, generally resolved by discharge Reason for admission: Altered mental status/encephalopathy, found to be hypoglycemic and uremic Procedures: ACLS protocols Intubation mechanical ventilation Hemodialysis Right IJ central venous catheter Time Spent with Patient Time attestation: Total time spent providing and/or coordinating discharge services: 35 minutes EXAM Constitutional Vitals: Temp Pulse Resp BP Pulse Ox 97.7 F 83 20 100/58 92 04/02/20 12:00 04/02/20 11:59 04/02/20 12:00 04/02/20 12:00 04/02/20 12:00 General: In bed, uncomfortable, as legs currently being wrapped with Regis bandages for compression Chest: Clear, unlabored Cardiovascular: Regular Abdomen: Obese, soft, active bowel sounds Extremities: Chronic lower extremity stasis changes. Mild erythema but without warmth, not consistent with cellulitis Neuro: Alert, oriented x3, generally weak Discharge Data Impressions Impressions: 03/18: Initial chest x-ray with bands of scar or discoid atelectasis in the left lower lobe and left upper lobe. 03/19: Chest x-ray showing intubation and pulmonary edema, subsequently with consolidation in the left lower lobe. 03/1213: chest x-rays with progressive consolidation and persistent cardiomegaly and pulmonary vascular congestion 03/22: Improving congestion and pneumonia on the left, subsequent development of right lower lobe infiltrate 03/23: Chest x-ray improving, read as right humeral fracture. Shoulder x-rays from the same date showed no evidence of fracture, findings on chest x-ray suspected to be artifact. : Improvement in bilateral infiltrates and edema. Discharge Plan Patient/Caregiver Discharge Instructions Activity: increase activity as tolerated Diet: Renal/Consistent Carbs Instructions: Stasis Dermatitis (DC), Leg Edema (ED), Diabetes Mellitus Type 2 in Adults, Diplomatic Interpreter (GEN), Venous Insufficiency (DC) Activity Restrictions/Additional Instructions: Resume renal/consistent carbohydrate diet as tolerated. Increase activity as tolerated and per physical therapy. Keep dialysis appts as scheduled on Wednesday, Wednesday, Wednesday. Prescriptions: New atorvastatin 40 mg Tablet 40 mg PO DAILY Qty: 0 RF: 0 hydrocodone-acetaminophen 5-325 mg Tablet 1 tab PO Q6HP PRN (Reason: pain) Qty: 30 RF: 0 hydrocortisone 10 mg Tablet 20 mg PO BID Qty: 0 RF: 0 calcitriol 0.25 mcg Capsule 1 mcg PO TuThSa@0900 Qty: 0 RF: 0 calcium acetate(phosphat bind) 667 mg Capsule 2,668 mg PO TIDCC Qty: 0 RF: 0 insulin lispro [Humalog U-100 Insulin] 100 unit/mL Solution See Rx Instructions .ROUTE .COMPLEX Qty: 10 RF: 0 midodrine 5 mg Tablet 10 mg PO MoWeFr@0800 Qty: 0 RF: 0 levothyroxine 50 mcg Tablet 50 mcg PO QAMAC 30 Days Qty: 30 RF: 0 tramadol 50 mg tablet 50 mg PO BID PRN (Reason: pain) Qty: 30 RF: 0 Continued (DME) Wheelchair Qty: 1 RF: 0 aspirin 81 mg tablet,chewable See Rx Instructions .ROUTE .COMPLEX Qty: 30 RF: 11 loratadine 10 mg tablet 10 mg PO QDAY PRN (Reason: allergy symptoms) Qty: 30 RF: 11 glipizide 5 mg tablet extended release 24hr See Rx Instructions .ROUTE .COMPLEX Qty: 90 RF: 3 cinacalcet 30 mg tablet 30 mg PO QDAY Qty: 30 RF: 12 (DME) CPAP supplies, Mask, tubing, filter Qty: 1 RF: 0 (DME) incontinence pad, liner, disp pad See Dose Instructions .ROUTE .MEDSUPPLY Qty: 200 RF: 0 (DME) Diabetic shoes Qty: 1 RF: 0 furosemide 80 mg tablet 80 mg PO QAM Qty: 30 RF: 11 Discontinued losartan 50 mg tablet 50 mg PO QHS Qty: 30 RF: 11 tramadol 50 mg tablet See Rx Instructions .ROUTE .COMPLEX Qty: 60 RF: 5 [id number] 3.5-10,000-1 mg/mL-unit/mL-% solution 2 drp OTIC QDAY PRN (Reason: Pain) Qty: 0.5 RF: 0 tramadol 50 mg Tablet 50 mg PO BID PRN (Reason: Pain) RF: 0 Other Ambulatory Orders: OT Discharge Order (Routine) Location: None Selected Ordered By: Tara Ramirez OT Discharge Order (Routine) Location: None Selected Ordered By: Tara Ramirez Physical Therapy at Discharge - General (Routine) Location: None Selected Ordered By: Tara Ramirez Physical Therapy at Discharge - General (Routine) Location: None Selected Ordered By: Tara Ramirez Follow Up Plan Follow up with: Edwin Mayo MD [Physician] - (Discussed with Dr. Colin when patient was an inpatient at [facility], [facility] for DM retinopathy) Niels Anderson PA-C [Primary Care Provider] - Patient Disposition: Xfer SNF Prognosis: Fair Rehab Potential: Fair I certify that the patient requires SNF services: Yes Overall status at discharge: patient is progressing back to baseline Discharge Orders: Discharge Order (Routine); Ordered 04/02/20 Ordered By: Tara Ramirez Interventions Interventions: Discharge Belongings Last Done: 04/02/20 12:00 Discharge Vaccines Last Done: 04/02/20 11:59 QUALITY VTE Deep Vein Thrombosis/Pulmonary Embolism Present on Admission: No
== END 2020-04-02 14:50 | DRG 637 ==
LOC: ED 13:39 → ICU 17:33 → MEDSUR 03-27 19:16
PROVIDERS: ADMIT Internal Medicine; ATTEND Internal Medicine

== ENCOUNTER 2021-05-15 09:44 | Observation (INO) ==
[2021-05-15] MEDS ORDERED: 0.9 % SODIUM CHLORIDE 250 ML IV ONE (10:19)
[2021-05-15] MEDS ORDERED: DEXTROSE 50% 50 ML VIAL IV ONE (10:19)
[2021-05-15 10:49] LABS: POC Blood Urea Nitrogen 45 mg/dL (6-20); POC CO2 22 mmol/L (22-30); POC Calcium, Ionized 1.05 mmEq/L (1.16-1.32); POC Chloride 95 mEq/L (96-108); POC Creatinine 9.7 mg/dL (0.6-1.2); POC Glucose, Random 92 mg/dL (70-105); POC Hematocrit 27 % (36-48); POC Potassium 3.7 mEql/L (3.3-5.1); POC Sodium 133 mEq/L (133-145)
[2021-05-15 11:57] LABS: Basophils # (Auto) 0.01 K/mcL (0.00-0.30); Basophils % (Auto) 0.1 % (0.0-2.0); Eosinophils # (Auto) 0.08 K/mcL (0.00-0.70); Hematocrit 26.5 % (34.1-44.9); Hemoglobin 8.9 g/dL (11.2-15.7); Lymphocytes # (Auto) 0.78 K/mcL (1.50-4.80); Mean Cell Volume 97.1 fL (80.0-100.0); Mean Corpuscular HGB Conc 33.6 g/dL (31.0-36.0); Mean Platelet Volume 9.9 fL (7.4-10.4); Monocytes # (Auto) 0.46 K/mcL (0.10-0.90); Monocytes % (Auto) 5.9 % (1.0-12.0); Platelet Count 211 K/mcL (140-440); RBC 2.73 M/mcL (3.59-5.38); Red Cell Distribution Width 13.1 % (11.5-14.5); WBC 7.8 K/mcL (4.5-11.0)
--- NOTE | 2021-05-15 11:59 | Cat Scan Report ---
INDICATION: encephalopathy, p HD COMPARISON: Previous MRI scan dated 12/18/2015 TECHNIQUE: Axial noncontrast-enhanced images through the brain. Sagittally and coronally reformatted images. FINDINGS: Cerebral hemispheres:No intra-axial hematoma. There is low density abnormality in the left periventricular white matter adjacent to the frontal horn of the lateral ventricle. There is low-density within the external capsule. These findings are unchanged and consistent with chronic infarction. No acute intra-axial abnormality. No localized mass effect or midline shift. Overall brain volume is within normal limits. No hydrocephalus Brainstem and cerebellum:No intra-axial abnormality Extra-axial:No acute hemorrhage. No subdural or epidural hematoma. No subarachnoid hemorrhage. Basilar cisterns are normal Calvarial:No calvarial fracture. No lytic lesion Temporal bones are negative. No destructive lesions Soft tissue, orbits, sinuses:Orbits and visualized facial soft tissues and paranasal sinuses are negative IMPRESSION: 1. No acute abnormality. No interval change since 12/18/2015 2. No acute intracranial hemorrhage 3. Low density in the periventricular left frontal lobe and left external capsule. Findings are chronic The exam was performed using radiation dose optimization techniques including, but not limited to, automated exposure control, adjustment of the mA and/or kV according to patient size and use of iterative reconstruction technique. Interpreted and Authenticated by: Yony Flannery 05/15/21
[2021-05-15 13:23] LABS: Appearance,Urine Slightly Cloudy (Clear); Bacteria,Urine MANY /hpf (0); Bilirubin,Urine Negative (Negative); Color,Urine Yellow; Culture Indicated,Urine No; Glucose,Urine (UA) Negative (Negative); Ketones,Urine 15 mg/dL mg/dL (Negative); Leukocyte Esterase,Urine Large /uL (Negative); Mucus,Urine FEW /hpf; Nitrate,Urine Negative (Negative); Protein,Urine >=300 mg/dL mg/dL (Negative); Specific Gravity,Urine 1.025 (1.000-1.035); Urine Blood Large ery/mcL (Negative); Urine RBC > 182 /hpf (0-1); Urine Squamous Epithelial Cell 41 /hpf (0-4); Urine Transitional Epi Cells 11 /hpf (0-2); Urine WBC > 182 /hpf (0-4); Urobilinogen,Urine Normal
[2021-05-15] MEDS ORDERED: cefTRIAXone 1 GM VIAL IV ONE (13:55)
--- NOTE | 2021-05-15 15:23 | Internal Med History&Physical ---
HPI History of Present Illness Patient information: Note initiated : 05/15/21 at 3:15 pm Service Date, if different from initiated Date: [] Patient: Elo Robledo a 61 y/o F admitted on for low blood sugar. Chief Complaint: [altered mental status] History of present illness: Ms. Robledo is a 61 year old F history of end-stage renal disease on hemodialysis, type 2 diabetes mellitus, essential hypertension, mixed dyslipidemia, sleep apnea, morbid obesity, presenting with 1 day history of altered mental status. There was no prior similar episode. Patient does not remember what happened. Patient is reported to be noncompliant to hemodialysis and she has missed 2 weeks of hemodialysis until 2 days sections. She finished 2 days of hemodialysis sections but was found to be having altered mental status by dialysis center staff. As a result, EMS was called to send patients to our ED for further evaluations. Vital signs upon ED arrival were within normal limits. It was reported that her blood sugar was in the 60. Rest of the labs unremarkable upon ED presentations. CT of the head without contrast was performed and no acute intracranial abnormalities was found. Constitutional Constitutional: Absent chills, excessive sweating, fatigue, fever(s) and weakness EENT Eyes: Absent blurry vision, change in vision, loss of vision and other visual disturbances Ears: Absent decreased hearing and tinnitus Nose, mouth and throat: Absent abnormal hearing, dry mouth, headache(s), nasal congestion and sore throat Cardiovascular Cardiovascular: Absent chest pain, chest pain at rest, edema, irregular heart rhythm and palpatations Respiratory Respiratory: Absent cough, dyspnea and wheezing Gastrointestinal Gastrointestinal: Absent abdominal pain, constipation, diarrhea, nausea and vomiting Musculoskeletal Musculoskeletal: Absent back pain, deformity, limited range of motion, muscle cramps, muscle weakness and numbness Integumentary Integumentary: Absent lesions, rash and wounds Neurological Neurological: Absent focal weakness, headache(s) and numbness Psychiatric Psychiatric: Absent anxiety, depression and hallucinations PFSH PFSH All Active Problems (Updated 05/15/21 @ 15:20 by Harvey Hyatt MD) Delirium (Acute) Nail fungus (Acute) Panic attack as reaction to stress (Acute) UTI (urinary tract infection) (Acute) Urinary incontinence (Acute) Hospital discharge follow-up (Acute) Chronic pain (Acute) CAT (obstructive sleep apnea) (Acute) Daytime somnolence (Acute) End-stage renal disease on hemodialysis (Chronic) Hospital discharge follow-up (Acute) Cellulitis of lower leg (Acute) Adrenal apoplexy (Acute) Other fluid overload (Acute) Seizure (Acute) ESRD (end stage renal disease) on dialysis (Chronic) Hypoglycemia (Acute) Bedbug bite with infection (Acute) Morbid obesity with body mass index of 50.0-59.9 in adult (Acute) 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 (Chronic) Other disorders of refraction (Chronic) Age-related nuclear cataract, bilateral (Chronic) Migraine with aura, not intractable, without status migrainosus (Chronic) Ischemic optic neuropathy, right eye (Chronic) Acute foot pain (Acute) Proteinuria (Chronic) Hyperparathyroidism due to renal insufficiency (Chronic) Blindness (Chronic) Diabetic neuropathy (Chronic) Diabetic nephropathy (Chronic) Peripheral Vascular Disease (Chronic) Morbid obesity with body mass index of 50.0-59.9 in adult (Chronic) Hypertension, essential (Chronic) Hyperlipidemia (Chronic) Dysmetabolic syndrome X (Chronic) DMII (diabetes mellitus, type 2) (Chronic) CVA (cerebrovascular accident) (Chronic) Medical History Acute foot pain Age-related nuclear cataract, bilateral Blindness Chronic pain CVA (cerebrovascular accident) Daytime somnolence Diabetic nephropathy Diabetic neuropathy DMII (diabetes mellitus, type 2) stop metformin given current renal function ct lantus work on weight loss Dysmetabolic syndrome X End-stage renal disease on hemodialysis Hospital discharge follow-up Hospital discharge follow-up Hyperlipidemia Hyperparathyroidism due to renal insufficiency Treatment poor due to skipped treaments Hypertension, essential Ischemic optic neuropathy, right eye Migraine with aura, not intractable, without status migrainosus Morbid obesity with body mass index of 50.0-59.9 in adult Nail fungus CAT (obstructive sleep apnea) Other disorders of refraction Peripheral Vascular Disease Proteinuria nephrotic syndrome 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 Colin for outpt opthamology follow up but pt unable to be discharged on as intended Urinary incontinence UTI (urinary tract infection) Surgical History H/O: hysterectomy Ovaries remaining History of arteriovenostomy for renal dialysis History of removal of retained hardware 12/25/16-removal of retained tunneled dialysis catheter. S/P PICC central line placement (05/23/13) Family History Mother Malignant neoplasm of breast Malignant Neoplasm of Thyroid Gland Malignant neoplasm of uterus Unknown Depression Diabetes mellitus Grandmother Essential hypertension Myocardial Infarction Social History household members: spouse housing: house lives independently: Yes marital status: smoking status: Never smoker alcohol intake frequency: does not drink substance use type: does not use additional history: Patient is been wheelchair-bound for several years. And she does need help with transferring. Denies tobacco or alcohol. MEDS/ALLERGIES Home Medications and Allergies Home Medications Medication Instructions Recorded Confirmed Type Wheelchair #1 ea 06/07/19 04/02/21 Rx loratadine 10 mg tablet 10 mg PO QDAY PRN #30 tab 09/26/19 04/02/21 Rx cinacalcet 30 mg tablet 30 mg PO QDAY #30 tab 01/12/20 04/02/21 Rx midodrine 10 mg PO MoWeFr@0800 #0 tab 04/02/20 04/02/21 Rx Vinegar PO PRN 04/04/20 04/02/21 History ascorbate calcium (vitamin C) 500 1 g PO QDAY tab 04/04/20 04/02/21 History mg tablet clonidine HCl 0.1 mg tablet 0.1 mg PO 3XW PRN tab 04/04/20 04/02/21 History darbepoetin robson in polysorbat 60 225 mcg IV QWEEK ml 04/04/20 04/02/21 History mcg/mL in polysorbate injection heparin (porcine) 1,000 unit/mL 1,000 unit IV ml 04/04/20 04/02/21 History injection solution heparin (porcine) 1,000 unit/mL 2,000 unit IV ml 04/04/20 04/02/21 History injection solution [id number] 3.5 1 applic OPHTHALMIC TID 04/04/20 04/02/21 History mg-400-10,000 unit/g-1 % eye ointment sodium ferric gluconate complex in 62.5 mg IV 3XW ml 04/04/20 04/02/21 History sucrose 62.5 mg/5 mL intravenous blade lancet, safety 1.2 mm #100 each 05/01/20 04/02/21 Rx blood-glucose meter #1 each 05/01/20 04/02/21 Rx diaper,brief,adult,disposable #72 each 05/01/20 04/02/21 Rx disposable gloves #50 each 05/01/20 04/02/21 Rx heating pads #1 each 05/01/20 04/02/21 Rx incontinence pad, liner, disp #200 each 05/01/20 04/02/21 Rx hydroxyzine HCl 50 mg tablet 50 mg PO .mwf #30 tab 06/24/20 04/02/21 Rx AutoPap #1 ea 07/08/20 04/02/21 Rx duloxetine 30 mg capsule,delayed 30 mg PO .COMPLEX #60 cap 07/23/20 04/02/21 Rx release aspirin 81 mg chewable tablet See Rx Instructions .ROUTE 07/29/20 04/02/21 Rx .COMPLEX #30 tablet glipizide 2.5 mg tablet, extended 2.5 mg PO QDAY #90 tab 11/13/20 04/02/21 Rx release 24 hr Diabetic shoes #1 each 12/02/20 04/02/21 Rx blood sugar diagnostic See Rx Instructions .ROUTE 01/13/21 04/02/21 Rx .COMPLEX #100 strip furosemide 80 mg tablet 80 mg PO QAM #30 tab 01/13/21 04/02/21 Rx acetaminophen 500 mg capsule 500 mg PO TID PRN #100 cap 02/11/21 04/02/21 Rx albuterol sulfate 90 mcg/actuation 2 puff INHALATION Q6H PRN #8.5 g 03/27/21 04/02/21 Rx aerosol inhaler calcium acetate(phosphat bind) 667 3,335 mg PO .TID with meals #450 04/21/21 Rx mg capsule cap hydrocodone 10 mg-acetaminophen 1 tab PO Q8H PRN #90 tab 04/28/21 Rx 325 mg tablet Allergies Allergy/AdvReac Type Severity Reaction Status Date / Time animal dander Allergy Intermediate Hives Verified 04/02/21 12:53 gluten Allergy Unknown Unknown Verified 04/02/21 12:53 milk Allergy Unknown Unknown Verified 04/02/21 12:53 EXAM Constitutional Vitals: Temp Pulse Resp BP Pulse Ox 36.4 C 81 16 150/60 100 05/15/21 09:44 05/15/21 13:31 05/15/21 09:44 05/15/21 14:31 05/15/21 13:31 General appearance: cooperative, disheveled, morbidly obese and no acute distress Head Head exam: Present atraumatic and normocephalic Eye Eye exam: Present EOMI and PERRL ENT ENT exam: Present mucous membranes moist, normal exam and normal external ear exam Neck Neck exam: Present normal inspection; Absent lymphadenopathy, tenderness and thyromegaly Respiratory Respiratory exam: Absent accessory muscle use, respiratory distress and wheezes Cardiovascular Cardiovascular exam: Present normal rate and rhythm; Absent JVD Additional comments: AV fistula left arm with palpable thrill GI/Abdominal GI/Abdominal exam: Present normal bowel sounds and soft; Absent organomegaly and tenderness Extremities Exam Extremities exam: Present full ROM, normal capillary refill and normal inspection; Absent tenderness Neurological Exam Neurological exam: Present alert and CN II-XII intact; Absent motor sensory deficit and oriented X3 Additional comments: oriented X2 to person and place only Psychiatric Psychiatric exam: Present normal affect and normal mood; Absent anxious and depressed Skin Skin exam: Present dry and intact DATA Data Completed and Pending Labs: Labs from last 24 hours 05/15/21 05/15/21 05/15/21 12:26 10:29 10:05 WBC RBC Hgb Hct POC Hct 27 L MCV MCH MCHC RDW Plt Count MPV Neut % (Auto) Lymph % (Auto) Barron % (Auto) Eos % (Auto) Baso % (Auto) Lymph # (Auto) [place] # (Auto) Eos # (Auto) Baso # (Auto) Absolute Neutrophils POC Sodium 133 POC Potassium 3.7 POC Chloride 95 L POC Total CO2 22 POC BUN 45 H POC Creatinine 9.7 H* POC Glucose 92 POC WB Ioniz Calcium 1.05 L Troponin T 0.03 H Urine Color Yellow Urine Appearance Slightly cloudy A Urine pH 6.0 Ur Specific [place] 1.025 Urine Protein >=300 mg/dl A Urine Glucose (UA) Negative Urine Ketones 15 mg/dl A Urine Occult Blood Large A Urine Nitrate Negative Urine Bilirubin Negative Urine Urobilinogen Normal Ur Leukocyte Esterase Large A Urine RBC > 182 H Urine WBC > 182 H Ur Squamous Epith Cells 41 H Ur Transition Epith Cell 11 H Urine Bacteria Many A Urine Mucus Few A Ur Culture Indicated? No 05/15/21 10:05 WBC 7.8 RBC 2.73 L Hgb 8.9 L Hct 26.5 L POC Hct MCV 97.1 MCH 32.6 MCHC 33.6 RDW 13.1 Plt Count 211 MPV 9.9 Neut % (Auto) 83.0 H Lymph % (Auto) 10.0 L Barron % (Auto) 5.9 Eos % (Auto) 1.0 Baso % (Auto) 0.1 Lymph # (Auto) 0.78 L [place]ron # (Auto) 0.46 Eos # (Auto) 0.08 Baso # (Auto) 0.01 Absolute Neutrophils 6.47 POC Sodium POC Potassium POC Chloride POC Total CO2 POC BUN POC Creatinine POC Glucose POC WB Ioniz Calcium Troponin T Urine Color Urine Appearance Urine pH Ur Specific [place] Urine Protein Urine Glucose (UA) Urine Ketones Urine Occult Blood Urine Nitrate Urine Bilirubin Urine Urobilinogen Ur Leukocyte Esterase Urine RBC Urine WBC Ur Squamous Epith Cells Ur Transition Epith Cell Urine Bacteria Urine Mucus Ur Culture Indicated? A/P Assessment and plan (1) Delirium: Status: Acute (2) CAT (obstructive sleep apnea): Status: Acute (3) End-stage renal disease on hemodialysis: Status: Chronic (4) 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: Status: Chronic Comment: pt was discussed by Dr. Colin for outpt opthamology follow up but pt unable to be discharged on as intended Qualifiers: Diabetes mellitus greaser operator insulin use: without greaser operator use Laterality: bilateral Qualified Code(s): E11.3393 - Type 2 diabetes mellitus with moderate nonproliferative diabetic retinopathy without macular edema, bilateral (5) Morbid obesity with body mass index of 50.0-59.9 in adult: Status: Acute Comment: pt is on wt loss diabetic diet. says is tolerating current caloric restriction resume low dose glyburide. (6) Hyperparathyroidism due to renal insufficiency: Status: Chronic Comment: Treatment poor due to skipped treaments (7) Hypertension, essential: Status: Chronic (8) Hyperlipidemia: Status: Chronic Qualifiers: Hyperlipidemia type: Mixed hyperlipidemia Qualified Code(s): E78.2 - Mixed hyperlipidemia (9) DMII (diabetes mellitus, type 2): Status: Chronic Comment: stop metformin given current renal function ct lantus work on weight loss Qualifiers: Diabetes mellitus complication status: with kidney complications Diabetes mellitus complication detail: with chronic kidney disease Chronic kidney disease stage: on chronic dialysis Diabetes mellitus longterm insulin use: with longterm use Qualified Code(s): E11.22 - Type 2 diabetes mellitus with diabetic chronic kidney disease; N18.6 - End stage renal disease; Z79.4 - quality assurance monitor body (current) use of insulin; Z99.2 - Dependence on renal dialysis Narrative A/P Narrative: Assessment and Plans: 1. Delirium: Likely secondary to missed dialysis session/uremia Observation med surg [employer] patient on importance of sticking with her dialysis session 2. ESRD on Hemodialysis: HD session TThSa [employer] patient on importance of sticking with her dialysis session Diabetic renal diet 3. Morbid obesity: [employer] Special[employer] patient on life sstyle modifications including healthy diet and regular exercise in order to lose weight 4. T2DM: HgA1c Glipizide Hypoglycemia protocol Diabetic renal diet 5. h/o Essential HTN: Currently normotensive 6. Mixed dyslipidemia: continue home oral regimen 7. CAT: Continue CPAP at night while sleeping #8 hyperparathyroidism: Continue Cinacalcet GI prophylaxis: Not currently indicated DVT prophylaxis: Heparin CODE STATUS: Full code Prognosis: Stable Disposition: Observation MedSurg Time Spent With Patient Time: Total time spent is greater than 50% in coordination of care (as documented) at patient's floor/unit and/or counseling patient: Total time spent with greater than 50% in coordination of care (as documented) at patient's floor/unit and/or counseling patient:: 25 - 35 minutes
[2021-05-15 16:06] LABS: Hemoglobin A1C 5.6 % Hgb (4.0-6.0)
--- NOTE | 2021-05-15 16:44 | Emergency Department Note ---
HPI General Chief complaint: Blood Sugar Problem Stated complaint: low blood sugar Time Seen by Provider: 05/15/21 10:01 Source: patient Mode of arrival: ambulatory Limitations: altered mental status History of Present Illness HPI Narrative: Narrative: 61-year-old female with history of end-stage renal disease, on HD, medical noncompliance, diabetes presents from dialysis for evaluation of status post hemodialysis. She was Found to have underlying low blood sugar at 68 and was given juice, no reported change. She is awake and alert, able to answer questions but is somewhat repetitive and confused about events surrounding today. Report, she is noncompliant with her hemodialysis and her last appointment was about 2 weeks ago. She is not able to explain why she is missing appointments. She denies any headache or dizziness. She denies numbness weakness or tingling. She denies chest pain or shortness of breath. She denies abdominal pain or nausea. She did complete dialysis today. She had about 4 to 5 L removed Related Data Home Medications Medication Instructions Recorded Confirmed Vinegar PO PRN 04/04/20 04/02/21 ascorbate calcium (vitamin C) 500 1 g PO QDAY tab 04/04/20 04/02/21 mg tablet clonidine HCl 0.1 mg tablet 0.1 mg PO 3XW PRN tab 04/04/20 04/02/21 darbepoetin robson in polysorbat 60 225 mcg IV QWEEK ml 04/04/20 04/02/21 mcg/mL in polysorbate injection heparin (porcine) 1,000 unit/mL 1,000 unit IV ml 04/04/20 04/02/21 injection solution heparin (porcine) 1,000 unit/mL 2,000 unit IV ml 04/04/20 04/02/21 injection solution [id number]-[id number]-HC 3.5 1 applic OPHTHALMIC TID 04/04/20 04/02/21 mg-400-10,000 unit/g-1 % eye ointment sodium ferric gluconate complex in 62.5 mg IV 3XW ml 04/04/20 04/02/21 sucrose 62.5 mg/5 mL intravenous Previous Rx's Medication Instructions Recorded Wheelchair #1 ea 06/07/19 loratadine 10 mg tablet 10 mg PO QDAY PRN #30 tab 09/26/19 cinacalcet 30 mg tablet 30 mg PO QDAY #30 tab 01/12/20 midodrine 10 mg PO MoWeFr@0800 #0 tab 04/02/20 blade lancet, safety 1.2 mm #100 each 05/01/20 blood-glucose meter #1 each 05/01/20 diaper,brief,adult,disposable #72 each 05/01/20 disposable gloves #50 each 05/01/20 heating pads #1 each 05/01/20 incontinence pad, liner, disp #200 each 05/01/20 hydroxyzine HCl 50 mg tablet 50 mg PO .mwf #30 tab 06/24/20 AutoPap #1 ea 07/08/20 duloxetine 30 mg capsule,delayed 30 mg PO .COMPLEX #60 cap 07/23/20 release aspirin 81 mg chewable tablet See Rx Instructions .ROUTE 07/29/20 .COMPLEX #30 tablet glipizide 2.5 mg tablet, extended 2.5 mg PO QDAY #90 tab 11/13/20 release 24 hr Diabetic shoes #1 each 12/02/20 blood sugar diagnostic See Rx Instructions .ROUTE 01/13/21 .COMPLEX #100 strip furosemide 80 mg tablet 80 mg PO QAM #30 tab 01/13/21 acetaminophen 500 mg capsule 500 mg PO TID PRN #100 cap 02/11/21 albuterol sulfate 90 mcg/actuation 2 puff INHALATION Q6H PRN #8.5 g 03/27/21 aerosol inhaler calcium acetate(phosphat bind) 667 3,335 mg PO .TID with meals #450 04/21/21 mg capsule cap hydrocodone 10 mg-acetaminophen 1 tab PO Q8H PRN #90 tab 04/28/21 325 mg tablet Allergies Allergy/AdvReac Type Severity Reaction Status Date / Time animal dander Allergy Intermediate Hives Verified 04/02/21 12:53 gluten Allergy Unknown Unknown Verified 04/02/21 12:53 milk Allergy Unknown Unknown Verified 04/02/21 12:53 Review of Systems ROS ROS Narrative: Narrative: Limited by patient with confusion, EM caveat invoked PFSH Narrative Patient History Narrative: Narrative: Medical/Surgical/Family History All Active Problems (Updated 05/15/21 @ 16:52 by Johnnie Kumar DO) Encephalopathy acute (Acute) Hypoglycemia (Acute) Delirium (Acute) Nail fungus (Acute) Panic attack as reaction to stress (Acute) UTI (urinary tract infection) (Acute) Urinary incontinence (Acute) Hospital discharge follow-up (Acute) Chronic pain (Acute) CAT (obstructive sleep apnea) (Acute) Daytime somnolence (Acute) End-stage renal disease on hemodialysis (Chronic) Hospital discharge follow-up (Acute) Cellulitis of lower leg (Acute) Adrenal apoplexy (Acute) Other fluid overload (Acute) Seizure (Acute) ESRD (end stage renal disease) on dialysis (Chronic) Hypoglycemia (Acute) Bedbug bite with infection (Acute) Morbid obesity with body mass index of 50.0-59.9 in adult (Acute) 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 (Chronic) Other disorders of refraction (Chronic) Age-related nuclear cataract, bilateral (Chronic) Migraine with aura, not intractable, without status migrainosus (Chronic) Ischemic optic neuropathy, right eye (Chronic) Acute foot pain (Acute) Proteinuria (Chronic) Hyperparathyroidism due to renal insufficiency (Chronic) Blindness (Chronic) Diabetic neuropathy (Chronic) Diabetic nephropathy (Chronic) Peripheral Vascular Disease (Chronic) Morbid obesity with body mass index of 50.0-59.9 in adult (Chronic) Hypertension, essential (Chronic) Hyperlipidemia (Chronic) Dysmetabolic syndrome X (Chronic) DMII (diabetes mellitus, type 2) (Chronic) CVA (cerebrovascular accident) (Chronic) Medical History Acute foot pain Age-related nuclear cataract, bilateral Blindness Chronic pain CVA (cerebrovascular accident) Daytime somnolence Diabetic nephropathy Diabetic neuropathy DMII (diabetes mellitus, type 2) stop metformin given current renal function ct lantus work on weight loss Dysmetabolic syndrome X End-stage renal disease on hemodialysis Hospital discharge follow-up Hospital discharge follow-up Hyperlipidemia Hyperparathyroidism due to renal insufficiency Treatment poor due to skipped treaments Hypertension, essential Ischemic optic neuropathy, right eye Migraine with aura, not intractable, without status migrainosus Morbid obesity with body mass index of 50.0-59.9 in adult Nail fungus CAT (obstructive sleep apnea) Other disorders of refraction Peripheral Vascular Disease Proteinuria nephrotic syndrome 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 Colin for outpt opthamology follow up but pt unable to be discharged on as intended Urinary incontinence UTI (urinary tract infection) Surgical History H/O: hysterectomy Ovaries remaining History of arteriovenostomy for renal dialysis History of removal of retained hardware 12/25/16-removal of retained tunneled dialysis catheter. S/P PICC central line placement (05/23/13) Family History Mother Malignant neoplasm of breast Malignant Neoplasm of Thyroid Gland Malignant neoplasm of uterus Unknown Depression Diabetes mellitus Grandmother Essential hypertension Myocardial Infarction Social History Smoking Status: Never smoker Alcohol Intake Frequency: does not drink Substance Use: does not use Exam Narrative Narrative: Narrative: General Limitations: altered mental status General appearance: Present alert Head Head: Present atraumatic and normocephalic Eye Eye: Present normal appearance, PERRL and EOMI ENT ENT: Present normal exam and mucous membranes moist Neck Neck: Present normal inspection and full ROM Chest Chest: Present normal inspection and symmetric chest wall rise Respiratory Respiratory: Present normal lung sounds bilaterally Cardiovascular Cardiovascular: Present regular rate and normal rhythm Adbominal Abdominal: Present soft; Absent tenderness Extremities Extremities: Present normal inspection and pedal edema; Absent full ROM (Global weakness in all 4 extremities, able to lift arms but they do fall to the bed equally bilaterally, unable to lift legs but moves both feet equally) Neurological Neurological: Present alert and other (Repetitive speech but able to answer most questions purposefully especially about her current situation); Absent oriented X3 (Oriented to self and location, global weakness but no focal deficits, cranial nerves II through XII intact) and normal gait (Unable to ambulate due to weakness) Psychiatric Psychiatric: Present normal affect and normal mood Skin Skin: Present warm (WNL) and dry Course Vital Signs Vital signs: Vital Signs Temperature 97.5 F 05/15/21 09:44 Pulse Rate 81 05/15/21 09:44 Respiratory Rate 16 05/15/21 09:44 Blood Pressure 111/69 05/15/21 09:44 Pulse Oximetry (%) 97 05/15/21 09:44 Temperature 97.5 F 05/15/21 09:44 Pulse Rate 77 05/15/21 15:54 Respiratory Rate 16 05/15/21 09:44 Blood Pressure 140/75 05/15/21 15:15 Pulse Oximetry (%) 98 05/15/21 15:54 MDM MDM Narrative Medical decision making narrative: Narrative: Patient with persistent encephalopathy after correction of blood glucose and monitoring in the emergency department. Likely this is secondary to her dialysis noncompliance and likely fluid shifts. She does not have concerning focal exam, but will benefit from continued observation to ensure she clears. She does have biochemical evidence of possible urinary tract infection but without definite symptoms other than encephalopathy. Will cover with single dose of Rocephin for now, admitted for further care Lab Data Lab results reviewed: Yes I reviewed the patient's lab results. Result diagrams: 05/15/21 10:05 Labs: Lab Results 05/15/21 05/15/21 05/15/21 Range/Units 10:05 10:05 10:05 WBC 7.8 (4.5-11.0) K/mcL RBC 2.73 L (3.59-5.38) M/mcL Hgb 8.9 L (11.2-15.7) g/dL Hct 26.5 L (34.1-44.9) % POC Hct (36-48) % MCV 97.1 (80.0-100.0) fL MCH 32.6 (26.0-34.0) pg MCHC 33.6 (31.0-36.0) g/dL RDW 13.1 (11.5-14.5) % Plt Count 211 (140-440) K/mcL MPV 9.9 (7.4-10.4) fL Neut % (Auto) 83.0 H (38.0-78.0) % Lymph % (Auto) 10.0 L (15.5-49.0) % [place] % (Auto) 5.9 (1.0-12.0) % Eos % (Auto) 1.0 (0.0-7.0) % Baso % (Auto) 0.1 (0.0-2.0) % Lymph # (Auto) 0.78 L (1.50-4.80) K/mcL [place] # (Auto) 0.46 (0.10-0.90) K/mcL Eos # (Auto) 0.08 (0.00-0.70) K/mcL Baso # (Auto) 0.01 (0.00-0.30) K/mcL Absolute Neutrophils 6.47 (1.80-8.00) K/mcL POC Sodium (133-145) mEq/L POC Potassium (3.3-5.1) mEql/L POC Chloride (96-108) mEq/L POC Total CO2 (22-30) mmol/L POC BUN (6-20) mg/dL POC Creatinine (0.6-1.2) mg/dL POC Glucose (70-105) mg/dL Hemoglobin A1c 5.6 (4.0-6.0) % Hgb Estim Average Glucose 114 mg/dL POC WB Ioniz Calcium (1.16-1.32) mmEq/L Troponin T 0.03 H (<0.03) ng/mL Urine Color Urine Appearance (Clear) Urine pH (5.0-9.0) Ur Specific [place] (1.000-1.035) Urine Protein (Negative) mg/dL Urine Glucose (UA) (Negative) mg/dL Urine Ketones (Negative) mg/dL Urine Occult Blood (Negative) zully/mcL Urine Nitrate (Negative) Urine Bilirubin (Negative) mg/dL Urine Urobilinogen mg/dL Ur Leukocyte Esterase (Negative) /uL Urine RBC (0-1) /hpf Urine WBC (0-4) /hpf Ur Squamous Epith Cells (0-4) /hpf Ur Transition Epith Cell (0-2) /hpf Urine Bacteria (0) /hpf Urine Mucus (None) /hpf Ur Culture Indicated? 05/15/21 05/15/21 Range/Units 10:29 12:26 WBC (4.5-11.0) K/mcL RBC (3.59-5.38) M/mcL Hgb (11.2-15.7) g/dL Hct (34.1-44.9) % POC Hct 27 L (36-48) % MCV (80.0-100.0) fL MCH (26.0-34.0) pg MCHC (31.0-36.0) g/dL RDW (11.5-14.5) % Plt Count (140-440) K/mcL MPV (7.4-10.4) fL Neut % (Auto) (38.0-78.0) % Lymph % (Auto) (15.5-49.0) % [place] % (Auto) (1.0-12.0) % Eos % (Auto) (0.0-7.0) % Baso % (Auto) (0.0-2.0) % Lymph # (Auto) (1.50-4.80) K/mcL [place] # (Auto) (0.10-0.90) K/mcL Eos # (Auto) (0.00-0.70) K/mcL Baso # (Auto) (0.00-0.30) K/mcL Absolute Neutrophils (1.80-8.00) K/mcL POC Sodium 133 (133-145) mEq/L POC Potassium 3.7 (3.3-5.1) mEql/L POC Chloride 95 L (96-108) mEq/L POC Total CO2 22 (22-30) mmol/L POC BUN 45 H (6-20) mg/dL POC Creatinine 9.7 H* (0.6-1.2) mg/dL POC Glucose 92 (70-105) mg/dL Hemoglobin A1c (4.0-6.0) % Hgb Estim Average Glucose mg/dL POC WB Ioniz Calcium 1.05 L (1.16-1.32) mmEq/L Troponin T (<0.03) ng/mL Urine Color Yellow Urine Appearance Slightly cloudy A (Clear) Urine pH 6.0 (5.0-9.0) Ur Specific [place] 1.025 (1.000-1.035) Urine Protein >=300 mg/dl A (Negative) mg/dL Urine Glucose (UA) Negative (Negative) mg/dL Urine Ketones 15 mg/dl A (Negative) mg/dL Urine Occult Blood Large A (Negative) zully/mcL Urine Nitrate Negative (Negative) Urine Bilirubin Negative (Negative) mg/dL Urine Urobilinogen Normal mg/dL Ur Leukocyte Esterase Large A (Negative) /uL Urine RBC > 182 H (0-1) /hpf Urine WBC > 182 H (0-4) /hpf Ur Squamous Epith Cells 41 H (0-4) /hpf Ur Transition Epith Cell 11 H (0-2) /hpf Urine Bacteria Many A (0) /hpf Urine Mucus Few A (None) /hpf Ur Culture Indicated? No ED POC Tests ED POC Tests: EDUARDO - SARS Antigen Negative EKG Data EKG #1: EKG attestation: Yes I reviewed and interpreted this EKG. EKG results narrative: Sinus rhythm at a rate of 75. Normal axis. QTC 462. First-degree AV block. No acute ST-T changes. Borderline EKG. Discharge Plan Patient/Caregiver Discharge Instructions Pt seen by OPERATOR [employer]/PA only: No Clinical Impression: Encephalopathy acute, Hypoglycemia Patient Disposition: Xfer As Inpt ([facility]) Follow up with: Niels Anderson PA-C [Primary Care Provider] - Prescriptions: No Action (DME) Wheelchair Qty: 1 RF: 0 loratadine 10 mg tablet 10 mg PO QDAY PRN (Reason: allergy symptoms) Qty: 30 RF: 11 cinacalcet 30 mg tablet 30 mg PO QDAY Qty: 30 RF: 12 Aranesp (in polysorbate) 60 mcg/mL solution 225 mcg IV QWEEK RF: 0 Hold Instructions: Doctor's Order clonidine HCl 0.1 mg tablet 0.1 mg PO 3XW PRNRF: 0 sodium ferric gluconat-sucrose [Ferrlecit] 62.5 mg/5 mL solution 62.5 mg IV 3XW RF: 0 heparin (porcine) 1,000 unit/mL solution 1,000 unit IV RF: 0 heparin (porcine) 1,000 unit/mL solution 2,000 unit IV RF: 0 ksytsyeo-orjcqidksc-oeim-HC 3.5-400-10,000 mg-unit/g-1% ointment 1 applic OPHTHALMIC TID RF: 0 Vinegar PO PRNRF: 0 ascorbate calcium (vitamin C) 500 mg tablet 1 g PO QDAY RF: 0 (DME) incontinence pad, liner, disp Pad See Dose Instructions .ROUTE .MEDSUPPLY Qty: 200 RF: 0 (DME) blade lancet, safety 1.2 mm misc See Rx Instructions .ROUTE .MEDSUPPLY Qty: 100 RF: 0 (DME) disposable gloves Package See Rx Instructions .ROUTE .MEDSUPPLY Qty: 50 RF: 0 hydroxyzine HCl 50 mg tablet 50 mg PO .mwf Qty: 30 RF: 3 (DME) AutoPap Qty: 1 RF: 0 duloxetine 30 mg capsule,delayed release(DR/EC) 30 mg PO .COMPLEX Qty: 60 RF: 11 aspirin 81 mg tablet,chewable See Rx Instructions .ROUTE .COMPLEX Qty: 30 RF: 11 glipizide 2.5 mg tablet extended release 24hr 2.5 mg PO QDAY Qty: 90 RF: 3 (DME) Diabetic shoes Qty: 1 RF: 0 True Metrix Glucose Test Strip Strip See Rx Instructions .ROUTE .COMPLEX Qty: 100 RF: 3 acetaminophen 500 mg capsule 500 mg PO TID PRN (Reason: pain unrelieved by hydrocodone) Qty: 100 RF: 3 albuterol sulfate 90 mcg/actuation HFA aerosol inhaler 2 puff INHALATION Q6H PRN (Reason: shortness of breath or wheezing) Qty: 8.5 RF: 1 calcium acetate(phosphat bind) 667 mg capsule 3,335 mg PO .TID with meals Qty: 450 RF: 11 hydrocodone-acetaminophen 10-325 mg tablet 1 tab PO Q8H PRN (Reason: pain) Qty: 90 RF: 0 (DME) blood-glucose meter Misc See Rx Instructions .ROUTE .MEDSUPPLY Qty: 1 RF: 0 (DME) heating pads Pad See Rx Instructions .ROUTE .MEDSUPPLY Qty: 1 RF: 0 (DME) diaper,brief,adult,disposable Misc See Rx Instructions .ROUTE .MEDSUPPLY Qty: 72 RF: 0 furosemide 80 mg tablet 80 mg PO QAM Qty: 30 RF: 11 midodrine 5 mg Tablet 10 mg PO MoWeFr@0800 Qty: 0 RF: 0
--- NOTE | 2021-05-15 16:44 | EKG ---
[facility] Test Date: 2021-05-15 Pat Name: Elo Robledo Department: ED Room: Gender: Female Apartment Maintenance Technician: iglesia : 1960 Requested By: Johnnie Kumar Order Number: [id number] Reading MD: Yony Blanco M.D. Measurements Intervals [place] Rate: 75 P: 56 MA: 225 QRS: 26 QRSD: 87 T: 64 QT: 413 QTc: 462 Interpretive Statements Sinus rhythm FIRST DEGREE AV BLOCK Low voltage, precordial leads Electronically Signed On 05-15-2021 16:44:07 PDT by Yony Blanco M.D. /[id number]/[email or web address]/[id number]
--- NOTE | 2021-05-15 16:53 | Nephrology Consult Note ---
HPI Data of Consult Consult date: 05/15/21 Primary Care Provider: Niels Anderson PA-C Consult Narrative cc:: CC: Too anxious to go to HD HPI: Patient was on MWF HD but due to covid restrictions would have to mask which amped up her anxiety to the point that she began to missed dialysis. She has done this in the past and it would go quite a while without dialysis. Efforts by the community mental health social worker resulted in a compromise in which she would dialyze on a TTS shift which has less patient where she can be physically isolated and wear a cloth mask to minimize her anxiety while on dialysis. Turns out last HD treatment was ~04/30/2021. Due to the mismatch of diet, sensipar, phosphate binders and no dialysis, her Ca is quite low and will need a high calcium treatment tomorrow before discharge home to return on 05/17/2021. Furthermore, her HgA1c is too low so stop glipizide to prevent repeat episodes of hypoglycemia. She had a mild increase in her serum potassium predialysis. And was complaining of some anxiety and low blood sugar postdialysis so she was sent to the emergency room for evaluation. Vital Signs Temp Pulse Resp BP Pulse Ox 05/15/21 15:54 77 98 05/15/21 15:15 78 140/75 94 05/15/21 15:10 80 145/63 95 05/15/21 14:31 150/60 05/15/21 14:15 137/120 05/15/21 14:00 157/66 05/15/21 13:46 141/78 05/15/21 13:31 81 176/70 100 05/15/21 13:15 75 172/74 93 05/15/21 13:01 74 183/69 96 05/15/21 12:45 77 159/78 94 05/15/21 12:25 77 157/72 95 05/15/21 11:32 76 172/86 95 05/15/21 11:17 79 169/83 90 05/15/21 11:01 81 151/86 97 05/15/21 10:47 81 155/83 95 05/15/21 10:37 80 167/83 95 05/15/21 10:02 82 111/70 97 05/15/21 09:48 81 111/69 96 10/07/21 09:44 36.4 C 81 16 111/69 97 Intake and Output 05/15/21 05/15/21 05/15/21 05:59 13:59 21:59 Intake Total 250 Balance 250 Intake: IV 250 Sodium Chloride 0.9% 250 ml @ 250 Wide Open IV BOLUS ONE Rx#: [id number] Other: Urine Appearance Straight Cloudy Sediment Weight 150.139 kg Laboratory Tests 04/10/21 05/15/21 05/15/21 06:00 10:05 10:29 POC Sodium 133 POC Potassium 3.7 POC Chloride 95 L POC Total CO2 22 POC BUN 45 H POC Creatinine 9.7 H* POC Glucose 92 Hemoglobin A1c 5.6 Estim Average Glucose 114 POC WB Ioniz Calcium 1.05 L PTH Intact 1447 H Review of Systems All systems: reviewed and no additional remarkable complaints except as stated Review of systems: Awake, alert, eating dinner. Constitutional Constitutional: Present as per HPI EENT Eyes: Present as per HPI Cardiovascular Cardiovascular: Present leg edema Respiratory Additional comments: N/A Gastrointestinal Gastrointestinal: Present nausea Genitourinary Genitourinary: Present other (anuria) Musculoskeletal Musculoskeletal: Present numbness; Absent abnormal gait (Wheelchair bound) Integumentary Integumentary: Present unusual bruising Neurological Neurological: Present as per HPI, abnormal gait, behavioral changes, confusion, disequilibrium, dizziness, paresthesias and tremor(s) Psychiatric Psychiatric: Present anxiety, difficulty concentrating, hopelessness, irritability and panic attacks Endocrine Endocrine: Present other (low blood sugar w/o Sx) Hematologic/Lymphatic Hematologic/Lymphatic: Present other (Anemia due to skipped HD and no MARYLOU Tx) Allergic/Immunologic Allergic/Immunologic: Present as per HPI PFSH PFSH All Active Problems (Updated 05/15/21 @ 20:58 by Bryce Retana MD) Iatrogenic hypocalcemia (Acute) ESRD (end stage renal disease) on dialysis (Chronic) DMII (diabetes mellitus, type 2) (Chronic) Hypoglycemia (Acute) Hyperparathyroidism due to renal insufficiency (Chronic) Morbid obesity with body mass index of 50.0-59.9 in adult (Acute) Adrenal apoplexy (Acute) Panic attack as reaction to stress (Acute) CVA (cerebrovascular accident) (Chronic) Dysmetabolic syndrome X (Chronic) Hyperlipidemia (Chronic) Hypertension, essential (Chronic) UTI (urinary tract infection) (Acute) Morbid obesity with body mass index of 50.0-59.9 in adult (Chronic) Peripheral Vascular Disease (Chronic) Diabetic nephropathy (Chronic) Diabetic neuropathy (Chronic) Blindness (Chronic) Acute foot pain (Acute) Proteinuria (Chronic) Ischemic optic neuropathy, right eye (Chronic) Migraine with aura, not intractable, without status migrainosus (Chronic) Age-related nuclear cataract, bilateral (Chronic) Other disorders of refraction (Chronic) 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 (Chronic) Bedbug bite with infection (Acute) Seizure (Acute) Other fluid overload (Acute) Cellulitis of lower leg (Acute) Hospital discharge follow-up (Acute) Daytime somnolence (Acute) CAT (obstructive sleep apnea) (Acute) Chronic pain (Acute) Hospital discharge follow-up (Acute) Urinary incontinence (Acute) Nail fungus (Acute) Delirium (Acute) Encephalopathy acute (Acute) Hypoglycemia (Acute) End-stage renal disease on hemodialysis (Chronic) Medical History Acute foot pain Age-related nuclear cataract, bilateral Blindness Chronic pain CVA (cerebrovascular accident) Daytime somnolence Diabetic nephropathy Diabetic neuropathy DMII (diabetes mellitus, type 2) stop metformin given current renal function ct lantus work on weight loss Dysmetabolic syndrome X End-stage renal disease on hemodialysis Hospital discharge follow-up Hospital discharge follow-up Hyperlipidemia Hyperparathyroidism due to renal insufficiency Treatment poor due to skipped treaments Hypertension, essential Ischemic optic neuropathy, right eye Migraine with aura, not intractable, without status migrainosus Morbid obesity with body mass index of 50.0-59.9 in adult Nail fungus CAT (obstructive sleep apnea) Other disorders of refraction Peripheral Vascular Disease Proteinuria nephrotic syndrome 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 Colin for outpt opthamology follow up but pt unable to be discharged on as intended Urinary incontinence UTI (urinary tract infection) Surgical History H/O: hysterectomy Ovaries remaining History of arteriovenostomy for renal dialysis History of removal of retained hardware 12/25/16-removal of retained tunneled dialysis catheter. S/P PICC central line placement (05/23/13) Family History Mother Malignant neoplasm of breast Malignant Neoplasm of Thyroid Gland Malignant neoplasm of uterus Unknown Depression Diabetes mellitus Grandmother Essential hypertension Myocardial Infarction Social History household members: spouse housing: house lives independently: Yes marital status: smoking status: Never smoker alcohol intake frequency: does not drink substance use type: does not use additional history: Patient is been wheelchair-bound for several years. And she does need help with transferring. Denies tobacco or alcohol. MEDS/ALLERGIES Home Medications and Allergies Home Medications Medication Instructions Recorded Confirmed Type Wheelchair #1 ea 06/07/19 04/02/21 Rx loratadine 10 mg tablet 10 mg PO QDAY PRN #30 tab 09/26/19 04/02/21 Rx cinacalcet 30 mg tablet 30 mg PO QDAY #30 tab 01/12/20 04/02/21 Rx midodrine 10 mg PO MoWeFr@0800 #0 tab 04/02/20 04/02/21 Rx Vinegar PO PRN 04/04/20 04/02/21 History ascorbate calcium (vitamin C) 500 1 g PO QDAY tab 04/04/20 04/02/21 History mg tablet clonidine HCl 0.1 mg tablet 0.1 mg PO 3XW PRN tab 04/04/20 04/02/21 History darbepoetin robson in polysorbat 60 225 mcg IV QWEEK ml 04/04/20 04/02/21 History mcg/mL in polysorbate injection heparin (porcine) 1,000 unit/mL 1,000 unit IV ml 04/04/20 04/02/21 History injection solution heparin (porcine) 1,000 unit/mL 2,000 unit IV ml 04/04/20 04/02/21 History injection solution [id number]-HC 3.5 1 applic OPHTHALMIC TID 04/04/20 04/02/21 His tory mg-400-10,000 unit/g-1 % eye ointment sodium ferric gluconate complex in 62.5 mg IV 3XW ml 04/04/20 04/02/21 History sucrose 62.5 mg/5 mL intravenous blade lancet, safety 1.2 mm #100 each 05/01/20 04/02/21 Rx blood-glucose meter #1 each 05/01/20 04/02/21 Rx diaper,brief,adult,disposable #72 each 05/01/20 04/02/21 Rx disposable gloves #50 each 05/01/20 04/02/21 Rx heating pads #1 each 05/01/20 04/02/21 Rx incontinence pad, liner, disp #200 each 05/01/20 04/02/21 Rx hydroxyzine HCl 50 mg tablet 50 mg PO .mwf #30 tab 06/24/20 04/02/21 Rx AutoPap #1 ea 07/08/20 04/02/21 Rx duloxetine 30 mg capsule,delayed 30 mg PO .COMPLEX #60 cap 07/23/20 04/02/21 Rx release aspirin 81 mg chewable tablet See Rx Instructions .ROUTE 07/29/20 04/02/21 Rx .COMPLEX #30 tablet glipizide 2.5 mg tablet, extended 2.5 mg PO QDAY #90 tab 11/13/20 04/02/21 Rx release 24 hr Diabetic shoes #1 each 12/02/20 04/02/21 Rx blood sugar diagnostic See Rx Instructions .ROUTE 01/13/21 04/02/21 Rx .COMPLEX #100 strip furosemide 80 mg tablet 80 mg PO QAM #30 tab 01/13/21 04/02/21 Rx acetaminophen 500 mg capsule 500 mg PO TID PRN #100 cap 02/11/21 04/02/21 Rx albuterol sulfate 90 mcg/actuation 2 puff INHALATION Q6H PRN #8.5 g 03/27/21 04/02/21 Rx aerosol inhaler calcium acetate(phosphat bind) 667 3,335 mg PO .TID with meals #450 04/21/21 Rx mg capsule cap hydrocodone 10 mg-acetaminophen 1 tab PO Q8H PRN #90 tab 04/28/21 Rx 325 mg tablet Allergies Allergy/AdvReac Type Severity Reaction Status Date / Time animal dander Allergy Intermediate Hives Verified 04/02/21 12:53 gluten Allergy Unknown Abdominal Verified 05/15/21 18:11 Pain milk Allergy Unknown Diarrhea Verified 05/15/21 18:11 Physical Examination Vital Signs Vital signs: Temp Pulse Resp BP Pulse Ox 36.4 C 77 16 140/75 98 05/15/21 09:44 05/15/21 15:54 05/15/21 09:44 05/15/21 15:15 05/15/21 15:54 General Appearance General appearance: obese, chronically ill, fatigue and anxious EENT EENT: ATNC, PERRL, mucous membranes dry and vision intact Neck Neck: no JVD, no carotid bruit and supple Respiratory Respiratory: course breath sounds and rhonchi Cardiovascular Cardiology: mid-systolic murmur, no rub, no gallops, edema, regular rhythm, normal S1 and normal S2 Gastrointestinal Gastrointestinal: hypoactive bowel sounds, no tenderness, no guarding and obese Integumentary Integumentary: no rash and ecchymotic Neurologic Neurologic: no focal deficit, no asterixis, confused and CN 3-12 intact Musculoskeletal Musculoskeletal: decreased ROM Psychiatric Psychiatric: depressed and pressured speech Additional Exam Additional exam: No carpal pedal spasm (+) tremor Results Lab Results Result Diagrams: 05/15/21 10:05 A/P Assessment and plan (1) Iatrogenic hypocalcemia: Status: Acute (2) ESRD (end stage renal disease) on dialysis: Status: Chronic (3) DMII (diabetes mellitus, type 2): Status: Chronic Comment: stop metformin given current renal function ct lantus work on weight loss Qualifiers: Diabetes mellitus complication status: with kidney complications Diabetes mellitus complication detail: with chronic kidney disease Chronic kidney disease stage: on chronic dialysis Diabetes mellitus group home insulin use: with long term care pharmacist use Qualified Code(s): E11.22 - Type 2 diabetes mellitus with diabetic chronic kidney disease; N18.6 - End stage renal disease; Z79.4 - [facility] (current) use of insulin; Z99.2 - Dependence on renal dialysis (4) Hypoglycemia: Status: Acute Comment: Prolonged T1/2 of Rx Poor po intak (5) Hyperparathyroidism due to renal insufficiency: Status: Chronic Comment: Treatment poor due to skipped treaments (6) Morbid obesity with body mass index of 50.0-59.9 in adult: Status: Acute Comment: pt is on wt loss diabetic diet. says is tolerating current caloric restriction resume low dose glyburide. (7) Adrenal apoplexy: Status: Acute Comment: pm cortisol 12.8 normal but with stim 11.5 and 10.4 poor response and abnormal. will start hydrocortisone 20 mg bid. (8) Panic attack as reaction to stress: Status: Acute Narrative A/P Narrative: 1. STOP SENSIPAR Recheck labs, PTH, adjust Ca dialysate 2. STOP GLIPIZIDE 3. HD on high Ca, low K bath tomorrow 4. D/C tomorrow after HD to return for outpatient treatment on 05/17/2021 5. Ignore urine / "bladder sweat" 6. Check AM cortisol and Restart Hydrocortisone in AM 7. May need calcitriol to increase Calcium 8. Duloxitine should be dosed at 30 mg po qD in HD patients 9. Make sure Rx list cleaned up and related to mother so she's in the loop Time Spent With Patient Time: Total time spent is greater than 50% in coordination of care (as documented) at patient's floor/unit and/or counseling patient: Total time spent with greater than 50% in coordination of care (as documented) at patient's floor/unit and/or counseling patient:: Greater than 35 minutes
[2021-05-15] MEDS ORDERED: cloNIDine HCL 0.1 MG TABLET PO PRN (17:36)
[2021-05-15] MEDS ORDERED: ONDANSETRON 4 MG/2 ML VIAL IV PRN (17:36)
[2021-05-15] MEDS ORDERED: LORATADINE 10 MG TABLET PO PRN (17:36)
[2021-05-15] MEDS ORDERED: ZOLPIDEM 5 MG TABLET PO PRN (17:36)
[2021-05-15] MEDS ORDERED: ACETAMINOPHEN 325 MG TABLET PO PRN (17:36)
[2021-05-15] MEDS ORDERED: ALBUTEROL SULFATE 200 PUFF INHALER INH PRN (17:36)
[2021-05-15] MEDS ORDERED: HYDROcodone/APAP 10/325MG TABLET PO PRN (17:36)
[2021-05-15] MEDS ORDERED: ACETAMINOPHEN 500 MG TABLET PO PRN (17:55)
[2021-05-15] MEDS ORDERED: DULoxetine 30 MG CAPSULE PO SCH (21:00)
[2021-05-15] MEDS ORDERED: SENNOSIDES 1 TABLET PO SCH (21:00)
[2021-05-15] MEDS: HEPARIN 5,000 UNIT/ML VIAL SQ SCH (21:52)
[2021-05-15] MEDS: [UNRECOGNIZED DRUG - OTHER] OPHTHALMIC SCH (21:53)
[2021-05-15] MEDS: 0.9 % SODIUM CHLORIDE 10 ML SYRINGE IV SCH (21:53)
[2021-05-15] MEDS: DOCUSATE SODIUM 100 MG CAPSULE PO SCH (21:53)
[2021-05-15 22:17] LABS: Albumin < 0.2 gm/dL (3.2-5.2); Blood Urea Nitrogen 59 mg/dL (6-20); Carbon Dioxide 24 mmol/L (22-30); Chloride 92 mmol/L (96-108); Glomerular Filtration Rate 105; Glucose 100 mg/dL (70-105); Phosphorous 5.9 mg/dL (2.5-4.5)
[2021-05-16] MEDS: 0.9 % SODIUM CHLORIDE 10 ML SYRINGE IV SCH ×3 (04:16→13:41)
--- NOTE | 2021-05-16 06:35 | Nephrology Progress Note ---
SUBJECTIVE Subjective Patient information: Note initiated : 05/16/21 at 6:33 am Patient: Elo Robledo 61 y/o F admitted on 05/15/21 for low blood sugar. Chief Complaint: Weakness Pertinent ROS: Weakness Feels better Constitutional Vitals: Vital Signs Temp Pulse Resp BP Pulse Ox 97.6 F 99 H 18 150/76 93 05/16/21 03:35 05/16/21 03:35 05/16/21 03:35 05/16/21 03:35 05/16/21 03:35 Period Temp Pulse Resp BP Sys/Clark Pulse Ox Last 24 Hr 97.1 F-97.6 F 74-99 16-20 111-183/60-120 90-100 Intake and Output 05/15/21 05/16/21 05/16/21 21:59 05:59 13:59 Intake Total 150 Output Total 1 Balance 149 Weight 333 lb 5 oz Intake & Output: Intake & Output 05/15/21 05/16/21 05/16/21 21:59 05:59 13:59 Intake Total 150 Output Total 1 Balance 149 Weight 333 lb 5 oz Intake: Oral 150 Output: # of times incontinent of urine 1 Other: Stool Size Smear # Bowel Movements 1 General appearance: cooperative, no acute distress and obese Head Head exam: Present normal inspection Eye Eye exam: Present normal appearance ENT ENT exam: Present mucous membranes moist Respiratory Respiratory exam: Absent respiratory distress Cardiovascular Cardiovascular exam: Present normal rate and rhythm GI/Abdominal GI/Abdominal exam: Present soft; Absent tenderness Extremities Exam Extremities exam: Absent joint swelling and pedal edema Neurological Exam Neurological exam: Present alert and oriented X3 Psychiatric Psychiatric exam: Present normal affect and normal mood Skin Skin exam: Present warm; Absent rash A/P Assessment and plan (1) ESRD (end stage renal disease) on dialysis: Assessment and plan: Elo Robledo is a 61-year-old female with end stage renal disease on hemodialysis, chronic anemia due to ESRD, hypertension, diabetes mellitus type 2 presented to ED for altered mental status and admitted on 05/15/21. She missed multiple dialysis. Her last HD treatment was ~04/30/2021. Nephrology consultation was requested for end stage renal disease. End stage renal disease on hemodialysis. Chronic anemia due to ESRD. Progress: Hemodialysis on 05/15/21. Acute encephalopathy, resolved. Hypoglycemia, resolved. Recommendations/Plan: Hemodialysis today then continue outpatient. The patient seen and evaluated during hemodialysis. Status: Chronic Time Spent With Patient Time: Total time spent is greater than 50% in coordination of care (as documented) at patient's floor/unit and/or counseling patient:
[2021-05-16] MEDS: DOCUSATE SODIUM 100 MG CAPSULE PO SCH (07:32)
[2021-05-16 07:50] LABS: Basophils # (Auto) 0.03 K/mcL (0.00-0.30); Basophils % (Auto) 0.5 % (0.0-2.0); Eosinophils # (Auto) 0.08 K/mcL (0.00-0.70); Eosinophils % (Auto) 1.3 % (0.0-7.0); Hematocrit 24.7 % (34.1-44.9); Hemoglobin 8.1 g/dL (11.2-15.7); Lymphocytes % (Auto) 12.6 % (15.5-49.0); Mean Cell Volume 99.6 fL (80.0-100.0); Mean Corpuscular HGB Conc 32.8 g/dL (31.0-36.0); Mean Platelet Volume 10.2 fL (7.4-10.4); Monocytes # (Auto) 0.67 K/mcL (0.10-0.90); Monocytes % (Auto) 10.5 % (1.0-12.0); Neutrophils % (Auto) 75.1 % (38.0-78.0); Platelet Count 194 K/mcL (140-440); RBC 2.48 M/mcL (3.59-5.38); WBC 6.4 K/mcL (4.5-11.0)
[2021-05-16] MEDS ORDERED: MIDODRINE 5 MG TABLET PO SCH (08:00)
[2021-05-16] MEDS: [UNRECOGNIZED DRUG - OTHER] OPHTHALMIC SCH ×2 (08:52→14:30)
[2021-05-16] MEDS: HEPARIN 5,000 UNIT/ML VIAL SQ SCH (08:54)
[2021-05-16] MEDS ORDERED: ASPIRIN 81 MG TAB.CHEW PO SCH (09:00)
[2021-05-16] MEDS ORDERED: CINACALCET 30 MG TABLET PO SCH (09:00)
[2021-05-16] MEDS ORDERED: ASCORBIC ACID 500 MG TABLET PO SCH (09:00)
[2021-05-16] MEDS ORDERED: FUROSEMIDE 80 MG TABLET PO SCH (09:00)
[2021-05-16] MEDS ORDERED: glipiZIDE 2.5 MG TAB.XL.24H PO SCH (09:00)
[2021-05-16] MEDS ORDERED: hydrOXYzine 25 MG TABLET PO SCH (09:30)
[2021-05-16 09:33] LABS: Albumin 3.2 gm/dL (3.2-5.2); Blood Urea Nitrogen 66 mg/dL (6-20); Calcium 9.2 mg/dL (8.6-10.4); Carbon Dioxide 22 mmol/L (22-30); Chloride 93 mmol/L (96-108); Glomerular Filtration Rate 3; Glucose 127 mg/dL (70-105); Phosphorous 7.2 mg/dL (2.5-4.5)
[2021-05-16] MEDS ORDERED: DARBEPOETIN ALFA 100 MCG/ML VIAL IV ONE (10:15)
[2021-05-16] MEDS ORDERED: IRON SUCROSE COMPLEX 100 MG/5 ML VIAL IV ONE (10:15)
[2021-05-16] MEDS ORDERED: CALCITRIOL 0.5 MCG CAPSULE PO ONE (10:30)
--- NOTE | 2021-05-16 14:31 | Discharge Summary ---
Discharge Provider Provider Patient information: Note initiated : 05/16/21 at 2:28 pm Service Date, if different from initiated Date: [] Patient: Elo Robledo a 61 y/o F admitted on 05/15/21 for low blood sugar. Chief Complaint: [medical noncompliance, altered mental status] History of present illness: Ms. Robledo is a 61 year old F history of end-stage renal disease on hemodialysis, type 2 diabetes mellitus, essential hypertension, mixed dyslipidemia, sleep apnea, morbid obesity, presenting with 1 day history of altered mental status. There was no prior similar episode. Patient does not remember what happened. Patient is reported to be noncompliant to hemodialysis and she has missed 2 weeks of hemodialysis until 2 days sections. She finished 2 days of hemodialysis sections but was found to be having altered mental status by dialysis center staff. As a result, EMS was called to send patients to our ED for further evaluations. Vital signs upon ED arrival were within normal limits. It was reported that her blood sugar was in the 60. Rest of the labs unremarkable upon ED presentations. CT of the head without contrast was performed and no acute intracranial abnormalities was found. Date of admission: 05/15/21 17:04 Discharge date: 05/16/21 Primary care physician: Niels Anderson PA-C Consults: 05/15/21 Consult to Physician [CONS] Stat Comment: Consulting Provider: Bryce Retana Reason For Exam: Physician to Consult Consult to Physician [CONS] Stat Comment: Consulting Provider: Harvey Hyatt Reason For Exam: Physician to Consult Discharge Meds Discharge Medications Home Medications Wheelchair #1 ea 06/07/19 [Rx Confirmed 05/16/21 Last Taken Unknown] loratadine 10 mg tablet 10 mg PO QDAY PRN #30 tab 09/26/19 [Rx Confirmed 05/15/21 Last Taken 03/10/20] midodrine 10 mg PO MoWeFr@0800 #0 tab 04/02/20 [Rx Confirmed 05/15/21 Last Taken Unknown] ascorbate calcium (vitamin C) 500 mg tablet 1 g PO QDAY tab 04/04/20 [History Confirmed 05/15/21 Last Taken Unknown] clonidine HCl 0.1 mg tablet 0.1 mg PO 3XW PRN tab 04/04/20 [History Confirmed 05/15/21 Last Taken Unknown] darbepoetin robson in polysorbat 60 mcg/mL in polysorbate injection 225 mcg IV QWEEK ml 04/04/20 [History Confirmed 05/15/21 Last Taken Unknown] heparin (porcine) 1,000 unit/mL injection solution 1,000 unit IV 3XW ml 04/04/20 [History Confirmed 05/15/21 Last Taken Unknown] heparin (porcine) 1,000 unit/mL injection solution 2,000 unit IV 3XW ml 04/04/20 [History Confirmed 05/15/21 Last Taken Unknown] nokwyytl-bnfmeewszk-igzz-HC 3.5 mg-400-10,000 unit/g-1 % eye ointment 1 applic OPHTHALMIC TID 04/04/20 [History Confirmed 05/15/21 Last Taken Unknown] sodium ferric gluconate complex in sucrose 62.5 mg/5 mL intravenous 62.5 mg IV 3XW ml 04/04/20 [History Confirmed 05/15/21 Last Taken Unknown] blade lancet, safety 1.2 mm #100 each 05/01/20 [Rx Confirmed 05/16/21 Last Taken Unknown] blood-glucose meter #1 each 05/01/20 [Rx Confirmed 05/16/21 Last Taken Unknown] diaper,brief,adult,disposable #72 each 05/01/20 [Rx Confirmed 05/16/21 Last Taken Unknown] disposable gloves #50 each 05/01/20 [Rx Confirmed 05/16/21 Last Taken Unknown] heating pads #1 each 05/01/20 [Rx Confirmed 05/16/21 Last Taken Unknown] incontinence pad, liner, disp #200 each 05/01/20 [Rx Confirmed 05/16/21 Last Taken Unknown] hydroxyzine HCl 50 mg tablet 50 mg PO .mwf #30 tab 06/24/20 [Rx Confirmed 05/15/21 Last Taken Unknown] duloxetine 30 mg capsule,delayed release 30 mg PO .COMPLEX #60 cap 07/23/20 [Rx Confirmed 05/15/21 Last Taken Unknown] aspirin 81 mg chewable tablet See Rx Instructions .ROUTE .COMPLEX #30 tablet [Rx Confirmed 05/15/21 Last Taken Unknown] Diabetic shoes #1 each 12/02/20 [Rx Confirmed 05/16/21 Last Taken Unknown] furosemide 80 mg tablet 80 mg PO QAM #30 tab 01/13/21 [Rx Confirmed 05/15/21 Last Taken Unknown] acetaminophen 500 mg capsule 500 mg PO TID PRN #100 cap 02/11/21 [Rx Confirmed 05/15/21 Last Taken Unknown] albuterol sulfate 90 mcg/actuation aerosol inhaler 2 puff INHALATION Q6H PRN #8.5 g 03/27/21 [Rx Confirmed 05/15/21 Last Taken Unknown] calcium acetate(phosphat bind) 667 mg capsule 3,335 mg PO .TID with meals #450 cap 04/21/21 [Rx Confirmed 05/15/21 Last Taken Unknown] hydrocodone 10 mg-acetaminophen 325 mg tablet 1 tab PO Q8H PRN #90 tab 04/28/21 [Rx Confirmed 05/15/21 Last Taken Unknown] COURSE Hospital Course Hospital course: Patient was admitted on May 15 for confusions and altered mental status status post hemodialysis sections. It was also found that patient overdosed herself on cinacalcet with resultant hyponatremia which could contributed to her altered mental status and general body weakness as well. [employer] Dr. Retana was consulted who offer to perform hemodialysis on day to hospitalizations. He also recommend holding cinacalcet for the time being. Patient achieved clinical stability on day to hospitalizations after finishing the hemodialysis. The decision was thus made to discharge her home with follow- up with Dr. Retana on her next hemodialysis sections. All questions were answered prior to patient being physically discharged. Discharge diagnosis: altered mental status, medical noncompliance Time Spent with Patient Time attestation: Total time spent providing and/or coordinating discharge services: Patient was admitted on May 15 for confusions and altered mental status status post hemodialysis sections. It was also found that patient overdosed herself on cinacalcet with resultant hyponatremia which could contributed to her altered mental status and general body weakness as well. [employer] Dr. Retana was consulted who offer to perform hemodialysis on day to hospitalizations. He also recommend holding cinacalcet for the time being. Patient achieved clinical stability on day to hospitalizations after finishing the hemodialysis. The decision was thus made to discharge her home with follow- up with Dr. Retana on her next hemodialysis sections. All questions were answered prior to patient being physically discharged. EXAM Constitutional Vitals: Temp Pulse Resp BP Pulse Ox 36.6 C 99 H 20 142/60 92 05/16/21 07:32 05/16/21 03:35 05/16/21 07:32 05/16/21 07:32 05/16/21 07:45 General appearance: cooperative and no acute distress Head Head exam: Present atraumatic and normocephalic Eye Eye exam: Present EOMI and PERRL ENT ENT exam: Present mucous membranes moist, normal exam and normal external ear exam Neck Neck exam: Present normal inspection; Absent lymphadenopathy, tenderness and thyromegaly Respiratory Respiratory exam: Absent accessory muscle use, respiratory distress and wheezes Cardiovascular Cardiovascular exam: Present normal rate and rhythm; Absent JVD GI/Abdominal GI/Abdominal exam: Present normal bowel sounds and soft; Absent organomegaly and tenderness Extremities Exam Extremities exam: Present full ROM, normal capillary refill and normal inspection; Absent tenderness Additional comments: AV fistula left arm Neurological Exam Neurological exam: Present alert, CN II-XII intact and oriented X3; Absent motor sensory deficit Psychiatric Psychiatric exam: Present normal affect and normal mood; Absent anxious and depressed Skin Skin exam: Present dry and intact Discharge Data Data Completed and Pending Labs on day of discharge: Labs from last 24 hours 05/16/21 05/16/21 05/16/21 05:13 05:13 05:13 WBC RBC Hgb Hct MCV MCH MCHC RDW Plt Count MPV Neut % (Auto) Lymph % (Auto) [place] % (Auto) Eos % (Auto) Baso % (Auto) Lymph # (Auto) [place] # (Auto) Eos # (Auto) Baso # (Auto) Absolute Neutrophils Sodium 135 Potassium 4.7 Chloride 93 L Carbon Dioxide 22 Anion Gap 20.0 H BUN 66 H Creatinine 10.8 H* GFR Calculation 3 Glucose 127 H Hemoglobin A1c Estim Average Glucose Calcium 9.2 Phosphorus 7.2 H* Albumin 3.2 PTH Related Protein Pending Cortisol AM Sample 8.4 05/16/21 05/15/21 05/15/21 05:13 21:05 10:05 WBC 6.4 RBC 2.48 L Hgb 8.1 L Hct 24.7 L MCV 99.6 MCH 32.7 MCHC 32.8 RDW 13.0 Plt Count 194 MPV 10.2 Neut % (Auto) 75.1 Lymph % (Auto) 12.6 L [place] % (Auto) 10.5 Eos % (Auto) 1.3 Baso % (Auto) 0.5 Lymph # (Auto) 0.80 L [place] # (Auto) 0.67 Eos # (Auto) 0.08 Baso # (Auto) 0.03 Absolute Neutrophils 4.78 Sodium 134 Potassium 4.3 Chloride 92 L Carbon Dioxide 24 Anion Gap 18.0 H BUN 59 H Creatinine < 0.5 L GFR Calculation 105 Glucose 100 Hemoglobin A1c 5.6 Estim Average Glucose 114 Calcium 9.0 Phosphorus 5.9 H* Albumin < 0.2 L PTH Related Protein Cortisol AM Sample Discharge Plan Patient/Caregiver Discharge Instructions Activity: increase activity as tolerated Diet: Renal/Consistent Carbs Prescriptions: Continued (DME) Wheelchair Qty: 1 RF: 0 loratadine 10 mg tablet 10 mg PO QDAY PRN (Reason: allergy symptoms) Qty: 30 RF: 11 Aranesp (in polysorbate) 60 mcg/mL solution 225 mcg IV QWEEK RF: 0 Hold Instructions: Doctor's Order clonidine HCl 0.1 mg tablet 0.1 mg PO 3XW PRN (Reason: Hypertension) RF: 0 sodium ferric gluconat-sucrose [Ferrlecit] 62.5 mg/5 mL solution 62.5 mg IV 3XW RF: 0 heparin (porcine) 1,000 unit/mL solution 1,000 unit IV 3XW RF: 0 heparin (porcine) 1,000 unit/mL solution 2,000 unit IV 3XW RF: 0 yseytzvw-ayganngcfw-idgl-HC 3.5-400-10,000 mg-unit/g-1% ointment 1 applic OPHTHALMIC TID RF: 0 ascorbate calcium (vitamin C) 500 mg tablet 1 g PO QDAY RF: 0 (DME) incontinence pad, liner, disp Pad See Dose Instructions .ROUTE .MEDSUPPLY Qty: 200 RF: 0 (DME) blade lancet, safety 1.2 mm misc See Rx Instructions .ROUTE .MEDSUPPLY Qty: 100 RF: 0 (DME) disposable gloves Package See Rx Instructions .ROUTE .MEDSUPPLY Qty: 50 RF: 0 hydroxyzine HCl 50 mg tablet 50 mg PO .mwf Qty: 30 RF: 3 duloxetine 30 mg capsule,delayed release(DR/EC) 30 mg PO .COMPLEX Qty: 60 RF: 11 aspirin 81 mg tablet,chewable See Rx Instructions .ROUTE .COMPLEX Qty: 30 RF: 11 (DME) Diabetic shoes Qty: 1 RF: 0 acetaminophen 500 mg capsule 500 mg PO TID PRN (Reason: pain unrelieved by hydrocodone) Qty: 100 RF: 3 albuterol sulfate 90 mcg/actuation HFA aerosol inhaler 2 puff INHALATION Q6H PRN (Reason: shortness of breath or wheezing) Qty: 8.5 RF: 1 calcium acetate(phosphat bind) 667 mg capsule 3,335 mg PO .TID with meals Qty: 450 RF: 11 hydrocodone-acetaminophen 10-325 mg tablet 1 tab PO Q8H PRN (Reason: pain) Qty: 90 RF: 0 (DME) blood-glucose meter Misc See Rx Instructions .ROUTE .MEDSUPPLY Qty: 1 RF: 0 (DME) heating pads Pad See Rx Instructions .ROUTE .MEDSUPPLY Qty: 1 RF: 0 (DME) diaper,brief,adult,disposable Misc See Rx Instructions .ROUTE .MEDSUPPLY Qty: 72 RF: 0 furosemide 80 mg tablet 80 mg PO QAM Qty: 30 RF: 11 midodrine 5 mg Tablet 10 mg PO MoWeFr@0800 Qty: 0 RF: 0 Follow Up Plan Follow up with: Bryce Retana MD [Physician] - Niels Anderson PA-C [Primary Care Provider] - Patient Disposition: Home, Self-Care Rehab Potential: Good I certify that the patient requires SNF services: No Overall status at discharge: patient is back to baseline Discharge Orders: Discharge Order (Routine); Ordered 05/16/21 Ordered By: Harvey ROMANO VTE Deep Vein Thrombosis/Pulmonary Embolism Present on Admission: No
[2021-05-16] MEDS ORDERED: CALCIUM ACETATE 667 MG CAPSULE PO SCH (17:30)
[2021-05-16] MEDS ORDERED: DULoxetine 30 MG CAPSULE PO SCH (21:00)
== END 2021-05-16 16:00 | disposition home or self-care (01) ==
LOC: ED 09:44 → MEDSUR 09:44
PROVIDERS: ADMIT Internal Medicine; ATTEND Internal Medicine